=== PATIENT | male | born 1950 | race Hispanic/Latino ===

== ENCOUNTER 2017-06-07 09:08 | Emergency (ER) | payer MEDICARE, MEDICAID ==
[2017-06-07 09:14] VITALS: BMI 29.7
[2017-06-07 09:21] VITALS: BP 130/74; PULSE 89; TEMP 98.2
--- NOTE | 2017-06-07 10:23 | ED PDOC ---
Arrival/HPI - General Chief Complaint: ENT Problem Time Seen by Provider: 06/07/17 09:29 Historian: Patient - History of Present Illness Narrative History of Present Illness (Text): 06/07/17 10:34 67-year-old male presents today with decreased hearing. Patient states he woke up this morning and was unable to hear out of both ears. Patient states he has a prior history of cerumen impaction. He denies headache dizziness weakness. Denies chest pain or shortness of breath. Patient denies pain in the ears. Denies fevers or chills. No other complaints Time/Duration: Prior to Arrival Past Medical History - Provider Review Nursing Documentation Reviewed: Yes - Travel History Have you recently traveled outside [place] w/in the past 3 mons?: No - Past History Past History: Non-Contributing - Infectious Disease Hx of Infectious Diseases: None - Tetanus Immunization Tetanus Immunization: Unknown - Past Medical History Past Medical History: Unable to Obtain - Cardiac Hx Cardiac Disorders: Yes Hx Hypertension: No Hx Pacemaker: No Hx Peripheral Edema: Yes - Pulmonary Hx Chronic Obstructive Pulmonary Disease (COPD): Yes Hx Pneumonia: Yes - Neurological Hx Seizures: No - HEENT Hx HEENT Disorder: Yes Hx Cataracts: Yes (right eye sx, left eye no sx) - Renal Hx Renal Disorder: No - Endocrine/Metabolic Hx Endocrine Disorders: No - Hematological/Oncological Hx Anemia: Yes Hx Blood Transfusions: Yes (IN PAST) Hx Blood Transfusion Reaction: No - Integumentary Hx Dermatological Disorder: Yes (hx pressure ulcers) - Musculoskeletal/Rheumatological Hx Fractures: Yes (left wrist) Hx Osteoporosis: Yes - Gastrointestinal Hx Gastrointestinal Ulcer: Yes - Genitourinary/Gynecological Hx Sexually Transmitted Diseases: No - Psychiatric Hx Anxiety: Yes Hx Depression: Yes Hx Substance Use: Yes (IVDA, METHODONE, NONE AT PRESENT) - Past Surgical History Past Surgical History: Unable to Obtain - Surgical History Hx Coronary Artery Bypass Graft: No Other/Comment: Gastrectomy. Hernia - Anesthesia Hx Anesthesia: Yes Hx Anesthesia Reactions: No Hx Malignant Hyperthermia: No - Suicidal Assessment Feels Threatened In Home Enviroment: No Family/Social History - Physician Review Nursing Documentation Reviewed: Yes Family/Social History: Unknown Family HX Smoking Status: Heavy Smoker > 10 Cigarettes Daily Hx Alcohol Use: Yes (ETOH ABUSE- ON AA.NOT HAD A DRINK FOR 31 YRS.) Hx Substance Use: Yes (IVDA, METHODONE, NONE AT PRESENT) Hx Substance Use Treatment: No Allergies/Home Meds Allergies/Adverse Reactions: Allergies aspirin Allergy (Verified 06/07/17 09:14) RASH Home Medications: Home Meds Medication Instructions Recorded Confirmed Alprazolam [Xanax] 0.5 mg PO BID 08/27/16 06/07/17 Zolpidem [Ambien] 10 mg PO HS 08/27/16 06/07/17 Review of Systems - Review of Systems Constitutional: absent: Fatigue, Fevers ENT: Hearing Changes. absent: Sore Throat, Sinus Congestion Respiratory: absent: SOB, Cough Cardiovascular: absent: Chest Pain, Palpitations Gastrointestinal: absent: Abdominal Pain, Nausea, Vomiting Genitourinary Male: absent: Dysuria Musculoskeletal: absent: Arthralgias Skin: absent: Rash, Pruritis Neurological: absent: Headache, Dizziness Psychiatric: absent: Anxiety, Depression Physical Exam Vital Signs Reviewed: Yes Vital Signs Temp Pulse Resp BP Pulse Ox 06/07/17 10:33 16 98 06/07/17 09:18 98.2 F 89 19 130/74 95 Temperature: Afebrile Blood Pressure: Normal Pulse: Regular Respiratory Rate: Normal Appearance: Positive for: Well-Appearing, Non-Toxic, Comfortable Pain Distress: None Mental Status: Positive for: Alert and Oriented X 3 - Systems Exam Head: Present: Atraumatic Ears: Present: Other (no mastoid tenderness or erythema). No: Normal Canal (b/ l cerumen impactions, ) Mouth: Present: Moist Mucous Membranes Neck: Present: Normal Range of Motion Respiratory/Chest: Present: Clear to Auscultation Cardiovascular: Present: Regular Rate and Rhythm Neurological: Present: GCS=15 Skin: Present: Warm, Dry Psychiatric: Present: Alert, Oriented x 3 Medical Decision Making ED Course and Treatment: 06/07/17 10:43 67-year-old male presents with bilateral cerumen impaction Procedure note: Bilateral ears Using 18-gauge Angiocath and 20 mL syringe the ears were irrigated. Large amount of cerumen was removed from both ears. Hearing restored. TMs without erythema edema or perforation. Patient tolerated procedure well. No complications advised f/u with PMD and ENT specialist. Impression; cerumen impaction f/u with ENT specialist f/u with PMD return if symptoms worsen persist or if new symptoms develop. Disposition/Present on Arrival - Present on Arrival Any Indicators Present on Arrival: No History of DVT/PE: No History of Uncontrolled Diabetes: No Urinary Catheter: No History of Decub. Ulcer: No History Surgical Site Infection Following: None - Disposition Have Diagnosis and Disposition been Completed?: Yes Diagnosis: Cerumen impaction Disposition: HOME/ ROUTINE Disposition Time: 10:07 Patient Plan: Discharge Condition: GOOD Discharge Instructions (ExitCare): Cerumen Impaction (ED) Additional Instructions: Follow-up with primary care physician within the next 2 days Follow up with the ENT specialist within the next 2 days Return if symptoms worsen persist or if new concerning symptoms develop Referrals: PCP,NO [Non-Staff] - Follow up with primary Fer Beach DO [Staff Provider] - Follow up with primary Forms: [employer] (Lithuanian)
[2017-06-07 10:34] VITALS: RESP 16; O2SAT 98
== END 2017-06-07 10:34 | disposition home or self-care (01) ==
LOC: ED 09:08
DX: H61.23 Impacted cerumen, bilateral (principal)

== ENCOUNTER 2017-06-20 12:47 | Emergency (ER) | payer MEDICARE, MEDICAID ==
[2017-06-20] MEDS ORDERED: Sodium Chloride 0.9% 500 ML IV STA (13:05)
[2017-06-20 13:08] VITALS: RESP 18; TEMP 98.4; BMI 17.9
--- NOTE | 2017-06-20 13:11 | ED PDOC ---
Arrival/HPI - General Time Seen by Provider: 06/20/17 12:53 Historian: Patient - History of Present Illness Narrative History of Present Illness (Text): 06/20/17 13:00 A 67 year old male, whose past medical history includes neuropathy and opioid abuse, was brought in by EMS because they found him sleeping at the [facility] pharmacy. They thought he was confused. Patient states has not been sleeping well and currently suffers from insomnia. Also, he mentions he went to [facility] urgent clinic for evaluation and they gave him his medications of Ambian and Xanax. Patient has not taken too many pills since refill. Patient notes experiencing fatigue, but denies of an injuries, cough, fever, or any other complaints. Patient states he is eating and drinking normally. No PMD Time/Duration: Prior to Arrival Symptom Onset: Sudden Context: Other ([facility]) Past Medical History - Provider Review Nursing Documentation Reviewed: Yes - Past History Past History: Non-Contributing - Infectious Disease Hx of Infectious Diseases: None - Tetanus Immunization Tetanus Immunization: Unknown - Past Medical History Past Medical History: Unable to Obtain - Cardiac Hx Cardiac Disorders: Yes Hx Hypertension: No Hx Pacemaker: No Hx Peripheral Edema: Yes - Pulmonary Hx Chronic Obstructive Pulmonary Disease (COPD): Yes Hx Pneumonia: Yes - Neurological Hx Seizures: No - HEENT Hx HEENT Disorder: Yes Hx Cataracts: Yes (right eye sx, left eye no sx) - Renal Hx Renal Disorder: No - Endocrine/Metabolic Hx Endocrine Disorders: No - Hematological/Oncological Hx Anemia: Yes Hx Blood Transfusions: Yes (IN PAST) Hx Blood Transfusion Reaction: No - Integumentary Hx Dermatological Disorder: Yes (hx pressure ulcers) - Musculoskeletal/Rheumatological Hx Fractures: Yes (left wrist) Hx Osteoporosis: Yes - Gastrointestinal Hx Gastrointestinal Ulcer: Yes - Genitourinary/Gynecological Hx Sexually Transmitted Diseases: No - Psychiatric Hx Anxiety: Yes Hx Depression: Yes Hx Substance Use: Yes (IVDA, METHODONE, NONE AT PRESENT) - Past Surgical History Past Surgical History: Unable to Obtain - Surgical History Hx Coronary Artery Bypass Graft: No Other/Comment: Gastrectomy. Hernia - Anesthesia Hx Anesthesia: Yes Hx Anesthesia Reactions: No Hx Malignant Hyperthermia: No - Suicidal Assessment Feels Threatened In Home Enviroment: No Family/Social History - Physician Review Nursing Documentation Reviewed: Yes Family/Social History: No Known Family HX Smoking Status: Heavy Smoker > 10 Cigarettes Daily Hx Alcohol Use: Yes (ETOH ABUSE- ON AA.NOT HAD A DRINK FOR 31 YRS.) Hx Substance Use: Yes (IVDA, METHODONE, NONE AT PRESENT) Hx Substance Use Treatment: No Allergies/Home Meds Allergies/Adverse Reactions: Allergies aspirin Allergy (Verified 06/07/17 09:14) RASH Home Medications: Home Meds Medication Instructions Recorded Confirmed Alprazolam [Xanax] 1 mg PO TID 08/27/16 06/20/17 Zolpidem [Ambien] 10 mg PO HS PRN 08/27/16 06/20/17 DiphenhydrAMINE [Benadryl] 25 mg PO TID 06/20/17 06/20/17 Gabapentin [Neurontin] 400 mg PO QID 06/20/17 06/20/17 Review of Systems - Physician Review All systems were reviewed & negative as marked: Yes - Review of Systems Constitutional: Fatigue. absent: Fevers, Other (no injuries) Respiratory: absent: SOB, Cough Cardiovascular: absent: Chest Pain Gastrointestinal: absent: Food Intolerance Neurological: absent: Headache, Dizziness, Focal Weakness, Gait Changes, Speech Changes, Facial Droop, Disequilibrium, Seizure Physical Exam Vital Signs Reviewed: Yes Vital Signs Temp Pulse Resp BP Pulse Ox 06/20/17 16:05 74 18 121/80 95 06/20/17 13:07 98.4 F 77 18 95/61 L 97 Temperature: Afebrile Blood Pressure: Normal Pulse: Regular Respiratory Rate: Normal Appearance: Positive for: Well-Appearing, Other (Drowsy) Mental Status: Positive for: Alert and Oriented X 3 - Systems Exam Head: Present: Atraumatic, Normocephalic Pupils: Present: PERRL Extroacular Muscles: Present: EOMI Conjunctiva: Present: Normal Mouth: Present: Moist Mucous Membranes Neck: Present: Normal Range of Motion Respiratory/Chest: Present: Clear to Auscultation, Good Air Exchange. No: Respiratory Distress, Accessory Muscle Use Cardiovascular: Present: Regular Rate and Rhythm, Normal S1, S2. No: Murmurs Abdomen: Present: Normal Bowel Sounds. No: Tenderness, Distention, Peritoneal Signs Back: Present: Normal Inspection Upper Extremity: Present: Normal Inspection. No: Cyanosis, Edema Lower Extremity: Present: Normal Inspection. No: Edema Neurological: Present: GCS=15, CN II-XII Intact, Speech Normal, Motor Func Grossly Intact, Normal Sensory Function, Normal Cerebellar Funct, Norm Deep Tendon Reflexes, Gait Normal, Memory Normal, Normal 2Pt Descrimination Skin: Present: Warm, Dry, Normal Color. No: Rashes Psychiatric: Present: Alert, Oriented x 3, Normal Insight, Normal Concentration Medical Decision Making ED Course and Treatment: 06/20/17 13:08 Impression: 67 year old male presents to the ED via EMS because he was found sleeping at a [facility]. Physical exam shows patient is drowsy, alert x 3. Normal neuro exam. Differential Diagnosis included but are not limited to: Medication Interaction vs Drug Induced vs Electrolyte Abnormality Plan: -- EKG -- Head CT -- Chest X-ray -- Labs -- IV Fluids -- Urinalysis -- Reassess and disposition Prior Visits: Notes and results from previous visits were reviewed. Patient was last seen in the emergency department on 06/07/2017 for decreased hearing. Patient was discharged home. Progress Notes: EKG: Ordered, reviewed, and independently interpreted the EKG. Rate : 72 BPM Rhythm : NSR Interpretation : No ST-segment elevations or depressions, no T-wave inversions, normal intervals. Comparison : No previous EKG for comparison. 06/20/2017 13:45 Chest X-ray IMPRESSION: No active pulmonary disease. COPD. Dictator : Latasha Leslie MD 06/20/2017 14:[address] IMPRESSION: No acute findings Dictator : Hussein Quinones MD 06/20/17 17:20 Patient's AAOx3. No slurred speech. He is stating maybe the Xanax made him sleepy. He will take half the dosage in the future. He is feeling better after getting some rest. He will follow up with a PMD as an outpatient. Referred him to Dr. Lafleur since he doesn't have a doctor. - Lab Interpretations Lab Results: 06/20/17 13:15 06/20/17 13:15 Lab Results 06/20/17 14:30: Urine Opiates Screen Negative, Urine Methadone Screen Negative, Ur Barbiturates Screen Negative, Ur Phencyclidine Scrn Negative, Ur Amphetamines Screen Negative, U Benzodiazepines Scrn Negative, U Oth Cocaine Metabols Negative, U Cannabinoids Screen Negative 06/20/17 14:30: Urine Color Yellow, Urine Appearance Clear, Urine pH 7.5, Ur Specific [place] 1.010, Urine Protein Negative, Urine Glucose (UA) Negative, Urine Ketones Negative, Urine Blood Negative, Urine Nitrate Negative, Urine Bilirubin Negative, Urine Urobilinogen 0.2, Ur Leukocyte Esterase Negative 06/20/17 13:15: Alcohol, Quantitative < 10 06/20/17 13:15: Salicylates < 1 L, Acetaminophen < 10.0 L 06/20/17 13:15: Sodium 141, Potassium 4.2, Chloride 104, Carbon Dioxide 27, Anion Gap 14, BUN 17, Creatinine 0.8, Est GFR ( Amer) > 60, Est GFR (Non- Af Amer) > 60, Random Glucose 70, Calcium 8.8, Total Bilirubin 0.4, AST 34, ALT 28, Alkaline Phosphatase 58, Total Protein 6.5, Albumin 3.5, Globulin 3.1, Albumin/Globulin Ratio 1.1 06/20/17 13:15: WBC 5.7 D, RBC 3.88, Hgb 11.2 L, Hct 34.1 L, MCV 87.9, MCH 28.9 , MCHC 32.8, RDW 16.0 H, Plt Count 268, MPV 8.3, Gran % 59.5, Lymph % (Auto) 25.3, [place] % (Auto) 10.3 H, Eos % (Auto) 3.7, Baso % (Auto) 1.2, Gran # 3.42, Lymph # 1.5, [place] # 0.6, Eos # 0.2, Baso # 0.07 06/20/17 13:02: POC Glucose (mg/dL) 74 I have reviewed the lab results: Yes Interpretation: All labs normal - RAD Interpretation Radiology Orders: 06/20/17 13:06 CHEST PORTABLE [RAD] Stat 06/20/17 13:35 Brain [HEAD W/O CONTRAST] [CT] Stat Mail Processing Machine Operator: Radiologist - Medication Orders Current Medication Orders: Discontinued Medications Sodium Chloride (Sodium Chloride 0.9%) 500 mls @ 1,000 mls/hr IV .Q30M STA Stop: 06/20/17 13:34 Last Admin: 06/20/17 14:16 Dose: 1,000 mls/hr - Scribe Statement The provider has reviewed the documentation as recorded by the Scribe Homa Ashford Provider Feribe Attestation: All medical record entries made by the Feribseven were at my direction and personally dictated by me. I have reviewed the chart and agree that the record accurately reflects my personal performance of the history, physical exam, medical decision making, and the department course for this patient. I have also personally directed, reviewed, and agree with the discharge instructions and disposition. Disposition/Present on Arrival - Present on Arrival Any Indicators Present on Arrival: No History of DVT/PE: No History of Uncontrolled Diabetes: No Urinary Catheter: No History Surgical Site Infection Following: None - Disposition Have Diagnosis and Disposition been Completed?: Yes Diagnosis: Weakness, Tiredness Disposition: HOME/ ROUTINE Disposition Time: 17:22 Patient Plan: Discharge Patient Problems: Current Active Problems Problem Status Onset Weakness Acute Tiredness Acute Condition: IMPROVED Discharge Instructions (ExitCare): Weakness (ED), Altered Mental Status (ED) Additional Instructions: Mr Cruz, thank you for letting us take care of you today. Your provider was Dr. Erickson. You were treated for Tiredness and Weakness. The emergency medical care you received today was directed at your acute symptoms. If you were prescribed any medication, please fill it and take as directed. It may take several days for your symptoms to resolve. Return to the Emergency Department if your symptoms worsen, do not improve, or if you have any other problems. Please contact your doctor or call one of the physicians/clinics you have been referred to that are listed on the Patient Visit Information form that is included in your discharge packet. Bring any paperwork you were given at discharge with you along with any medications you are taking to your follow up visit. Our treatment cannot replace ongoing medical care by a primary care provider (PCP) outside of the emergency department. Thank you for allowing the [facility] team to be part of your care today. If you had an X-Ray or CT scan: A Radiologist will review the ED reading if any change in treatment is needed we will contact you. If you had a blood, urine, or wound culture: It will take several days for the results, if any change in treatment is needed we will contact you. If you had an STI test: It will take 48 hours for the results. Please call after 1 week if you have not heard back. Referrals: Jose Lafleur MD [Staff Provider] - Follow up with primary Forms: [employer] (Zimbabwean)
[2017-06-20 13:32] LABS: BASO # 0.07 K/mm3 (0.0-2.0); BASO % 1.2 % (0.0-3.0); EOS # 0.2 (0.0-0.7); EOS % 3.7 % (1.5-5.0); GRAN # 3.42 (1.4-6.5); GRAN % 59.5 % (50.0-68.0); HEMATOCRIT 34.1 % (42.0-52.0); LYMPH # 1.5 (1.2-3.4); LYMPH % 25.3 % (22.0-35.0); MEAN CELL VOLUME 87.9 fl (80.0-105.0); MEAN CORPUSCULAR HEMOGLOBIN 28.9 pg (25.0-35.0); MEAN CORPUSCULAR HGB CONC 32.8 g/dl (31.0-37.0); MEAN PLATELET VOLUME 8.3 fl (7.0-11.0); MONO # 0.6 (0.1-0.6); MONO % 10.3 % (1.0-6.0); WHITE BLOOD COUNT 5.7 10^3/ul (4.5-11.0)
[2017-06-20 13:40] LABS: ALB/GLOB RATIO 1.1 (1.1-1.8); ALKALINE PHOSPHATASE 58 U/L (38-133); ALT/SGPT 28 U/L (7-56); AST/SGOT 34 U/L (15-59); BILIRUBIN,TOTAL 0.4 mg/dL (0.2-1.3); BLOOD UREA NITROGEN 17 mg/dL (7-21); CALCIUM 8.8 mg/dL (8.4-10.5); CARBON DIOXIDE 27 mmol/L (21-33); CHLORIDE 104 mmol/L (98-107); GFR AFRICAN-AMERICAN > 60; GLUCOSE,RANDOM 70 mg/dL (70-110); POTASSIUM 4.2 mmol/L (3.6-5.0); SODIUM 141 mmol/L (132-148); TOTAL PROTEIN 6.5 g/dL (5.8-8.3)
--- NOTE | 2017-06-20 13:46 | RAD ---
HISTORY: Altered mental status COMPARISON: 08/03/2016 FINDINGS: LUNGS: The lungs are hyperinflated and there is peribronchial thickening with chronic changes in both lungs. No focal consolidation. PLEURA: No significant pleural effusion identified, no pneumothorax apparent. CARDIOVASCULAR: Normal. OSSEOUS STRUCTURES: No significant abnormalities. VISUALIZED UPPER ABDOMEN: Normal. OTHER FINDINGS: There are small surgical clips in the epigastrium. IMPRESSION: No active pulmonary disease. COPD.
--- NOTE | 2017-06-20 14:05 | CT ---
PROCEDURE: CT HEAD WITHOUT CONTRAST. HISTORY: AMS COMPARISON: 08/03/2016 TECHNIQUE: Axial computed tomography images were obtained through the head/brain without intravenous contrast. Radiation dose: Total exam DLP = 801 mGy-cm. This CT exam was performed using one or more of the following dose reduction techniques: Automated exposure control, adjustment of the mA and/or kV according to patient size, and/or use of iterative reconstruction technique. FINDINGS: HEMORRHAGE: No intracranial hemorrhage. BRAIN: No mass effect or edema. Mild chronic microvascular changes and mild atrophy VENTRICLES: Unremarkable. No hydrocephalus. CALVARIUM: Unremarkable. PARANASAL SINUSES: Unremarkable as visualized. No significant inflammatory changes. MASTOID AIR CELLS: Unremarkable as visualized. No inflammatory changes. OTHER FINDINGS: None. IMPRESSION: No acute findings
[2017-06-20 14:37] LABS: PH,URINE 7.5 (4.7-8.0); URINE BILIRUBIN NEGATIVE (NEGATIVE); URINE BLOOD NEGATIVE (NEGATIVE); URINE GLUCOSE (UA) NEGATIVE (NEGATIVE); URINE KETONE NEGATIVE (NEGATIVE); URINE LEUKOCYTE ESTERASE NEGATIVE Leu/uL (NEGATIVE); URINE PROTEIN NEGATIVE mg/dL (<30 mg/dL); URINE UROBILINOGEN 0.2 E.U./dL (<1 E.U./dL)
[2017-06-20 14:39] LABS: URINE APPEARANCE CLEAR (CLEAR); URINE COLOR YELLOW (YELLOW)
[2017-06-20 16:06] VITALS: BP 121/80; PULSE 74; O2SAT 95
--- NOTE | 2017-06-20 18:53 | CARD ---
APPROVED REPORT EKG Measurement Heart [id number] <Conclusion> Sinus rhythm with blocked premature atrial complexes Otherwise normal ECG
== END 2017-06-20 18:20 | disposition home or self-care (01) ==
LOC: ED 12:47
DX: R53.1 Weakness (principal); R53.83 Other fatigue; F41.9 Anxiety disorder, unspecified; G62.9 Polyneuropathy, unspecified; F11.10 Opioid abuse, uncomplicated
CPT/HCPCS: 70450; 71010; 80053; 81003; 82948; 85025; 93005; 96360; 99285; G0480; J7040

== ENCOUNTER 2017-11-18 12:22 | Emergency (ER) | payer MEDICARE, MEDICAID ==
[2017-11-18 12:23] VITALS: BMI 18.0
[2017-11-18] MEDS ORDERED: Oxycodone/Acetaminophen 5/325 mg Tab PO STA (13:18)
--- NOTE | 2017-11-18 14:44 | ED PDOC ---
Arrival/HPI - General Chief Complaint: Med Refill Time Seen by Provider: 11/18/17 13:07 Historian: Patient - History of Present Illness Narrative History of Present Illness (Text): 11/18/17 13:18 67 year old male, with past medical history of leg neuropathy, presents to the emergency department complaining of bilateral leg discomfort for past two weeks. Patient informs pain is greater on right side than left. Patient describes discomfort as typical pain of neuropathy. Patient informs he ran out of Tylenol 4 two days ago and is requesting for refill. Patient denies any back pain, numbness, weakness, fever, chills, nausea, vomiting, abdominal pain, chest pain, shortness of breath or any other complaints. PMD: Dr. Gresham Time/Duration: > week Symptom Course: Unchanged Quality: Aching Activities at Onset: Light Context: Home Past Medical History - Provider Review Nursing Documentation Reviewed: Yes - Past History Past History: Non-Contributing - Infectious Disease Hx of Infectious Diseases: None - Tetanus Immunization Tetanus Immunization: Unknown - Past Medical History Past Medical History: Unable to Obtain - Cardiac Hx Peripheral Edema: Yes - Pulmonary Hx Chronic Obstructive Pulmonary Disease (COPD): Yes Hx Pneumonia: Yes - Neurological Hx Seizures: No - HEENT Hx HEENT Disorder: Yes Hx Cataracts: Yes (right eye sx, left eye no sx) - Renal Hx Renal Disorder: No - Endocrine/Metabolic Hx Endocrine Disorders: No - Hematological/Oncological Hx Anemia: Yes - Integumentary Hx Dermatological Disorder: Yes (hx pressure ulcers) - Musculoskeletal/Rheumatological Hx Fractures: Yes (left wrist) Hx Osteoporosis: Yes - Gastrointestinal Hx Gastrointestinal Ulcer: Yes - Genitourinary/Gynecological Hx Sexually Transmitted Diseases: No - Psychiatric Hx Anxiety: Yes Hx Depression: Yes Hx Substance Use: Yes (IVDA, METHODONE, NONE AT PRESENT) - Past Surgical History Past Surgical History: Unable to Obtain - Surgical History Hx Coronary Artery Bypass Graft: No - Anesthesia Hx Anesthesia: Yes Hx Anesthesia Reactions: No Hx Malignant Hyperthermia: No - Suicidal Assessment Feels Threatened In Home Enviroment: No Family/Social History - Physician Review Nursing Documentation Reviewed: Yes Family/Social History: No Known Family HX Smoking Status: Heavy Smoker > 10 Cigarettes Daily Hx Alcohol Use: Yes (ETOH ABUSE- ON AA.NOT HAD A DRINK FOR 31 YRS.) Hx Substance Use: Yes (IVDA, METHODONE, NONE AT PRESENT) Hx Substance Use Treatment: No Allergies/Home Meds Allergies/Adverse Reactions: Allergies aspirin Allergy (Verified 11/18/17 13:00) RASH Review of Systems - Review of Systems Constitutional: absent: Fevers Respiratory: absent: SOB Cardiovascular: absent: Chest Pain Gastrointestinal: absent: Abdominal Pain, Diarrhea, Nausea, Vomiting Genitourinary Male: absent: Dysuria, Frequency Musculoskeletal: Other (bilateral leg discomfort ). absent: Back Pain Skin: absent: Rash Neurological: absent: Headache, Focal Weakness Endocrine: absent: Diaphoresis Hemo/Lymphatic: absent: Easy Bleeding Physical Exam - Physical Exam Narrative Physical Exam (Text): 11/18/17 14:45 Head: Atraumatic. Normocephalic. Eyes: PERRL. EOMI. Conjunctivae are not pale. ENT: Mucous membranes are moist and intact. Oropharynx is clear and symmetric. Neck: Supple. Full ROM. No JVD. No lymphadenopathy. Cardiovascular: Regular rate. Regular rhythm. No murmurs, rubs, or gallops. Distal pulses are 2+ and symmetric. Pulses equal in both lower extremities. Pulmonary/Chest: No evidence of respiratory distress. Clear to auscultation bilaterally. No wheezing, rales or rhonchi. Abdominal: Soft and non-distended. There is no tenderness. No rebound, guarding, or rigidity. Back: No CVA tenderness. Extremities: Bilateral symmetric nonpitting edema with no erythema or edema. Motor and sensory exam intact. No pain with ambulation or ROM. No inguinal masses. Skin: Skin is warm and dry. No petechiae. No purpura. Neurological: Alert, awake. Motor and sensory exam intact. No meningeal signs. No saddle anesthesia. Psychiatric: Good eye contact. Normal interaction, affect, and behavior. Vital Signs Reviewed: Yes Vital Signs Temp Pulse Resp BP Pulse Ox 11/18/17 16:23 98 F 75 19 128/65 100 11/18/17 12:56 98.3 F 84 18 151/88 H 99 Temperature: Afebrile Pulse: Regular Respiratory Rate: Normal Appearance: Positive for: Well-Appearing, Non-Toxic, Comfortable Pain Distress: None Mental Status: Positive for: Alert and Oriented X 3 Medical Decision Making ED Course and Treatment: 11/18/17 13:18 Impression: 67 year old male presents to the emergency department for bilateral leg discomfort. Plan: -- oxycodone -- US lower extremity -- Reassess and disposition Progress Notes: Pain improved after oral dose of pain medication. Patient is nv intact with strong distal pulses. Patient denies chest pain or shortness of breath or abdominal pain. Pain described as chronic and denies change in character or location. He states he has follow-up appointment with pain management Dr. Branch. Patient on re-evaluation is noted to be ambulatory comfortable. Risks/side effects of medication reviewed. [place] [employer] reviewed. Patient will be discharged with 4 pill prescription for tramadol, risks and side effects reviewed. 11/18/17 17:28 - RAD Interpretation Radiology Orders: 11/18/17 13:16 DUPLEX LOWER EXTRM VEIN BILAT [US] Stat - Medication Orders Current Medication Orders: Discontinued Medications Oxycodone/Acetaminophen (Percocet 5/325 Mg Tab) 1 tab PO STAT STA Stop: 11/18/17 13:19 Last Admin: 11/18/17 13:28 Dose: 1 tab MAR Pain Assessment Document 11/18/17 13:28 GMI (Rec: 11/18/17 13:30 GMI [facility] [id number]) Pain Reassessment Is this a pain reassessment? Yes Sleep Is patient sleeping during reassessment? No Presence of Pain Presence of Pain Yes Pain Scale Used Pain Scale Used Numeric Location Upper or Lower Lower Pain Location Body Site Leg Description Description Constant Intensity of Pain at present 8 Pain Behavior Facial Grimacing Aggravating Factors Standing Walking Alleviating Factors/Management Distraction Techniques Alleviating Factors Medication - Scribe Statement The provider has reviewed the documentation as recorded by the Ferib[employer] Kay. All medical record entries made by the Scribe were at my direction and personally dictated by me. I have reviewed the chart and agree that the record accurately reflects my personal performance of the history, physical exam, medical decision making, and the department course for this patient. I have also personally directed, reviewed, and agree with the discharge instructions and disposition. Disposition/Present on Arrival - Present on Arrival Any Indicators Present on Arrival: No History of DVT/PE: No History of Uncontrolled Diabetes: No Urinary Catheter: No History of Decub. Ulcer: No History Surgical Site Infection Following: None - Disposition Have Diagnosis and Disposition been Completed?: Yes Diagnosis: Neuropathy Disposition: HOME/ ROUTINE Disposition Time: 17:00 Patient Plan: Discharge Patient Problems: Current Active Problems Problem Status Onset Neuropathy Chronic Condition: GOOD Discharge Instructions (ExitCare): Peripheral Neuropathy (ED), Leg Pain (ED) Additional Instructions: For any fever, any chest pain or shortness of breath, any abdominal pain, any fevers or chills, any nausea or vomiting, any numbness or weakness or unsteadiness, any persistent or worsening of symptoms, get rechecked. Follow-up with your physician as directed. Follow-up with pain management as directed. Only take pain medication DIRECTED. If you do not take medication appropriately there are significant risks which we have reviewed. Do not drive or operate heavy machinery while taking pain medication. Prescriptions: traMADol [Ultram] 50 mg PO BID PRN #4 tab PRN Reason: Pain, Severe (8-10) Referrals: Moy Branch MD [Staff Provider] - Follow up with primary Jose Gresham MD [Primary Care Provider] - Follow up with primary Forms: [employer] (Ukrainian)
[2017-11-18 17:23] VITALS: BP 128/65; PULSE 75; RESP 19; TEMP 98; O2SAT 100
--- NOTE | 2017-11-20 08:50 | US ---
HISTORY: Leg pain and swelling. Evaluate for DVT PHYSICIAN(S): Fran Junior MD. TECHNIQUE: Duplex sonography and color-flow Doppler with graded compression were used to evaluate the deep venous systems of both lower extremities. FINDINGS: The visualized deep venous systems of both lower extremities are sonographically normal and compressible. Normal wave forms and augmentation are seen. There is no sonographic evidence for deep venous thrombosis in the visualized segments of both lower extremities. IMPRESSION: No sonographic evidence for deep venous thrombosis in the visualized segments of both lower extremities.
== END 2017-11-18 17:25 | disposition home or self-care (01) ==
LOC: ED 12:22
DX: G62.9 Polyneuropathy, unspecified (principal); R60.0 Localized edema

== ENCOUNTER 2018-02-13 18:55 | Emergency (ER) | payer MEDICARE, MEDICAID ==
[2018-02-13 19:07] VITALS: BMI 17.4
[2018-02-13 19:32] VITALS: TEMP 99.9
--- NOTE | 2018-02-13 19:36 | ED PDOC ---
Arrival/HPI - General Time Seen by Provider: 02/13/18 19:22 - History of Present Illness Narrative History of Present Illness (Text): 02/13/18 19:32 pt present for pain medication for his neuropathy , denies any trauma or fever or chills , no swelling or sob or chest pain Past Medical History - Provider Review Nursing Documentation Reviewed: Yes - Travel History Have you recently traveled outside [place] w/in the past 3 mons?: No - Past History Past History: Non-Contributing - Infectious Disease Hx of Infectious Diseases: None - Tetanus Immunization Tetanus Immunization: Unknown - Past Medical History Past Medical History: Unable to Obtain - Cardiac Hx Peripheral Edema: Yes - Pulmonary Hx Chronic Obstructive Pulmonary Disease (COPD): Yes Hx Pneumonia: Yes - Neurological Hx Seizures: No - HEENT Hx HEENT Disorder: Yes Hx Cataracts: Yes (right eye sx, left eye no sx) - Renal Hx Renal Disorder: No - Endocrine/Metabolic Hx Endocrine Disorders: No - Hematological/Oncological Hx Anemia: Yes - Integumentary Hx Dermatological Disorder: Yes (hx pressure ulcers) - Musculoskeletal/Rheumatological Hx Fractures: Yes (left wrist) Hx Osteoporosis: Yes - Gastrointestinal Hx Gastrointestinal Ulcer: Yes - Genitourinary/Gynecological Hx Sexually Transmitted Diseases: No - Psychiatric Hx Anxiety: Yes Hx Depression: Yes Hx Substance Use: Yes (IVDA, METHODONE, NONE AT PRESENT) - Past Surgical History Past Surgical History: Unable to Obtain - Surgical History Hx Coronary Artery Bypass Graft: No - Anesthesia Hx Anesthesia: Yes Hx Anesthesia Reactions: No Hx Malignant Hyperthermia: No - Suicidal Assessment Feels Threatened In Home Enviroment: No Family/Social History - Physician Review Nursing Documentation Reviewed: Yes Family/Social History: Other (neuropathy) Smoking Status: Heavy Smoker > 10 Cigarettes Daily Hx Alcohol Use: Yes (ETOH ABUSE- ON AA.NOT HAD A DRINK FOR 31 YRS.) Hx Substance Use: Yes (IVDA, METHODONE, NONE AT PRESENT) Hx Substance Use Treatment: No Allergies/Home Meds Allergies/Adverse Reactions: Allergies aspirin Allergy (Verified 11/18/17 13:00) RASH Review of Systems - Review of Systems Constitutional: Normal Eyes: Normal ENT: Normal Respiratory: Normal Cardiovascular: Normal Gastrointestinal: Normal Genitourinary Male: Normal Musculoskeletal: Normal Skin: Normal Neurological: Other (leg pain) Endocrine: Normal Hemo/Lymphatic: Normal Psychiatric: Normal Physical Exam Vital Signs Reviewed: Yes Vital Signs Temp Pulse Resp BP Pulse Ox 02/13/18 19:31 99.9 F H 115 H 19 136/79 94 L Temperature: Afebrile Blood Pressure: Normal Pulse: Regular Respiratory Rate: Normal Appearance: Positive for: Well-Appearing, Non-Toxic, Comfortable Pain Distress: None Mental Status: Positive for: Alert and Oriented X 3 - Systems Exam Head: Present: Atraumatic, Normocephalic Pupils: Present: PERRL Extroacular Muscles: Present: EOMI Conjunctiva: Present: Normal Mouth: Present: Moist Mucous Membranes Neck: Present: Normal Range of Motion Respiratory/Chest: Present: Clear to Auscultation, Good Air Exchange. No: Respiratory Distress, Accessory Muscle Use Cardiovascular: Present: Regular Rate and Rhythm, Normal S1, S2. No: Murmurs Abdomen: No: Tenderness, Distention, Peritoneal Signs Back: Present: Normal Inspection Upper Extremity: Present: Normal Inspection. No: Cyanosis, Edema Lower Extremity: Present: Normal Inspection. No: Edema Neurological: Present: GCS=15, CN II-XII Intact, Speech Normal Skin: Present: Warm, Dry, Normal Color. No: Rashes Psychiatric: Present: Alert, Oriented x 3, Normal Insight, Normal Concentration Disposition/Present on Arrival - Present on Arrival Any Indicators Present on Arrival: No History of DVT/PE: No History of Uncontrolled Diabetes: No Urinary Catheter: No History Surgical Site Infection Following: None - Disposition Have Diagnosis and Disposition been Completed?: Yes Diagnosis: Peripheral neuropathy Disposition: HOME/ ROUTINE Disposition Time: 19:37 Condition: GOOD Discharge Instructions (ExitCare): Peripheral Neuropathy (DC) Prescriptions: Pregabalin [Lyrica] 50 mg PO TID #21 cap
[2018-02-13 23:54] VITALS: BP 132/78; PULSE 103; RESP 18; O2SAT 100
== END 2018-02-13 20:15 | disposition home or self-care (01) ==
LOC: ED 18:55
DX: G62.9 Polyneuropathy, unspecified (principal)
CPT/HCPCS: 96372; 99284; J1885

== ENCOUNTER 2018-02-25 13:01 | Emergency (ER) | payer MEDICARE, MEDICAID ==
--- NOTE | 2018-02-25 13:35 | ED PDOC ---
Arrival/HPI - General Chief Complaint: Lower Extremity Problem/Injury Time Seen by Provider: 02/25/18 13:32 Historian: Patient - History of Present Illness Narrative History of Present Illness (Text): 02/25/18 13:32 pt p/w + worsening b/l lower ext swelling/pain; pt with prior dx of peripheral neuropathy/neuropathic pain and at home medications are not helping; pt states over the last week has noted worsening pain, and over the last 2-3 days the pain has been severe, rated at 10/10; pt states he also had tripped and fell last week and injured his left knee/right posterior thigh; pt did not seek medical attention at that time; pt was able to stand/walk post fall; pt denied head injury/LOC; pt states no fever/chills/sweats, no cp/sob/palpitations, no abd pain, no n/v, no new numbness/tingling, no new swelling, no urinary/bowel change, no other complaints pt has been instructed to ambulate with a cane, pt however only uses whenever he wants to as it trips him up pt is here for further eval. PCP: DR gresham/Dr Underwood? neuro: Dr Fajardo? pt lives alone in apt Time/Duration: Other (chronic leg pain, worsening pain over the last 3 days) Symptom Onset: Gradual Symptom Course: Worsening Quality: Tightness, Cramping Activities at Onset: Rest Context: Walking, Home Past Medical History - Provider Review Nursing Documentation Reviewed: Yes - Travel History Have you recently traveled outside [place] w/in the past 3 mons?: No - Past History Past History: Non-Contributing - Infectious Disease Hx of Infectious Diseases: None - Tetanus Immunization Tetanus Immunization: Unknown - Past Medical History Past Medical History: Unable to Obtain - Cardiac Hx Peripheral Edema: Yes - Pulmonary Hx Chronic Obstructive Pulmonary Disease (COPD): Yes Hx Pneumonia: Yes - Neurological Hx Seizures: No - HEENT Hx HEENT Disorder: Yes Hx Cataracts: Yes (right eye sx, left eye no sx) - Renal Hx Renal Disorder: No - Endocrine/Metabolic Hx Endocrine Disorders: No - Hematological/Oncological Hx Anemia: Yes - Integumentary Hx Dermatological Disorder: Yes (hx pressure ulcers) - Musculoskeletal/Rheumatological Hx Fractures: Yes (left wrist) Hx Osteoporosis: Yes - Gastrointestinal Hx Gastrointestinal Ulcer: Yes - Genitourinary/Gynecological Hx Sexually Transmitted Diseases: No - Psychiatric Hx Anxiety: Yes Hx Depression: Yes Hx Substance Use: Yes (IVDA, METHODONE, NONE AT PRESENT) - Past Surgical History Past Surgical History: Unable to Obtain - Surgical History Hx Coronary Artery Bypass Graft: No - Anesthesia Hx Anesthesia: Yes Hx Anesthesia Reactions: No Hx Malignant Hyperthermia: No - Suicidal Assessment Feels Threatened In Home Enviroment: No Family/Social History - Physician Review Nursing Documentation Reviewed: Yes Family/Social History: No Known Family HX Smoking Status: Heavy Smoker > 10 Cigarettes Daily Hx Alcohol Use: Yes (ETOH ABUSE- ON AA.NOT HAD A DRINK FOR 31 YRS.) Hx Substance Use: Yes (IVDA, METHODONE, NONE AT PRESENT) Hx Substance Use Treatment: No Allergies/Home Meds Allergies/Adverse Reactions: Allergies aspirin Allergy (Verified 02/25/18 13:35) RASH Review of Systems - Review of Systems Constitutional: Normal Eyes: Normal ENT: Normal Respiratory: Normal Cardiovascular: Normal Gastrointestinal: Normal Genitourinary Male: Normal Musculoskeletal: Other (b/l lower leg pain; swelling (chronic)) Skin: Normal Neurological: Normal Endocrine: Normal Hemo/Lymphatic: Normal Psychiatric: Normal Physical Exam Vital Signs Reviewed: Yes Vital Signs Temp Pulse Resp BP Pulse Ox 02/25/18 16:45 76 18 141/90 98 02/25/18 13:48 98.8 F 81 20 135/80 97 Temperature: Afebrile Blood Pressure: Normal Pulse: Regular Respiratory Rate: Normal Appearance: Positive for: Well-Appearing, Non-Toxic, Uncomfortable, Other ( resting in bed, uncomfortable, alert/awake, cooperative, mild distress due to pain; GCS = 15) Pain Distress: Mild Mental Status: Positive for: Alert and Oriented X 3 - Systems Exam Head: Present: Atraumatic, Normocephalic, Other (bi-temporal wasting) Pupils: Present: PERRL, Other (no nystagmus, wearing eye glasses, visual field intact b/l, no photophobia) Extroacular Muscles: Present: EOMI Conjunctiva: Present: Normal Ears: Present: Normal Mouth: Present: Other (fair dentitions, mild dry oral mucosa, no drooling/ stridor, no exudate/lesions, uvula/tongue are midline) Pharnyx: Present: Normal Nose (External): Present: Atraumatic Nose (Internal): Present: Normal Inspection Neck: Present: Normal Range of Motion, Trachea Midline, Other (intact ROM, no midline tenderness, no nuchal rigidity, no step off). No: Meningeal Signs, MIDLINE TENDERNESS, Paraspinal Tenderness Respiratory/Chest: Present: Clear to Auscultation, Good Air Exchange, Other ( CTA b/l, no w/r/r). No: Respiratory Distress, Accessory Muscle Use Cardiovascular: Present: Regular Rate and Rhythm, Normal S1, S2. No: Murmurs Abdomen: Present: Normal Bowel Sounds, Other (well nou) Back: Present: Normal Inspection. No: CVA Tenderness, Midline Tenderness Upper Extremity: Present: Normal Inspection, Normal ROM, NORMAL PULSES, Neurovascularly Intact, Other (strength 5/5 grossly intact b/l) Lower Extremity: Present: Normal Inspection, Edema, Normal ROM, Neurovascularly Intact, Other (intact ROM b/l, strength 5/5 grossly intact b/l, + pitting edema +2/5 b/l up to proximal 1/3 of tib/fib; NO focal tenderness noted on exam, neurovasc intact b/l; + warm to touch, b/l lower ext mild skin erythema is noted (pt states that is chronic)). No: Julien's Sign Neurological: Present: GCS=15, CN II-XII Intact, Speech Normal Skin: Present: Warm, Normal Color, Other (cap refill ~ 1sec, + pallor, no ulceraitons/petechiae, no rashe) Psychiatric: Present: Alert, Oriented x 3 Medical Decision Making ED Course and Treatment: 02/25/18 13:33 Impression: b/l leg pain/numbness/tingling, frequent falls i have consider all the differential diagnosis regarding pt's chief medical complaints/clinical findings, including but are not limited to: r/o dvt, likely acute on chronic leg pain A/P: r/o dvt - labs - iv - xray - us - supportive care - observe/reevaluation 02/25/18 16:30 pt is doing well, awaiting results pt states not walking, and with medications, he is feeling improved, pain is much more tolerable 1710 re-eval of patient, pt remained comfortable, NAD pt was sleeping soundly prior to re-eval pt is able to walk unassisted pt is made aware of his medical results pt is encouraged fluid hydration pt is encouraged walking with cane pt will f/u as directed pt will be discharged home Re-evaluation Time: 16:45 Reassessment Condition: Improving,but remains with symptoms - Lab Interpretations Narrative Lab Interpretation (Text): 02/25/18 14:57 02/25/18 17:12 Lab Results: 02/25/18 14:10 02/25/18 14:10 Lab Results 02/25/18 15:20: Urine Color Yellow, Urine Appearance Clear, Urine pH 6.0, Ur Specific [place] 1.010, Urine Protein Negative, Urine Glucose (UA) Negative, Urine Ketones Negative, Urine Blood Negative, Urine Nitrate Negative, Urine Bilirubin Negative, Urine Urobilinogen 1.0 H, Ur Leukocyte Esterase Negative 02/25/18 14:10: TSH 3rd Generation 2.59 02/25/18 14:10: pO2 43, VBG pH 7.35, VBG pCO2 46.0, VBG HCO3 25.4, VBG Total CO2 26.8, VBG O2 Sat (Calc) 83.0 H, VBG Base Excess -0.6 L, VBG Potassium 4.0, Sodium 138.0, Chloride 109.0 H, Glucose 68 L, Lactate 0.8, FiO2 21.0, Venous Blood Potassium 4.0 02/25/18 14:10: WBC 7.4 D, RBC 3.44 L, Hgb 9.9 L, Hct 30.7 L, MCV 89.2, MCH 28.8, MCHC 32.2, RDW 20.0 H, Plt Count 336, MPV 8.5, Gran % 67.0, Lymph % (Auto ) 20.3 L, [place] % (Auto) 9.6 H, Eos % (Auto) 2.7, Baso % (Auto) 0.4, Gran # 4.98 , Lymph # (Auto) 1.5, [place] # (Auto) 0.7 H, Eos # (Auto) 0.2, Baso # (Auto) 0.03 02/25/18 14:10: Sodium 146, Chloride 108 H, Potassium 4.1, Carbon Dioxide 25, Anion Gap 17, BUN 14, Creatinine 0.9, Est GFR ( Amer) > 60, Est GFR (Non- Af Amer) > 60, Random Glucose 65 L, Calcium 8.4, Total Bilirubin 0.5, AST 34, ALT 26, Alkaline Phosphatase 54, Total Creatine Kinase 126, NT-Pro-B Natriuret Pep 323, Total Protein 6.7, Albumin 3.6, Globulin 3.0, Albumin/Globulin Ratio 1.2 I have reviewed the lab results: Yes Interpretation: Abnormal lab values (mild anemia) - RAD Interpretation Narrative RAD Interpretations (Text): 02/25/18 17:13 Preliminary US of lower extremities reviewed, shows negative results or DVT. --- 02/25/18 15:03 Hip and Pelvis Xray reviewed, shows: BONES: Pelvis: Unremarkable. Right hip:Unremarkable. Left hip:Unremarkable. JOINTS: Right hip: Unremarkable. Left hip: Unremarkable. Sacroiliac Joints: Unremarkable. Pubic symphysis: Unremarkable. SOFT TISSUES: Normal. OTHER FINDINGS: None. IMPRESSION: Unremarkable radiographs of the hips and pelvis. -------- 02/25/18 15:07 Chest X-ray reviewed, shows: LUNGS: No active pulmonary disease. PLEURA: No significant pleural effusion identified. No pneumothorax apparent. CARDIOVASCULAR: Normal. OSSEOUS STRUCTURES: No significant abnormalities. VISUALIZED UPPER ABDOMEN: Normal. OTHER FINDINGS: None. IMPRESSION: No active disease. Femur Xray reviewed, shows: FEMUR: Normal. No fracture. SOFT TISSUES: Normal. OTHER FINDINGS: None. IMPRESSION: Unremarkable radiographs of the right femur. Radiology Orders: 02/25/18 13:44 DUPLEX LOWER EXTRM VEIN BILAT [US] Stat 02/25/18 13:47 CHEST TWO VIEWS (PA/LAT) [RAD] Stat FEMUR MIN 2 VIEWS RT [RAD] Stat Hip Bilateral [HIP MIN 3V W/ PELVIS KIM] [RAD] Stat Career Developer: Radiologist - Medication Orders Current Medication Orders: Discontinued Medications Gabapentin (Neurontin) 300 mg PO STAT STA PRN Reason: Protocol Stop: 02/25/18 13:51 Last Admin: 02/25/18 15:32 Dose: 300 mg Ketorolac Tromethamine (Toradol) 30 mg IVP STAT STA Stop: 02/25/18 13:47 Last Admin: 02/25/18 15:26 Dose: 30 mg MAR Pain Assessment Document 02/25/18 15:26 SS (Rec: 02/25/18 15:27 SS [id number]) Pain Reassessment Is this a pain reassessment? No Sleep Is patient sleeping during reassessment? No Presence of Pain Presence of Pain Yes Pain Scale Used Pain Scale Used Numeric IVP Administration Document 02/25/18 15:26 SS (Rec: 02/25/18 15:27 SS [id number]) Charges for Administration # of IVP Administrations 1 Morphine Sulfate (Morphine) 4 mg IVP STAT STA Stop: 02/25/18 13:46 Last Admin: 02/25/18 15:26 Dose: 4 mg MAR Pain Assessment Document 02/25/18 15:26 SS (Rec: 02/25/18 15:26 SS [id number]) Pain Reassessment Is this a pain reassessment? No Sleep Is patient sleeping during reassessment? No Presence of Pain Presence of Pain Yes Pain Scale Used Pain Scale Used Numeric Location Left, Right or Bilateral Right Upper or Lower Lower Pain Location Body Site Leg Description Description Constant IVP Administration Document 02/25/18 15:26 SS (Rec: 02/25/18 15:26 SS [id number]) Charges for Administration # of IVP Administrations 1 - Scribe Statement Bryanna Garzon All medical record entries made by the Vicki were at my direction and personally dictated by me. I have reviewed the chart and agree that the record accurately reflects my personal performance of the history, physical exam, medical decision making, and the department course for this patient. I have also personally directed, reviewed, and agree with the discharge instructions and disposition. Disposition/Present on Arrival - Present on Arrival Any Indicators Present on Arrival: No History of DVT/PE: No History of Uncontrolled Diabetes: No Urinary Catheter: No History of Decub. Ulcer: No History Surgical Site Infection Following: None - Disposition Have Diagnosis and Disposition been Completed?: Yes Diagnosis: Peripheral neuropathic pain, Chronic leg pain, General medical examination Disposition: HOME/ ROUTINE Disposition Time: 17:15 Patient Plan: Discharge Condition: STABLE Discharge Instructions (ExitCare): Chronic Pain (DC), Neuropathic Pain Print Language: MOZAMBICAN Additional Instructions: Make sure to see your doctor in 1-2 days DRINK PLENTY OF FLUIDS YOU NEED TO WALK WITH YOUR CANE take your medications as prescribed RETURN TO ED IF worse pain, cant breath, persistent vomiting, high fever >101- 102 for hours, altered behavior, slurr speech, facial changes, focal weakness ( arm/leg or both), unable to urinate, heavy/persistent bleeding, passing out, chest pain, or other medical emergencies Prescriptions: Ketorolac Tromethamine [Toradol] 10 mg PO TID PRN #10 tab PRN Reason: Pain, Mild (1-3) traMADol [Ultram] 50 mg PO TID PRN #12 tab PRN Reason: Pain, Moderate (4-7) Referrals: Jose Gresham MD [Primary Care Provider] - Follow up with primary Moy Branch MD [Staff Provider] - Follow up with primary Forms: [employer] (Andorran)
[2018-02-25 13:45] VITALS: BMI 18.3
[2018-02-25] MEDS ORDERED: Morphine 4 mg/ml ISec IVP STA (13:45)
[2018-02-25 13:49] VITALS: TEMP 98.8
[2018-02-25 14:14] LABS: VENOUS BLOOD GAS BASE EXCESS -0.6 mmol/L (0.0-2.0); VENOUS BLOOD GAS PO2 43 mm/Hg (30-55); VENOUS BLOOD PH 7.35 (7.32-7.43)
[2018-02-25 14:15] LABS: BASO # 0.03 K/mm3 (0.0-2.0); BASO % 0.4 % (0.0-3.0); EOS # 0.2 (0.0-0.7); EOS % 2.7 % (1.5-5.0); GRAN # 4.98 (1.4-6.5); HEMOGLOBIN 9.9 g/dL (14.0-18.0); LYMPH # 1.5 (1.2-3.4); LYMPH % 20.3 % (22.0-35.0); MEAN CELL VOLUME 89.2 fl (80.0-105.0); MEAN CORPUSCULAR HEMOGLOBIN 28.8 pg (25.0-35.0); MEAN CORPUSCULAR HGB CONC 32.2 g/dl (31.0-37.0); MEAN PLATELET VOLUME 8.5 fl (7.0-11.0); MONO # 0.7 (0.1-0.6); MONO % 9.6 % (1.0-6.0); RBC 3.44 10^6/uL (3.5-6.1); WHITE BLOOD COUNT 7.4 10^3/ul (4.5-11.0)
[2018-02-25 14:24] LABS: ALB/GLOB RATIO 1.2 (1.1-1.8); ALBUMIN 3.6 g/dL (3.0-4.8); ALT/SGPT 26 U/L (7-56); AST/SGOT 34 U/L (17-59); BLOOD UREA NITROGEN 14 mg/dL (7-21); CALCIUM 8.4 mg/dL (8.4-10.5); GFR AFRICAN-AMERICAN > 60; GFR NON-AFRICAN AMERICAN > 60
[2018-02-25 14:32] LABS: B-TYPE NATRIURETIC PEPTIDE 323 pg/mL (0-450)
--- NOTE | 2018-02-25 15:01 | RAD ---
PROCEDURE: Radiographs of the pelvis and bilateral hips HISTORY: fall few days ago, leg swelling COMPARISON: None. FINDINGS: BONES: Pelvis: Unremarkable. Right hip:Unremarkable. Left hip:Unremarkable. JOINTS: Right hip: Unremarkable. Left hip: Unremarkable. Sacroiliac Joints: Unremarkable. Pubic symphysis: Unremarkable. SOFT TISSUES: Normal. OTHER FINDINGS: None. IMPRESSION: Unremarkable radiographs of the hips and pelvis.
--- NOTE | 2018-02-25 15:02 | RAD ---
PROCEDURE: Right Femur Radiographs. HISTORY: fall COMPARISON: None. TECHNIQUE: AP and Lateral Radiographs of the right femur. FINDINGS: FEMUR: Normal. No fracture. SOFT TISSUES: Normal. OTHER FINDINGS: None. IMPRESSION: Unremarkable radiographs of the right femur.
--- NOTE | 2018-02-25 15:04 | RAD ---
HISTORY: weakness COMPARISON: 06/20/2017 TECHNIQUE: Chest PA and lateral FINDINGS: LUNGS: No active pulmonary disease. PLEURA: No significant pleural effusion identified. No pneumothorax apparent. CARDIOVASCULAR: Normal. OSSEOUS STRUCTURES: No significant abnormalities. VISUALIZED UPPER ABDOMEN: Normal. OTHER FINDINGS: None. IMPRESSION: No active disease.
[2018-02-25 15:58] LABS: URINE BILIRUBIN NEGATIVE (NEGATIVE); URINE BLOOD NEGATIVE (NEGATIVE); URINE GLUCOSE (UA) NEGATIVE (NEGATIVE); URINE LEUKOCYTE ESTERASE NEGATIVE Leu/uL (NEGATIVE); URINE PROTEIN NEGATIVE mg/dL (<30 mg/dL)
[2018-02-25 16:08] LABS: URINE APPEARANCE CLEAR (CLEAR); URINE COLOR YELLOW (YELLOW)
[2018-02-25 18:54] VITALS: BP 141/90; PULSE 76; RESP 18; O2SAT 98
--- NOTE | 2018-02-25 19:32 | US ---
HISTORY: Leg pain and swelling. Evaluate for DVT PHYSICIAN(S): Fran Junior MD. TECHNIQUE: Duplex sonography and color-flow Doppler with graded compression were used to evaluate the deep venous systems of both lower extremities. The tibial veins are not well seen. FINDINGS: The visualized deep venous systems of both lower extremities are sonographically normal and compressible. Normal wave forms and augmentation are seen. There is no sonographic evidence for deep venous thrombosis in the visualized segments of both lower extremities. IMPRESSION: No sonographic evidence for deep venous thrombosis in the visualized segments of both lower extremities.
== END 2018-02-25 18:54 | disposition home or self-care (01) ==
LOC: ED 13:01
DX: G62.9 Polyneuropathy, unspecified (principal); M79.605 Pain in left leg; M79.604 Pain in right leg; G89.29 Other chronic pain; D64.9 Anemia, unspecified
CPT/HCPCS: 71046; 73522; 73552; 80053; 81003; 82550; 82803; 83880; 84443; 85025; 93970; 96374; 96375; 99283; J1885; J2270

== ENCOUNTER 2018-02-27 14:53 | Emergency (ER) | payer MEDICARE, MEDICAID ==
--- NOTE | 2018-02-27 15:16 | ED PDOC ---
Arrival/HPI - General Time Seen by Provider: 02/27/18 15:16 Historian: Patient - History of Present Illness Narrative History of Present Illness (Text): 02/27/18 15:16 68 year old male, with past medical history of leg neuropathy, presents to the emergency department complaining of right posterior chest wall pain since last night. Patient stated he slipped and fell down backwards. Patient stated he hit a furniture with his upper back. Patient denies head injury, neck pain, hip pain, lower back pain, diplopia, dysarthria, dizziness, sob, cp, abdominal pain, n/v, or HO. Patient stated he did not have syncope, dizziness, or weakness prior falling. Time/Duration: Other (see hpi) Context: Home Past Medical History - Provider Review Nursing Documentation Reviewed: Yes - Past History Past History: Non-Contributing - Infectious Disease Hx of Infectious Diseases: None - Tetanus Immunization Tetanus Immunization: Unknown - Past Medical History Past Medical History: Unable to Obtain - Cardiac Hx Peripheral Edema: Yes - Pulmonary Hx Chronic Obstructive Pulmonary Disease (COPD): Yes Hx Pneumonia: Yes - Neurological Hx Seizures: No - HEENT Hx HEENT Disorder: Yes Hx Cataracts: Yes (right eye sx, left eye no sx) - Renal Hx Renal Disorder: No - Endocrine/Metabolic Hx Endocrine Disorders: No - Hematological/Oncological Hx Anemia: Yes - Integumentary Hx Dermatological Disorder: Yes (hx pressure ulcers) - Musculoskeletal/Rheumatological Hx Fractures: Yes (left wrist) Hx Osteoporosis: Yes - Gastrointestinal Hx Gastrointestinal Ulcer: Yes - Genitourinary/Gynecological Hx Sexually Transmitted Diseases: No - Psychiatric Hx Anxiety: Yes Hx Depression: Yes Hx Substance Use: Yes (IVDA, METHODONE, NONE AT PRESENT) - Past Surgical History Past Surgical History: Unable to Obtain - Surgical History Hx Coronary Artery Bypass Graft: No - Anesthesia Hx Anesthesia: Yes Hx Anesthesia Reactions: No Hx Malignant Hyperthermia: No - Suicidal Assessment Feels Threatened In Home Enviroment: No Family/Social History - Physician Review Nursing Documentation Reviewed: Yes Family/Social History: Other (noncontributory) Smoking Status: Heavy Smoker > 10 Cigarettes Daily Hx Alcohol Use: Yes (ETOH ABUSE- ON AA.NOT HAD A DRINK FOR 31 YRS.) Hx Substance Use: Yes (IVDA, METHODONE, NONE AT PRESENT) Hx Substance Use Treatment: No Allergies/Home Meds Allergies/Adverse Reactions: Allergies aspirin Allergy (Verified 02/25/18 13:35) RASH Review of Systems - Review of Systems Constitutional: Normal. absent: Fatigue, Weight Change, Fevers Eyes: Normal ENT: Normal Respiratory: Other (right posterior rib pain) Cardiovascular: Normal Gastrointestinal: Normal Genitourinary Male: Normal Musculoskeletal: Normal Skin: Normal Neurological: Normal Endocrine: Normal Hemo/Lymphatic: Normal Psychiatric: Normal Physical Exam Vital Signs Temp Pulse Resp BP Pulse Ox 02/27/18 15:15 97.7 F 71 18 142/73 100 Temperature: Afebrile Blood Pressure: Normal Pulse: Regular Respiratory Rate: Normal Appearance: Positive for: Well-Appearing, Non-Toxic, Comfortable Pain Distress: None Mental Status: Positive for: Alert and Oriented X 3 - Systems Exam Head: Present: Atraumatic, Normocephalic Pupils: Present: PERRL Extroacular Muscles: Present: EOMI Conjunctiva: Present: Normal Mouth: Present: Moist Mucous Membranes Neck: Present: Normal Range of Motion, Trachea Midline. No: Meningeal Signs, MIDLINE TENDERNESS, Paraspinal Tenderness, Lymphadenopathy Respiratory/Chest: Present: Clear to Auscultation, Good Air Exchange, Tender to Palpation (right posterior mid rib tenderness on palpation. No ecchymosis or erythema, or abrasion. No chest flail). No: Respiratory Distress, Accessory Muscle Use, Wheezes, Retracting, Rhonchi Cardiovascular: Present: Regular Rate and Rhythm, Normal S1, S2. No: Murmurs Abdomen: No: Tenderness, Distention, Peritoneal Signs, Rebound, Guarding Back: Present: Normal Inspection. No: CVA Tenderness Upper Extremity: Present: Normal Inspection, Normal ROM. No: Cyanosis, Edema Lower Extremity: Present: Normal Inspection, Normal ROM. No: Edema Neurological: Present: GCS=15, CN II-XII Intact, Speech Normal, Motor Func Grossly Intact, Normal Sensory Function, Normal Cerebellar Funct, Gait Normal Skin: Present: Warm, Dry, Normal Color. No: Rashes Psychiatric: Present: Alert, Oriented x 3, Normal Insight, Normal Concentration Medical Decision Making ED Course and Treatment: 02/27/18 17:26 Patient came c/o right posterior rib pain after a mechanical fall. Rib series x -rays was negative for fracture. Patient feels better, and he was recommended to see his PMD in 1-2 days. Take medication as instructed. Return to emergency if pain worsen or SOB. Re-evaluation Time: 17:26 Reassessment Condition: Re-examined, Improved - RAD Interpretation Narrative RAD Interpretations (Text): 02/27/18 17:26 PROCEDURE: Radiographs of the chest and bilateral ribs FINDINGS: RIGHT RIBS: No fracture or focal lesion visualized. LEFT RIBS: Evidence of old posteromedial left rib fractures. LUNGS: Chronic interstitial lung disease. PLEURA: No pneumothorax or pleural fluid. CARDIOVASCULAR: No radiographic findings to suggest acute or significant cardiovascular disease. OTHER FINDINGS: None. IMPRESSION: No evidence of acute/ displaced rib fracture. Old healed left rib fractures. Radiology Orders: 02/27/18 15:20 RIBS BILATERAL W/PA CHEST [RAD] Stat - Medication Orders Current Medication Orders: Discontinued Medications Morphine Sulfate (Morphine) 4 mg IM STAT STA Stop: 02/27/18 15:20 Last Admin: 02/27/18 16:01 Dose: 4 mg MAR Pain Assessment Document 02/27/18 16:01 SF (Rec: 02/27/18 16:02 [email or web address] Pain Reassessment Is this a pain reassessment? Yes Sleep Is patient sleeping during reassessment? No Presence of Pain Presence of Pain Yes Pain Scale Used Pain Scale Used Numeric IM Administration Charges Document 02/27/18 16:01 SF (Rec: 02/27/18 16:02 [id number]) Injection Site MAR Injection Site Left Deltoid Charges for Administration # of IM Administrations 1 Ondansetron HCl (Zofran Odt) 4 mg PO STAT STA Stop: 02/27/18 15:21 Last Admin: 02/27/18 16:02 Dose: 4 mg Disposition/Present on Arrival - Present on Arrival Any Indicators Present on Arrival: No History of DVT/PE: No History of Uncontrolled Diabetes: No Urinary Catheter: No History Surgical Site Infection Following: None - Disposition Have Diagnosis and Disposition been Completed?: Yes Diagnosis: Chest wall pain Disposition: HOME/ ROUTINE Disposition Time: 17:29 Patient Plan: Discharge Condition: GOOD Discharge Instructions (ExitCare): Bruised Rib (DC) Additional Instructions: Call private doctor for follow up visit in 1-2 days. Take medication as instructed. Return to emergency if pain worsen, shortness of breath, fever, or dizziness. Prescriptions: Acetaminophen [Tylenol] 650 mg PO Q4H PRN #30 capsule PRN Reason: Pain, Severe (8-10) Referrals: Jose Gresham MD [Primary Care Provider] - Follow up with primary
[2018-02-27 15:17] VITALS: RESP 18; TEMP 97.7; O2SAT 100; BMI 18.3
[2018-02-27] MEDS ORDERED: Morphine 4 mg/ml ISec IM STA (15:19)
--- NOTE | 2018-02-27 17:00 | RAD ---
PROCEDURE: Radiographs of the chest and bilateral ribs HISTORY: right posterior chest wall pain s/p fall COMPARISON: 02/25/2018 two-view chest 08/22/2012 single-view chest TECHNIQUE: Frontal radiograph of the chest and multiple oblique radiographs of the bilateral ribs were obtained. FINDINGS: RIGHT RIBS: No fracture or focal lesion visualized. LEFT RIBS: Evidence of old posteromedial left rib fractures. LUNGS: Chronic interstitial lung disease. PLEURA: No pneumothorax or pleural fluid. CARDIOVASCULAR: No radiographic findings to suggest acute or significant cardiovascular disease. OTHER FINDINGS: None. IMPRESSION: No evidence of acute/ displaced rib fracture. Old healed left rib fractures.
[2018-02-27 18:12] VITALS: BP 141/78; PULSE 78
== END 2018-02-27 18:15 | disposition home or self-care (01) ==
LOC: ED 14:53
DX: R07.89 Other chest pain (principal)
CPT/HCPCS: 71111; 96372; 99285; J2270

== ENCOUNTER 2018-03-04 14:03 | Emergency (ER) | payer MEDICARE, MEDICAID ==
[2018-03-04 14:04] VITALS: BMI 18.3
--- NOTE | 2018-03-04 15:26 | ED PDOC ---
Arrival/HPI - General Chief Complaint: Lower Extremity Problem/Injury Time Seen by Provider: 03/04/18 15:17 Historian: Patient - History of Present Illness Narrative History of Present Illness (Text): 03/04/18 15:22 Pt is a 68 year old male, with past medical history of leg neuropathy, presents to the emergency department complaining of bilateral leg pain x 2 days. Patient states that he was assessed recently for a slip and fall, evaluated and discharged. Patient denies head injury, neck pain, hip pain, lower back pain, diplopia, dysarthria, dizziness, sob, cp, abdominal pain, n/v, or HO. 03/04/18 15:47 Time/Duration: < week Symptom Onset: Gradual Symptom Course: Unchanged Quality: Aching Severity Level: 3 Activities at Onset: Rest Context: Standing, Walking, Home Past Medical History - Provider Review Nursing Documentation Reviewed: Yes - Travel History Have you recently traveled outside [place] w/in the past 3 mons?: No - Past History Past History: Non-Contributing - Infectious Disease Hx of Infectious Diseases: None - Tetanus Immunization Tetanus Immunization: Unknown - Past Medical History Past Medical History: Unable to Obtain - Cardiac Hx Cardiac Disorders: Yes Hx Peripheral Edema: Yes - Pulmonary Hx Respiratory Disorders: Yes Hx Chronic Obstructive Pulmonary Disease (COPD): Yes Hx Pneumonia: Yes - Neurological Hx Neurological Disorder: Yes Hx Syncope: Yes Other/Comment: NEUROPATHY, AMS - HEENT Hx HEENT Disorder: Yes Hx Cataracts: Yes - Renal Hx Renal Disorder: No - Endocrine/Metabolic Hx Endocrine Disorders: No - Hematological/Oncological Hx Blood Disorders: Yes Hx Anemia: Yes Hx Hepatitis C: Yes - Integumentary Hx Dermatological Disorder: Yes (hx pressure ulcers) - Musculoskeletal/Rheumatological Hx Musculoskeletal Disorders: Yes Hx Fractures: Yes (left wrist) Hx Osteoporosis: Yes - Gastrointestinal Hx Gastrointestinal Disorders: Yes Hx Gastrointestinal Ulcer: Yes - Genitourinary/Gynecological Hx Sexually Transmitted Diseases: No - Psychiatric Hx Psychophysiologic Disorder: Yes Hx Anxiety: Yes Hx Depression: Yes Hx Substance Use: Yes - Past Surgical History Past Surgical History: Unable to Obtain - Surgical History Hx Coronary Artery Bypass Graft: No Other/Comment: GASTRECTOMY - Anesthesia Hx Anesthesia: Yes Hx Anesthesia Reactions: No Hx Malignant Hyperthermia: No - Suicidal Assessment Feels Threatened In Home Enviroment: No Family/Social History - Physician Review Nursing Documentation Reviewed: Yes Family/Social History: Unknown Family HX Smoking Status: Heavy Smoker > 10 Cigarettes Daily Hx Alcohol Use: Yes (ETOH ABUSE) Hx Substance Use: Yes Hx Substance Use Treatment: No Allergies/Home Meds Allergies/Adverse Reactions: Allergies aspirin Allergy (Verified 03/04/18 14:21) RASH Review of Systems - Review of Systems Constitutional: Normal Eyes: Normal ENT: Normal Respiratory: Normal Cardiovascular: Normal Gastrointestinal: Normal Genitourinary Male: Normal Musculoskeletal: Normal, Other (hamstrings and shins bilateral) Skin: Normal Neurological: Normal, Gait Changes (due to leg neuropathy). absent: Headache, Dizziness Endocrine: Normal Hemo/Lymphatic: Normal Psychiatric: Normal Physical Exam Vital Signs Reviewed: Yes Vital Signs Temp Pulse Resp BP Pulse Ox 03/04/18 17:35 98 F 85 19 132/71 100 03/04/18 16:04 98 F 85 19 132/73 99 03/04/18 14:22 98.2 F 88 17 127/83 98 Temperature: Afebrile Blood Pressure: Normal Pulse: Regular Respiratory Rate: Normal Appearance: Positive for: Well-Appearing, Non-Toxic, Comfortable Pain Distress: Moderate Mental Status: Positive for: Alert and Oriented X 3 - Systems Exam Head: Present: Atraumatic, Normocephalic Mouth: Present: Moist Mucous Membranes Neck: Present: Normal Range of Motion Respiratory/Chest: Present: Clear to Auscultation, Good Air Exchange. No: Respiratory Distress, Accessory Muscle Use Cardiovascular: Present: Regular Rate and Rhythm, Normal S1, S2. No: Murmurs Abdomen: No: Tenderness, Distention, Peritoneal Signs Back: Present: Normal Inspection Upper Extremity: Present: Normal Inspection. No: Cyanosis, Edema Lower Extremity: Present: Normal Inspection. No: Edema Neurological: Present: GCS=15, CN II-XII Intact, Speech Normal, Motor Func Grossly Intact, Normal Sensory Function, Normal Cerebellar Funct (postural changes resulting in hamstring contractures), Gait Normal (antalgic and altered duet to postural changes over time), Memory Normal Skin: Present: Warm, Dry, Normal Color. No: Rashes Psychiatric: Present: Alert, Oriented x 3, Normal Insight, Normal Concentration , Normal Affect, Normal Mood Medical Decision Making ED Course and Treatment: 03/04/18 15:24 Impression Pt is a 68 year old male, with past medical history of leg neuropathy, presents to the emergency department complaining of bilateral leg pain x 2 days. Bilateral hamstring contractures, limiting full knee extension; slightly kyphotic posture, anterior tibialis and gastrocnemius hypertoncity and tenderness bilateral Plan toradol 30mg IM gabapentin 300 mg po STAT assess and dispo 03/04/18 17:09 pt received toradol IM and received good relief pt continues to ask for benzodiazepines and muscle relaxants VSS and pt d/c home full instructions given to pt on safe medication use; follow up with scheduled appt with neurologist in a week - Medication Orders Current Medication Orders: Discontinued Medications Gabapentin (Neurontin) 300 mg PO STAT STA PRN Reason: Protocol Stop: 03/04/18 15:29 Last Admin: 03/04/18 16:36 Dose: 300 mg Ketorolac Tromethamine (Toradol) 30 mg IM STAT STA Stop: 03/04/18 15:33 Last Admin: 03/04/18 15:45 Dose: 30 mg MAR Pain Assessment Document 03/04/18 15:45 GMI (Rec: 03/04/18 15:48 GMI [id number]) Pain Reassessment Is this a pain reassessment? Yes Sleep Is patient sleeping during reassessment? No Presence of Pain Presence of Pain Yes Description Description Burning Intensity of Pain at present 9 Pain Behavior Facial Grimacing IM Administration Charges Document 03/04/18 15:45 GMI (Rec: 03/04/18 15:48 GMI [id number]) Injection Site MAR Injection Site Right Deltoid Charges for Administration # of IM Administrations 1 Disposition/Present on Arrival - Present on Arrival Any Indicators Present on Arrival: Yes History of DVT/PE: No History of Uncontrolled Diabetes: No Urinary Catheter: No History of Decub. Ulcer: No History Surgical Site Infection Following: None - Disposition Have Diagnosis and Disposition been Completed?: Yes Diagnosis: Neuropathy, Lumbar radiculopathy, Flexion contracture Disposition: HOME/ ROUTINE Disposition Time: 17:06 Patient Plan: Discharge Condition: GOOD Discharge Instructions (ExitCare): Peripheral Neuropathy Additional Instructions: Jose David thank you for letting us take care of you today. Your provider was ELIZABETH Fleming. You were treated for lumbar radiculopathy. The emergency medical care you received today was directed at your acute symptoms. If you were prescribed any medication, please fill it and take as directed. It may take several days for your symptoms to resolve. Return to the Emergency Department if your symptoms worsen, do not improve, or if you have any other problems. Please take your medications responsibly and take as directed Please contact your doctor or call one of the physicians/clinics you have been referred to that are listed on the Patient Visit Information form that is included in your discharge packet. Bring any paperwork you were given at discharge with you along with any medications you are taking to your follow up visit. Our treatment cannot replace ongoing medical care by a primary care provider (PCP) outside of the emergency department. Thank you for allowing the [facility] team to be part of your care today. Prescriptions: traMADol [Ultram] 50 mg PO TID #15 tab Forms: [employer] (Citizen Of [place])
[2018-03-04 17:34] VITALS: PULSE 85; RESP 19; TEMP 98
[2018-03-04 17:36] VITALS: BP 132/71; O2SAT 100
== END 2018-03-04 17:35 | disposition home or self-care (01) ==
LOC: ED 14:03
DX: M54.16 Radiculopathy, lumbar region (principal); M24.50 Contracture, unspecified joint; G62.9 Polyneuropathy, unspecified; F17.210 Nicotine dependence, cigarettes, uncomplicated
CPT/HCPCS: 96372; 99284; J1885

== ENCOUNTER 2018-03-08 13:07 | Emergency (ER) | payer MEDICARE, MEDICAID ==
[2018-03-08 13:52] VITALS: BMI 17.6
[2018-03-08 13:55] VITALS: TEMP 98
--- NOTE | 2018-03-08 14:05 | ED PDOC ---
Arrival/HPI - General Chief Complaint: Lower Extremity Problem/Injury Time Seen by Provider: 03/08/18 13:18 Historian: Patient - History of Present Illness Narrative History of Present Illness (Text): 03/08/18 14:05 68yo male with PMhx Neuropathy who present with complaint of b/l burning/sharp leg pain. Patient report pain as chronic. States he usually takes Gabapentin, but ran out. He was seen here 4days ago for same complaint and was DC home with Tramadol. He reports that he ran out of the Tramadol and his PCP refused to give him analgesic prescription. States his Neurologist gives him the prescription and he will seen him next week. He denies trauma, calf pain, chest pain, diaphoresis, LE edema, any other complaint. Past Medical History - Provider Review Nursing Documentation Reviewed: Yes - Past History Past History: Non-Contributing - Infectious Disease Hx of Infectious Diseases: None - Tetanus Immunization Tetanus Immunization: Unknown - Past Medical History Past Medical History: Unable to Obtain - Cardiac Hx Cardiac Disorders: Yes Hx Peripheral Edema: Yes - Pulmonary Hx Respiratory Disorders: Yes Hx Chronic Obstructive Pulmonary Disease (COPD): Yes Hx Pneumonia: Yes - Neurological Hx Neurological Disorder: Yes Hx Syncope: Yes Other/Comment: NEUROPATHY, AMS - HEENT Hx HEENT Disorder: Yes Hx Cataracts: Yes - Renal Hx Renal Disorder: No - Endocrine/Metabolic Hx Endocrine Disorders: No - Hematological/Oncological Hx Blood Disorders: Yes Hx Anemia: Yes Hx Hepatitis C: Yes - Integumentary Hx Dermatological Disorder: Yes (hx pressure ulcers) - Musculoskeletal/Rheumatological Hx Musculoskeletal Disorders: Yes Hx Fractures: Yes (left wrist) Hx Osteoporosis: Yes - Gastrointestinal Hx Gastrointestinal Disorders: Yes Hx Gastrointestinal Ulcer: Yes - Genitourinary/Gynecological Hx Sexually Transmitted Diseases: No - Psychiatric Hx Psychophysiologic Disorder: Yes Hx Anxiety: Yes Hx Depression: Yes Hx Substance Use: Yes - Past Surgical History Past Surgical History: Unable to Obtain - Surgical History Hx Coronary Artery Bypass Graft: No Other/Comment: GASTRECTOMY - Anesthesia Hx Anesthesia: Yes Hx Anesthesia Reactions: No Hx Malignant Hyperthermia: No - Suicidal Assessment Feels Threatened In Home Enviroment: No Family/Social History - Physician Review Nursing Documentation Reviewed: Yes Family/Social History: Unknown Family HX Smoking Status: Heavy Smoker > 10 Cigarettes Daily Hx Alcohol Use: Yes (ETOH ABUSE) Hx Substance Use: Yes Hx Substance Use Treatment: No Allergies/Home Meds Allergies/Adverse Reactions: Allergies aspirin Allergy (Verified 03/08/18 13:58) RASH Review of Systems - Physician Review All systems were reviewed & negative as marked: Yes - Review of Systems Constitutional: Normal Eyes: Normal ENT: Normal Respiratory: Normal Cardiovascular: Normal Gastrointestinal: Normal Genitourinary Male: Normal Musculoskeletal: Arthralgias (B/L leg pain) Skin: Normal Neurological: Normal Endocrine: Normal Hemo/Lymphatic: Normal Psychiatric: Normal Physical Exam Vital Signs Reviewed: Yes Vital Signs Temp Pulse Resp BP Pulse Ox 03/08/18 14:38 74 18 130/70 96 03/08/18 14:36 74 20 130/70 96 03/08/18 13:52 98.0 F 107 H 16 133/79 98 Temperature: Afebrile Blood Pressure: Normal Pulse: Regular Respiratory Rate: Normal Appearance: Positive for: Well-Appearing, Non-Toxic, Comfortable Pain Distress: None Mental Status: Positive for: Alert and Oriented X 3 - Systems Exam Head: Present: Atraumatic, Normocephalic Pupils: Present: PERRL Extroacular Muscles: Present: EOMI Conjunctiva: Present: Normal Mouth: Present: Moist Mucous Membranes Neck: Present: Normal Range of Motion Respiratory/Chest: Present: Clear to Auscultation, Good Air Exchange. No: Respiratory Distress, Accessory Muscle Use Cardiovascular: Present: Regular Rate and Rhythm, Normal S1, S2. No: Murmurs Abdomen: No: Tenderness, Distention, Peritoneal Signs Back: Present: Normal Inspection Upper Extremity: Present: Normal Inspection. No: Cyanosis, Edema Lower Extremity: Present: Normal Inspection, NORMAL PULSES, Normal ROM, Tenderness (Diffuse b/l leg), Neurovascularly Intact. No: Edema, CALF TENDERNESS, Julien's Sign, Swelling, Erythema Neurological: Present: GCS=15, CN II-XII Intact, Speech Normal Skin: Present: Warm, Dry, Normal Color. No: Rashes Psychiatric: Present: Alert, Oriented x 3, Normal Insight, Normal Concentration Medical Decision Making ED Course and Treatment: 03/08/18 14:12 Pt in ED for stated history. He was ambulatory and neurologically intact in ED. He was treated with Toradol and Gabapentin He will be DC home with Lyrica. Advised to f/u his Neurologist for his Gabapentin rx. - Medication Orders Current Medication Orders: Discontinued Medications Gabapentin (Neurontin) 300 mg PO STAT STA PRN Reason: Protocol Stop: 03/08/18 14:08 Last Admin: 03/08/18 14:32 Dose: 300 mg Ketorolac Tromethamine (Toradol) 30 mg IM STAT STA Stop: 03/08/18 14:05 Last Admin: 03/08/18 14:18 Dose: 30 mg MAR Pain Assessment Document 03/08/18 14:18 SS (Rec: 03/08/18 14:19 SS [id number]) Pain Reassessment Is this a pain reassessment? No Sleep Is patient sleeping during reassessment? No Presence of Pain Presence of Pain Yes Pain Scale Used Pain Scale Used Numeric Location Left, Right or Bilateral Bilateral Upper or Lower Lower Pain Location Body Site Leg Description Description Constant Intensity of Pain at present 9 IM Administration Charges Document 03/08/18 14:18 SS (Rec: 03/08/18 14:19 SS [id number]) Injection Site MAR Injection Site Left Deltoid Charges for Administration # of IM Administrations 1 Disposition/Present on Arrival - Present on Arrival Any Indicators Present on Arrival: No History of DVT/PE: No History of Uncontrolled Diabetes: No Urinary Catheter: No History of Decub. Ulcer: No History Surgical Site Infection Following: None - Disposition Have Diagnosis and Disposition been Completed?: Yes Diagnosis: Leg pain Disposition: HOME/ ROUTINE Disposition Time: 17:00 Patient Plan: Discharge Condition: STABLE Discharge Instructions (ExitCare): Muscle and Bone Pain (DC) Additional Instructions: Follow up with your Neurologist for your pain medication Return to ED for any new symptoms Prescriptions: Pregabalin [Lyrica] 50 mg PO TID #12 cap Referrals: Jose Gresham MD [Primary Care Provider] - Follow up with primary Forms: [employer] (Senegalese)
[2018-03-08 14:36] VITALS: BP 130/70; PULSE 74; O2SAT 96
[2018-03-08 14:39] VITALS: RESP 18
== END 2018-03-08 14:43 | disposition home or self-care (01) ==
LOC: ED 13:07
DX: M79.605 Pain in left leg (principal); M79.604 Pain in right leg
CPT/HCPCS: 96372; 99283; J1885

== ENCOUNTER 2018-05-07 20:03 | Emergency (ER) | payer MEDICARE, MEDICAID ==
[2018-05-07 20:04] VITALS: BMI 17.6
[2018-05-07 20:19] VITALS: TEMP 98.6
--- NOTE | 2018-05-07 20:49 | ED PDOC ---
Arrival/HPI - General Chief Complaint: Trauma Time Seen by Provider: 05/07/18 20:20 Historian: Patient - History of Present Illness Narrative History of Present Illness (Text): 05/07/18 20:28 68 year old male, with past medical history of leg neuropathy, presents to the emergency department status post fall prior to arrival. Patient states he tripped and fell while walking on the street, sustaining laceration to his right eyebrow and abrasions to his right wrist. Patient denies any headache or loss of consciousness. Patient denies any other trauma, fever, nausea, vomiting , abdominal pain, chest pain, shortness of breath or any other complaints. Time/Duration: Prior to Arrival Symptom Onset: Sudden Symptom Course: Unchanged Activities at Onset: Light Context: Street Past Medical History - Provider Review Nursing Documentation Reviewed: Yes - Past History Past History: Non-Contributing - Infectious Disease Hx of Infectious Diseases: None - Tetanus Immunization Tetanus Immunization: Unknown - Past Medical History Past Medical History: Unable to Obtain - Cardiac Hx Cardiac Disorders: Yes Hx Peripheral Edema: Yes - Pulmonary Hx Respiratory Disorders: Yes Hx Chronic Obstructive Pulmonary Disease (COPD): Yes Hx Pneumonia: Yes - Neurological Hx Neurological Disorder: Yes Hx Syncope: Yes Other/Comment: NEUROPATHY, AMS - HEENT Hx HEENT Disorder: Yes Hx Cataracts: Yes - Renal Hx Renal Disorder: No - Endocrine/Metabolic Hx Endocrine Disorders: No - Hematological/Oncological Hx Blood Disorders: Yes Hx Anemia: Yes Hx Hepatitis C: Yes - Integumentary Hx Dermatological Disorder: Yes (hx pressure ulcers) - Musculoskeletal/Rheumatological Hx Musculoskeletal Disorders: Yes Hx Fractures: Yes (left wrist) Hx Osteoporosis: Yes - Gastrointestinal Hx Gastrointestinal Disorders: Yes Hx Gastrointestinal Ulcer: Yes - Genitourinary/Gynecological Hx Sexually Transmitted Diseases: No - Psychiatric Hx Psychophysiologic Disorder: Yes Hx Anxiety: Yes Hx Depression: Yes Hx Substance Use: Yes - Past Surgical History Past Surgical History: Unable to Obtain - Surgical History Hx Coronary Artery Bypass Graft: No Other/Comment: GASTRECTOMY - Anesthesia Hx Anesthesia: Yes Hx Anesthesia Reactions: No Hx Malignant Hyperthermia: No - Suicidal Assessment Feels Threatened In Home Enviroment: No Family/Social History - Physician Review Nursing Documentation Reviewed: Yes Family/Social History: No Known Family HX Smoking Status: Heavy Smoker > 10 Cigarettes Daily Hx Alcohol Use: Yes (ETOH ABUSE) Hx Substance Use: Yes Hx Substance Use Treatment: No Allergies/Home Meds Allergies/Adverse Reactions: Allergies aspirin Allergy (Verified 03/08/18 13:58) RASH Review of Systems - Physician Review All systems were reviewed & negative as marked: Yes - Review of Systems Constitutional: absent: Fevers Respiratory: absent: SOB Cardiovascular: absent: Chest Pain Gastrointestinal: absent: Abdominal Pain, Nausea, Vomiting Skin: Laceration (laceration to right eyebrow and abrasion to right wrist. ) Neurological: absent: Headache Physical Exam Vital Signs Reviewed: Yes Vital Signs Temp Pulse Resp BP Pulse Ox 05/08/18 02:15 70 18 115/62 96 05/08/18 00:05 67 17 105/62 95 05/07/18 22:27 85 16 132/66 95 05/07/18 20:16 98.6 F 94 H 15 128/73 95 Temperature: Afebrile Blood Pressure: Normal Pulse: Regular Respiratory Rate: Normal Appearance: Positive for: Other (Sleepy, possibly intoxicated) Mental Status: Positive for: other (As above) - Systems Exam Head: Present: Normocephalic, Laceration (R eyebrow, R maxilla with hematoma, R jaw. No tenderness to face) Pupils: Present: Pinpoint Extroacular Muscles: Present: EOMI Conjunctiva: Present: Normal Nose (Internal): Present: Normal Inspection, No Active Bleeding Neck: Present: Normal Range of Motion. No: MIDLINE TENDERNESS, Paraspinal Tenderness Respiratory/Chest: Present: Clear to Auscultation, Good Air Exchange. No: Respiratory Distress, Accessory Muscle Use Cardiovascular: Present: Regular Rate and Rhythm, Normal S1, S2. No: Murmurs Abdomen: No: Tenderness, Distention, Peritoneal Signs Back: Present: Normal Inspection. No: Midline Tenderness, Paraspinal Tenderness Upper Extremity: Present: Tenderness (R wrist). No: Cyanosis, Edema, Swelling Lower Extremity: Present: Normal Inspection. No: Edema Neurological: Present: Other (Appears intoxicated, sleepy) Skin: Present: Warm, Dry, Normal Color, Laceration (laceration to right eyebrow ), Abrasion (abrasion to right maxillary and right jaw. Ecchymosis and abrasion over 5th metacarpal on right wrist. Abrasion to ulnar aspect of right wrist. ) . No: Rashes Psychiatric: No: Alert Medical Decision Making ED Course and Treatment: 05/07/18 20:28 Impression: 68 year old male presents to the Emergency department s/p fall. Plan: -- CT of head -- X-ray of right wrist -- Reassess and disposition Prior Visits: Notes and results from previous visits were reviewed. Progress Notes: 05/07/18 21:58 CT of head reviewed by radiologist, shows no acute findings. 05/07/18 21:58 X-ray of right wrist reviewed, shows no acute findings or fracture. - RAD Interpretation Radiology Orders: 05/07/18 20:28 HEAD W/O CONTRAST [CT] Stat WRIST, RIGHT 3 VIEWS [RAD] Stat Tool Engineer: Radiologist - Procedure PROCEDURE NOTE (Text): R eyebrow laceration and R jaw laceration/abrasion irrigated with normal saline by tech. No foreign body noted. Wounds were repaired with dermabond. Patient neurovascularly intact pre and post procedure. - Scribe Statement The provider has reviewed the documentation as recorded by the Scribe Vannessa Kay. All medical record entries made by the Scribe were at my direction and personally dictated by me. I have reviewed the chart and agree that the record accurately reflects my personal performance of the history, physical exam, medical decision making, and the department course for this patient. I have also personally directed, reviewed, and agree with the discharge instructions and disposition. Disposition/Present on Arrival - Present on Arrival Any Indicators Present on Arrival: No History of DVT/PE: No History of Uncontrolled Diabetes: No Urinary Catheter: No History of Decub. Ulcer: No History Surgical Site Infection Following: None - Disposition Have Diagnosis and Disposition been Completed?: Yes Diagnosis: Head injury, Facial laceration Disposition: HOME/ ROUTINE Disposition Time: 22:27 Condition: FAIR Discharge Instructions (ExitCare): Laceration Repair With Glue (DC), Closed Head Injury (DC) Additional Instructions: L[place], thank you for letting us take care of you today. Your provider was Hien Santana MD and you were treated for FALL/LACERATION RIGHT SIDE FACE/HAND. The emergency medical care you received today was directed at your acute symptoms. If you were prescribed any medication, please fill it and take as directed. It may take several days for your symptoms to resolve. Return to the Emergency Department if your symptoms worsen, do not improve, or if you have any other problems. Please contact your doctor or call one of the physicians/clinics you have been referred to that are listed on the Patient Visit Information form that is included in your discharge packet. Bring any paperwork you were given at discharge with you along with any medications you are taking to your follow up visit. Our treatment cannot replace ongoing medical care by a primary care provider outside of the emergency department. Thank you for allowing the [facility] team to be part of your care today. If you had an X-Ray or CT scan: A Radiologist will review the ED reading if any change in treatment is needed we will contact you. If you had a blood, urine, or wound culture: It will take several days for the results, if any change in treatment is needed we will contact you. If you had an STI test: It will take 48 hours for the results. Please call after 1 week if you have not heard back. Forms: [employer] ([place]i)
[2018-05-08 02:16] VITALS: BP 115/62; PULSE 70; RESP 18; O2SAT 96
--- NOTE | 2018-05-08 08:47 | RAD ---
Date of service: 05/07/2018 PROCEDURE: Right Wrist Radiographs. HISTORY: injury COMPARISON: None. FINDINGS: BONES: Bone alignment is normal. There is no acute displaced fracture or bone destruction. There is periarticular bone demineralization. JOINTS: Normal. No dislocation. SOFT TISSUES: Normal. OTHER FINDINGS: None. IMPRESSION: No acute fracture or dislocation.
--- NOTE | 2018-05-08 08:48 | CT ---
Date of service: 05/07/2018 PROCEDURE: CT HEAD WITHOUT CONTRAST. HISTORY: injury COMPARISON: 06/20/2017 TECHNIQUE: Axial computed tomography images were obtained through the head/brain without intravenous contrast. Radiation dose: Total exam DLP = 1113 mGy-cm. This CT exam was performed using one or more of the following dose reduction techniques: Automated exposure control, adjustment of the mA and/or kV according to patient size, and/or use of iterative reconstruction technique. FINDINGS: HEMORRHAGE: No intracranial hemorrhage. BRAIN: No mass effect or edema. 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 VENTRICLES: Unremarkable. No hydrocephalus. CALVARIUM: Unremarkable. PARANASAL SINUSES: Unremarkable as visualized. No significant inflammatory changes. MASTOID AIR CELLS: Unremarkable as visualized. No inflammatory changes. OTHER FINDINGS: The report concurs with the preliminary [facility] report IMPRESSION: No acute findings
== END 2018-05-08 02:15 | disposition home or self-care (01) ==
LOC: ED 20:03
DX: S01.111A Laceration without foreign body of right eyelid and periocular area, initial encounter (principal); S01.81XA Laceration without foreign body of other part of head, initial encounter; W01.0XXA Fall on same level from slipping, tripping and stumbling without subsequent striking against object, initial encounter; Y92.410 Unspecified street and highway as the place of occurrence of the external cause

== ENCOUNTER 2018-06-08 18:46 | Emergency (ER) | payer MEDICARE, MEDICAID ==
[2018-06-08 18:47] VITALS: BMI 17.6
[2018-06-08 18:59] VITALS: RESP 18; O2SAT 95
[2018-06-08 19:03] VITALS: TEMP 97.6
--- NOTE | 2018-06-08 20:11 | ED PDOC ---
Arrival/HPI - General Chief Complaint: Trauma Time Seen by Provider: 06/08/18 18:57 Historian: Patient - History of Present Illness Narrative History of Present Illness (Text): 06/08/18 20:08 68 yr old male w/ hx of syncope, elevated trop, b/l neuropathy p/w mechanichal fall onto face. Pt notes fall onto face this morning after waking up. He woke up , walked to the bathroom and then tripped on his own shoe, he notes falling face first onto the tv. No LOC. No pain other than his face. No blood thinner usage. No neck pain. He notes only lacs the multiple areas of the face. No fever, chills or night sweats No chest pain or sob No abdominal pain No dark or bloody stool No other complaints. PMD: Dr. Lena Mary Past Medical History - Provider Review Nursing Documentation Reviewed: Yes - Past History Past History: Non-Contributing - Infectious Disease Hx of Infectious Diseases: None - Tetanus Immunization Tetanus Immunization: Unknown - Past Medical History Past Medical History: Unable to Obtain - Cardiac Hx Cardiac Disorders: Yes Hx Peripheral Edema: Yes - Pulmonary Hx Respiratory Disorders: Yes Hx Chronic Obstructive Pulmonary Disease (COPD): Yes Hx Pneumonia: Yes - Neurological Hx Neurological Disorder: Yes Hx Syncope: Yes Other/Comment: NEUROPATHY, AMS - HEENT Hx HEENT Disorder: Yes Hx Cataracts: Yes - Renal Hx Renal Disorder: No - Endocrine/Metabolic Hx Endocrine Disorders: No - Hematological/Oncological Hx Blood Disorders: Yes Hx Anemia: Yes Hx Hepatitis C: Yes - Integumentary Hx Dermatological Disorder: Yes (hx pressure ulcers) - Musculoskeletal/Rheumatological Hx Musculoskeletal Disorders: Yes Hx Fractures: Yes (left wrist) Hx Osteoporosis: Yes - Gastrointestinal Hx Gastrointestinal Disorders: Yes Hx Gastrointestinal Ulcer: Yes - Genitourinary/Gynecological Hx Sexually Transmitted Diseases: No - Psychiatric Hx Psychophysiologic Disorder: Yes Hx Anxiety: Yes Hx Depression: Yes Hx Substance Use: Yes - Past Surgical History Past Surgical History: Unable to Obtain - Surgical History Hx Coronary Artery Bypass Graft: No Other/Comment: GASTRECTOMY - Anesthesia Hx Anesthesia: Yes Hx Anesthesia Reactions: No Hx Malignant Hyperthermia: No - Suicidal Assessment Feels Threatened In Home Enviroment: No Family/Social History - Physician Review Nursing Documentation Reviewed: Yes Family/Social History: Unknown Family HX Smoking Status: Heavy Smoker > 10 Cigarettes Daily Hx Alcohol Use: Yes (ETOH ABUSE) Hx Substance Use: Yes Hx Substance Use Treatment: No Allergies/Home Meds Allergies/Adverse Reactions: Allergies aspirin Allergy (Verified 03/08/18 13:58) RASH Review of Systems - Review of Systems Constitutional: Normal Eyes: Normal ENT: Normal Respiratory: Normal Cardiovascular: Normal Gastrointestinal: Normal Genitourinary Male: Normal Musculoskeletal: Normal Skin: Laceration (multiple, facial) Neurological: Normal. absent: Gait Changes, Seizure Endocrine: Normal Hemo/Lymphatic: Normal Psychiatric: Normal Physical Exam Vital Signs Temp Pulse Resp BP Pulse Ox 06/08/18 20:50 97.6 F 82 18 142/86 95 06/08/18 18:58 97.6 F 06/08/18 18:57 95 H 18 149/81 95 Temperature: Afebrile Blood Pressure: Normal Pulse: Regular Respiratory Rate: Normal Appearance: Positive for: Well-Appearing, Non-Toxic, Comfortable Pain Distress: None Mental Status: Positive for: Alert and Oriented X 3 - Systems Exam Head: Present: Laceration (No laceration of eyelids. 3 laceration around orbit of R eye, 1 cm each. No erythema. 3 cm horizontal laceration in L eyebrow. ) Pupils: Present: PERRL Extroacular Muscles: Present: EOMI Conjunctiva: Present: Normal Mouth: Present: Moist Mucous Membranes Nose (External): Present: Atraumatic Nose (Internal): Present: Normal Inspection, No Active Bleeding. No: Septal Hematoma, Epistaxis Neck: Present: Normal Range of Motion. No: Meningeal Signs, MIDLINE TENDERNESS , Paraspinal Tenderness Respiratory/Chest: Present: Clear to Auscultation, Good Air Exchange. No: Respiratory Distress, Accessory Muscle Use, Wheezes, Decreased Breath Sounds Cardiovascular: Present: Regular Rate and Rhythm, Normal S1, S2. No: Murmurs Abdomen: No: Tenderness, Distention, Peritoneal Signs Back: Present: Normal Inspection Upper Extremity: Present: Normal Inspection. No: Cyanosis, Edema Lower Extremity: Present: Normal Inspection. No: Edema Neurological: Present: GCS=15, CN II-XII Intact, Speech Normal, Motor Func Grossly Intact, Normal Sensory Function, Normal Cerebellar Funct, Gait Normal Skin: Present: Warm, Dry, Normal Color. No: Rashes Psychiatric: Present: Alert, Oriented x 3, Normal Insight, Normal Concentration Medical Decision Making ED Course and Treatment: 06/08/18 20:12 68 yr old male presents s/p mechanichal fall- tripping on shoes at 12 noon. He denies any N/V, and has multiple facial lacerations on his face, with tetanus UTD. I endorsed to pt importance of getting CT head and neck as well as sutures for the face, but pt state he does not want sutures and only glue. He also does not want any labs done. I informed the patient of potential or disability due to undiagnosed hemorrhage. He notes that he is aware of the risks, has a normal neuro exam and states that he only wants his lacerations to be glued and to go home. At this point, given pts AOx3, normal mentation without indication of anxiety, depression, or SI or HI, will dermabond pts lacs and sign pt out AMA. Informed pt to follow up IVAN in an ER or hid PMD in case he changes his mind or has new symptoms. Pt notes understanding and remains with a stable neuro exam. PROCEDURE: LACERATION REPAIR Performed by the emergency provider Location: R orbit, 1 cm x3. L eyebrow x1 Length: R orbit: 1cm, 1cm, 1 cm. L eyebrow 2cm Description: clean wound edges,no foreign bodies Distal CMS: Normal. No deficits. Neurovascularly intact. Anesthesia: none- pt states he does not want pain meds/ anesthetics Preparation: The wound was cleaned with NS and [place]. The area was prepped and draped in the usual sterile fashion. Exploration: The wound was explored and no foreign bodies were found. Procedure: The wound was closed with dermabond. There was good approximation. Post-Procedure: Good closure and hemostasis. The patient tolerated the procedure well and there were no complications. CSM remains intact. Post procedure dressing applied. Leaving Against Medical Advice (AMA): The patient is choosing to leave against medical advice. I have personally explained to the patient that choosing to do so may result in permanent bodily harm or . I have discussed at great length that without further evaluation and monitoring there may be unforeseen circumstances and/or deterioration causing permanent bodily harm or as a result of their choice. The patient is alert, oriented, and shows the mental capacity to make clear decisions regarding the patients health care at this time. The patient continues to wish to leave against medical advice. In light of the patients decision to leave against medical advice, follow-up has been arranged and the patient is aware of the importance to following up as instructed. The patient has been advised that they should return to the emergency room immediately if they change their mind at any time, or if their condition begins to change or worsen in any way. - Medication Orders Current Medication Orders: Discontinued Medications Acetaminophen (Tylenol 325mg Tab) 650 mg PO STAT STA Stop: 06/08/18 20:36 Last Admin: 06/08/18 20:45 Dose: 650 mg MAR Pain/Vitals Document 06/08/18 20:45 HI (Rec: 06/08/18 20:45 HI [id number]) Pain Reassessment Is This A Pain ReAssessment? No Sleep Is patient sleeping during reassessment? No Presence of Pain Presence of Pain Yes Location Left, Right or Bilateral Right Pain Location Body Site Eye Disposition/Present on Arrival - Present on Arrival Any Indicators Present on Arrival: No History of DVT/PE: No History of Uncontrolled Diabetes: No Urinary Catheter: No History of Decub. Ulcer: No History Surgical Site Infection Following: None - Disposition Have Diagnosis and Disposition been Completed?: Yes Diagnosis: Head trauma, Laceration Disposition: AGAINST MEDICAL ADVICE Disposition Time: 20:34 Condition: GOOD Referrals: Lena Mary MD [Primary Care Provider] - Follow up with primary Forms: [employer] (Croatian)
[2018-06-08 21:17] VITALS: BP 142/86; PULSE 82
== END 2018-06-08 21:00 | disposition left against medical advice (07) ==
LOC: ED 18:46
DX: S01.112A Laceration without foreign body of left eyelid and periocular area, initial encounter (principal); S05.41XA Penetrating wound of orbit with or without foreign body, right eye, initial encounter; W01.0XXA Fall on same level from slipping, tripping and stumbling without subsequent striking against object, initial encounter; F17.210 Nicotine dependence, cigarettes, uncomplicated

== ENCOUNTER 2018-08-16 12:24 | Inpatient (IN) | payer MEDICAID, MEDICARE ==
[2018-08-16 12:40] VITALS: BMI 22.9
[2018-08-16] MEDS ORDERED: Sodium Chloride 0.9% 1,000 ML IV STA (12:53)
[2018-08-16 13:13] LABS: BASO # 0.04 K/mm3 (0.0-2.0); BASO % 0.5 % (0.0-3.0); EOS # 0.2 (0.0-0.7); EOS % 2.1 % (1.5-5.0); GRAN # 4.8 (1.4-6.5); GRAN % 61.6 % (50.0-68.0); HEMOGLOBIN 10.8 g/dL (14.0-18.0); MEAN CELL VOLUME 87.6 fl (80.0-105.0); MEAN CORPUSCULAR HGB CONC 33.1 g/dl (31.0-37.0); MEAN PLATELET VOLUME 8.7 fl (7.0-11.0); MONO # 0.8 (0.1-0.6); MONO % 10.8 % (1.0-6.0); RBC 3.72 10^6/uL (3.5-6.1); RED CELL DISTRIBUTION WIDTH 16.2 % (11.5-14.5); WHITE BLOOD COUNT 7.8 10^3/ul (4.5-11.0)
--- NOTE | 2018-08-16 13:15 | ED PDOC ---
Arrival/HPI - General Chief Complaint: Trauma Time Seen by Provider: 08/16/18 12:34 Historian: Patient - History of Present Illness Narrative History of Present Illness (Text): 08/16/18 13:06 Patient is a 68 year old male whose past medical history includes COPD, leg neuropathy, cataracts, and past social history of tobacco use and ETOH abuse who presents to the Emergency Department after falling outside. The patient states to me that he was "at a friends house" and "I just left her house and was walking down the street and started to feel dizzy". The patient states as he was standing at the bus stop he "tripped and fell onto my side". He denies head injury or loss of consciousness. Denies fevers or chills. Denies chest pain or shortness of breath. He denies hip pain. He denies taking any medication aside from "nerve pain medication". He denies taking any pain medication or sleeping pills or antianxiety medications. Denies any exposures or any exposure to fumes in closed spaces. Denies overdose or suicidal ideation. PMD: Dr. Lena Mary 08/16/18 20:46 Time/Duration: Prior to Arrival Symptom Onset: Sudden Symptom Course: Unchanged Activities at Onset: Light Context: Street Past Medical History - Provider Review Nursing Documentation Reviewed: Yes - Past History Past History: Non-Contributing - Infectious Disease Hx of Infectious Diseases: None - Tetanus Immunization Tetanus Immunization: Unknown - Past Medical History Past Medical History: Unable to Obtain - Cardiac Hx Cardiac Disorders: Yes Hx Peripheral Edema: Yes - Pulmonary Hx Respiratory Disorders: Yes Hx Chronic Obstructive Pulmonary Disease (COPD): Yes Hx Pneumonia: Yes - Neurological Hx Neurological Disorder: Yes Hx Syncope: Yes Other/Comment: NEUROPATHY, AMS - HEENT Hx HEENT Disorder: Yes Hx Cataracts: Yes - Renal Hx Renal Disorder: No - Endocrine/Metabolic Hx Endocrine Disorders: No - Hematological/Oncological Hx Blood Disorders: Yes Hx Anemia: Yes Hx Hepatitis C: Yes - Integumentary Hx Dermatological Disorder: Yes (hx pressure ulcers) - Musculoskeletal/Rheumatological Hx Musculoskeletal Disorders: Yes Hx Fractures: Yes (left wrist) Hx Osteoporosis: Yes - Gastrointestinal Hx Gastrointestinal Disorders: Yes Hx Gastrointestinal Ulcer: Yes - Genitourinary/Gynecological Hx Sexually Transmitted Diseases: No - Psychiatric Hx Psychophysiologic Disorder: Yes Hx Anxiety: Yes Hx Depression: Yes Hx Substance Use: Yes - Past Surgical History Past Surgical History: Unable to Obtain - Surgical History Hx Coronary Artery Bypass Graft: No Other/Comment: GASTRECTOMY - Anesthesia Hx Anesthesia: Yes Hx Anesthesia Reactions: No Hx Malignant Hyperthermia: No - Suicidal Assessment Feels Threatened In Home Enviroment: No Family/Social History - Physician Review Nursing Documentation Reviewed: Yes Family/Social History: Unknown Family HX Smoking Status: Heavy Smoker > 10 Cigarettes Daily Hx Alcohol Use: Yes (ETOH ABUSE) Hx Substance Use: Yes Hx Substance Use Treatment: No Allergies/Home Meds Allergies/Adverse Reactions: Allergies aspirin Allergy (Verified 08/16/18 12:40) RASH Review of Systems - Review of Systems Systems not reviewed;Unavailable: Other (Patient is a poor historian) Constitutional: Fatigue Eyes: absent: Vision Changes ENT: absent: Hearing Changes Respiratory: Cough. absent: SOB, Wheezing Cardiovascular: absent: Chest Pain, Palpitations, Edema, [place] Gastrointestinal: Appetite Changes. absent: Abdominal Pain, Diarrhea, Nausea, Hematochezia Genitourinary Male: absent: Dysuria Musculoskeletal: Other (leg pain) Skin: absent: Cellulitis Neurological: Dizziness. absent: Headache, Focal Weakness, Seizure Endocrine: absent: Polyuria Hemo/Lymphatic: absent: Easy Bleeding Psychiatric: absent: Depression, Suicidal Ideation Physical Exam - Physical Exam Narrative Physical Exam (Text): 08/16/18 13:06 Head: Atraumatic. Normocephalic. Eyes: pupil are pinpoint. EOMI. Conjunctivae are not pale. Visual acuity and kbaa intact. ENT: Dry mucous membranes. Oropharynx is clear and symmetric. No drooling or stridor. NO facial edema or erythema. Neck: Supple. Full ROM. No JVD. No lymphadenopathy. Cardiovascular: Regular rate. Regular rhythm. Systolic murmur noted. Distal pulses are 2+ and symmetric. Pulmonary/Chest: Diminished breath sounds bilaterally. No rales or rhonchi. MILD expiratory wheeze. No accessory muscle usage. Abdominal: Soft and non-distended. There is no tenderness. No rebound, guarding, or rigidity. No organomegaly. Good bowel sounds. Back: No CVA tenderness. No midline pain or deformity. Extremities: No edema. No cyanosis. No clubbing. Full range of motion in all extremities. No calf tenderness. No hip or knee or ankle pain. No shoulder or elbow or wrist pain. Skin: Skin is warm and dry. No petechiae. No purpura. Neurological: Alert, awake, and oriented to person, place, time, and situation. No facial droop. Strength if equal and symmetric in upper and lower extremities. No pronator drift noted. Reflexes intact. Psychiatric: Good eye contact. Normal interaction, affect, and behavior. 08/16/18 21:02 Vital Signs Temp Pulse Resp BP Pulse Ox 08/16/18 12:40 98.1 F 79 20 99/55 L 92 L Temperature: Afebrile Blood Pressure: Normal Pulse: Regular Respiratory Rate: Normal Appearance: Positive for: Ill-Appearing, Unkept Pain Distress: None Mental Status: Positive for: Alert and Oriented X 3 Medical Decision Making ED Course and Treatment: 08/16/18 13:06 Impression: 68 year old male who presents to the Emergency Department s/p fall. He states he felt somewhat dizzy but that has resolved. Denies numbness or weakness to his arms or legs. Denies headache. Progress Notes: History obtained from EMS. History obtained from patient. On arrival he is alert, answering questions. Denies syncope. Denies headache or chest pain. He has no focal weakness. He is able to have a conversation and reviews his medications. He denies head injury. On exam there is no scalp tenderness or deformities noted. He denies neck pain. He denied any numbness or tingling to arms or legs. CT head obtained and reviewed. His pupils pinpoint on initial exam and remain pinpoint. He denies headache or trauma. No bony deformities noted. 08/16/18 14:09 On re-evaluation exam patient is less responsive to verbal commands. Patient will open his eyes when spoken to but does not communicate well. O2 sat is 92 % on 3L nasal canula. Urine drug screen is pending at this time. Patient will be straight cath. He will open his eyes to verbal commands, but is more lethargic. Narcan ordered as there is prior history of overdose reportedly in past, but he denies currently. No response to Narcan. Blood pressure stable. Heart rate stable. He will move all four extremities, denies numbness or weakness when prompted. Denies any new medications or overdose. No stridor noted, but mental status progressively decreased and he is less responsive. Oxygen saturations 97% on 4l nasal cannula. Route Sales Manager consulted and abg ordered and reviewed. Bipap initiated with patient oxygenating well with RR 18. He remains lethargic. As he is oxygenating well, protecting airway, will admit to ICU, although patient requires monitoring for any deterioration in his respiratory or cv status. Will admit to hospitalist service. Ddx overdosed, copd exacerbation, arrhythmia, cad, neuro disease. Patient requires serial neuro exams. 08/16/18 20:54 08/16/18 21:15 I reviewed patient's case with Dr. Segura, oncall neurology, reviewed initial CT head, initial presentation. Reassessment Condition: Re-examined - Critical Care Critical Care Minutes: 60 minutes - RAD Interpretation Narrative RAD Interpretations (Text): 08/16/18 13:45 Chest X-ray reviewed by radiologist, shows: FINDINGS: LUNGS: The lungs are hyperinflated and there is peribronchial thickening with chronic changes in both lungs. No focal consolidation. PLEURA: No pleural effusions or pneumothorax. CARDIOVASCULAR: The heart is normal in size. No aortic atherosclerotic calcification present. OSSEOUS STRUCTURES: Within normal limits for the patient's age. VISUALIZED UPPER ABDOMEN: Normal. OTHER FINDINGS: There are multiple surgical clips in the epigastrium with IMPRESSION: No active pulmonary disease. COPD. 08/16/18 13:[address] reviewed by radiologist, shows: FINDINGS: HEMORRHAGE: No intracranial hemorrhage. BRAIN: There is cystic encephalomalacia in the left occipital lobe. There are mild chronic microangiopathic changes. There is no mass, mass effect or abnormal extra-axial fluid collection. There is no territorial infarction. The midline sagittal structures are normal. VENTRICLES: There is mild age-related global parenchymal volume loss and proportionate enlargement of the ventricles and cortical sulci. CALVARIUM: The skull base and calvarium are normal. PARANASAL SINUSES: Predominantly clear. MASTOID AIR CELLS: Predominantly clear. OTHER FINDINGS: The globes are symmetric and normal in appearance. IMPRESSION: No acute intracranial abnormality. 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 No interval change. Radiology Orders: 08/16/18 12:51 HEAD W/O CONTRAST [CT] Stat 08/16/18 12:53 CHEST PORTABLE [RAD] Stat Washing Tub Operator: Radiologist - EKG Interpretation EKG Interpretation (Text): 08/16/18 21:02 EKG at 12:35 normal sinus rhythm rate of [address] elevations Interpreted by ED Physician: Yes Type: 12 lead EKG - Medication Orders Current Medication Orders: Sodium Chloride (Sodium Chloride 0.9%) 1,000 mls @ 1,000 mls/hr IV .Q1H STA Stop: 08/16/18 13:52 - Scribe Statement The provider has reviewed the documentation as recorded by the Vicki villagran with Vannessa All medical record entries made by the Feribseven were at my direction and personally dictated by me. I have reviewed the chart and agree that the record accurately reflects my personal performance of the history, physical exam, medical decision making, and the department course for this patient. I have also personally directed, reviewed, and agree with the discharge instructions and disposition. Disposition/Present on Arrival - Present on Arrival Any Indicators Present on Arrival: No History of DVT/PE: No History of Uncontrolled Diabetes: No Urinary Catheter: No History of Decub. Ulcer: No History Surgical Site Infection Following: None - Disposition Have Diagnosis and Disposition been Completed?: Yes Diagnosis: COPD exacerbation, Altered mental status, Fall Disposition: HOSPITALIZED Disposition Time: 16:30 Patient Plan: Admission, ICU Condition: CRITICAL
[2018-08-16 13:23] LABS: ALB/GLOB RATIO 1.2 (1.1-1.8); ALBUMIN 3.8 g/dL (3.0-4.8); ALT/SGPT 27 U/L (7-56); AST/SGOT 25 U/L (17-59); BLOOD UREA NITROGEN 17 mg/dL (7-21); CALCIUM 8.8 mg/dL (8.4-10.5); GFR NON-AFRICAN AMERICAN > 60
[2018-08-16 13:24] LABS: ACETAMINOPHEN < 10.0 ug/ml (10.0-20.0); INR 1.16; PARTIAL THROMBOPLASTIN TIME 25.6 Seconds (25.1-36.5); PROTHROMBIN TIME 13.4 SECONDS (9.4-12.5); SALICYLATE < 1 mg/dL (2.0-20.0)
[2018-08-16 13:34] LABS: TROPONIN I < 0.01 ng/mL
--- NOTE | 2018-08-16 13:38 | RAD ---
Date of service: 08/16/2018 HISTORY: sob, KEEP PORTABLE COMPARISON: No prior. FINDINGS: LUNGS: The lungs are hyperinflated and there is peribronchial thickening with chronic changes in both lungs. No focal consolidation. PLEURA: No pleural effusions or pneumothorax. CARDIOVASCULAR: The heart is normal in size. No aortic atherosclerotic calcification present. OSSEOUS STRUCTURES: Within normal limits for the patient's age. VISUALIZED UPPER ABDOMEN: Normal. OTHER FINDINGS: There are multiple surgical clips in the epigastrium with IMPRESSION: No active pulmonary disease. COPD.
[2018-08-16] MEDS ORDERED: Albuterol-Ipratrop 3 mg / 0.5 (3 ml) UD IH STA (13:42)
--- NOTE | 2018-08-16 14:00 | CT ---
Date of service: 08/16/2018 PROCEDURE: CT HEAD WITHOUT CONTRAST. HISTORY: Altered mental status COMPARISON: 04/27/2018. TECHNIQUE: Axial computed tomography images were obtained through the head/brain without intravenous contrast. Radiation dose: Total exam DLP = 1049.45 mGy-cm. This CT exam was performed using one or more of the following dose reduction techniques: Automated exposure control, adjustment of the mA and/or kV according to patient size, and/or use of iterative reconstruction technique. FINDINGS: HEMORRHAGE: No intracranial hemorrhage. BRAIN: There is cystic encephalomalacia in the left occipital lobe. There are mild chronic microangiopathic changes. There is no mass, mass effect or abnormal extra-axial fluid collection. There is no territorial infarction. The midline sagittal structures are normal. VENTRICLES: There is mild age-related global parenchymal volume loss and proportionate enlargement of the ventricles and cortical sulci. CALVARIUM: The skull base and calvarium are normal. PARANASAL SINUSES: Predominantly clear. MASTOID AIR CELLS: Predominantly clear. OTHER FINDINGS: The globes are symmetric and normal in appearance. IMPRESSION: No acute intracranial abnormality. 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 No interval change.
[2018-08-16] MEDS ORDERED: Naloxone 0.02 mg/ml Inj (Neonatal) IV ONE (14:35)
[2018-08-16] MEDS ORDERED: Sodium Chloride 0.9% 500 ML IV STA (14:35)
[2018-08-16 14:44] LABS: ARTERIAL BLOOD GAS HCO3 26.6 mmol/L (21-28); ARTERIAL BLOOD GAS O2 SAT 98.8 % (95-98); ARTERIAL BLOOD GAS PCO2 58 mm/Hg (35-45); ARTERIAL BLOOD GAS PH 7.27 (7.35-7.45); ARTERIAL BLOOD GAS TCO2 28.4 mmol.L (22-28)
[2018-08-16 15:19] LABS: PH,URINE 6.5 (4.7-8.0); URINE BILIRUBIN NEGATIVE (NEGATIVE); URINE BLOOD NEGATIVE (NEGATIVE); URINE GLUCOSE (UA) NEGATIVE (NEGATIVE); URINE LEUKOCYTE ESTERASE NEGATIVE Leu/uL (NEGATIVE); URINE PROTEIN NEGATIVE mg/dL (<30 mg/dL); URINE UROBILINOGEN 0.2 E.U./dL (<1 E.U./dL)
[2018-08-16 15:23] LABS: URINE APPEARANCE CLEAR (CLEAR); URINE COLOR YELLOW (YELLOW)
[2018-08-16 16:02] LABS: BARBITURATES, UR NEGATIVE (NEGATIVE); BENZODIAZEPINES, UR NEGATIVE (NEGATIVE); OPIATES, UR NEGATIVE (NEGATIVE); PHENCYCLIDINE, UR NEGATIVE (NEGATIVE)
--- NOTE | 2018-08-16 16:21 | CP.PCM.HP ---
<Jesse Rae - Last Filed: 08/16/18 21:04> History of Present Illness - History of Present Illness History of Present Illness: PGY-1 H&P for Dr. Briscoe 68 year old M with PMHx of COPD, pressure ulcers, renal failure, neuropathy, cataracts who presents with COPD, subdural hematoma, HCV, IV drug use, PUD, chronic renal disease, insomnia, chronic back pain on tramadol, BIBEMS for fall secondary to dizziness causing injury to left elbow. On initial presentation in ED, patient was alert, denying LOC and head trauma at time of fall. HPI obtained from past charts, as patient was alert but not oriented during interview. ROS unattainable due to patient's clinical status. PMD: Dr. Lena Underwood Social history: tobacco abuse, ETOH abuse, IV drug abuse Allergies: Aspirin Present on Admission - Present on Admission Any Indicators Present on Admission: No History of DVT/PE: No History of Uncontrolled Diabetes: No Urinary Catheter: No Decubitus Ulcer Present: No Review of Systems - Review of Systems Systems not reviewed;Unavailable: Acuity of Condition, Altered Mental Status Past Patient History - Infectious Disease Hx of Infectious Diseases: None - Tetanus Immunizations Tetanus Immunization: Unknown - Past Social History Smoking Status: Heavy Smoker > 10 Cigarettes Daily - CARDIAC Hx Cardiac Disorders: Yes Hx Peripheral Edema: Yes - PULMONARY Hx Respiratory Disorders: Yes Hx Chronic Obstructive Pulmonary Disease (COPD): Yes Hx Pneumonia: Yes - NEUROLOGICAL Hx Neurological Disorder: Yes Hx Syncope: Yes Other/Comment: NEUROPATHY, AMS - HEENT Hx HEENT Problems: Yes Hx Cataracts: Yes - RENAL Hx Chronic Kidney Disease: No - ENDOCRINE/METABOLIC Hx Endocrine Disorders: No - HEMATOLOGICAL/ONCOLOGICAL Hx Blood Disorders: Yes Hx Anemia: Yes Hx Hepatitis C: Yes - INTEGUMENTARY Hx Dermatological Problems: Yes (hx pressure ulcers) - MUSCULOSKELETAL/RHEUMATOLOGICAL Hx Musculoskeletal Disorders: Yes Hx Fractures: Yes (left wrist) Hx Osteoporosis: Yes - GASTROINTESTINAL Hx Gastrointestinal Disorders: Yes - GENITOURINARY/GYNECOLOGICAL Hx Sexually Transmitted Disorders: No - PSYCHIATRIC Hx Psychophysiologic Disorder: Yes Hx Anxiety: Yes Hx Depression: Yes Hx Substance Use: Yes - SURGICAL HISTORY Hx Coronary Artery Bypass Graft: No Other/Comment: GASTRECTOMY - ANESTHESIA Hx Anesthesia: Yes Hx Anesthesia Reactions: No Hx Malignant Hyperthermia: No Meds Allergies/Adverse Reactions: Allergies Allergy/AdvReac Type Severity Reaction Status Date / Time aspirin Allergy RASH Verified 08/16/18 12:40 Physical Exam - Constitutional Appears: Toxic, Chronically Ill - Head Exam Head Exam: ATRAUMATIC, NORMAL INSPECTION, NORMOCEPHALIC - Eye Exam Eye Exam: absent: EOMI, PERRL Pupil Exam: Miosis - ENT Exam ENT Exam: Mucous Membranes Moist - Neck Exam Neck exam: Positive for: Normal Inspection - Respiratory Exam Respiratory Exam: Clear to Auscultation Bilateral - Cardiovascular Exam Cardiovascular Exam: REGULAR RHYTHM, +S1, +S2 - GI/Abdominal Exam GI & Abdominal Exam: Normal Bowel Sounds, Soft - Extremities Exam Extremities exam: Positive for: normal capillary refill, pedal pulses present. Negative for: joint swelling, pedal edema Additional comments: chronic dry scaling skin b/l LE - Neurological Exam Neurological exam: Altered - Skin Skin Exam: Abrasion (on distal extremities), Dry, Erythema (on b/l UE), Intact Results - Vital Signs Recent Vital Signs: Last Vital Signs Temp 98.1 F 08/16/18 12:40 Pulse 75 08/16/18 16:07 Resp 20 08/16/18 12:40 BP 99/55 L 08/16/18 12:40 Pulse Ox 92 L 08/16/18 12:40 - Labs Result Diagrams: 08/16/18 13:00 08/16/18 13:00 Labs: Laboratory Results - last 24 hr 08/16/18 08/16/18 08/16/18 13:00 13:00 13:00 WBC 7.8 RBC 3.72 Hgb 10.8 L Hct 32.6 L MCV 87.6 MCH 29.0 MCHC 33.1 RDW 16.2 H Plt Count 233 MPV 8.7 Gran % 61.6 Lymph % (Auto) 25.0 [place] % (Auto) 10.8 H Eos % (Auto) 2.1 Baso % (Auto) 0.5 Gran # 4.80 Lymph # (Auto) 2.0 [place] # (Auto) 0.8 H Eos # (Auto) 0.2 Baso # (Auto) 0.04 PT 13.4 H INR 1.16 APTT 25.6 pCO2 pO2 HCO3 ABG pH ABG Total CO2 ABG O2 Saturation ABG Base Excess ABG Potassium Glucose Lactate FiO2 Sodium 138 Potassium 4.0 Chloride 107 Carbon Dioxide 25 Anion Gap 10 BUN 17 Creatinine 0.9 Est GFR ( Amer) > 60 Est GFR (Non-Af Amer) > 60 Random Glucose 99 Calcium 8.8 Magnesium 2.1 Total Bilirubin 0.6 AST 25 ALT 27 Alkaline Phosphatase 65 Lactate Dehydrogenase 551 Total Creatine Kinase 92 Troponin I < 0.01 Total Protein 7.0 Albumin 3.8 Globulin 3.2 Albumin/Globulin Ratio 1.2 Arterial Blood Potassium Urine Color Urine Appearance Urine pH Ur Specific [place] Urine Protein Urine Glucose (UA) Urine Ketones Urine Blood Urine Nitrate Urine Bilirubin Urine Urobilinogen Ur Leukocyte Esterase Salicylates Urine Opiates Screen Urine Methadone Screen Acetaminophen Ur Barbiturates Screen Ur Phencyclidine Scrn Ur Amphetamines Screen U Benzodiazepines Scrn U Oth Cocaine Metabols U Cannabinoids Screen Alcohol, Quantitative 08/16/18 08/16/18 08/16/18 13:00 13:00 14:37 WBC RBC Hgb Hct MCV MCH MCHC RDW Plt Count MPV Gran % Lymph % (Auto) [place] % (Auto) Eos % (Auto) Baso % (Auto) Gran # Lymph # (Auto) [place] # (Auto) Eos # (Auto) Baso # (Auto) PT INR APTT pCO2 58 H pO2 108.0 H HCO3 26.6 ABG pH 7.27 L ABG Total CO2 28.4 H ABG O2 Saturation 98.8 H ABG Base Excess -1.4 ABG Potassium 4.0 Glucose 103 Lactate 0.5 L FiO2 36.0 Sodium 138.0 Potassium Chloride 108.0 H Carbon Dioxide Anion Gap BUN Creatinine Est GFR ( Amer) Est GFR (Non-Af Amer) Random Glucose Calcium Magnesium Total Bilirubin AST ALT Alkaline Phosphatase Lactate Dehydrogenase Total Creatine Kinase Troponin I Total Protein Albumin Globulin Albumin/Globulin Ratio Arterial Blood Potassium 4.0 Urine Color Urine Appearance Urine pH Ur Specific [place] Urine Protein Urine Glucose (UA) Urine Ketones Urine Blood Urine Nitrate Urine Bilirubin Urine Urobilinogen Ur Leukocyte Esterase Salicylates < 1 L Urine Opiates Screen Urine Methadone Screen Acetaminophen < 10.0 L Ur Barbiturates Screen Ur Phencyclidine Scrn Ur Amphetamines Screen U Benzodiazepines Scrn U Oth Cocaine Metabols U Cannabinoids Screen Alcohol, Quantitative < 10 08/16/18 08/16/18 15:11 15:11 WBC RBC Hgb Hct MCV MCH MCHC RDW Plt Count MPV Gran % Lymph % (Auto) [place] % (Auto) Eos % (Auto) Baso % (Auto) Gran # Lymph # (Auto) [place] # (Auto) Eos # (Auto) Baso # (Auto) PT INR APTT pCO2 pO2 HCO3 ABG pH ABG Total CO2 ABG O2 Saturation ABG Base Excess ABG Potassium Glucose Lactate FiO2 Sodium Potassium Chloride Carbon Dioxide Anion Gap BUN Creatinine Est GFR ( Amer) Est GFR (Non-Af Amer) Random Glucose Calcium Magnesium Total Bilirubin AST ALT Alkaline Phosphatase Lactate Dehydrogenase Total Creatine Kinase Troponin I Total Protein Albumin Globulin Albumin/Globulin Ratio Arterial Blood Potassium Urine Color Yellow Urine Appearance Clear Urine pH 6.5 Ur Specific [place] 1.020 Urine Protein Negative Urine Glucose (UA) Negative Urine Ketones Negative Urine Blood Negative Urine Nitrate Negative Urine Bilirubin Negative Urine Urobilinogen 0.2 Ur Leukocyte Esterase Negative Salicylates Urine Opiates Screen Negative Urine Methadone Screen Negative Acetaminophen Ur Barbiturates Screen Negative Ur Phencyclidine Scrn Negative Ur Amphetamines Screen Negative U Benzodiazepines Scrn Negative U Oth Cocaine Metabols Negative U Cannabinoids Screen Negative Alcohol, Quantitative Assessment & Plan - Assessment and Plan (Free Text) Assessment: 68 year old M with PMHx of COPD, subdural hematoma, HCV, IV drug use, PUD, chronic renal disease, insomnia, chronic back pain on tramadol, who presented to the [facility] – [place], [place] emergency department brought in by EMS after fall due to dizziness found to be in hypercapnic respiratory failure. Plan: AMS secondary to possible drug overdose -narcan given in ED -pt alert but not oriented -hx of ivdu -ABGs shows HCRF -IVF -f/u morning labs -f/u UA, Ucx, UDS -Neurology (Dr. Segura) consult on board -ICU (Dr. Jimenez) consult on board PPx, Diet, Disposition DVT ppx: heparin 5000U sc q8 GI ppx: protonix 40 mg PO q8 Disposition: Dr. Jimenez notified and aware of case. Plan for ICU. Case discussed with Dr. Rachna Rae DO, PGY-1 <Zainab Briscoe - Last Filed: 08/17/18 08:37> Results - Vital Signs Recent Vital Signs: Last Vital Signs Temp 99.5 F 08/17/18 04:00 Pulse 65 08/17/18 05:52 Resp 17 08/16/18 19:32 BP 93/53 L 08/17/18 00:15 Pulse Ox 97 08/17/18 00:20 - Labs Result Diagrams: 08/17/18 05:30 08/17/18 05:30 Labs: Laboratory Results - last 24 hr 08/16/18 08/16/18 08/16/18 13:00 13:00 13:00 WBC 7.8 RBC 3.72 Hgb 10.8 L Hct 32.6 L MCV 87.6 MCH 29.0 MCHC 33.1 RDW 16.2 H Plt Count 233 MPV 8.7 Gran % 61.6 Lymph % (Auto) 25.0 [place] % (Auto) 10.8 H Eos % (Auto) 2.1 Baso % (Auto) 0.5 Gran # 4.80 Lymph # (Auto) 2.0 [place] # (Auto) 0.8 H Eos # (Auto) 0.2 Baso # (Auto) 0.04 PT 13.4 H INR 1.16 APTT 25.6 pCO2 pO2 HCO3 ABG pH ABG Total CO2 ABG O2 Saturation ABG O2 Content ABG Base Excess ABG Hemoglobin ABG Carboxyhemoglobin POC ABG HHb (Measured) ABG Methemoglobin ABG O2 Capacity ABG Potassium Hgb O2 Saturation Glucose Lactate FiO2 Sodium 138 Potassium 4.0 Chloride 107 Carbon Dioxide 25 Anion Gap 10 BUN 17 Creatinine 0.9 Est GFR ( Amer) > 60 Est GFR (Non-Af Amer) > 60 POC Glucose (mg/dL) Random Glucose 99 Calcium 8.8 Phosphorus Magnesium 2.1 Total Bilirubin 0.6 AST 25 ALT 27 Alkaline Phosphatase 65 Ammonia Lactate Dehydrogenase 551 Total Creatine Kinase 92 Troponin I < 0.01 Total Protein 7.0 Albumin 3.8 Globulin 3.2 Albumin/Globulin Ratio 1.2 Prostate Specific Ag Arterial Blood Potassium Urine Color Urine Appearance Urine pH Ur Specific [place] Urine Protein Urine Glucose (UA) Urine Ketones Urine Blood Urine Nitrate Urine Bilirubin Urine Urobilinogen Ur Leukocyte Esterase Salicylates Urine Opiates Screen Urine Methadone Screen Acetaminophen Ur Barbiturates Screen Ur Phencyclidine Scrn Ur Amphetamines Screen U Benzodiazepines Scrn U Oth Cocaine Metabols U Cannabinoids Screen Alcohol, Quantitative 08/16/18 08/16/18 08/16/18 13:00 13:00 14:33 WBC RBC Hgb Hct MCV MCH MCHC RDW Plt Count MPV Gran % Lymph % (Auto) [place] % (Auto) Eos % (Auto) Baso % (Auto) Gran # Lymph # (Auto) [place] # (Auto) Eos # (Auto) Baso # (Auto) PT INR APTT pCO2 pO2 HCO3 ABG pH ABG Total CO2 ABG O2 Saturation ABG O2 Content ABG Base Excess ABG Hemoglobin ABG Carboxyhemoglobin POC ABG HHb (Measured) ABG Methemoglobin ABG O2 Capacity ABG Potassium Hgb O2 Saturation Glucose Lactate FiO2 Sodium Potassium Chloride Carbon Dioxide Anion Gap BUN Creatinine Est GFR ( Amer) Est GFR (Non-Af Amer) POC Glucose (mg/dL) 99 Random Glucose Calcium Phosphorus Magnesium Total Bilirubin AST ALT Alkaline Phosphatase Ammonia Lactate Dehydrogenase Total Creatine Kinase Troponin I Total Protein Albumin Globulin Albumin/Globulin Ratio Prostate Specific Ag Arterial Blood Potassium Urine Color Urine Appearance Urine pH Ur Specific [place] Urine Protein Urine Glucose (UA) Urine Ketones Urine Blood Urine Nitrate Urine Bilirubin Urine Urobilinogen Ur Leukocyte Esterase Salicylates < 1 L Urine Opiates Screen Urine Methadone Screen Acetaminophen < 10.0 L Ur Barbiturates Screen Ur Phencyclidine Scrn Ur Amphetamines Screen U Benzodiazepines Scrn U Oth Cocaine Metabols U Cannabinoids Screen Alcohol, Quantitative < 10 08/16/18 08/16/18 08/16/18 14:37 15:11 15:11 WBC RBC Hgb Hct MCV MCH MCHC RDW Plt Count MPV Gran % Lymph % (Auto) [place] % (Auto) Eos % (Auto) Baso % (Auto) Gran # Lymph # (Auto) [place] # (Auto) Eos # (Auto) Baso # (Auto) PT INR APTT pCO2 58 H pO2 108.0 H HCO3 26.6 ABG pH 7.27 L ABG Total CO2 28.4 H ABG O2 Saturation 98.8 H ABG O2 Content ABG Base Excess -1.4 ABG Hemoglobin ABG Carboxyhemoglobin POC ABG HHb (Measured) ABG Methemoglobin ABG O2 Capacity ABG Potassium 4.0 Hgb O2 Saturation Glucose 103 Lactate 0.5 L FiO2 36.0 Sodium 138.0 Potassium Chloride 108.0 H Carbon Dioxide Anion Gap BUN Creatinine Est GFR ( Amer) Est GFR (Non-Af Amer) POC Glucose (mg/dL) Random Glucose Calcium Phosphorus Magnesium Total Bilirubin AST ALT Alkaline Phosphatase Ammonia Lactate Dehydrogenase Total Creatine Kinase Troponin I Total Protein Albumin Globulin Albumin/Globulin Ratio Prostate Specific Ag Arterial Blood Potassium 4.0 Urine Color Yellow Urine Appearance Clear Urine pH 6.5 Ur Specific [place] 1.020 Urine Protein Negative Urine Glucose (UA) Negative Urine Ketones Negative Urine Blood Negative Urine Nitrate Negative Urine Bilirubin Negative Urine Urobilinogen 0.2 Ur Leukocyte Esterase Negative Salicylates Urine Opiates Screen Negative Urine Methadone Screen Negative Acetaminophen Ur Barbiturates Screen Negative Ur Phencyclidine Scrn Negative Ur Amphetamines Screen Negative U Benzodiazepines Scrn Negative U Oth Cocaine Metabols Negative U Cannabinoids Screen Negative Alcohol, Quantitative 08/16/18 08/16/18 08/16/18 18:41 20:10 20:49 WBC RBC Hgb Hct MCV MCH MCHC RDW Plt Count MPV Gran % Lymph % (Auto) [place] % (Auto) Eos % (Auto) Baso % (Auto) Gran # Lymph # (Auto) [place] # (Auto) Eos # (Auto) Baso # (Auto) PT INR APTT pCO2 61 H 46 H pO2 95.0 156.0 H HCO3 25.5 24.3 ABG pH 7.23 L 7.33 L ABG Total CO2 27.4 25.7 ABG O2 Saturation 98.3 H 99.5 H ABG O2 Content 14.8 L 14.1 L ABG Base Excess -2.8 L -1.8 ABG Hemoglobin 11.2 L 10.3 L ABG Carboxyhemoglobin 4.2 H 3.1 H POC ABG HHb (Measured) 1.6 0.5 ABG Methemoglobin 0.9 1.2 ABG O2 Capacity 15.1 L 14.2 L ABG Potassium Hgb O2 Saturation 93.3 L 95.1 Glucose Lactate FiO2 35.0 60.0 Sodium Potassium Chloride Carbon Dioxide Anion Gap BUN Creatinine Est GFR ( Amer) Est GFR (Non-Af Amer) POC Glucose (mg/dL) Random Glucose Calcium Phosphorus Magnesium Total Bilirubin AST ALT Alkaline Phosphatase Ammonia 16 Lactate Dehydrogenase Total Creatine Kinase Troponin I Total Protein Albumin Globulin Albumin/Globulin Ratio Prostate Specific Ag Arterial Blood Potassium Urine Color Urine Appearance Urine pH Ur Specific [place] Urine Protein Urine Glucose (UA) Urine Ketones Urine Blood Urine Nitrate Urine Bilirubin Urine Urobilinogen Ur Leukocyte Esterase Salicylates Urine Opiates Screen Urine Methadone Screen Acetaminophen Ur Barbiturates Screen Ur Phencyclidine Scrn Ur Amphetamines Screen U Benzodiazepines Scrn U Oth Cocaine Metabols U Cannabinoids Screen Alcohol, Quantitative 08/16/18 08/17/18 08/17/18 22:09 05:00 05:30 WBC 6.3 RBC 3.63 Hgb 10.4 L Hct 32.6 L MCV 89.8 MCH 28.7 MCHC 31.9 RDW 16.2 H Plt Count 220 MPV 9.3 Gran % 89.2 H Lymph % (Auto) 7.4 L [place] % (Auto) 3.0 Eos % (Auto) 0.2 L Baso % (Auto) 0.2 Gran # 5.64 Lymph # (Auto) 0.5 L [place] # (Auto) 0.2 Eos # (Auto) 0.0 Baso # (Auto) 0.01 PT INR APTT pCO2 pO2 HCO3 ABG pH ABG Total CO2 ABG O2 Saturation ABG O2 Content ABG Base Excess ABG Hemoglobin ABG Carboxyhemoglobin POC ABG HHb (Measured) ABG Methemoglobin ABG O2 Capacity ABG Potassium Hgb O2 Saturation Glucose Lactate FiO2 Sodium Potassium Chloride Carbon Dioxide Anion Gap BUN Creatinine Est GFR ( Amer) Est GFR (Non-Af Amer) POC Glucose (mg/dL) 82 Random Glucose Calcium Phosphorus Magnesium Total Bilirubin AST ALT Alkaline Phosphatase Ammonia Lactate Dehydrogenase Total Creatine Kinase Troponin I Total Protein Albumin Globulin Albumin/Globulin Ratio Prostate Specific Ag 0.6 Arterial Blood Potassium Urine Color Urine Appearance Urine pH Ur Specific [place] Urine Protein Urine Glucose (UA) Urine Ketones Urine Blood Urine Nitrate Urine Bilirubin Urine Urobilinogen Ur Leukocyte Esterase Salicylates Urine Opiates Screen Urine Methadone Screen Acetaminophen Ur Barbiturates Screen Ur Phencyclidine Scrn Ur Amphetamines Screen U Benzodiazepines Scrn U Oth Cocaine Metabols U Cannabinoids Screen Alcohol, Quantitative 08/17/18 08/17/18 08/17/18 05:30 05:30 06:00 WBC RBC Hgb Hct MCV MCH MCHC RDW Plt Count MPV Gran % Lymph % (Auto) [place] % (Auto) Eos % (Auto) Baso % (Auto) Gran # Lymph # (Auto) [place] # (Auto) Eos # (Auto) Baso # (Auto) PT INR APTT 28.0 pCO2 38 pO2 99.0 HCO3 22.5 ABG pH 7.38 ABG Total CO2 23.7 ABG O2 Saturation 99.0 H ABG O2 Content 14.0 L ABG Base Excess -2.4 L ABG Hemoglobin 10.3 L ABG Carboxyhemoglobin 2.4 H POC ABG HHb (Measured) 1.0 ABG Methemoglobin 1.3 ABG O2 Capacity 14.1 L ABG Potassium Hgb O2 Saturation 95.3 Glucose Lactate FiO2 40.0 Sodium 138 Potassium 4.5 Chloride 108 H Carbon Dioxide 24 Anion Gap 11 BUN 13 Creatinine 0.8 Est GFR ( Amer) > 60 Est GFR (Non-Af Amer) > 60 POC Glucose (mg/dL) Random Glucose 103 Calcium 8.6 Phosphorus 4.7 H Magnesium 2.0 Total Bilirubin 0.6 AST 22 ALT 30 Alkaline Phosphatase 63 Ammonia Lactate Dehydrogenase Total Creatine Kinase Troponin I Total Protein 6.4 Albumin 3.3 Globulin 3.1 Albumin/Globulin Ratio 1.1 Prostate Specific Ag Arterial Blood Potassium Urine Color Urine Appearance Urine pH Ur Specific [place] Urine Protein Urine Glucose (UA) Urine Ketones Urine Blood Urine Nitrate Urine Bilirubin Urine Urobilinogen Ur Leukocyte Esterase Salicylates Urine Opiates Screen Urine Methadone Screen Acetaminophen Ur Barbiturates Screen Ur Phencyclidine Scrn Ur Amphetamines Screen U Benzodiazepines Scrn U Oth Cocaine Metabols U Cannabinoids Screen Alcohol, Quantitative 08/17/18 07:38 WBC RBC Hgb Hct MCV MCH MCHC RDW Plt Count MPV Gran % Lymph % (Auto) [place] % (Auto) Eos % (Auto) Baso % (Auto) Gran # Lymph # (Auto) [place] # (Auto) Eos # (Auto) Baso # (Auto) PT INR APTT pCO2 pO2 HCO3 ABG pH ABG Total CO2 ABG O2 Saturation ABG O2 Content ABG Base Excess ABG Hemoglobin ABG Carboxyhemoglobin POC ABG HHb (Measured) ABG Methemoglobin ABG O2 Capacity ABG Potassium Hgb O2 Saturation Glucose Lactate FiO2 Sodium Potassium Chloride Carbon Dioxide Anion Gap BUN Creatinine Est GFR ( Amer) Est GFR (Non-Af Amer) POC Glucose (mg/dL) 108 Random Glucose Calcium Phosphorus Magnesium Total Bilirubin AST ALT Alkaline Phosphatase Ammonia Lactate Dehydrogenase Total Creatine Kinase Troponin I Total Protein Albumin Globulin Albumin/Globulin Ratio Prostate Specific Ag Arterial Blood Potassium Urine Color Urine Appearance Urine pH Ur Specific [place] Urine Protein Urine Glucose (UA) Urine Ketones Urine Blood Urine Nitrate Urine Bilirubin Urine Urobilinogen Ur Leukocyte Esterase Salicylates Urine Opiates Screen Urine Methadone Screen Acetaminophen Ur Barbiturates Screen Ur Phencyclidine Scrn Ur Amphetamines Screen U Benzodiazepines Scrn U Oth Cocaine Metabols U Cannabinoids Screen Alcohol, Quantitative Attending/Attestation - Attestation I have personally seen and examined this patient.: Yes I have fully participated in the care of the patient.: Yes I have reviewed all pertinent clinical information: Yes Notes (Text): 08/16/18 68 year old male with past medical history of COPD, subdural hematoma, hepatitis C, substance abuse, and IVDA who presented with altered mental status and fall. In ER was increasingly lethargic requiring narcan. Urine drug screen was negative. CT head showed no acute findings; left occipital lobe cystic encephalomalacia. ABG showed CO2 retention. CXR, UA, and labs otherwise were unremarkable. Ammonia level is ordered. Neurology evaluation is requested. Patient will be started on bipap and admitted to ICU. Zainab Briscoe MD Hospitalist.
--- NOTE | 2018-08-16 16:52 | CP.PCM.CON ---
<Christian Lares - Last Filed: 08/16/18 18:05> History of Present Illness - History of Present Illness History of Present Illness: ICU consult note for Dr. Lety Jimenez Patient is a 68 year old male with a past medical history of COPD, subdural hematoma, HCV, IV drug use, PUD, chronic renal disease, insomnia, chronic back pain on tramadol, who presented to the [facility] [place] brought in by EMS after fall due to dizziness causing injury to left elbow. Patient at time was conscious and denying loss of consciousness at time of fall. Patient also denied head trauma. History obtained from previous charts as patient was not conscious during interview. ROS not obtained due to patient's lack of consciousness. PMD: Dr. Lena Underwood Social history: tobacco abuse, ETOH abuse, IV drug abuse Allergies: Aspirin Review of Systems - Review of Systems Systems not reviewed;Unavailable: Respiratory Distress, Altered Mental Status, Intoxicated Past Patient History - Infectious Disease Hx of Infectious Diseases: None - Tetanus Immunizations Tetanus Immunization: Unknown - Past Social History Smoking Status: Heavy Smoker > 10 Cigarettes Daily - CARDIAC Hx Cardiac Disorders: Yes (mi) Hx Peripheral Edema: Yes Hx Peripheral Vascular Disease: Yes Other/Comment: cellulitis ble - PULMONARY Hx Respiratory Disorders: Yes Hx Chronic Obstructive Pulmonary Disease (COPD): Yes Hx Pneumonia: Yes - NEUROLOGICAL Hx Neurological Disorder: Yes (syncope) Hx Dizziness: Yes Other/Comment: NEUROPATHY both legs, AMS - HEENT Hx HEENT Problems: Yes (hoopa b/l) Hx Cataracts: Yes (sx r eye) - RENAL Hx Chronic Kidney Disease: No - ENDOCRINE/METABOLIC Hx Endocrine Disorders: No - HEMATOLOGICAL/ONCOLOGICAL Hx Blood Disorders: Yes Hx Anemia: Yes (blood transfusion) Hx Hepatitis C: Yes - INTEGUMENTARY Hx Dermatological Problems: Yes (hx pressure ulcers) Other/Comment: unable to turn patient at present time to check skin on pack, pt was being placed on bipap,more concerned with respirations at present time, lethargic, no verbal response, body stiff,hammertoes both feet, dry flakey skin, brown discolored scaley skin to lower legs with slight redness, eyelids upper and lower redness, multiple skin discolortions both arms, dry skin to lips, left arm abrasion - MUSCULOSKELETAL/RHEUMATOLOGICAL Hx Musculoskeletal Disorders: Yes Hx Back Pain: Yes Hx Falls: Yes (frequent falls) Hx Fractures: Yes (left wrist) Hx Osteoporosis: Yes Hx Unsteady Gait: Yes Other/Comment: chronic b/l leg pain due to neuropathy - GASTROINTESTINAL Hx Gastrointestinal Disorders: Yes (poor appetite weight loss) Other/Comment: peptic ulcer disease - GENITOURINARY/GYNECOLOGICAL Hx Sexually Transmitted Disorders: No - PSYCHIATRIC Hx Psychophysiologic Disorder: Yes Hx Anxiety: Yes Hx Depression: Yes Hx Paranoia: Yes Other/Comment: hx drug abuse, alcohol abuse, heavy smoker, trouble sleeping - SURGICAL HISTORY Hx Surgeries: Yes Hx Cardiac Catheterization: Yes Other/Comment: herniorraphy, inguinal hernia repair, bowel sx, partial gastrectomy 30 yrs ago - ANESTHESIA Hx Anesthesia: Yes Hx Anesthesia Reactions: No Hx Malignant Hyperthermia: No Meds Allergies/Adverse Reactions: Allergies Allergy/AdvReac Type Severity Reaction Status Date / Time aspirin Allergy RASH Verified 08/16/18 12:40 - Medications Medications: Current Medications Heparin Sodium (Porcine) (Heparin) 5,000 units SC Q8 NIKA; Protocol Sodium Chloride (Sodium Chloride 0.9%) 1,000 mls @ 100 mls/hr IV .Q10H [facility] Naloxone HCl (Narcan) 0.02 mg IV ONCE ONE Stop: 08/16/18 14:36 Last Admin: 08/16/18 15:47 Dose: 0.02 mg Pantoprazole Sodium (Protonix Inj) 40 mg IVP DAILY [facility] Physical Exam - Constitutional Appears: Toxic, In Acute Distress - Head Exam Head Exam: ATRAUMATIC, NORMAL INSPECTION, NORMOCEPHALIC - Eye Exam Eye Exam: absent: EOMI Pupil Exam: absent: PERRL Additional comments: pin point pupils - ENT Exam ENT Exam: Mucous Membranes Dry - Respiratory Exam Respiratory Exam: Clear to Auscultation Bilateral - Cardiovascular Exam Cardiovascular Exam: REGULAR RHYTHM, +S1, +S2 - GI/Abdominal Exam GI & Abdominal Exam: Normal Bowel Sounds - Extremities Exam Extremities exam: Negative for: normal inspection, pedal edema Additional comments: Dry scale skin on lower extremities bilaterally - Neurological Exam Neurological exam: Altered - Skin Skin Exam: Abrasion (on distal extremities), Erythema (on upper extremities) Results - Vital Signs Recent Vital Signs: Last Vital Signs Temp 98.1 F 08/16/18 12:40 Pulse 75 08/16/18 16:07 Resp 20 08/16/18 12:40 BP 99/55 L 08/16/18 12:40 Pulse Ox 92 L 08/16/18 12:40 - Labs Result Diagrams: 08/16/18 13:00 08/16/18 13:00 Labs: Laboratory Results - last 24 hr 08/16/18 08/16/18 08/16/18 13:00 13:00 13:00 WBC 7.8 RBC 3.72 Hgb 10.8 L Hct 32.6 L MCV 87.6 MCH 29.0 MCHC 33.1 RDW 16.2 H Plt Count 233 MPV 8.7 Gran % 61.6 Lymph % (Auto) 25.0 [place] % (Auto) 10.8 H Eos % (Auto) 2.1 Baso % (Auto) 0.5 Gran # 4.80 Lymph # (Auto) 2.0 [place] # (Auto) 0.8 H Eos # (Auto) 0.2 Baso # (Auto) 0.04 PT 13.4 H INR 1.16 APTT 25.6 pCO2 pO2 HCO3 ABG pH ABG Total CO2 ABG O2 Saturation ABG Base Excess ABG Potassium Glucose Lactate FiO2 Sodium 138 Potassium 4.0 Chloride 107 Carbon Dioxide 25 Anion Gap 10 BUN 17 Creatinine 0.9 Est GFR ( Amer) > 60 Est GFR (Non-Af Amer) > 60 Random Glucose 99 Calcium 8.8 Magnesium 2.1 Total Bilirubin 0.6 AST 25 ALT 27 Alkaline Phosphatase 65 Lactate Dehydrogenase 551 Total Creatine Kinase 92 Troponin I < 0.01 Total Protein 7.0 Albumin 3.8 Globulin 3.2 Albumin/Globulin Ratio 1.2 Arterial Blood Potassium Urine Color Urine Appearance Urine pH Ur Specific [place] Urine Protein Urine Glucose (UA) Urine Ketones Urine Blood Urine Nitrate Urine Bilirubin Urine Urobilinogen Ur Leukocyte Esterase Salicylates Urine Opiates Screen Urine Methadone Screen Acetaminophen Ur Barbiturates Screen Ur Phencyclidine Scrn Ur Amphetamines Screen U Benzodiazepines Scrn U Oth Cocaine Metabols U Cannabinoids Screen Alcohol, Quantitative 08/16/18 08/16/18 08/16/18 13:00 13:00 14:37 WBC RBC Hgb Hct MCV MCH MCHC RDW Plt Count MPV Gran % Lymph % (Auto) [place] % (Auto) Eos % (Auto) Baso % (Auto) Gran # Lymph # (Auto) [place] # (Auto) Eos # (Auto) Baso # (Auto) PT INR APTT pCO2 58 H pO2 108.0 H HCO3 26.6 ABG pH 7.27 L ABG Total CO2 28.4 H ABG O2 Saturation 98.8 H ABG Base Excess -1.4 ABG Potassium 4.0 Glucose 103 Lactate 0.5 L FiO2 36.0 Sodium 138.0 Potassium Chloride 108.0 H Carbon Dioxide Anion Gap BUN Creatinine Est GFR ( Amer) Est GFR (Non-Af Amer) Random Glucose Calcium Magnesium Total Bilirubin AST ALT Alkaline Phosphatase Lactate Dehydrogenase Total Creatine Kinase Troponin I Total Protein Albumin Globulin Albumin/Globulin Ratio Arterial Blood Potassium 4.0 Urine Color Urine Appearance Urine pH Ur Specific [place] Urine Protein Urine Glucose (UA) Urine Ketones Urine Blood Urine Nitrate Urine Bilirubin Urine Urobilinogen Ur Leukocyte Esterase Salicylates < 1 L Urine Opiates Screen Urine Methadone Screen Acetaminophen < 10.0 L Ur Barbiturates Screen Ur Phencyclidine Scrn Ur Amphetamines Screen U Benzodiazepines Scrn U Oth Cocaine Metabols U Cannabinoids Screen Alcohol, Quantitative < 10 08/16/18 08/16/18 15:11 15:11 WBC RBC Hgb Hct MCV MCH MCHC RDW Plt Count MPV Gran % Lymph % (Auto) [place] % (Auto) Eos % (Auto) Baso % (Auto) Gran # Lymph # (Auto) [place] # (Auto) Eos # (Auto) Baso # (Auto) PT INR APTT pCO2 pO2 HCO3 ABG pH ABG Total CO2 ABG O2 Saturation ABG Base Excess ABG Potassium Glucose Lactate FiO2 Sodium Potassium Chloride Carbon Dioxide Anion Gap BUN Creatinine Est GFR ( Amer) Est GFR (Non-Af Amer) Random Glucose Calcium Magnesium Total Bilirubin AST ALT Alkaline Phosphatase Lactate Dehydrogenase Total Creatine Kinase Troponin I Total Protein Albumin Globulin Albumin/Globulin Ratio Arterial Blood Potassium Urine Color Yellow Urine Appearance Clear Urine pH 6.5 Ur Specific [place] 1.020 Urine Protein Negative Urine Glucose (UA) Negative Urine Ketones Negative Urine Blood Negative Urine Nitrate Negative Urine Bilirubin Negative Urine Urobilinogen 0.2 Ur Leukocyte Esterase Negative Salicylates Urine Opiates Screen Negative Urine Methadone Screen Negative Acetaminophen Ur Barbiturates Screen Negative Ur Phencyclidine Scrn Negative Ur Amphetamines Screen Negative U Benzodiazepines Scrn Negative U Oth Cocaine Metabols Negative U Cannabinoids Screen Negative Alcohol, Quantitative Assessment & Plan - Assessment and Plan (Free Text) Assessment: 68 year old male with a past medical history of COPD, subdural hematoma, HCV, IV drug use, PUD, chronic renal disease, insomnia, chronic back pain on tramadol, who presented to the [facility] [place] brought in by EMS after fall due to dizziness found to be in hypercapnic respiratory failure. Plan: Neuro -AAO x 0 -Narcan given in ED Pulmonary -BiPAP 16/5 RR 16 O2 35% -ABG: pCO2 58, pO2 108 on FiO2 36, pH 7.27 -If patient continues with current mental status will proceed with repeat ABG and pending results,subsequent intubation Cardiovascular -Maintain MAP>65 GI -Protonix for GI prophylaxis -Monitor input & output -NS IVF@100 Heme -DVT prophylaxis <Lety Jimenez - Last Filed: 08/16/18 18:57> Meds - Medications Medications: Current Medications Heparin Sodium (Porcine) (Heparin) 5,000 units SC Q8 NIKA; Protocol Sodium Chloride (Sodium Chloride 0.9%) 1,000 mls @ 100 mls/hr IV .Q10H NIKA Last Admin: 08/16/18 17:53 Dose: 100 mls/hr Pantoprazole Sodium (Protonix Inj) 40 mg IVP DAILY NIKA Last Admin: 08/16/18 17:54 Dose: 40 mg Results - Vital Signs Recent Vital Signs: Last Vital Signs Temp 99.6 F 08/16/18 18:00 Pulse 64 08/16/18 18:40 Resp 12 08/16/18 18:40 BP 134/89 08/16/18 18:05 Pulse Ox 99 08/16/18 18:40 - Labs Result Diagrams: 08/16/18 13:00 08/16/18 13:00 Labs: Laboratory Results - last 24 hr 08/16/18 08/16/18 08/16/18 13:00 13:00 13:00 WBC 7.8 RBC 3.72 Hgb 10.8 L Hct 32.6 L MCV 87.6 MCH 29.0 MCHC 33.1 RDW 16.2 H Plt Count 233 MPV 8.7 Gran % 61.6 Lymph % (Auto) 25.0 [place] % (Auto) 10.8 H Eos % (Auto) 2.1 Baso % (Auto) 0.5 Gran # 4.80 Lymph # (Auto) 2.0 [place] # (Auto) 0.8 H Eos # (Auto) 0.2 Baso # (Auto) 0.04 PT 13.4 H INR 1.16 APTT 25.6 pCO2 pO2 HCO3 ABG pH ABG Total CO2 ABG O2 Saturation ABG O2 Content ABG Base Excess ABG Hemoglobin ABG Carboxyhemoglobin POC ABG HHb (Measured) ABG Methemoglobin ABG O2 Capacity ABG Potassium Hgb O2 Saturation Glucose Lactate FiO2 Sodium 138 Potassium 4.0 Chloride 107 Carbon Dioxide 25 Anion Gap 10 BUN 17 Creatinine 0.9 Est GFR ( Amer) > 60 Est GFR (Non-Af Amer) > 60 Random Glucose 99 Calcium 8.8 Magnesium 2.1 Total Bilirubin 0.6 AST 25 ALT 27 Alkaline Phosphatase 65 Lactate Dehydrogenase 551 Total Creatine Kinase 92 Troponin I < 0.01 Total Protein 7.0 Albumin 3.8 Globulin 3.2 Albumin/Globulin Ratio 1.2 Arterial Blood Potassium Urine Color Urine Appearance Urine pH Ur Specific [place] Urine Protein Urine Glucose (UA) Urine Ketones Urine Blood Urine Nitrate Urine Bilirubin Urine Urobilinogen Ur Leukocyte Esterase Salicylates Urine Opiates Screen Urine Methadone Screen Acetaminophen Ur Barbiturates Screen Ur Phencyclidine Scrn Ur Amphetamines Screen U Benzodiazepines Scrn U Oth Cocaine Metabols U Cannabinoids Screen Alcohol, Quantitative 08/16/18 08/16/18 08/16/18 13:00 13:00 14:37 WBC RBC Hgb Hct MCV MCH MCHC RDW Plt Count MPV Gran % Lymph % (Auto) [place] % (Auto) Eos % (Auto) Baso % (Auto) Gran # Lymph # (Auto) [place] # (Auto) Eos # (Auto) Baso # (Auto) PT INR APTT pCO2 58 H pO2 108.0 H HCO3 26.6 ABG pH 7.27 L ABG Total CO2 28.4 H ABG O2 Saturation 98.8 H ABG O2 Content ABG Base Excess -1.4 ABG Hemoglobin ABG Carboxyhemoglobin POC ABG HHb (Measured) ABG Methemoglobin ABG O2 Capacity ABG Potassium 4.0 Hgb O2 Saturation Glucose 103 Lactate 0.5 L FiO2 36.0 Sodium 138.0 Potassium Chloride 108.0 H Carbon Dioxide Anion Gap BUN Creatinine Est GFR ( Amer) Est GFR (Non-Af Amer) Random Glucose Calcium Magnesium Total Bilirubin AST ALT Alkaline Phosphatase Lactate Dehydrogenase Total Creatine Kinase Troponin I Total Protein Albumin Globulin Albumin/Globulin Ratio Arterial Blood Potassium 4.0 Urine Color Urine Appearance Urine pH Ur Specific [place] Urine Protein Urine Glucose (UA) Urine Ketones Urine Blood Urine Nitrate Urine Bilirubin Urine Urobilinogen Ur Leukocyte Esterase Salicylates < 1 L Urine Opiates Screen Urine Methadone Screen Acetaminophen < 10.0 L Ur Barbiturates Screen Ur Phencyclidine Scrn Ur Amphetamines Screen U Benzodiazepines Scrn U Oth Cocaine Metabols U Cannabinoids Screen Alcohol, Quantitative < 10 08/16/18 08/16/18 08/16/18 15:11 15:11 18:41 WBC RBC Hgb Hct MCV MCH MCHC RDW Plt Count MPV Gran % Lymph % (Auto) [place] % (Auto) Eos % (Auto) Baso % (Auto) Gran # Lymph # (Auto) [place] # (Auto) Eos # (Auto) Baso # (Auto) PT INR APTT pCO2 61 H pO2 95.0 HCO3 25.5 ABG pH 7.23 L ABG Total CO2 27.4 ABG O2 Saturation 98.3 H ABG O2 Content 14.8 L ABG Base Excess -2.8 L ABG Hemoglobin 11.2 L ABG Carboxyhemoglobin 4.2 H POC ABG HHb (Measured) 1.6 ABG Methemoglobin 0.9 ABG O2 Capacity 15.1 L ABG Potassium Hgb O2 Saturation 93.3 L Glucose Lactate FiO2 35.0 Sodium Potassium Chloride Carbon Dioxide Anion Gap BUN Creatinine Est GFR ( Amer) Est GFR (Non-Af Amer) Random Glucose Calcium Magnesium Total Bilirubin AST ALT Alkaline Phosphatase Lactate Dehydrogenase Total Creatine Kinase Troponin I Total Protein Albumin Globulin Albumin/Globulin Ratio Arterial Blood Potassium Urine Color Yellow Urine Appearance Clear Urine pH 6.5 Ur Specific [place] 1.020 Urine Protein Negative Urine Glucose (UA) Negative Urine Ketones Negative Urine Blood Negative Urine Nitrate Negative Urine Bilirubin Negative Urine Urobilinogen 0.2 Ur Leukocyte Esterase Negative Salicylates Urine Opiates Screen Negative Urine Methadone Screen Negative Acetaminophen Ur Barbiturates Screen Negative Ur Phencyclidine Scrn Negative Ur Amphetamines Screen Negative U Benzodiazepines Scrn Negative U Oth Cocaine Metabols Negative U Cannabinoids Screen Negative Alcohol, Quantitative Addendum Addendum: 08/16/18 18:50 ICU ATTENDING ADDENDUM: PATIENT SEEN AND EXAMINED IN ED WITH HOUSESTAFF. AGREE WITH RESIDENT NOTE, A/P ABOVE WITH THE FOLLOWING ADDITIONAL/EXCEPTIONS: 68 M with hx of COPD, subdural hematoma, HCV, IV drug use, PUD, chronic renal disease presented with lethargy to the ED. Initially he was conversing with ED doc however became more lethargic during the interview. ABGs shows HCRF. Although COPD exasc is possible, his lethargy is more concerning and likely causing his CO2 retention. I am not sure if his lethargy is a result of medication / illicit drugs. He does not appear to be septic, no fevers, no leukocytosis, holding off on abx at this time. Will repeat ABG after trial of bipap if still retaining CO2 or he does not improve in mentation, will need intubation Chemistry and UA are normal no metabolic causes apparent Rest of care as above Lety Jimenez MD ICU Attending CC Time: 30 mins 08/16/18 18:55
[2018-08-16] MEDS ORDERED: Pneumococcal 23-Valent Vaccine IM ONE (17:26)
[2018-08-16] MEDS ORDERED: Influenza Vaccine 60 mcg/0.5 mL SYR (4YR UP) IM ONE (17:26)
[2018-08-16] MEDS: Sodium Chloride 0.9% 1,000 ML IV SCH (17:53)
[2018-08-16 18:47] LABS: ARTERIAL BLOOD GAS HCO3 25.5 mmol/L (21-28); ARTERIAL BLOOD GAS HEMOGLOBIN 11.2 g/dL (11.7-17.4); ARTERIAL BLOOD GAS O2 CAPACITY 15.1 mL/dl (16-24); ARTERIAL BLOOD GAS O2 CONTENT 14.8 ML/dl (15-23); ARTERIAL BLOOD GAS O2 SAT 98.3 % (95-98); ARTERIAL BLOOD GAS PCO2 61 mm/Hg (35-45); ARTERIAL BLOOD GAS PH 7.23 (7.35-7.45); ARTERIAL BLOOD GAS TCO2 27.4 mmol.L (22-28)
[2018-08-16] MEDS ORDERED: Etomidate 20 mg/10ml Inj IV ONE ×2 (18:59→19:03)
[2018-08-16] MEDS ORDERED: Propofol 10 mg/ml Inj (20 ML) IVP ONE (19:00)
[2018-08-16] MEDS ORDERED: Propofol 10 mg/ml 1,000 MG/100 ML VIAL IV PRN (19:02)
[2018-08-16] MEDS ORDERED: Propofol 10 mg/ml 1,000 MG/100 ML VIAL ONE (19:03)
--- NOTE | 2018-08-16 19:33 | PCM.PROC ---
<Christian Lares - Last Filed: 08/16/18 19:32> Procedures Attestation:: I certify that I have explained the specified Operation(s) or Procedure(s), risks, benefits and reasonable alternatives to the Patient and/or other person responsible. The opportunity was given to ask questions and all questions answered - Intubation Sedative: Other (propofol) Laryngoscope: Nasir ET Tube Size: 7.5 ET Tube Placement Confirmation: Visualized Passing Through Cords, Breath Sounds Equal Bilaterally, No Breath Sounds Over Epigastrum, Confirmation w/Capnometry Patient Tolerated Procedure: Well Procedure Immediate Complications: None <Reyna Leslie - Last Filed: 08/16/18 19:51> Attending/Attestation - Attestation I have personally seen and examined this patient.: Yes I have fully participated in the care of the patient.: Yes I have reviewed all pertinent clinical information, including history, physical exam and plan: Yes
[2018-08-16] MEDS: Albuterol-Ipratrop 3 mg / 0.5 (3 ml) UD IH SCH (20:15)
[2018-08-16 20:52] LABS: ARTERIAL BLOOD GAS HCO3 24.3 mmol/L (21-28); ARTERIAL BLOOD GAS HEMOGLOBIN 10.3 g/dL (11.7-17.4); ARTERIAL BLOOD GAS O2 CAPACITY 14.2 mL/dl (16-24); ARTERIAL BLOOD GAS O2 CONTENT 14.1 ML/dl (15-23); ARTERIAL BLOOD GAS O2 SAT 99.5 % (95-98); ARTERIAL BLOOD GAS PCO2 46 mm/Hg (35-45); ARTERIAL BLOOD GAS PH 7.33 (7.35-7.45); ARTERIAL BLOOD GAS TCO2 25.7 mmol.L (22-28)
[2018-08-16] MEDS: MethylPREDNISolone 40 mg Vial IVP SCH (22:16)
[2018-08-17] MEDS: Albuterol-Ipratrop 3 mg / 0.5 (3 ml) UD IH SCH ×3 (01:14→13:07)
[2018-08-17] MEDS: Sodium Chloride 0.9% 1,000 ML IV SCH (04:00)
[2018-08-17 05:47] VITALS: TEMP 99.5
[2018-08-17 06:12] LABS: ARTERIAL BLOOD GAS HCO3 22.5 mmol/L (21-28); ARTERIAL BLOOD GAS HEMOGLOBIN 10.3 g/dL (11.7-17.4); ARTERIAL BLOOD GAS O2 CAPACITY 14.1 mL/dl (16-24); ARTERIAL BLOOD GAS PCO2 38 mm/Hg (35-45); ARTERIAL BLOOD GAS PH 7.38 (7.35-7.45); ARTERIAL BLOOD GAS TCO2 23.7 mmol.L (22-28)
[2018-08-17 06:26] LABS: BASO # 0.01 K/mm3 (0.0-2.0); BASO % 0.2 % (0.0-3.0); EOS % 0.2 % (1.5-5.0); GRAN # 5.64 (1.4-6.5); GRAN % 89.2 % (50.0-68.0); HEMOGLOBIN 10.4 g/dL (14.0-18.0); LYMPH # 0.5 (1.2-3.4); LYMPH % 7.4 % (22.0-35.0); MEAN CELL VOLUME 89.8 fl (80.0-105.0); MEAN CORPUSCULAR HEMOGLOBIN 28.7 pg (25.0-35.0); MEAN CORPUSCULAR HGB CONC 31.9 g/dl (31.0-37.0); MEAN PLATELET VOLUME 9.3 fl (7.0-11.0); MONO # 0.2 (0.1-0.6); RBC 3.63 10^6/uL (3.5-6.1); RED CELL DISTRIBUTION WIDTH 16.2 % (11.5-14.5); WHITE BLOOD COUNT 6.3 10^3/uL (4.5-11.0)
[2018-08-17 06:40] LABS: ALB/GLOB RATIO 1.1 (1.1-1.8); ALBUMIN 3.3 g/dL (3.0-4.8); ALT/SGPT 30 U/L (7-56); AST/SGOT 22 U/L (17-59); BLOOD UREA NITROGEN 13 mg/dL (7-21); CALCIUM 8.6 mg/dL (8.4-10.5); GFR NON-AFRICAN AMERICAN > 60
--- NOTE | 2018-08-17 10:03 | RAD ---
Date of service: 08/16/2018 HISTORY: s/p intubation COMPARISON: August 15, 2018. FINDINGS: LUNGS: No active pulmonary disease. PLEURA: No significant pleural effusion identified, no pneumothorax apparent. CARDIOVASCULAR: No atherosclerotic calcification present No radiographic findings to suggest acute or significant cardiovascular disease. OSSEOUS STRUCTURES: No significant abnormalities. VISUALIZED UPPER ABDOMEN: Normal. OTHER FINDINGS: Satisfactory position of endotracheal tube. Recently placed nasogastric tube courses through the esophagus. The tip is IMPRESSION: No active disease.
[2018-08-17] MEDS: MethylPREDNISolone 40 mg Vial IVP SCH (10:28)
--- NOTE | 2018-08-17 10:41 | CARD ---
APPROVED REPORT Date of service: 08/16/2018 EKG Measurement Heart [id number] <Conclusion> Normal sinus rhythm LVH NSSTW changes, new
--- NOTE | 2018-08-17 12:25 | CP.PCM.CON ---
History of Present Illness - History of Present Illness History of Present Illness: Tomás Marcos Internal Medicine Resident- Consult Note on behalf of Neurology Team Subjective: CC: Fall, Dizziness HPI: Patient is a 68 year old male with a past medical history of COPD, subdural hematoma, HCV, IV drug use, PUD, chronic renal disease, insomnia, chronic back pain on tramadol who admitted for evaluation and treatment of fall secondary to dizziness causing injury to left elbow. Neurology team consulted for altered mental status. Patient seen and examined at bedside. Recalls events that lead him to the ED. States dizziness and "foggy thinking" have subsided. Offers no new complaints at this time. Past Medical History: COPD, subdural hematoma, HCV, IV drug use, PUD, chronic renal disease, insomnia, chronic back pain on tramadol Past Surgical History: denies Social history: denies tobacco abuse, ETOH abuse, IV drug abuse Allergies: Aspirin Medications: Please see MAR Physical Examination: - Constitutional Appears: NAD, chronically ill - Head Exam Head Exam: ATRAUMATIC, NORMAL INSPECTION, NORMOCEPHALIC - Eye Exam Eye Exam: EOMI - ENT Exam ENT Exam: Mucous Membranes Moist - Respiratory Exam Respiratory Exam: Clear to Auscultation Bilateral, no rales, rhonchi - Cardiovascular Exam Cardiovascular Exam: REGULAR RHYTHM, +S1, +S2 - GI/Abdominal Exam GI & Abdominal Exam: Normal Bowel Sounds - Extremities Exam Extremities exam: Negative for: normal inspection, pedal edema - Neurological Exam Neurological exam: AAO x 3, Responds to verbal stimuli, follows commands, moves extremities past midline,rRight upper and lower extremities 5/5 muscle strength, left upper and lower extremities 5/5 muscle strength, sensation intact to touch throughout, CN II- XII intact - Skin Skin Exam: Abrasion (on distal extremities), Erythema (on upper extremities) Assessment and Plan: Patient is a 68 year old male with a past medical history of COPD, subdural hematoma, HCV, IV drug use, PUD, chronic renal disease, insomnia, chronic back pain on tramadol who admitted for evaluation and treatment of fall secondary to dizziness causing injury to left elbow. Neurology team consulted for altered mental status. Altered Mental Status - resolved - no acute neurological intervention required at this time Patient seen, case reviewed with, and plan approved by attending physician, Dr. Segura. Past Patient History - Infectious Disease Hx of Infectious Diseases: None - Tetanus Immunizations Tetanus Immunization: Unknown - Past Social History Smoking Status: Heavy Smoker > 10 Cigarettes Daily - CARDIAC Hx Cardiac Disorders: Yes Hx Peripheral Edema: Yes - PULMONARY Hx Respiratory Disorders: Yes Hx Chronic Obstructive Pulmonary Disease (COPD): Yes Hx Pneumonia: Yes - NEUROLOGICAL Hx Neurological Disorder: Yes Hx Syncope: Yes Other/Comment: NEUROPATHY, AMS - HEENT Hx HEENT Problems: Yes Hx Cataracts: Yes - RENAL Hx Chronic Kidney Disease: No - ENDOCRINE/METABOLIC Hx Endocrine Disorders: No - HEMATOLOGICAL/ONCOLOGICAL Hx Blood Disorders: Yes Hx Anemia: Yes Hx Hepatitis C: Yes - INTEGUMENTARY Hx Dermatological Problems: Yes (hx pressure ulcers) - MUSCULOSKELETAL/RHEUMATOLOGICAL Hx Musculoskeletal Disorders: Yes Hx Fractures: Yes (left wrist) Hx Osteoporosis: Yes - GASTROINTESTINAL Hx Gastrointestinal Disorders: Yes - GENITOURINARY/GYNECOLOGICAL Hx Sexually Transmitted Disorders: No - PSYCHIATRIC Hx Psychophysiologic Disorder: Yes Hx Anxiety: Yes Hx Depression: Yes Hx Substance Use: Yes - SURGICAL HISTORY Hx Coronary Artery Bypass Graft: No Other/Comment: GASTRECTOMY - ANESTHESIA Hx Anesthesia: Yes Hx Anesthesia Reactions: No Hx Malignant Hyperthermia: No Meds Allergies/Adverse Reactions: Allergies Allergy/AdvReac Type Severity Reaction Status Date / Time aspirin Allergy RASH Verified 08/16/18 12:40 - Medications Medications: Current Medications Albuterol/Ipratropium (Duoneb 3 Mg/0.5 Mg (3 Ml) Ud) 3 ml IH [id number] [facility] Last Admin: 08/17/18 07:25 Dose: 3 ml Heparin Sodium (Porcine) (Heparin) 5,000 units SC Q8 NIKA; Protocol Last Admin: 08/17/18 06:51 Dose: 5,000 units Sodium Chloride (Sodium Chloride 0.9%) 1,000 mls @ 100 mls/hr IV .Q10H NIAK Last Admin: 08/17/18 04:00 Dose: 100 mls/hr Propofol (Diprivan) 1,000 mg in 100 mls @ 1.755 mls/hr IV .Q24H PRN; Protocol PRN Reason: TITRATE PER MD ORDER Last Titration: 08/17/18 06:58 Dose: 0 mcg/kg/min, 0 mls/hr Methylprednisolone (Solu-Medrol) 40 mg IVP DAILY [facility] Last Admin: 08/17/18 10:28 Dose: 40 mg Pantoprazole Sodium (Protonix Inj) 40 mg IVP DAILY [facility] Last Admin: 08/17/18 10:29 Dose: 40 mg Results - Vital Signs Recent Vital Signs: Last Vital Signs Temp 99.5 F 08/17/18 04:00 Pulse 76 08/17/18 10:20 Resp 18 08/17/18 10:20 BP 131/63 08/17/18 10:15 Pulse Ox 92 L 08/17/18 10:20 - Labs Result Diagrams: 08/17/18 05:30 08/17/18 05:30 Labs: Laboratory Results - last 24 hr 08/16/18 08/16/18 08/16/18 13:00 13:00 13:00 WBC 7.8 RBC 3.72 Hgb 10.8 L Hct 32.6 L MCV 87.6 MCH 29.0 MCHC 33.1 RDW 16.2 H Plt Count 233 MPV 8.7 Gran % 61.6 Lymph % (Auto) 25.0 [place] % (Auto) 10.8 H Eos % (Auto) 2.1 Baso % (Auto) 0.5 Gran # 4.80 Lymph # (Auto) 2.0 [place] # (Auto) 0.8 H Eos # (Auto) 0.2 Baso # (Auto) 0.04 PT 13.4 H INR 1.16 APTT 25.6 pCO2 pO2 HCO3 ABG pH ABG Total CO2 ABG O2 Saturation ABG O2 Content ABG Base Excess ABG Hemoglobin ABG Carboxyhemoglobin POC ABG HHb (Measured) ABG Methemoglobin ABG O2 Capacity ABG Potassium Hgb O2 Saturation Glucose Lactate FiO2 Sodium 138 Potassium 4.0 Chloride 107 Carbon Dioxide 25 Anion Gap 10 BUN 17 Creatinine 0.9 Est GFR ( Amer) > 60 Est GFR (Non-Af Amer) > 60 POC Glucose (mg/dL) Random Glucose 99 Calcium 8.8 Phosphorus Magnesium 2.1 Total Bilirubin 0.6 AST 25 ALT 27 Alkaline Phosphatase 65 Ammonia Lactate Dehydrogenase 551 Total Creatine Kinase 92 Troponin I < 0.01 Total Protein 7.0 Albumin 3.8 Globulin 3.2 Albumin/Globulin Ratio 1.2 Prostate Specific Ag Arterial Blood Potassium Urine Color Urine Appearance Urine pH Ur Specific [place] Urine Protein Urine Glucose (UA) Urine Ketones Urine Blood Urine Nitrate Urine Bilirubin Urine Urobilinogen Ur Leukocyte Esterase Salicylates Urine Opiates Screen Urine Methadone Screen Acetaminophen Ur Barbiturates Screen Ur Phencyclidine Scrn Ur Amphetamines Screen U Benzodiazepines Scrn U Oth Cocaine Metabols U Cannabinoids Screen Alcohol, Quantitative 08/16/18 08/16/18 08/16/18 13:00 13:00 14:33 WBC RBC Hgb Hct MCV MCH MCHC RDW Plt Count MPV Gran % Lymph % (Auto) [place] % (Auto) Eos % (Auto) Baso % (Auto) Gran # Lymph # (Auto) [place] # (Auto) Eos # (Auto) Baso # (Auto) PT INR APTT pCO2 pO2 HCO3 ABG pH ABG Total CO2 ABG O2 Saturation ABG O2 Content ABG Base Excess ABG Hemoglobin ABG Carboxyhemoglobin POC ABG HHb (Measured) ABG Methemoglobin ABG O2 Capacity ABG Potassium Hgb O2 Saturation Glucose Lactate FiO2 Sodium Potassium Chloride Carbon Dioxide Anion Gap BUN Creatinine Est GFR ( Amer) Est GFR (Non-Af Amer) POC Glucose (mg/dL) 99 Random Glucose Calcium Phosphorus Magnesium Total Bilirubin AST ALT Alkaline Phosphatase Ammonia Lactate Dehydrogenase Total Creatine Kinase Troponin I Total Protein Albumin Globulin Albumin/Globulin Ratio Prostate Specific Ag Arterial Blood Potassium Urine Color Urine Appearance Urine pH Ur Specific [place] Urine Protein Urine Glucose (UA) Urine Ketones Urine Blood Urine Nitrate Urine Bilirubin Urine Urobilinogen Ur Leukocyte Esterase Salicylates < 1 L Urine Opiates Screen Urine Methadone Screen Acetaminophen < 10.0 L Ur Barbiturates Screen Ur Phencyclidine Scrn Ur Amphetamines Screen U Benzodiazepines Scrn U Oth Cocaine Metabols U Cannabinoids Screen Alcohol, Quantitative < 10 08/16/18 08/16/18 08/16/18 14:37 15:11 15:11 WBC RBC Hgb Hct MCV MCH MCHC RDW Plt Count MPV Gran % Lymph % (Auto) [place] % (Auto) Eos % (Auto) Baso % (Auto) Gran # Lymph # (Auto) [place] # (Auto) Eos # (Auto) Baso # (Auto) PT INR APTT pCO2 58 H pO2 108.0 H HCO3 26.6 ABG pH 7.27 L ABG Total CO2 28.4 H ABG O2 Saturation 98.8 H ABG O2 Content ABG Base Excess -1.4 ABG Hemoglobin ABG Carboxyhemoglobin POC ABG HHb (Measured) ABG Methemoglobin ABG O2 Capacity ABG Potassium 4.0 Hgb O2 Saturation Glucose 103 Lactate 0.5 L FiO2 36.0 Sodium 138.0 Potassium Chloride 108.0 H Carbon Dioxide Anion Gap BUN Creatinine Est GFR ( Amer) Est GFR (Non-Af Amer) POC Glucose (mg/dL) Random Glucose Calcium Phosphorus Magnesium Total Bilirubin AST ALT Alkaline Phosphatase Ammonia Lactate Dehydrogenase Total Creatine Kinase Troponin I Total Protein Albumin Globulin Albumin/Globulin Ratio Prostate Specific Ag Arterial Blood Potassium 4.0 Urine Color Yellow Urine Appearance Clear Urine pH 6.5 Ur Specific [place] 1.020 Urine Protein Negative Urine Glucose (UA) Negative Urine Ketones Negative Urine Blood Negative Urine Nitrate Negative Urine Bilirubin Negative Urine Urobilinogen 0.2 Ur Leukocyte Esterase Negative Salicylates Urine Opiates Screen Negative Urine Methadone Screen Negative Acetaminophen Ur Barbiturates Screen Negative Ur Phencyclidine Scrn Negative Ur Amphetamines Screen Negative U Benzodiazepines Scrn Negative U Oth Cocaine Metabols Negative U Cannabinoids Screen Negative Alcohol, Quantitative 08/16/18 08/16/18 08/16/18 18:41 20:10 20:49 WBC RBC Hgb Hct MCV MCH MCHC RDW Plt Count MPV Gran % Lymph % (Auto) [place] % (Auto) Eos % (Auto) Baso % (Auto) Gran # Lymph # (Auto) [place] # (Auto) Eos # (Auto) Baso # (Auto) PT INR APTT pCO2 61 H 46 H pO2 95.0 156.0 H HCO3 25.5 24.3 ABG pH 7.23 L 7.33 L ABG Total CO2 27.4 25.7 ABG O2 Saturation 98.3 H 99.5 H ABG O2 Content 14.8 L 14.1 L ABG Base Excess -2.8 L -1.8 ABG Hemoglobin 11.2 L 10.3 L ABG Carboxyhemoglobin 4.2 H 3.1 H POC ABG HHb (Measured) 1.6 0.5 ABG Methemoglobin 0.9 1.2 ABG O2 Capacity 15.1 L 14.2 L ABG Potassium Hgb O2 Saturation 93.3 L 95.1 Glucose Lactate FiO2 35.0 60.0 Sodium Potassium Chloride Carbon Dioxide Anion Gap BUN Creatinine Est GFR ( Amer) Est GFR (Non-Af Amer) POC Glucose (mg/dL) Random Glucose Calcium Phosphorus Magnesium Total Bilirubin AST ALT Alkaline Phosphatase Ammonia 16 Lactate Dehydrogenase Total Creatine Kinase Troponin I Total Protein Albumin Globulin Albumin/Globulin Ratio Prostate Specific Ag Arterial Blood Potassium Urine Color Urine Appearance Urine pH Ur Specific [place] Urine Protein Urine Glucose (UA) Urine Ketones Urine Blood Urine Nitrate Urine Bilirubin Urine Urobilinogen Ur Leukocyte Esterase Salicylates Urine Opiates Screen Urine Methadone Screen Acetaminophen Ur Barbiturates Screen Ur Phencyclidine Scrn Ur Amphetamines Screen U Benzodiazepines Scrn U Oth Cocaine Metabols U Cannabinoids Screen Alcohol, Quantitative 08/16/18 08/17/18 08/17/18 22:09 05:00 05:30 WBC 6.3 RBC 3.63 Hgb 10.4 L Hct 32.6 L MCV 89.8 MCH 28.7 MCHC 31.9 RDW 16.2 H Plt Count 220 MPV 9.3 Gran % 89.2 H Lymph % (Auto) 7.4 L [place] % (Auto) 3.0 Eos % (Auto) 0.2 L Baso % (Auto) 0.2 Gran # 5.64 Lymph # (Auto) 0.5 L [place] # (Auto) 0.2 Eos # (Auto) 0.0 Baso # (Auto) 0.01 PT INR APTT pCO2 pO2 HCO3 ABG pH ABG Total CO2 ABG O2 Saturation ABG O2 Content ABG Base Excess ABG Hemoglobin ABG Carboxyhemoglobin POC ABG HHb (Measured) ABG Methemoglobin ABG O2 Capacity ABG Potassium Hgb O2 Saturation Glucose Lactate FiO2 Sodium Potassium Chloride Carbon Dioxide Anion Gap BUN Creatinine Est GFR ( Amer) Est GFR (Non-Af Amer) POC Glucose (mg/dL) 82 Random Glucose Calcium Phosphorus Magnesium Total Bilirubin AST ALT Alkaline Phosphatase Ammonia Lactate Dehydrogenase Total Creatine Kinase Troponin I Total Protein Albumin Globulin Albumin/Globulin Ratio Prostate Specific Ag 0.6 Arterial Blood Potassium Urine Color Urine Appearance Urine pH Ur Specific [place] Urine Protein Urine Glucose (UA) Urine Ketones Urine Blood Urine Nitrate Urine Bilirubin Urine Urobilinogen Ur Leukocyte Esterase Salicylates Urine Opiates Screen Urine Methadone Screen Acetaminophen Ur Barbiturates Screen Ur Phencyclidine Scrn Ur Amphetamines Screen U Benzodiazepines Scrn U Oth Cocaine Metabols U Cannabinoids Screen Alcohol, Quantitative 08/17/18 08/17/18 08/17/18 05:30 05:30 06:00 WBC RBC Hgb Hct MCV MCH MCHC RDW Plt Count MPV Gran % Lymph % (Auto) [place] % (Auto) Eos % (Auto) Baso % (Auto) Gran # Lymph # (Auto) [place] # (Auto) Eos # (Auto) Baso # (Auto) PT INR APTT 28.0 pCO2 38 pO2 99.0 HCO3 22.5 ABG pH 7.38 ABG Total CO2 23.7 ABG O2 Saturation 99.0 H ABG O2 Content 14.0 L ABG Base Excess -2.4 L ABG Hemoglobin 10.3 L ABG Carboxyhemoglobin 2.4 H POC ABG HHb (Measured) 1.0 ABG Methemoglobin 1.3 ABG O2 Capacity 14.1 L ABG Potassium Hgb O2 Saturation 95.3 Glucose Lactate FiO2 40.0 Sodium 138 Potassium 4.5 Chloride 108 H Carbon Dioxide 24 Anion Gap 11 BUN 13 Creatinine 0.8 Est GFR ( Amer) > 60 Est GFR (Non-Af Amer) > 60 POC Glucose (mg/dL) Random Glucose 103 Calcium 8.6 Phosphorus 4.7 H Magnesium 2.0 Total Bilirubin 0.6 AST 22 ALT 30 Alkaline Phosphatase 63 Ammonia Lactate Dehydrogenase Total Creatine Kinase Troponin I Total Protein 6.4 Albumin 3.3 Globulin 3.1 Albumin/Globulin Ratio 1.1 Prostate Specific Ag Arterial Blood Potassium Urine Color Urine Appearance Urine pH Ur Specific [place] Urine Protein Urine Glucose (UA) Urine Ketones Urine Blood Urine Nitrate Urine Bilirubin Urine Urobilinogen Ur Leukocyte Esterase Salicylates Urine Opiates Screen Urine Methadone Screen Acetaminophen Ur Barbiturates Screen Ur Phencyclidine Scrn Ur Amphetamines Screen U Benzodiazepines Scrn U Oth Cocaine Metabols U Cannabinoids Screen Alcohol, Quantitative 08/17/18 07:38 WBC RBC Hgb Hct MCV MCH MCHC RDW Plt Count MPV Gran % Lymph % (Auto) [place] % (Auto) Eos % (Auto) Baso % (Auto) Gran # Lymph # (Auto) [place] # (Auto) Eos # (Auto) Baso # (Auto) PT INR APTT pCO2 pO2 HCO3 ABG pH ABG Total CO2 ABG O2 Saturation ABG O2 Content ABG Base Excess ABG Hemoglobin ABG Carboxyhemoglobin POC ABG HHb (Measured) ABG Methemoglobin ABG O2 Capacity ABG Potassium Hgb O2 Saturation Glucose Lactate FiO2 Sodium Potassium Chloride Carbon Dioxide Anion Gap BUN Creatinine Est GFR ( Amer) Est GFR (Non-Af Amer) POC Glucose (mg/dL) 108 Random Glucose Calcium Phosphorus Magnesium Total Bilirubin AST ALT Alkaline Phosphatase Ammonia Lactate Dehydrogenase Total Creatine Kinase Troponin I Total Protein Albumin Globulin Albumin/Globulin Ratio Prostate Specific Ag Arterial Blood Potassium Urine Color Urine Appearance Urine pH Ur Specific [place] Urine Protein Urine Glucose (UA) Urine Ketones Urine Blood Urine Nitrate Urine Bilirubin Urine Urobilinogen Ur Leukocyte Esterase Salicylates Urine Opiates Screen Urine Methadone Screen Acetaminophen Ur Barbiturates Screen Ur Phencyclidine Scrn Ur Amphetamines Screen U Benzodiazepines Scrn U Oth Cocaine Metabols U Cannabinoids Screen Alcohol, Quantitative
[2018-08-17 15:04] VITALS: BP 130/64; PULSE 88; RESP 19; O2SAT 93
--- NOTE | 2018-08-17 15:12 | CP.PCM.DIS ---
<MarekawildaterryJesse - Last Filed: 08/17/18 18:34> Provider - Provider Date of Admission: 08/16/18 14:17 Attending physician: Zainab Briscoe MD Primary care physician: Lena Mary MD Time Spent in preparation of Discharge (in minutes): 40 Hospital Course - Lab Results Lab Results: Most Recent Lab Values WBC 6.3 10^3/uL (4.5-11.0) 08/17/18 05:30 RBC 3.63 10^6/uL (3.5-6.1) 08/17/18 05:30 Hgb 10.4 g/dL (14.0-18.0) L 08/17/18 05:30 Hct 32.6 % (42.0-52.0) L 08/17/18 05:30 MCV 89.8 fl (80.0-105.0) 08/17/18 05:30 MCH 28.7 pg (25.0-35.0) 08/17/18 05:30 MCHC 31.9 g/dl (31.0-37.0) 08/17/18 05:30 RDW 16.2 % (11.5-14.5) H 08/17/18 05:30 Plt Count 220 10^3/uL (120.0-450.0) 08/17/18 05:30 MPV 9.3 fl (7.0-11.0) 08/17/18 05:30 Gran % 89.2 % (50.0-68.0) H 08/17/18 05:30 Lymph % (Auto) 7.4 % (22.0-35.0) L 08/17/18 05:30 [place] % (Auto) 3.0 % (1.0-6.0) 08/17/18 05:30 Eos % (Auto) 0.2 % (1.5-5.0) L 08/17/18 05:30 Baso % (Auto) 0.2 % (0.0-3.0) 08/17/18 05:30 Gran # 5.64 (1.4-6.5) 08/17/18 05:30 Lymph # (Auto) 0.5 (1.2-3.4) L 08/17/18 05:30 [place] # (Auto) 0.2 (0.1-0.6) 08/17/18 05:30 Eos # (Auto) 0.0 (0.0-0.7) 08/17/18 05:30 Baso # (Auto) 0.01 K/mm3 (0.0-2.0) 08/17/18 05:30 PT 13.4 SECONDS (9.4-12.5) H 08/16/18 13:00 INR 1.16 08/16/18 13:00 APTT 28.0 Seconds (25.1-36.5) 08/17/18 05:30 pCO2 38 mm/Hg (35-45) 08/17/18 06:00 pO2 99.0 mm/Hg (80-100) 08/17/18 06:00 HCO3 22.5 mmol/L (21-28) 08/17/18 06:00 ABG pH 7.38 (7.35-7.45) 08/17/18 06:00 ABG Total CO2 23.7 mmol.L (22-28) 08/17/18 06:00 ABG O2 Saturation 99.0 % (95-98) H 08/17/18 06:00 ABG O2 Content 14.0 ML/dl (15-23) L 08/17/18 06:00 ABG Base Excess -2.4 mmol/L (-2.0-3.0) L 08/17/18 06:00 ABG Hemoglobin 10.3 g/dL (11.7-17.4) L 08/17/18 06:00 ABG Carboxyhemoglobin 2.4 % (0.5-1.5) H 08/17/18 06:00 POC ABG HHb (Measured) 1.0 % (0-5) 08/17/18 06:00 ABG Methemoglobin 1.3 % (0.0-3.0) 08/17/18 06:00 ABG O2 Capacity 14.1 mL/dl (16-24) L 08/17/18 06:00 ABG Potassium 4.0 mmol/L (3.6-5.2) 08/16/18 14:37 Hgb O2 Saturation 95.3 % (95.0-98.0) 08/17/18 06:00 Sodium 138.0 mmol/L (132-148) 08/16/18 14:37 Chloride 108.0 mmol/L (98-107) H 08/16/18 14:37 Glucose 103 mg/dl (75-110) 08/16/18 14:37 Lactate 0.5 mmol/L (0.7-2.1) L 08/16/18 14:37 FiO2 40.0 % 08/17/18 06:00 Sodium 138 mmol/L (132-148) 08/17/18 05:30 Potassium 4.5 mmol/L (3.6-5.0) 08/17/18 05:30 Chloride 108 mmol/L (98-107) H 08/17/18 05:30 Carbon Dioxide 24 mmol/L (21-33) 08/17/18 05:30 Anion Gap 11 (10-20) 08/17/18 05:30 BUN 13 mg/dL (7-21) 08/17/18 05:30 Creatinine 0.8 mg/dl (0.8-1.5) 08/17/18 05:30 Est GFR ( Amer) > 60 08/17/18 05:30 Est GFR (Non-Af Amer) > 60 08/17/18 05:30 POC Glucose (mg/dL) 150 mg/dL (65-110) H 08/17/18 11:14 Random Glucose 103 mg/dL (70-110) 08/17/18 05:30 Calcium 8.6 mg/dL (8.4-10.5) 08/17/18 05:30 Phosphorus 4.7 mg/dL (2.5-4.5) H 08/17/18 05:30 Magnesium 2.0 mg/dL (1.7-2.2) 08/17/18 05:30 Total Bilirubin 0.6 mg/dL (0.2-1.3) 08/17/18 05:30 AST 22 U/L (17-59) 08/17/18 05:30 ALT 30 U/L (7-56) 08/17/18 05:30 Alkaline Phosphatase 63 U/L (38-126) 08/17/18 05:30 Ammonia 16 umol/L (9-33) 08/16/18 20:10 Lactate Dehydrogenase 551 U/L (333-699) 08/16/18 13:00 Total Creatine Kinase 92 U/L (35-230) 08/16/18 13:00 Troponin I < 0.01 ng/mL 08/16/18 13:00 Total Protein 6.4 g/dL (5.8-8.3) 08/17/18 05:30 Albumin 3.3 g/dL (3.0-4.8) 08/17/18 05:30 Globulin 3.1 gm/dL 08/17/18 05:30 Albumin/Globulin Ratio 1.1 (1.1-1.8) 08/17/18 05:30 Prostate Specific Ag 0.6 ng/mL (0.00-2.5) 08/17/18 05:00 Arterial Blood Potassium 4.0 mmol/L (3.6-5.2) 08/16/18 14:37 Urine Color Yellow (YELLOW) 08/16/18 15:11 Urine Appearance Clear (CLEAR) 08/16/18 15:11 Urine pH 6.5 (4.7-8.0) 08/16/18 15:11 Ur Specific [place] 1.020 (1.005-1.035) 08/16/18 15:11 Urine Protein Negative mg/dL (<30 mg/dL) 08/16/18 15:11 Urine Glucose (UA) Negative mg/dL (NEGATIVE) 08/16/18 15:11 Urine Ketones Negative mg/dL (NEGATIVE) 08/16/18 15:11 Urine Blood Negative (NEGATIVE) 08/16/18 15:11 Urine Nitrate Negative (NEGATIVE) 08/16/18 15:11 Urine Bilirubin Negative (NEGATIVE) 08/16/18 15:11 Urine Urobilinogen 0.2 E.U./dL (<1 E.U./dL) 08/16/18 15:11 Ur Leukocyte Esterase Negative [place]/uL (NEGATIVE) 08/16/18 15:11 Salicylates < 1 mg/dL (2.0-20.0) L 08/16/18 13:00 Urine Opiates Screen Negative (NEGATIVE) 08/16/18 15:11 Urine Methadone Screen Negative (NEGATIVE) 08/16/18 15:11 Acetaminophen < 10.0 ug/ml (10.0-20.0) L 08/16/18 13:00 Ur Barbiturates Screen Negative (NEGATIVE) 08/16/18 15:11 Ur Phencyclidine Scrn Negative (NEGATIVE) 08/16/18 15:11 Ur Amphetamines Screen Negative (NEGATIVE) 08/16/18 15:11 U Benzodiazepines Scrn Negative (NEGATIVE) 08/16/18 15:11 U Oth Cocaine Metabols Negative (NEGATIVE) 08/16/18 15:11 U Cannabinoids Screen Negative (NEGATIVE) 08/16/18 15:11 Alcohol, Quantitative < 10 mg/dL (0-10) 08/16/18 13:00 - Hospital Course Hospital Course: HPI: Mr. Cruz is a 68 year old male with past medical history of COPD, subdural hematoma, HCV, IV drug use, PUD, chronic renal disease, insomnia, chronic back pain on tramadol, brought in by EMS for fall secondary to dizziness causing injury to left elbow. On initial presentation in ED, patient was alert, denying loss of consciousness or head trauma at time of fall. HPI obtained from past charts, as patient was alert but not oriented during interview. Review of systems was unattainable due to patient's clinical status. Hospital Course: Patient was given 1 dose of Narcan in the ED. CT head resulted no acute intracranial abnormality; left occipital lobe cystic encephalomalacia, sequela of remote [employer] territory infarction. Neurology was consulted. CXR resulted no active disease and COPD. UA and UDS obtained and both resulted WNL. ABG resulted hypercapnic respiratory failure and ICU was consulted. Patient was started on BiPap pending repeat ABG. Minimal improvement on repeat ABG note, and patient was intubated. He tolerated the procedure well. He was extubated 12 hours later. Patients mental status improved compared to initial presentation; he was able to provide a history and reported use of Ambien. PT was consulted for evaluation, however patient requested to leave AMA prior to evaluation. This patient is choosing to leave against medical advice. The attending physician explained to the patient that choosing to so may result in permanent bodily harm or . The physician discussed at great length that without further evaluation and monitoring there may be unforeseen circumstances and/or deterioration causing permanent bodily harm or as a result of their choice. The patient verbalized these risks back to the physician in laymans terms. The patient is alert, oriented, and shows the mental capacity to make clear decisions regarding the patients health care at this time. The patient continues to wish to leave against medical advice. In light of the patients decision to leave AMA, follow-up has been arranged and the patient is aware of the importance of following up as instructed. The patient has been advised that they should return to the ED immediately if they change their mind at any time or if their condition begins to change or worsen in any way. The following is a summary of hospital course. For full detail, please refer to patient's EMR. - Date & Time of H&P Date of H&P: 08/17/18 Time of H&P: 15:12 Discharge Exam - Head Exam Head Exam: ATRAUMATIC, NORMAL INSPECTION, NORMOCEPHALIC - Eye Exam Eye Exam: EOMI - ENT Exam ENT Exam: Mucous Membranes Moist - Respiratory Exam Respiratory Exam: Clear to PA & Lateral, NORMAL BREATHING PATTERN, UNREMARKABLE. absent: Accessory Muscle Use, Rales, Rhonchi, Wheezes, Respiratory Distress - Cardiovascular Exam Cardiovascular Exam: REGULAR RHYTHM, +S1, +S2 - GI/Abdominal Exam GI & Abdominal Exam: Normal Bowel Sounds, Soft, Unremarkable. absent: Distended, Firm, Guarding, Tenderness - Extremities Exam Extremities exam: normal capillary refill, normal inspection, pedal pulses present Additional comments: Dry scale skin on lower extremities bilaterally - Neurological Exam Neurological exam: Alert, Oriented x3 - Skin Skin Exam: Abrasion (distal extremities), Erythema (upper extremities), Intact, Warm Discharge Plan - Follow Up Plan Condition: IMPROVED Disposition: AGAINST MEDICAL ADVICE Referrals: Lena Mary MD [Primary Care Provider] - <Zainab Briscoe - Last Filed: 08/18/18 13:45> Provider - Provider Date of Admission: 08/16/18 14:17 Attending physician: Zainab Briscoe MD Primary care physician: Lena Mary MD Hospital Course - Lab Results Lab Results: Most Recent Lab Values WBC 6.3 10^3/uL (4.5-11.0) 08/17/18 05:30 RBC 3.63 10^6/uL (3.5-6.1) 08/17/18 05:30 Hgb 10.4 g/dL (14.0-18.0) L 08/17/18 05:30 Hct 32.6 % (42.0-52.0) L 08/17/18 05:30 MCV 89.8 fl (80.0-105.0) 08/17/18 05:30 MCH 28.7 pg (25.0-35.0) 08/17/18 05:30 MCHC 31.9 g/dl (31.0-37.0) 08/17/18 05:30 RDW 16.2 % (11.5-14.5) H 08/17/18 05:30 Plt Count 220 10^3/uL (120.0-450.0) 08/17/18 05:30 MPV 9.3 fl (7.0-11.0) 08/17/18 05:30 Gran % 89.2 % (50.0-68.0) H 08/17/18 05:30 Lymph % (Auto) 7.4 % (22.0-35.0) L 08/17/18 05:30 [place] % (Auto) 3.0 % (1.0-6.0) 08/17/18 05:30 Eos % (Auto) 0.2 % (1.5-5.0) L 08/17/18 05:30 Baso % (Auto) 0.2 % (0.0-3.0) 08/17/18 05:30 Gran # 5.64 (1.4-6.5) 08/17/18 05:30 Lymph # (Auto) 0.5 (1.2-3.4) L 08/17/18 05:30 [place] # (Auto) 0.2 (0.1-0.6) 08/17/18 05:30 Eos # (Auto) 0.0 (0.0-0.7) 08/17/18 05:30 Baso # (Auto) 0.01 K/mm3 (0.0-2.0) 08/17/18 05:30 PT 13.4 SECONDS (9.4-12.5) H 08/16/18 13:00 INR 1.16 08/16/18 13:00 APTT 28.0 Seconds (25.1-36.5) 08/17/18 05:30 pCO2 38 mm/Hg (35-45) 08/17/18 06:00 pO2 99.0 mm/Hg (80-100) 08/17/18 06:00 HCO3 22.5 mmol/L (21-28) 08/17/18 06:00 ABG pH 7.38 (7.35-7.45) 08/17/18 06:00 ABG Total CO2 23.7 mmol.L (22-28) 08/17/18 06:00 ABG O2 Saturation 99.0 % (95-98) H 08/17/18 06:00 ABG O2 Content 14.0 ML/dl (15-23) L 08/17/18 06:00 ABG Base Excess -2.4 mmol/L (-2.0-3.0) L 08/17/18 06:00 ABG Hemoglobin 10.3 g/dL (11.7-17.4) L 08/17/18 06:00 ABG Carboxyhemoglobin 2.4 % (0.5-1.5) H 08/17/18 06:00 POC ABG HHb (Measured) 1.0 % (0-5) 08/17/18 06:00 ABG Methemoglobin 1.3 % (0.0-3.0) 08/17/18 06:00 ABG O2 Capacity 14.1 mL/dl (16-24) L 08/17/18 06:00 ABG Potassium 4.0 mmol/L (3.6-5.2) 08/16/18 14:37 Hgb O2 Saturation 95.3 % (95.0-98.0) 08/17/18 06:00 Sodium 138.0 mmol/L (132-148) 08/16/18 14:37 Chloride 108.0 mmol/L (98-107) H 08/16/18 14:37 Glucose 103 mg/dl (75-110) 08/16/18 14:37 Lactate 0.5 mmol/L (0.7-2.1) L 08/16/18 14:37 FiO2 40.0 % 08/17/18 06:00 Sodium 138 mmol/L (132-148) 08/17/18 05:30 Potassium 4.5 mmol/L (3.6-5.0) 08/17/18 05:30 Chloride 108 mmol/L (98-107) H 08/17/18 05:30 Carbon Dioxide 24 mmol/L (21-33) 08/17/18 05:30 Anion Gap 11 (10-20) 08/17/18 05:30 BUN 13 mg/dL (7-21) 08/17/18 05:30 Creatinine 0.8 mg/dl (0.8-1.5) 08/17/18 05:30 Est GFR ( Amer) > 60 08/17/18 05:30 Est GFR (Non-Af Amer) > 60 08/17/18 05:30 POC Glucose (mg/dL) 150 mg/dL (65-110) H 08/17/18 11:14 Random Glucose 103 mg/dL (70-110) 08/17/18 05:30 Calcium 8.6 mg/dL (8.4-10.5) 08/17/18 05:30 Phosphorus 4.7 mg/dL (2.5-4.5) H 08/17/18 05:30 Magnesium 2.0 mg/dL (1.7-2.2) 08/17/18 05:30 Total Bilirubin 0.6 mg/dL (0.2-1.3) 08/17/18 05:30 AST 22 U/L (17-59) 08/17/18 05:30 ALT 30 U/L (7-56) 08/17/18 05:30 Alkaline Phosphatase 63 U/L (38-126) 08/17/18 05:30 Ammonia 16 umol/L (9-33) 08/16/18 20:10 Lactate Dehydrogenase 551 U/L (333-699) 08/16/18 13:00 Total Creatine Kinase 92 U/L (35-230) 08/16/18 13:00 Troponin I < 0.01 ng/mL 08/16/18 13:00 Total Protein 6.4 g/dL (5.8-8.3) 08/17/18 05:30 Albumin 3.3 g/dL (3.0-4.8) 08/17/18 05:30 Globulin 3.1 gm/dL 08/17/18 05:30 Albumin/Globulin Ratio 1.1 (1.1-1.8) 08/17/18 05:30 Prostate Specific Ag 0.6 ng/mL (0.00-2.5) 08/17/18 05:00 Arterial Blood Potassium 4.0 mmol/L (3.6-5.2) 08/16/18 14:37 Urine Color Yellow (YELLOW) 08/16/18 15:11 Urine Appearance Clear (CLEAR) 08/16/18 15:11 Urine pH 6.5 (4.7-8.0) 08/16/18 15:11 Ur Specific [place] 1.020 (1.005-1.035) 08/16/18 15:11 Urine Protein Negative mg/dL (<30 mg/dL) 08/16/18 15:11 Urine Glucose (UA) Negative mg/dL (NEGATIVE) 08/16/18 15:11 Urine Ketones Negative mg/dL (NEGATIVE) 08/16/18 15:11 Urine Blood Negative (NEGATIVE) 08/16/18 15:11 Urine Nitrate Negative (NEGATIVE) 08/16/18 15:11 Urine Bilirubin Negative (NEGATIVE) 08/16/18 15:11 Urine Urobilinogen 0.2 E.U./dL (<1 E.U./dL) 08/16/18 15:11 Ur Leukocyte Esterase Negative [place]/uL (NEGATIVE) 08/16/18 15:11 Salicylates < 1 mg/dL (2.0-20.0) L 08/16/18 13:00 Urine Opiates Screen Negative (NEGATIVE) 08/16/18 15:11 Urine Methadone Screen Negative (NEGATIVE) 08/16/18 15:11 Acetaminophen < 10.0 ug/ml (10.0-20.0) L 08/16/18 13:00 Ur Barbiturates Screen Negative (NEGATIVE) 08/16/18 15:11 Ur Phencyclidine Scrn Negative (NEGATIVE) 08/16/18 15:11 Ur Amphetamines Screen Negative (NEGATIVE) 08/16/18 15:11 U Benzodiazepines Scrn Negative (NEGATIVE) 08/16/18 15:11 U Oth Cocaine Metabols Negative (NEGATIVE) 08/16/18 15:11 U Cannabinoids Screen Negative (NEGATIVE) 08/16/18 15:11 Alcohol, Quantitative < 10 mg/dL (0-10) 08/16/18 13:00 Attending/Attestation - Attestation I have personally seen and examined this patient.: Yes I have fully participated in the care of the patient.: Yes I have reviewed all pertinent clinical information, including history, physical exam and plan: Yes Notes (Text): 08/17/18 68 year old male with past medical history of COPD, subdural hematoma, hepatitis C, substance abuse, and IVDA who presented with altered mental status and fall. In ER was increasingly lethargic requiring narcan. Urine drug screen was negative. CT head showed no acute findings; left occipital lobe cystic encephalomalacia. ABG showed CO2 retention. CXR, UA, ammonia level and labs otherwise were unremarkable. He was initially started on bipap and then later intubated due to CO2 retention. He was extubated this morning. This morning he is now alert with baseline mental status. He states he hasn't been getting much sleep lately and took ambien. Few hours later he passed out while in the streets. Patient was to be transferred out of ICU today with PT evaluation. However he signed out AMA. He was explained the risks of signing out which he acknowledged. Zainab Briscoe MD Hospitalist.
--- NOTE | 2018-08-17 16:28 | CP.CCUPN ---
<Isi Guadarrama - Last Filed: 08/17/18 16:38> CCU Subjective - Physician Review Subjective (Free Text): CRITICAL CARE PROGRESS NOTE FOR DR. DARELL Guadarrama PGY-1 Pt seen and examined this am. Pt was extubated last night. He was extubated this am. Upon extubation, he was tolerating his diet and alert and oriented. He reported to us that he had taken an ambien pill last night. He was requesting to sign out against medical advice. He reported no suicidal/homicidal ideations and clear mental capacity to make his own medical decisions. His 12 point ROS was negative. CCU Objective - Vital Signs / Intake & Output Vital Signs (Last 4 hours): Vital Signs Pulse Resp BP Pulse Ox 08/17/18 14:20 93 L 08/17/18 14:15 130/64 91 L 08/17/18 14:10 88 19 91 L 08/17/18 14:00 86 23 127/75 91 L 08/17/18 13:50 88 20 91 L 08/17/18 13:44 94 H 15 08/17/18 13:40 92 H 17 94 L 08/17/18 13:30 85 20 114/58 L 92 L 08/17/18 13:26 85 19 08/17/18 13:20 87 22 92 L 08/17/18 13:15 85 18 120/61 92 L 08/17/18 13:10 80 16 99 08/17/18 13:00 83 30 H 130/85 86 L 08/17/18 12:50 80 25 H 86 L 08/17/18 12:40 76 20 87 L 08/17/18 12:31 69 16 128/66 86 L 08/17/18 12:30 75 15 88 L Intake and Output (Last 8hrs): Intake & Output 08/17/18 08/17/18 08/17/18 06:59 14:59 22:59 Intake Total 1216 Balance 1216 Weight 114 lb 3.2 oz Intake: IV 1216 Left Antecubital 1200 Left Hand 9 - Physical Exam Head: Positive for: Atraumatic, Normocephalic Pupils: Positive for: PERRL Extroacular Muscles: Positive for: EOMI Conjunctiva: Positive for: Normal Mouth: Positive for: Moist Mucous Membranes Cardiovascular: Positive for: Regular Rate and Rhythm, Normal S1, S2 Abdomen: Positive for: Normal Bowel Sounds. Negative for: Tenderness, Peritoneal Signs Lower Extremity: Positive for: Normal Inspection Neurological: Positive for: GCS=15, CN II-XII Intact, Speech Normal Skin: Positive for: Warm, Dry Psychiatric: Positive for: Alert, Oriented x 3 - Patient Studies Lab Studies: Lab Studies 08/17/18 08/17/18 08/17/18 Range/Units 11:14 07:38 06:00 WBC (4.5-11.0) 10^3/uL RBC (3.5-6.1) 10^6/uL Hgb (14.0-18.0) g/dL Hct (42.0-52.0) % MCV (80.0-105.0) fl MCH (25.0-35.0) pg MCHC (31.0-37.0) g/dl RDW (11.5-14.5) % Plt Count (120.0-450.0) 10^3/uL MPV (7.0-11.0) fl Gran % (50.0-68.0) % Lymph % (Auto) (22.0-35.0) % [place] % (Auto) (1.0-6.0) % Eos % (Auto) (1.5-5.0) % Baso % (Auto) (0.0-3.0) % Gran # (1.4-6.5) Lymph # (Auto) (1.2-3.4) [place] # (Auto) (0.1-0.6) Eos # (Auto) (0.0-0.7) Baso # (Auto) (0.0-2.0) K/mm3 APTT (25.1-36.5) Seconds pCO2 38 (35-45) mm/Hg pO2 99.0 (80-100) mm/Hg HCO3 22.5 (21-28) mmol/L ABG pH 7.38 (7.35-7.45) ABG Total CO2 23.7 (22-28) mmol.L ABG O2 Saturation 99.0 H (95-98) % ABG O2 Content 14.0 L (15-23) ML/dl ABG Base Excess -2.4 L (-2.0-3.0) mmol/L ABG Hemoglobin 10.3 L (11.7-17.4) g/dL ABG Carboxyhemoglobin 2.4 H (0.5-1.5) % POC ABG HHb (Measured) 1.0 (0-5) % ABG Methemoglobin 1.3 (0.0-3.0) % ABG O2 Capacity 14.1 L (16-24) mL/dl Hgb O2 Saturation 95.3 (95.0-98.0) % FiO2 40.0 % Sodium (132-148) mmol/L Potassium (3.6-5.0) mmol/L Chloride (98-107) mmol/L Carbon Dioxide (21-33) mmol/L Anion Gap (10-20) BUN (7-21) mg/dL Creatinine (0.8-1.5) mg/dl Est GFR ( Amer) Est GFR (Non-Af Amer) POC Glucose (mg/dL) 150 H 108 (65-110) mg/dL Random Glucose (70-110) mg/dL Calcium (8.4-10.5) mg/dL Phosphorus (2.5-4.5) mg/dL Magnesium (1.7-2.2) mg/dL Total Bilirubin (0.2-1.3) mg/dL AST (17-59) U/L ALT (7-56) U/L Alkaline Phosphatase (38-126) U/L Ammonia (9-33) umol/L Total Protein (5.8-8.3) g/dL Albumin (3.0-4.8) g/dL Globulin gm/dL Albumin/Globulin Ratio (1.1-1.8) Prostate Specific Ag (0.00-2.5) ng/mL 08/17/18 08/17/18 08/17/18 Range/Units 05:30 05:30 05:30 WBC 6.3 (4.5-11.0) 10^3/uL RBC 3.63 (3.5-6.1) 10^6/uL Hgb 10.4 L (14.0-18.0) g/dL Hct 32.6 L (42.0-52.0) % MCV 89.8 (80.0-105.0) fl MCH 28.7 (25.0-35.0) pg MCHC 31.9 (31.0-37.0) g/dl RDW 16.2 H (11.5-14.5) % Plt Count 220 (120.0-450.0) 10^3/uL MPV 9.3 (7.0-11.0) fl Gran % 89.2 H (50.0-68.0) % Lymph % (Auto) 7.4 L (22.0-35.0) % [place] % (Auto) 3.0 (1.0-6.0) % Eos % (Auto) 0.2 L (1.5-5.0) % Baso % (Auto) 0.2 (0.0-3.0) % Gran # 5.64 (1.4-6.5) Lymph # (Auto) 0.5 L (1.2-3.4) [place] # (Auto) 0.2 (0.1-0.6) Eos # (Auto) 0.0 (0.0-0.7) Baso # (Auto) 0.01 (0.0-2.0) K/mm3 APTT 28.0 (25.1-36.5) Seconds pCO2 (35-45) mm/Hg pO2 (80-100) mm/Hg HCO3 (21-28) mmol/L ABG pH (7.35-7.45) ABG Total CO2 (22-28) mmol.L ABG O2 Saturation (95-98) % ABG O2 Content (15-23) ML/dl ABG Base Excess (-2.0-3.0) mmol/L ABG Hemoglobin (11.7-17.4) g/dL ABG Carboxyhemoglobin (0.5-1.5) % POC ABG HHb (Measured) (0-5) % ABG Methemoglobin (0.0-3.0) % ABG O2 Capacity (16-24) mL/dl Hgb O2 Saturation (95.0-98.0) % FiO2 % Sodium 138 (132-148) mmol/L Potassium 4.5 (3.6-5.0) mmol/L Chloride 108 H (98-107) mmol/L Carbon Dioxide 24 (21-33) mmol/L Anion Gap 11 (10-20) BUN 13 (7-21) mg/dL Creatinine 0.8 (0.8-1.5) mg/dl Est GFR ( Amer) > 60 Est GFR (Non-Af Amer) > 60 POC Glucose (mg/dL) (65-110) mg/dL Random Glucose 103 (70-110) mg/dL Calcium 8.6 (8.4-10.5) mg/dL Phosphorus 4.7 H (2.5-4.5) mg/dL Magnesium 2.0 (1.7-2.2) mg/dL Total Bilirubin 0.6 (0.2-1.3) mg/dL AST 22 (17-59) U/L ALT 30 (7-56) U/L Alkaline Phosphatase 63 (38-126) U/L Ammonia (9-33) umol/L Total Protein 6.4 (5.8-8.3) g/dL Albumin 3.3 (3.0-4.8) g/dL Globulin 3.1 gm/dL Albumin/Globulin Ratio 1.1 (1.1-1.8) Prostate Specific Ag (0.00-2.5) ng/mL 08/17/18 08/16/18 08/16/18 Range/Units 05:00 22:09 20:49 WBC (4.5-11.0) 10^3/uL RBC (3.5-6.1) 10^6/uL Hgb (14.0-18.0) g/dL Hct (42.0-52.0) % MCV (80.0-105.0) fl MCH (25.0-35.0) pg MCHC (31.0-37.0) g/dl RDW (11.5-14.5) % Plt Count (120.0-450.0) 10^3/uL MPV (7.0-11.0) fl Gran % (50.0-68.0) % Lymph % (Auto) (22.0-35.0) % [place] % (Auto) (1.0-6.0) % Eos % (Auto) (1.5-5.0) % Baso % (Auto) (0.0-3.0) % Gran # (1.4-6.5) Lymph # (Auto) (1.2-3.4) [place] # (Auto) (0.1-0.6) Eos # (Auto) (0.0-0.7) Baso # (Auto) (0.0-2.0) K/mm3 APTT (25.1-36.5) Seconds pCO2 46 H (35-45) mm/Hg pO2 156.0 H (80-100) mm/Hg HCO3 24.3 (21-28) mmol/L ABG pH 7.33 L (7.35-7.45) ABG Total CO2 25.7 (22-28) mmol.L ABG O2 Saturation 99.5 H (95-98) % ABG O2 Content 14.1 L (15-23) ML/dl ABG Base Excess -1.8 (-2.0-3.0) mmol/L ABG Hemoglobin 10.3 L (11.7-17.4) g/dL ABG Carboxyhemoglobin 3.1 H (0.5-1.5) % POC ABG HHb (Measured) 0.5 (0-5) % ABG Methemoglobin 1.2 (0.0-3.0) % ABG O2 Capacity 14.2 L (16-24) mL/dl Hgb O2 Saturation 95.1 (95.0-98.0) % FiO2 60.0 % Sodium (132-148) mmol/L Potassium (3.6-5.0) mmol/L Chloride (98-107) mmol/L Carbon Dioxide (21-33) mmol/L Anion Gap (10-20) BUN (7-21) mg/dL Creatinine (0.8-1.5) mg/dl Est GFR ( Amer) Est GFR (Non-Af Amer) POC Glucose (mg/dL) 82 (65-110) mg/dL Random Glucose (70-110) mg/dL Calcium (8.4-10.5) mg/dL Phosphorus (2.5-4.5) mg/dL Magnesium (1.7-2.2) mg/dL Total Bilirubin (0.2-1.3) mg/dL AST (17-59) U/L ALT (7-56) U/L Alkaline Phosphatase (38-126) U/L Ammonia (9-33) umol/L Total Protein (5.8-8.3) g/dL Albumin (3.0-4.8) g/dL Globulin gm/dL Albumin/Globulin Ratio (1.1-1.8) Prostate Specific Ag 0.6 (0.00-2.5) ng/mL 08/16/18 08/16/18 08/16/18 Range/Units 20:10 18:41 14:33 WBC (4.5-11.0) 10^3/uL RBC (3.5-6.1) 10^6/uL Hgb (14.0-18.0) g/dL Hct (42.0-52.0) % MCV (80.0-105.0) fl MCH (25.0-35.0) pg MCHC (31.0-37.0) g/dl RDW (11.5-14.5) % Plt Count (120.0-450.0) 10^3/uL MPV (7.0-11.0) fl Gran % (50.0-68.0) % Lymph % (Auto) (22.0-35.0) % [place] % (Auto) (1.0-6.0) % Eos % (Auto) (1.5-5.0) % Baso % (Auto) (0.0-3.0) % Gran # (1.4-6.5) Lymph # (Auto) (1.2-3.4) [place] # (Auto) (0.1-0.6) Eos # (Auto) (0.0-0.7) Baso # (Auto) (0.0-2.0) K/mm3 APTT (25.1-36.5) Seconds pCO2 61 H (35-45) mm/Hg pO2 95.0 (80-100) mm/Hg HCO3 25.5 (21-28) mmol/L ABG pH 7.23 L (7.35-7.45) ABG Total CO2 27.4 (22-28) mmol.L ABG O2 Saturation 98.3 H (95-98) % ABG O2 Content 14.8 L (15-23) ML/dl ABG Base Excess -2.8 L (-2.0-3.0) mmol/L ABG Hemoglobin 11.2 L (11.7-17.4) g/dL ABG Carboxyhemoglobin 4.2 H (0.5-1.5) % POC ABG HHb (Measured) 1.6 (0-5) % ABG Methemoglobin 0.9 (0.0-3.0) % ABG O2 Capacity 15.1 L (16-24) mL/dl Hgb O2 Saturation 93.3 L (95.0-98.0) % FiO2 35.0 % Sodium (132-148) mmol/L Potassium (3.6-5.0) mmol/L Chloride (98-107) mmol/L Carbon Dioxide (21-33) mmol/L Anion Gap (10-20) BUN (7-21) mg/dL Creatinine (0.8-1.5) mg/dl Est GFR ( Amer) Est GFR (Non-Af Amer) POC Glucose (mg/dL) 99 (65-110) mg/dL Random Glucose (70-110) mg/dL Calcium (8.4-10.5) mg/dL Phosphorus (2.5-4.5) mg/dL Magnesium (1.7-2.2) mg/dL Total Bilirubin (0.2-1.3) mg/dL AST (17-59) U/L ALT (7-56) U/L Alkaline Phosphatase (38-126) U/L Ammonia 16 (9-33) umol/L Total Protein (5.8-8.3) g/dL Albumin (3.0-4.8) g/dL Globulin gm/dL Albumin/Globulin Ratio (1.1-1.8) Prostate Specific Ag (0.00-2.5) ng/mL Laboratory Results - last 24 hr 08/16/18 08/16/18 08/16/18 14:33 18:41 20:10 WBC RBC Hgb Hct MCV MCH MCHC RDW Plt Count MPV Gran % Lymph % (Auto) [place] % (Auto) Eos % (Auto) Baso % (Auto) Gran # Lymph # (Auto) [place] # (Auto) Eos # (Auto) Baso # (Auto) APTT pCO2 61 H pO2 95.0 HCO3 25.5 ABG pH 7.23 L ABG Total CO2 27.4 ABG O2 Saturation 98.3 H ABG O2 Content 14.8 L ABG Base Excess -2.8 L ABG Hemoglobin 11.2 L ABG Carboxyhemoglobin 4.2 H POC ABG HHb (Measured) 1.6 ABG Methemoglobin 0.9 ABG O2 Capacity 15.1 L Hgb O2 Saturation 93.3 L FiO2 35.0 Sodium Potassium Chloride Carbon Dioxide Anion Gap BUN Creatinine Est GFR ( Amer) Est GFR (Non-Af Amer) POC Glucose (mg/dL) 99 Random Glucose Calcium Phosphorus Magnesium Total Bilirubin AST ALT Alkaline Phosphatase Ammonia 16 Total Protein Albumin Globulin Albumin/Globulin Ratio Prostate Specific Ag 08/16/18 08/16/18 08/17/18 20:49 22:09 05:00 WBC RBC Hgb Hct MCV MCH MCHC RDW Plt Count MPV Gran % Lymph % (Auto) [place] % (Auto) Eos % (Auto) Baso % (Auto) Gran # Lymph # (Auto) [place] # (Auto) Eos # (Auto) Baso # (Auto) APTT pCO2 46 H pO2 156.0 H HCO3 24.3 ABG pH 7.33 L ABG Total CO2 25.7 ABG O2 Saturation 99.5 H ABG O2 Content 14.1 L ABG Base Excess -1.8 ABG Hemoglobin 10.3 L ABG Carboxyhemoglobin 3.1 H POC ABG HHb (Measured) 0.5 ABG Methemoglobin 1.2 ABG O2 Capacity 14.2 L Hgb O2 Saturation 95.1 FiO2 60.0 Sodium Potassium Chloride Carbon Dioxide Anion Gap BUN Creatinine Est GFR ( Amer) Est GFR (Non-Af Amer) POC Glucose (mg/dL) 82 Random Glucose Calcium Phosphorus Magnesium Total Bilirubin AST ALT Alkaline Phosphatase Ammonia Total Protein Albumin Globulin Albumin/Globulin Ratio Prostate Specific Ag 0.6 08/17/18 08/17/18 08/17/18 05:30 05:30 05:30 WBC 6.3 RBC 3.63 Hgb 10.4 L Hct 32.6 L MCV 89.8 MCH 28.7 MCHC 31.9 RDW 16.2 H Plt Count 220 MPV 9.3 Gran % 89.2 H Lymph % (Auto) 7.4 L [place] % (Auto) 3.0 Eos % (Auto) 0.2 L Baso % (Auto) 0.2 Gran # 5.64 Lymph # (Auto) 0.5 L [place] # (Auto) 0.2 Eos # (Auto) 0.0 Baso # (Auto) 0.01 APTT 28.0 pCO2 pO2 HCO3 ABG pH ABG Total CO2 ABG O2 Saturation ABG O2 Content ABG Base Excess ABG Hemoglobin ABG Carboxyhemoglobin POC ABG HHb (Measured) ABG Methemoglobin ABG O2 Capacity Hgb O2 Saturation FiO2 Sodium 138 Potassium 4.5 Chloride 108 H Carbon Dioxide 24 Anion Gap 11 BUN 13 Creatinine 0.8 Est GFR ( Amer) > 60 Est GFR (Non-Af Amer) > 60 POC Glucose (mg/dL) Random Glucose 103 Calcium 8.6 Phosphorus 4.7 H Magnesium 2.0 Total Bilirubin 0.6 AST 22 ALT 30 Alkaline Phosphatase 63 Ammonia Total Protein 6.4 Albumin 3.3 Globulin 3.1 Albumin/Globulin Ratio 1.1 Prostate Specific Ag 08/17/18 08/17/18 08/17/18 06:00 07:38 11:14 WBC RBC Hgb Hct MCV MCH MCHC RDW Plt Count MPV Gran % Lymph % (Auto) [place] % (Auto) Eos % (Auto) Baso % (Auto) Gran # Lymph # (Auto) [place] # (Auto) Eos # (Auto) Baso # (Auto) APTT pCO2 38 pO2 99.0 HCO3 22.5 ABG pH 7.38 ABG Total CO2 23.7 ABG O2 Saturation 99.0 H ABG O2 Content 14.0 L ABG Base Excess -2.4 L ABG Hemoglobin 10.3 L ABG Carboxyhemoglobin 2.4 H POC ABG HHb (Measured) 1.0 ABG Methemoglobin 1.3 ABG O2 Capacity 14.1 L Hgb O2 Saturation 95.3 FiO2 40.0 Sodium Potassium Chloride Carbon Dioxide Anion Gap BUN Creatinine Est GFR ( Amer) Est GFR (Non-Af Amer) POC Glucose (mg/dL) 108 150 H Random Glucose Calcium Phosphorus Magnesium Total Bilirubin AST ALT Alkaline Phosphatase Ammonia Total Protein Albumin Globulin Albumin/Globulin Ratio Prostate Specific Ag Fingerstick Blood Sugar Results: 99 Review of Systems - Review of Systems Review of Systems: per HPI Critical Care Progress Note - Nutrition Nutrition: Nutrition Category Date Time Status Heart Healthy Diet [DIET] Diets 08/17/18 Lunch Active Assessment/Plan - Assessment and Plan (Free Text) Assessment: 68 M with hx of COPD, subdural hematoma, HCV, IV drug use, PUD, chronic renal disease presented with lethargy to the ED. Initially he was conversing with ED doc however became more lethargic during the interview. He was found to have hypercapnic respiratory failure and intubated overnight. This am, he was awake and writing on the whiteboard that he wanted to be extubated. He was subsequently extubated. He was alert and oriented, tolerating his diet and asking to sign out AMA. Plan: Neuro: AxO x 3 No FND Extubated, no longer sedated Ambulating independently Cardio: Normotensive RRR Maintain MAP >65 Pulmonary Extubated this am Repeat ABG showing hypercapnic respiratory failure has resolved Lungs CTA b/l Likely secondary to drug/medication ingestion GI Tolerating diet protonix for GI ppx : I & Os NS @ 100mls/hr Heme: H/H stable, shows chronic anemia Dispo: Pt requesting multiple times to sign out AMA. All risks/benefits/indications explained to pt Case seen, examined and discussed with attending physician, Dr. Jimenez <Lety Jimenez - Last Filed: 08/17/18 19:56> CCU Objective - Vital Signs / Intake & Output Intake and Output (Last 8hrs): Intake & Output 08/17/18 08/17/18 08/17/18 06:59 14:59 22:59 Intake Total 1216 Balance 1216 Weight 51.8 kg Intake: IV 1216 Left Antecubital 1200 Left Hand 9 - Patient Studies Lab Studies: Lab Studies 08/17/18 08/17/18 08/17/18 Range/Units 11:14 07:38 06:00 WBC (4.5-11.0) 10^3/uL RBC (3.5-6.1) 10^6/uL Hgb (14.0-18.0) g/dL Hct (42.0-52.0) % MCV (80.0-105.0) fl MCH (25.0-35.0) pg MCHC (31.0-37.0) g/dl RDW (11.5-14.5) % Plt Count (120.0-450.0) 10^3/uL MPV (7.0-11.0) fl Gran % (50.0-68.0) % Lymph % (Auto) (22.0-35.0) % [place] % (Auto) (1.0-6.0) % Eos % (Auto) (1.5-5.0) % Baso % (Auto) (0.0-3.0) % Gran # (1.4-6.5) Lymph # (Auto) (1.2-3.4) [place] # (Auto) (0.1-0.6) Eos # (Auto) (0.0-0.7) Baso # (Auto) (0.0-2.0) K/mm3 APTT (25.1-36.5) Seconds pCO2 38 (35-45) mm/Hg pO2 99.0 (80-100) mm/Hg HCO3 22.5 (21-28) mmol/L ABG pH 7.38 (7.35-7.45) ABG Total CO2 23.7 (22-28) mmol.L ABG O2 Saturation 99.0 H (95-98) % ABG O2 Content 14.0 L (15-23) ML/dl ABG Base Excess -2.4 L (-2.0-3.0) mmol/L ABG Hemoglobin 10.3 L (11.7-17.4) g/dL ABG Carboxyhemoglobin 2.4 H (0.5-1.5) % POC ABG HHb (Measured) 1.0 (0-5) % ABG Methemoglobin 1.3 (0.0-3.0) % ABG O2 Capacity 14.1 L (16-24) mL/dl Hgb O2 Saturation 95.3 (95.0-98.0) % FiO2 40.0 % Sodium (132-148) mmol/L Potassium (3.6-5.0) mmol/L Chloride (98-107) mmol/L Carbon Dioxide (21-33) mmol/L Anion Gap (10-20) BUN (7-21) mg/dL Creatinine (0.8-1.5) mg/dl Est GFR ( Amer) Est GFR (Non-Af Amer) POC Glucose (mg/dL) 150 H 108 (65-110) mg/dL Random Glucose (70-110) mg/dL Calcium (8.4-10.5) mg/dL Phosphorus (2.5-4.5) mg/dL Magnesium (1.7-2.2) mg/dL Total Bilirubin (0.2-1.3) mg/dL AST (17-59) U/L ALT (7-56) U/L Alkaline Phosphatase (38-126) U/L Ammonia (9-33) umol/L Total Protein (5.8-8.3) g/dL Albumin (3.0-4.8) g/dL Globulin gm/dL Albumin/Globulin Ratio (1.1-1.8) Prostate Specific Ag (0.00-2.5) ng/mL 08/17/18 08/17/18 08/17/18 Range/Units 05:30 05:30 05:30 WBC 6.3 (4.5-11.0) 10^3/uL RBC 3.63 (3.5-6.1) 10^6/uL Hgb 10.4 L (14.0-18.0) g/dL Hct 32.6 L (42.0-52.0) % MCV 89.8 (80.0-105.0) fl MCH 28.7 (25.0-35.0) pg MCHC 31.9 (31.0-37.0) g/dl RDW 16.2 H (11.5-14.5) % Plt Count 220 (120.0-450.0) 10^3/uL MPV 9.3 (7.0-11.0) fl Gran % 89.2 H (50.0-68.0) % Lymph % (Auto) 7.4 L (22.0-35.0) % [place] % (Auto) 3.0 (1.0-6.0) % Eos % (Auto) 0.2 L (1.5-5.0) % Baso % (Auto) 0.2 (0.0-3.0) % Gran # 5.64 (1.4-6.5) Lymph # (Auto) 0.5 L (1.2-3.4) [place] # (Auto) 0.2 (0.1-0.6) Eos # (Auto) 0.0 (0.0-0.7) Baso # (Auto) 0.01 (0.0-2.0) K/mm3 APTT 28.0 (25.1-36.5) Seconds pCO2 (35-45) mm/Hg pO2 (80-100) mm/Hg HCO3 (21-28) mmol/L ABG pH (7.35-7.45) ABG Total CO2 (22-28) mmol.L ABG O2 Saturation (95-98) % ABG O2 Content (15-23) ML/dl ABG Base Excess (-2.0-3.0) mmol/L ABG Hemoglobin (11.7-17.4) g/dL ABG Carboxyhemoglobin (0.5-1.5) % POC ABG HHb (Measured) (0-5) % ABG Methemoglobin (0.0-3.0) % ABG O2 Capacity (16-24) mL/dl Hgb O2 Saturation (95.0-98.0) % FiO2 % Sodium 138 (132-148) mmol/L Potassium 4.5 (3.6-5.0) mmol/L Chloride 108 H (98-107) mmol/L Carbon Dioxide 24 (21-33) mmol/L Anion Gap 11 (10-20) BUN 13 (7-21) mg/dL Creatinine 0.8 (0.8-1.5) mg/dl Est GFR ( Amer) > 60 Est GFR (Non-Af Amer) > 60 POC Glucose (mg/dL) (65-110) mg/dL Random Glucose 103 (70-110) mg/dL Calcium 8.6 (8.4-10.5) mg/dL Phosphorus 4.7 H (2.5-4.5) mg/dL Magnesium 2.0 (1.7-2.2) mg/dL Total Bilirubin 0.6 (0.2-1.3) mg/dL AST 22 (17-59) U/L ALT 30 (7-56) U/L Alkaline Phosphatase 63 (38-126) U/L Ammonia (9-33) umol/L Total Protein 6.4 (5.8-8.3) g/dL Albumin 3.3 (3.0-4.8) g/dL Globulin 3.1 gm/dL Albumin/Globulin Ratio 1.1 (1.1-1.8) Prostate Specific Ag (0.00-2.5) ng/mL 10/26/18 10/25/18 10/25/18 Range/Units 05:00 22:09 20:49 WBC (4.5-11.0) 10^3/uL RBC (3.5-6.1) 10^6/uL Hgb (14.0-18.0) g/dL Hct (42.0-52.0) % MCV (80.0-105.0) fl MCH (25.0-35.0) pg MCHC (31.0-37.0) g/dl RDW (11.5-14.5) % Plt Count (120.0-450.0) 10^3/uL MPV (7.0-11.0) fl Gran % (50.0-68.0) % Lymph % (Auto) (22.0-35.0) % [place] % (Auto) (1.0-6.0) % Eos % (Auto) (1.5-5.0) % Baso % (Auto) (0.0-3.0) % Gran # (1.4-6.5) Lymph # (Auto) (1.2-3.4) [place] # (Auto) (0.1-0.6) Eos # (Auto) (0.0-0.7) Baso # (Auto) (0.0-2.0) K/mm3 APTT (25.1-36.5) Seconds pCO2 46 H (35-45) mm/Hg pO2 156.0 H (80-100) mm/Hg HCO3 24.3 (21-28) mmol/L ABG pH 7.33 L (7.35-7.45) ABG Total CO2 25.7 (22-28) mmol.L ABG O2 Saturation 99.5 H (95-98) % ABG O2 Content 14.1 L (15-23) ML/dl ABG Base Excess -1.8 (-2.0-3.0) mmol/L ABG Hemoglobin 10.3 L (11.7-17.4) g/dL ABG Carboxyhemoglobin 3.1 H (0.5-1.5) % POC ABG HHb (Measured) 0.5 (0-5) % ABG Methemoglobin 1.2 (0.0-3.0) % ABG O2 Capacity 14.2 L (16-24) mL/dl Hgb O2 Saturation 95.1 (95.0-98.0) % FiO2 60.0 % Sodium (132-148) mmol/L Potassium (3.6-5.0) mmol/L Chloride (98-107) mmol/L Carbon Dioxide (21-33) mmol/L Anion Gap (10-20) BUN (7-21) mg/dL Creatinine (0.8-1.5) mg/dl Est GFR ( Amer) Est GFR (Non-Af Amer) POC Glucose (mg/dL) 82 (65-110) mg/dL Random Glucose (70-110) mg/dL Calcium (8.4-10.5) mg/dL Phosphorus (2.5-4.5) mg/dL Magnesium (1.7-2.2) mg/dL Total Bilirubin (0.2-1.3) mg/dL AST (17-59) U/L ALT (7-56) U/L Alkaline Phosphatase (38-126) U/L Ammonia (9-33) umol/L Total Protein (5.8-8.3) g/dL Albumin (3.0-4.8) g/dL Globulin gm/dL Albumin/Globulin Ratio (1.1-1.8) Prostate Specific Ag 0.6 (0.00-2.5) ng/mL 08/16/18 08/16/18 Range/Units 20:10 14:33 WBC (4.5-11.0) 10^3/uL RBC (3.5-6.1) 10^6/uL Hgb (14.0-18.0) g/dL Hct (42.0-52.0) % MCV (80.0-105.0) fl MCH (25.0-35.0) pg MCHC (31.0-37.0) g/dl RDW (11.5-14.5) % Plt Count (120.0-450.0) 10^3/uL MPV (7.0-11.0) fl Gran % (50.0-68.0) % Lymph % (Auto) (22.0-35.0) % [place] % (Auto) (1.0-6.0) % Eos % (Auto) (1.5-5.0) % Baso % (Auto) (0.0-3.0) % Gran # (1.4-6.5) Lymph # (Auto) (1.2-3.4) [place] # (Auto) (0.1-0.6) Eos # (Auto) (0.0-0.7) Baso # (Auto) (0.0-2.0) K/mm3 APTT (25.1-36.5) Seconds pCO2 (35-45) mm/Hg pO2 (80-100) mm/Hg HCO3 (21-28) mmol/L ABG pH (7.35-7.45) ABG Total CO2 (22-28) mmol.L ABG O2 Saturation (95-98) % ABG O2 Content (15-23) ML/dl ABG Base Excess (-2.0-3.0) mmol/L ABG Hemoglobin (11.7-17.4) g/dL ABG Carboxyhemoglobin (0.5-1.5) % POC ABG HHb (Measured) (0-5) % ABG Methemoglobin (0.0-3.0) % ABG O2 Capacity (16-24) mL/dl Hgb O2 Saturation (95.0-98.0) % FiO2 % Sodium (132-148) mmol/L Potassium (3.6-5.0) mmol/L Chloride (98-107) mmol/L Carbon Dioxide (21-33) mmol/L Anion Gap (10-20) BUN (7-21) mg/dL Creatinine (0.8-1.5) mg/dl Est GFR ( Amer) Est GFR (Non-Af Amer) POC Glucose (mg/dL) 99 (65-110) mg/dL Random Glucose (70-110) mg/dL Calcium (8.4-10.5) mg/dL Phosphorus (2.5-4.5) mg/dL Magnesium (1.7-2.2) mg/dL Total Bilirubin (0.2-1.3) mg/dL AST (17-59) U/L ALT (7-56) U/L Alkaline Phosphatase (38-126) U/L Ammonia 16 (9-33) umol/L Total Protein (5.8-8.3) g/dL Albumin (3.0-4.8) g/dL Globulin gm/dL Albumin/Globulin Ratio (1.1-1.8) Prostate Specific Ag (0.00-2.5) ng/mL Laboratory Results - last 24 hr 08/16/18 08/16/18 08/16/18 14:33 20:10 20:49 WBC RBC Hgb Hct MCV MCH MCHC RDW Plt Count MPV Gran % Lymph % (Auto) [place] % (Auto) Eos % (Auto) Baso % (Auto) Gran # Lymph # (Auto) [place] # (Auto) Eos # (Auto) Baso # (Auto) APTT pCO2 46 H pO2 156.0 H HCO3 24.3 ABG pH 7.33 L ABG Total CO2 25.7 ABG O2 Saturation 99.5 H ABG O2 Content 14.1 L ABG Base Excess -1.8 ABG Hemoglobin 10.3 L ABG Carboxyhemoglobin 3.1 H POC ABG HHb (Measured) 0.5 ABG Methemoglobin 1.2 ABG O2 Capacity 14.2 L Hgb O2 Saturation 95.1 FiO2 60.0 Sodium Potassium Chloride Carbon Dioxide Anion Gap BUN Creatinine Est GFR ( Amer) Est GFR (Non-Af Amer) POC Glucose (mg/dL) 99 Random Glucose Calcium Phosphorus Magnesium Total Bilirubin AST ALT Alkaline Phosphatase Ammonia 16 Total Protein Albumin Globulin Albumin/Globulin Ratio Prostate Specific Ag 08/16/18 08/17/18 08/17/18 22:09 05:00 05:30 WBC 6.3 RBC 3.63 Hgb 10.4 L Hct 32.6 L MCV 89.8 MCH 28.7 MCHC 31.9 RDW 16.2 H Plt Count 220 MPV 9.3 Gran % 89.2 H Lymph % (Auto) 7.4 L [place] % (Auto) 3.0 Eos % (Auto) 0.2 L Baso % (Auto) 0.2 Gran # 5.64 Lymph # (Auto) 0.5 L [place] # (Auto) 0.2 Eos # (Auto) 0.0 Baso # (Auto) 0.01 APTT pCO2 pO2 HCO3 ABG pH ABG Total CO2 ABG O2 Saturation ABG O2 Content ABG Base Excess ABG Hemoglobin ABG Carboxyhemoglobin POC ABG HHb (Measured) ABG Methemoglobin ABG O2 Capacity Hgb O2 Saturation FiO2 Sodium Potassium Chloride Carbon Dioxide Anion Gap BUN Creatinine Est GFR ( Amer) Est GFR (Non-Af Amer) POC Glucose (mg/dL) 82 Random Glucose Calcium Phosphorus Magnesium Total Bilirubin AST ALT Alkaline Phosphatase Ammonia Total Protein Albumin Globulin Albumin/Globulin Ratio Prostate Specific Ag 0.6 08/17/18 08/17/18 08/17/18 05:30 05:30 06:00 WBC RBC Hgb Hct MCV MCH MCHC RDW Plt Count MPV Gran % Lymph % (Auto) [place] % (Auto) Eos % (Auto) Baso % (Auto) Gran # Lymph # (Auto) [place] # (Auto) Eos # (Auto) Baso # (Auto) APTT 28.0 pCO2 38 pO2 99.0 HCO3 22.5 ABG pH 7.38 ABG Total CO2 23.7 ABG O2 Saturation 99.0 H ABG O2 Content 14.0 L ABG Base Excess -2.4 L ABG Hemoglobin 10.3 L ABG Carboxyhemoglobin 2.4 H POC ABG HHb (Measured) 1.0 ABG Methemoglobin 1.3 ABG O2 Capacity 14.1 L Hgb O2 Saturation 95.3 FiO2 40.0 Sodium 138 Potassium 4.5 Chloride 108 H Carbon Dioxide 24 Anion Gap 11 BUN 13 Creatinine 0.8 Est GFR ( Amer) > 60 Est GFR (Non-Af Amer) > 60 POC Glucose (mg/dL) Random Glucose 103 Calcium 8.6 Phosphorus 4.7 H Magnesium 2.0 Total Bilirubin 0.6 AST 22 ALT 30 Alkaline Phosphatase 63 Ammonia Total Protein 6.4 Albumin 3.3 Globulin 3.1 Albumin/Globulin Ratio 1.1 Prostate Specific Ag 08/17/18 08/17/18 07:38 11:14 WBC RBC Hgb Hct MCV MCH MCHC RDW Plt Count MPV Gran % Lymph % (Auto) [place] % (Auto) Eos % (Auto) Baso % (Auto) Gran # Lymph # (Auto) [place] # (Auto) Eos # (Auto) Baso # (Auto) APTT pCO2 pO2 HCO3 ABG pH ABG Total CO2 ABG O2 Saturation ABG O2 Content ABG Base Excess ABG Hemoglobin ABG Carboxyhemoglobin POC ABG HHb (Measured) ABG Methemoglobin ABG O2 Capacity Hgb O2 Saturation FiO2 Sodium Potassium Chloride Carbon Dioxide Anion Gap BUN Creatinine Est GFR ( Amer) Est GFR (Non-Af Amer) POC Glucose (mg/dL) 108 150 H Random Glucose Calcium Phosphorus Magnesium Total Bilirubin AST ALT Alkaline Phosphatase Ammonia Total Protein Albumin Globulin Albumin/Globulin Ratio Prostate Specific Ag Critical Care Progress Note - Nutrition Nutrition: Nutrition Category Date Time Status Heart Healthy Diet [DIET] Diets 08/17/18 Lunch Active Addendum Addendum: 08/17/18 19:56 ICU Attending Addendum Patient seen and examined. Case reviewed on round with housestaff. Agree with resident note above with the following additions/exceptions: 68 M with hx of COPD, subdural hematoma, HCV, IV drug use, PUD, chronic renal disease presented with lethargy to the ED. Initially he was conversing with ED doc however became more lethargic during the interview. ABGs shows HCRF. Wide wake this AM admitted to taking Ambien whihch likely caused his resp failure ok to extubate will monitor shortly after extubation and plan to transfer to [facility] later today Rest of care as above Lety Jimenez MD ICU Attending CC Time: 30 mins rest of care above Lety Jimenez MD Deicer Inspector Pneumatic
== END 2018-08-17 15:00 | disposition left against medical advice (07) | DRG 533 ==
LOC: ED 12:24 → ERH 14:17 → ICU 18:10
PROVIDERS: ADMIT Internal Medicine; ATTEND Internal Medicine
PROC: 0BH18EZ Insertion of Endotracheal Airway into Trachea, Via Natural or Artificial Opening Endoscopic (ICD-10-PCS; principal; 2018-08-16)
DX: G93.89 Other specified disorders of brain (principal); J96.92 Respiratory failure, unspecified with hypercapnia; E87.2 Acidosis; J44.1 Chronic obstructive pulmonary disease with (acute) exacerbation; N18.9 Chronic kidney disease, unspecified; F10.10 Alcohol abuse, uncomplicated; F19.10 Other psychoactive substance abuse, uncomplicated; F22 Delusional disorders; G47.00 Insomnia, unspecified; G89.29 Other chronic pain; I73.9 Peripheral vascular disease, unspecified; K27.9 Peptic ulcer, site unspecified, unspecified as acute or chronic, without hemorrhage or perforation; M81.0 Age-related osteoporosis without current pathological fracture; W01.0XXA Fall on same level from slipping, tripping and stumbling without subsequent striking against object, initial encounter; Y92.410 Unspecified street and highway as the place of occurrence of the external cause; Y93.01 Activity, walking, marching and hiking; Z87.01 Personal history of pneumonia (recurrent); Z87.11 Personal history of peptic ulcer disease; Z90.3 Acquired absence of stomach [part of]; D64.9 Anemia, unspecified; Z87.19 Personal history of other diseases of the digestive system; F17.210 Nicotine dependence, cigarettes, uncomplicated; Z88.6 Allergy status to analgesic agent; R40.2413 Glasgow coma scale score 13-15, at hospital admission; Z98.41 Cataract extraction status, right eye; G57.90 Unspecified mononeuropathy of unspecified lower limb

== ENCOUNTER 2018-09-02 11:21 | Emergency (ER) | payer MEDICARE, MEDICAID ==
[2018-09-02 11:22] VITALS: BMI 22.9
[2018-09-02 11:34] VITALS: RESP 18; TEMP 98.2
--- NOTE | 2018-09-02 12:04 | ED PDOC ---
Arrival/HPI - General Chief Complaint: Lower Extremity Problem/Injury Time Seen by Provider: 09/02/18 11:29 Historian: Patient - History of Present Illness Narrative History of Present Illness (Text): 09/02/18 11:58 68 year old male, whose past medical history includes COPD/PUD/subdural hematoma/HCV/drug abuse/ chronic LE pain, allergic to Aspirin but not allergic to motrin/naproxen, presents to the emergency department complaining of chronic pain to the lower extremities which he had for the past 10 years with no injury or fall, told this is neuropathy. Patient has been seen by Orthopedic, PMD, neurologist/pain management, and vascular surgeon who have been treating him for pain. Patient here today because he is out of Tylenol#4 at home to take for the pain and presents here to seek prescription refill. Patient reports severe pain to the top of the feet on going for the past 2 weeks, but does not have any fever or chills. Patient is very uncooperative and is being very selective on choosing the care and plan. Patient is specifically asking for Tylenol 4. PMD: Dr. Lena Underwood Symptom Onset: Gradual Symptom Course: Unchanged Activities at Onset: Light Context: Home Past Medical History - Provider Review Nursing Documentation Reviewed: Yes - Past History Past History: Non-Contributing - Infectious Disease Hx of Infectious Diseases: None - Tetanus Immunization Tetanus Immunization: Unknown - Past Medical History Past Medical History: Unable to Obtain - Cardiac Hx Cardiac Disorders: Yes Hx Peripheral Edema: Yes - Pulmonary Hx Respiratory Disorders: Yes Hx Chronic Obstructive Pulmonary Disease (COPD): Yes Hx Pneumonia: Yes - Neurological Hx Neurological Disorder: Yes Hx Syncope: Yes Other/Comment: NEUROPATHY, AMS - HEENT Hx HEENT Disorder: Yes Hx Cataracts: Yes - Renal Hx Renal Disorder: No - Endocrine/Metabolic Hx Endocrine Disorders: No - Hematological/Oncological Hx Blood Disorders: Yes Hx Anemia: Yes Hx Hepatitis C: Yes - Integumentary Hx Dermatological Disorder: Yes (hx pressure ulcers) - Musculoskeletal/Rheumatological Hx Musculoskeletal Disorders: Yes Hx Fractures: Yes (left wrist) Hx Osteoporosis: Yes - Gastrointestinal Hx Gastrointestinal Disorders: Yes - Genitourinary/Gynecological Hx Sexually Transmitted Diseases: No - Psychiatric Hx Psychophysiologic Disorder: Yes Hx Anxiety: Yes Hx Depression: Yes Hx Substance Use: Yes - Past Surgical History Past Surgical History: Unable to Obtain - Surgical History Hx Coronary Artery Bypass Graft: No Other/Comment: GASTRECTOMY - Anesthesia Hx Anesthesia: Yes Hx Anesthesia Reactions: No Hx Malignant Hyperthermia: No - Suicidal Assessment Feels Threatened In Home Enviroment: No Family/Social History - Physician Review Nursing Documentation Reviewed: Yes Family/Social History: Unknown Family HX Smoking Status: Heavy Smoker > 10 Cigarettes Daily Hx Alcohol Use: Yes (ETOH ABUSE) Hx Substance Use: Yes Hx Substance Use Treatment: No Allergies/Home Meds Allergies/Adverse Reactions: Allergies aspirin Allergy (Verified 09/02/18 11:35) RASH Review of Systems - Review of Systems Constitutional: absent: Fatigue, Fevers Eyes: absent: Vision Changes ENT: absent: Hearing Changes Respiratory: absent: SOB, Cough Cardiovascular: absent: Chest Pain Gastrointestinal: absent: Abdominal Pain, Diarrhea, Nausea, Vomiting Skin: Rash, Cellulitis. absent: Pruritis, Skin Lesions, Laceration, Abscess, Ulcer Neurological: absent: Headache, Dizziness Psychiatric: absent: Anxiety, Depression, Suicidal Ideation Physical Exam Vital Signs Reviewed: Yes Vital Signs Temp Pulse Resp BP Pulse Ox 09/02/18 11:33 98.2 F 86 18 129/76 95 Temperature: Afebrile Blood Pressure: Normal Pulse: Regular Respiratory Rate: Normal Appearance: Positive for: Well-Appearing, Non-Toxic Pain Distress: Severe Mental Status: Positive for: Alert and Oriented X 3 - Systems Exam Head: Present: Atraumatic, Normocephalic Pupils: Present: PERRL Extroacular Muscles: Present: EOMI Conjunctiva: Present: Normal Mouth: Present: Moist Mucous Membranes Neck: Present: Normal Range of Motion Respiratory/Chest: Present: Clear to Auscultation, Good Air Exchange. No: Respiratory Distress, Accessory Muscle Use Cardiovascular: Present: Regular Rate and Rhythm, Normal S1, S2. No: Murmurs Abdomen: No: Tenderness, Distention, Peritoneal Signs Back: Present: Normal Inspection Upper Extremity: Present: Normal Inspection. No: Cyanosis, Edema Lower Extremity: Present: Normal Inspection, Other (Bilateral LE: visible cellulitis erythematous noted on the bilateral tibia to the dorsum of the feet, no deformity, negative jordan and thopmson signs, +DPPT pulses, capillary refill< 2 seconds, neurovascular intact, FROM without limitation. ). No: Edema Neurological: Present: GCS=15, CN II-XII Intact, Speech Normal Skin: Present: Warm, Dry, Normal Color. No: Rashes Psychiatric: Present: Alert, Oriented x 3, Normal Insight, Normal Concentration Medical Decision Making ED Course and Treatment: 09/02/18 11:58 -Labs -Codeine and clindamycin 300mg as he refused IV -Pt. refused radiology studies. -Observe and reassess 09/02/18 12:07 -I checked the [facility] report, pt. has multiple prescription refills including gabapentin and tylenol#4? (he has hepatitis C history). 09/02/18 12:30 -Pt. refused lab works and radiology studies, refused IV antibiotic. Pt. request motrin prescription as he say his insurance would cover it. AMA ER The patient refuses to stay in the Emergency Room (ER) to continue the care and wishes to leave the emergency department against my medical advice. Patient was told that staying in the ER is necessary and a full explanation of the reasons why was given, and understood by the patient with alert and oriented x4. The risk of leaving were explained in laymans term and including but not limited to cellulitis, deep veinous thrombosis, vascular , pain, worsening of condition, permanent disability and from an undiagnosed or untreated condition. The patient accepts these risks, and is in my judgment is competent and capable of understanding the clinical situation and explanation of the risk of leaving. The patient is able to verbally repeated me back the above explained risks and benefits back to me, and verbally expressed understanding. Patient was given the opportunity to ask questions and change mind. The patient was instructed regarding the best care for the present symptoms, and to follow up as soon as possible with the primary care doctor including specialist or return to the emergency department at any time for continuing care. You sign out against medical advice. You were advised for additional labs/radiology and inpatient IV antibiotics but you refused. You are given clindamycin and continue motrin/gabapentin for pain but this is not the standard of care for this visit, follow up with your own pmd and pain management//infectious disease within 2 days, return to the ER for any new or worsening signs or symptoms. - Medication Orders Current Medication Orders: Codeine Sulfate (Codeine) 30 mg PO STAT STA Stop: 09/02/18 11:55 - PA / MULTI SITE LEASING CONSULTANT / Resident Statement MD/DO has reviewed & agrees with the documentation as recorded. - Scribe Statement The provider has reviewed the documentation as recorded by the Vicki Oakes Provider Feribe Attestation: All medical record entries made by the Feribseven were at my direction and personally dictated by me. I have reviewed the chart and agree that the record accurately reflects my personal performance of the history, physical exam, medical decision making, and the department course for this patient. I have also personally directed, reviewed, and agree with the discharge instructions and disposition. Disposition/Present on Arrival - Present on Arrival Any Indicators Present on Arrival: No History of DVT/PE: No History of Uncontrolled Diabetes: No Urinary Catheter: No History of Decub. Ulcer: No History Surgical Site Infection Following: None - Disposition Have Diagnosis and Disposition been Completed?: Yes Diagnosis: Cellulitis, Pain management, Noncompliance, Chronic leg pain Disposition: AGAINST MEDICAL ADVICE Disposition Time: 12:30 Patient Problems: Current Active Problems Problem Status Onset Cellulitis Acute Pain management Acute Noncompliance Acute Chronic leg pain Acute Condition: STABLE Discharge Instructions (ExitCare): Cellulitis (ED) Additional Instructions: You sign out against medical advice. You were advised for additional labs/radiology and inpatient IV antibiotics but you refused. You are given clindamycin and continue motrin/gabapentin for pain but this is not the standard of care for this visit, follow up with your own pmd and pain management//infectious disease within 2 days, return to the ER for any new or worsening signs or symptoms. Prescriptions: Clindamycin [Cleocin] 300 mg PO QID #40 cap Ibuprofen [Motrin] 400 mg PO QID PRN #30 tab PRN Reason: Other Referrals: Lena Mary MD [Medical Doctor] - Follow up with primary Dank Thakkar MD [Staff Provider] - Follow up with primary Forms: [id number] (Danish), WORK NOTE
[2018-09-02 12:57] VITALS: BP 130/74; PULSE 84; O2SAT 96
== END 2018-09-02 12:58 | disposition left against medical advice (07) ==
LOC: ED 11:21
DX: L03.116 Cellulitis of left lower limb (principal); L03.115 Cellulitis of right lower limb; M79.605 Pain in left leg; M79.604 Pain in right leg; G89.29 Other chronic pain; Z91.19 Patient's noncompliance with other medical treatment and regimen

== ENCOUNTER 2018-09-04 11:51 | Emergency (ER) | payer MEDICARE, MEDICAID ==
[2018-09-04 11:52] VITALS: BMI 22.9
[2018-09-04] MEDS ORDERED: Oxycodone/Acetaminophen 5/325 mg Tab PO STA (12:14)
[2018-09-04] MEDS ORDERED: Lidocaine 5% Patch TD ONE (12:14)
--- NOTE | 2018-09-04 12:17 | ED PDOC ---
Arrival/HPI - General Chief Complaint: Lower Extremity Problem/Injury Time Seen by Provider: 09/04/18 12:02 Historian: Patient - History of Present Illness Narrative History of Present Illness (Text): 09/04/18 12:16 68 year old male, whose past medical history includes neuropathy, osteoporosis, COPD, PUD, subdural hematoma, HCV, drug abuse, chronic lower extremity pain presenting to the emergency department complaining of worsening chronic pain to the lower extremities he's experienced past 10 years. He also reports associated lower back pain. Patient believes his pain is related to his neuropathy and osteoporosis. He has been seen by PMD for pain management. Patient takes Tylenol 4 for pain, but reports minimal alleviation in his pain. He is known to the emergency department was seen 2 days ago for similar complaint. He denies fevers, chills, headache, dizziness, chest pain, shortness of breath, dyspnea on exertion, cough, abdominal pain, nausea, vomiting, diarrhea, neck pain, or any other complaint. PMD: Dr. Lena Underwood Time/Duration: > month Symptom Onset: Gradual Symptom Course: Worsening Quality: Aching Severity Level: Moderate Activities at Onset: Rest Context: Home Past Medical History - Provider Review Nursing Documentation Reviewed: Yes - Travel History Have you recently traveled outside [place] w/in the past 3 mons?: No - Past History Past History: Non-Contributing - Infectious Disease Hx of Infectious Diseases: None - Tetanus Immunization Tetanus Immunization: Unknown - Past Medical History Past Medical History: Unable to Obtain - Cardiac Hx Cardiac Disorders: Yes Hx Peripheral Edema: Yes - Pulmonary Hx Respiratory Disorders: Yes Hx Chronic Obstructive Pulmonary Disease (COPD): Yes Hx Pneumonia: Yes - Neurological Hx Neurological Disorder: Yes Hx Syncope: Yes Other/Comment: NEUROPATHY, AMS - HEENT Hx HEENT Disorder: Yes Hx Cataracts: Yes - Renal Hx Renal Disorder: No - Endocrine/Metabolic Hx Endocrine Disorders: No - Hematological/Oncological Hx Blood Disorders: Yes Hx Anemia: Yes Hx Hepatitis C: Yes - Integumentary Hx Dermatological Disorder: Yes (hx pressure ulcers) - Musculoskeletal/Rheumatological Hx Musculoskeletal Disorders: Yes Hx Fractures: Yes (left wrist) Hx Osteoporosis: Yes - Gastrointestinal Hx Gastrointestinal Disorders: Yes - Genitourinary/Gynecological Hx Sexually Transmitted Diseases: No - Psychiatric Hx Psychophysiologic Disorder: Yes Hx Anxiety: Yes Hx Depression: Yes Hx Substance Use: Yes - Past Surgical History Past Surgical History: Unable to Obtain - Surgical History Hx Coronary Artery Bypass Graft: No Other/Comment: GASTRECTOMY - Anesthesia Hx Anesthesia: Yes Hx Anesthesia Reactions: No Hx Malignant Hyperthermia: No - Suicidal Assessment Feels Threatened In Home Enviroment: No Family/Social History - Physician Review Nursing Documentation Reviewed: Yes Family/Social History: No Known Family HX Smoking Status: Heavy Smoker > 10 Cigarettes Daily Hx Alcohol Use: Yes (ETOH ABUSE) Hx Substance Use: Yes Hx Substance Use Treatment: No Allergies/Home Meds Allergies/Adverse Reactions: Allergies aspirin Allergy (Verified 09/05/18 14:09) RASH Review of Systems - Physician Review All systems were reviewed & negative as marked: Yes - Review of Systems Constitutional: absent: Fevers Eyes: absent: Vision Changes Respiratory: absent: SOB, Cough Cardiovascular: absent: Chest Pain Gastrointestinal: absent: Abdominal Pain, Diarrhea, Nausea, Vomiting Musculoskeletal: absent: Back Pain, Neck Pain Skin: absent: Rash Neurological: absent: Headache, Dizziness Physical Exam Vital Signs Reviewed: Yes Temperature: Afebrile Blood Pressure: Normal Pulse: Regular Respiratory Rate: Normal Appearance: Positive for: Well-Appearing, Non-Toxic, Comfortable Pain Distress: None Mental Status: Positive for: Alert and Oriented X 3 - Systems Exam Head: Present: Atraumatic, Normocephalic Pupils: Present: PERRL Extroacular Muscles: Present: EOMI Conjunctiva: Present: Normal Mouth: Present: Moist Mucous Membranes Neck: Present: Normal Range of Motion Respiratory/Chest: Present: Clear to Auscultation, Good Air Exchange. No: Respiratory Distress, Accessory Muscle Use Cardiovascular: Present: Regular Rate and Rhythm, Normal S1, S2. No: Murmurs Abdomen: Present: Other (abdominal soft). No: Tenderness, Distention, Peritoneal Signs Back: Present: Normal Inspection Upper Extremity: Present: Normal Inspection. No: Cyanosis, Edema Lower Extremity: Present: Edema (+2 pitting edema bilaterally), Erythema (erythema circumferentially bilaterally extending to knees and down. ). No: Tenderness (nontender to touch bilaterally), Temperature Abnormalties (legs do not feel warm bilaterally) Neurological: Present: GCS=15, CN II-XII Intact, Speech Normal Skin: Present: Warm, Dry, Other (Evidence of chronic venous stasis ). No: Rashes Psychiatric: Present: Alert, Oriented x 3, Normal Insight, Normal Concentration Medical Decision Making ED Course and Treatment: 09/04/18 12:16 Impression: 68 year old male who presents to the emergency department with chronic lower extremity and lower back pain. Differential Diagnosis included but are not limited to: Neuropathy Plan: -- Lidoderm -- Percocet -- Reassess and disposition Prior Visits: Notes and results from previous visits were reviewed. Patient last seen in the ED on 09/02/2018. Progress Notes: 09/04/18 13:00 Patient reassessed and feels better. Discussion with patient in regards of appropriate pain medication administration with patient acknowledging he must follow up with his PCP for longitudinal surveillance. Scripts provided. Follow up to clinic given to patient. He is stable for discharge. - Medication Orders Current Medication Orders: Lidocaine (Lidoderm) 1 ea TD ONCE ONE Stop: 09/04/18 12:15 Oxycodone/Acetaminophen (Percocet 5/325 Mg Tab) 1 tab PO STAT STA Stop: 09/04/18 12:15 - Scribe Statement The provider has reviewed the documentation as recorded by the [employer] Arce Provider Scribe Attestation: All medical record entries made by the Scribe were at my direction and personally dictated by me. I have reviewed the chart and agree that the record accurately reflects my personal performance of the history, physical exam, medical decision making, and the department course for this patient. I have also personally directed, reviewed, and agree with the discharge instructions and disposition. Disposition/Present on Arrival - Present on Arrival Any Indicators Present on Arrival: No History of DVT/PE: No History of Uncontrolled Diabetes: No Urinary Catheter: No History of Decub. Ulcer: No History Surgical Site Infection Following: None - Disposition Have Diagnosis and Disposition been Completed?: Yes Diagnosis: Neuropathy, Chronic back pain Disposition: HOME/ ROUTINE Disposition Time: 12:00 Condition: IMPROVED Discharge Instructions (ExitCare): Chronic Pain (DC), Peripheral Neuropathy (DC) Print Language: PRYDEINIG Additional Instructions: All medical record entries made by the Scribe were at my direction and personally dictated by me. I have reviewed the chart and agree that the record accurately reflects my personal performance of the history, physical exam, medical decision making, and the department course for this patient. I have also personally directed, reviewed, and agree with the discharge instructions and disposition. Please follow up with your primary care doctor in 1-2 days Please take the Flexeril ONLY at NIGHT before bed. DO NOT operate any machinery for 4 hours after taking this medication Please remove the Lidoderm patch after wear for 12 hours Prescriptions: Acetaminophen with Codeine [Tylenol with Codeine #4 Tablet] 1 each PO Q6H #4 tablet Cyclobenzaprine [Flexeril] 5 mg PO PRN PRN #6 tab PRN Reason: Muscle Spasm Lidocaine 5% [Lidoderm] 1 ea TD Q12H #5 patch Forms: [employer] (Latvian)
[2018-09-04 12:50] VITALS: RESP 18
[2018-09-04 13:11] VITALS: BP 135/73; PULSE 78; TEMP 97.9; O2SAT 100
== END 2018-09-04 13:10 | disposition home or self-care (01) ==
LOC: ED 11:51
DX: G62.9 Polyneuropathy, unspecified (principal); M54.5 Low back pain; G89.29 Other chronic pain

== ENCOUNTER 2018-09-05 13:38 | Emergency (ER) | payer MEDICARE, MEDICAID ==
[2018-09-05 14:04] VITALS: BMI 16.2
[2018-09-05 14:05] VITALS: TEMP 98.2
[2018-09-05] MEDS ORDERED: Oxycodone/Acetaminophen 5/325 mg Tab PO STA (14:31)
--- NOTE | 2018-09-05 14:37 | ED PDOC ---
Arrival/HPI - General Historian: Patient - Critical Care Critical Care Minutes: 30 minutes - History of Present Illness Narrative History of Present Illness (Text): 09/05/18 14:32 68 year old male with a past medical history of osteoporosis, COPD, subdural hematoma, chronic LE pain, Hepatitis C, drug abuse, and Peripheral vascular disease who comes into the hospital for complaints of lower extremity leg pain for the past ten years. Patient reports the pain being sharp and burning throughout the day. Patient states he attempted to Physical therapy, however the pain was too severe. Patient is being seen by PMD Dr. Dunlap and Neurologist Dr. Herrera. Patient denies any fevers, chills, nausea, vomiting, chest pain, shortness of breath, syncopal episodes, or any other complaints. PMD: Dr. Dunlap Medical history: teoporosis, COPD, subdural hematoma, chronic LE pain, Hepatitis C, drug abuse, and Peripheral vascular disease Surgical history: partial gastrectomy, hernia repair Medications: Ambien, Neurontin Social history: 1 ppd x 50 years. 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 Denies illicit drug use Time/Duration: > month Symptom Onset: Gradual Symptom Course: Unchanged Quality: Burning Severity Level: 7 Activities at Onset: Rest Context: Sitting <Ovidio Massey - Last Filed: 09/05/18 15:37> <Ravi Erickson - Last Filed: 09/05/18 16:29> - General Chief Complaint: Med Refill Time Seen by Provider: 09/05/18 13:49 Past Medical History - Provider Review Nursing Documentation Reviewed: Yes - Past History Past History: Non-Contributing - Infectious Disease Hx of Infectious Diseases: None - Tetanus Immunization Tetanus Immunization: Unknown - Past Medical History Past Medical History: Unable to Obtain - Cardiac Hx Cardiac Disorders: Yes Hx Peripheral Edema: Yes - Pulmonary Hx Respiratory Disorders: Yes Hx Chronic Obstructive Pulmonary Disease (COPD): Yes Hx Pneumonia: Yes - Neurological Hx Neurological Disorder: Yes Hx Syncope: Yes Other/Comment: NEUROPATHY, AMS - HEENT Hx HEENT Disorder: Yes Hx Cataracts: Yes - Renal Hx Renal Disorder: No - Endocrine/Metabolic Hx Endocrine Disorders: No - Hematological/Oncological Hx Blood Disorders: Yes Hx Anemia: Yes Hx Hepatitis C: Yes - Integumentary Hx Dermatological Disorder: Yes (hx pressure ulcers) - Musculoskeletal/Rheumatological Hx Musculoskeletal Disorders: Yes Hx Fractures: Yes (left wrist) Hx Osteoporosis: Yes - Gastrointestinal Hx Gastrointestinal Disorders: Yes - Genitourinary/Gynecological Hx Genitourinary Disorders: No - Psychiatric Hx Psychophysiologic Disorder: Yes Hx Anxiety: Yes Hx Depression: Yes Hx Substance Use: Yes - Past Surgical History Past Surgical History: Unable to Obtain - Surgical History Other/Comment: GASTRECTOMY - Anesthesia Hx Anesthesia: Yes Hx Anesthesia Reactions: No Hx Malignant Hyperthermia: No - Suicidal Assessment Feels Threatened In Home Enviroment: No <Ovidio Massey - Last Filed: 09/05/18 15:37> Family/Social History - Physician Review Nursing Documentation Reviewed: Yes Family/Social History: No Known Family HX Smoking Status: Heavy Smoker > 10 Cigarettes Daily Hx Alcohol Use: Yes (ETOH ABUSE) Hx Substance Use: Yes Hx Substance Use Treatment: No <Ovidio Massey - Last Filed: 09/05/18 15:37> Allergies/Home Meds <Ovidio Massey - Last Filed: 09/05/18 15:37> <Ravi Erickson - Last Filed: 09/05/18 16:29> Allergies/Adverse Reactions: Allergies aspirin Allergy (Verified 09/05/18 14:09) RASH Review of Systems - Review of Systems Constitutional: Normal. absent: Fatigue, Weight Change, Fevers Eyes: Normal. absent: Vision Changes, Photophobia ENT: Normal. absent: Hearing Changes, Tinnitus Respiratory: Normal. absent: SOB, Cough Cardiovascular: Normal. absent: Chest Pain, Palpitations, Syncope Gastrointestinal: Normal. absent: Abdominal Pain, Stool Changes, Vomiting Genitourinary Male: Normal. absent: Dysuria, Frequency Musculoskeletal: Other (Bilateral lower extremity burning, and stabbing pain x 10 years) Skin: Normal. absent: Rash, Pruritis Neurological: Normal. absent: Headache, Dizziness Endocrine: Normal. absent: Diaphoresis, Polyuria Hemo/Lymphatic: Normal. absent: Adenopathy, Easy Bleeding Psychiatric: Normal. absent: Anxiety, Depression <Ovidio Massey - Last Filed: 09/05/18 15:37> Physical Exam Vital Signs Reviewed: Yes Vital Signs Temp Pulse Resp BP Pulse Ox 09/05/18 14:04 98.2 F 82 19 114/71 95 Temperature: Afebrile Blood Pressure: Normal Pulse: Regular Respiratory Rate: Normal Appearance: Positive for: Well-Appearing, Non-Toxic, Comfortable Pain Distress: Moderate Mental Status: Positive for: Alert and Oriented X 3. No: Confused - Systems Exam Head: Present: Atraumatic, Normocephalic. No: Abrasion Pupils: Present: PERRL. No: Sluggish Extroacular Muscles: Present: EOMI. No: Gaze Palsy Conjunctiva: Present: Normal. No: Injected Mouth: Present: Moist Mucous Membranes. No: Dry, Normal Teeth Neck: Present: Normal Range of Motion. No: Meningeal Signs, JVD Respiratory/Chest: Present: Clear to Auscultation, Good Air Exchange. No: Wh eezes, Tachypneic Cardiovascular: Present: Regular Rate and Rhythm, Normal S1, S2. No: Tachycardic Abdomen: Present: Normal Bowel Sounds. No: Tenderness, Distention, McBurney's Point Tender Upper Extremity: Present: Normal Inspection. No: Cyanosis, Edema, Erythema Lower Extremity: Present: Edema (Bilateral trace edema), Tenderness (Lower extremities bilaterally), Other (Diminished pulse on right lower extremity) Neurological: Present: CN II-XII Intact, Speech Normal. No: Normal Cerebellar Funct, Norm Deep Tendon Reflexes Skin: Present: Other (Chronic venous changes bilateral) Psychiatric: Present: Alert, Oriented x 3, Normal Insight. No: Normal Affect, Normal Mood <Ovidio Massey - Last Filed: 09/05/18 15:37> Vital Signs Temp Pulse Resp BP Pulse Ox 09/05/18 14:04 98.2 F 82 19 114/71 95 <Ravi Erickson - Last Filed: 09/05/18 16:29> Medical Decision Making ED Course and Treatment: 09/05/18 14:40 68 year old male with a past medical history of osteoporosis, COPD, subdural hematoma, chronic LE pain, Hepatitis C, drug abuse, and Peripheral vascular disease presents for lower extremity pain. Chronic Lower extremity Neuropathy Plan: Percocet Patient has well documented history of lower extremity Neuropathy. Advised patient to follow up in [facility] for further pain management. 09/05/18 15:37 On reassessment pain has improved after Percocet. - Medication Orders Current Medication Orders: Oxycodone/Acetaminophen (Percocet 5/325 Mg Tab) 1 tab PO STAT STA Stop: 09/05/18 14:32 <Ovidio Massey - Last Filed: 09/05/18 15:37> ED Course and Treatment: 09/05/18 15:01 Patient Seen with Resident: In agreement with resident note which contains more details about the patient. Patient seen and evaluated with resident. Came up with plan and treatment together. Impression: 68 year old male who presents to the emergency department complaining of bilateral lower extremity pain. - Medication Orders Current Medication Orders: Discontinued Medications Oxycodone/Acetaminophen (Percocet 5/325 Mg Tab) 1 tab PO STAT STA Stop: 09/05/18 14:32 <Ravi Erickson - Last Filed: 09/05/18 16:29> - Scribe Statement The provider has reviewed the documentation as recorded by the Vicki Arce Provider Scribe Attestation: All medical record entries made by the Scribe were at my direction and personally dictated by me. I have reviewed the chart and agree that the record accurately reflects my personal performance of the history, physical exam, medical decision making, and the department course for this patient. I have also personally directed, reviewed, and agree with the discharge instructions and disposition. <Ravi Erickson - Last Filed: 09/05/18 16:29> Disposition/Present on Arrival - Present on Arrival Any Indicators Present on Arrival: No History of DVT/PE: No History of Uncontrolled Diabetes: No Urinary Catheter: No History of Decub. Ulcer: No History Surgical Site Infection Following: None - Disposition Have Diagnosis and Disposition been Completed?: Yes Disposition Time: 15:34 Patient Plan: Discharge <Ovidio Massey - Last Filed: 09/05/18 15:37> <Ravi Erickson - Last Filed: 09/05/18 16:29> - Disposition Diagnosis: Neuropathy Disposition: HOME/ ROUTINE Condition: IMPROVED Discharge Instructions (ExitCare): Peripheral Neuropathy (DC) Additional Instructions: 1. F/u with PMD within 2 days of discharge. 2. F/u with [facility] within 2 days of discharge. 3. Return to hospital for any new or worsening symptoms. Referrals: Lore Metcalf MD [Medical Doctor] - Follow up with primary Forms: [employer] (Faroese)
[2018-09-05 16:13] VITALS: BP 120/80; PULSE 79; RESP 20; O2SAT 99
== END 2018-09-05 15:43 | disposition home or self-care (01) ==
LOC: ED 13:38
DX: G62.9 Polyneuropathy, unspecified (principal)

== ENCOUNTER 2018-09-12 15:29 | Emergency (ER) | payer MEDICARE, MEDICAID ==
[2018-09-12 15:29] VITALS: BMI 16.2
[2018-09-12 15:42] VITALS: RESP 18; TEMP 97.9
[2018-09-12] MEDS ORDERED: Oxycodone/Acetaminophen 5/325 mg Tab PO STA (16:14)
--- NOTE | 2018-09-12 16:18 | ED PDOC ---
Arrival/HPI - General Chief Complaint: Lower Extremity Problem/Injury Time Seen by Provider: 09/12/18 15:46 Historian: Patient - History of Present Illness Narrative History of Present Illness (Text): 09/12/18 16:15 A 68 year old male, whose past medical history includes osteoporosis, COPD, subdural hematoma, chronic LE pain, Hepatitis C, drug abuse, and Peripheral vascular disease, presents to the emergency department with a complaint of right leg pain, requesting pain medication. He reports that he has been unable to get an appointment with his pain management doctor and ran out of his pain medication. The patient denies fevers, chills, headache, dizziness, cough, sore throat, chest pain, shortness of breath, dyspena on exertion, abdominal pain, nausea, vomiting, diarrhea, neck/ back pain, urinary/ bowel symptoms, trauma/ injury, or any other complaints. Time/Duration: Other (Today) Symptom Onset: Sudden Symptom Course: Unchanged Activities at Onset: Rest, Light Context: Home Past Medical History - Provider Review Nursing Documentation Reviewed: Yes - Past History Past History: Non-Contributing - Infectious Disease Hx of Infectious Diseases: None - Tetanus Immunization Tetanus Immunization: Unknown - Past Medical History Past Medical History: Unable to Obtain - Cardiac Hx Cardiac Disorders: Yes Hx Peripheral Edema: Yes - Pulmonary Hx Respiratory Disorders: Yes Hx Chronic Obstructive Pulmonary Disease (COPD): Yes Hx Pneumonia: Yes - Neurological Hx Neurological Disorder: Yes Hx Syncope: Yes Other/Comment: NEUROPATHY, AMS - HEENT Hx HEENT Disorder: Yes Hx Cataracts: Yes - Renal Hx Renal Disorder: No - Endocrine/Metabolic Hx Endocrine Disorders: No - Hematological/Oncological Hx Blood Disorders: Yes Hx Anemia: Yes Hx Hepatitis C: Yes - Integumentary Hx Dermatological Disorder: Yes (hx pressure ulcers) - Musculoskeletal/Rheumatological Hx Musculoskeletal Disorders: Yes Hx Fractures: Yes (left wrist) Hx Osteoporosis: Yes - Gastrointestinal Hx Gastrointestinal Disorders: Yes - Genitourinary/Gynecological Hx Sexually Transmitted Diseases: No - Psychiatric Hx Psychophysiologic Disorder: Yes Hx Anxiety: Yes Hx Depression: Yes Hx Substance Use: Yes - Past Surgical History Past Surgical History: Unable to Obtain - Surgical History Hx Coronary Artery Bypass Graft: No Other/Comment: GASTRECTOMY - Anesthesia Hx Anesthesia: Yes Hx Anesthesia Reactions: No Hx Malignant Hyperthermia: No - Suicidal Assessment Feels Threatened In Home Enviroment: No Family/Social History - Physician Review Nursing Documentation Reviewed: Yes Family/Social History: No Known Family HX Smoking Status: Heavy Smoker > 10 Cigarettes Daily Hx Alcohol Use: Yes (ETOH ABUSE) Hx Substance Use: Yes Hx Substance Use Treatment: No Allergies/Home Meds Allergies/Adverse Reactions: Allergies aspirin Allergy (Verified 09/12/18 15:42) RASH Review of Systems - Physician Review All systems were reviewed & negative as marked: Yes - Review of Systems Constitutional: absent: Fevers Cardiovascular: absent: Chest Pain Physical Exam - Physical Exam Narrative Physical Exam (Text): 09/12/18 16:18 Constitutional: No acute distress. Head: Normocephalic. Atraumatic. Eyes: PERRL. ENT: Moist mucous membranes. Neck: Supple. Cardiovascular: Regular rate. Chest: No tenderness. Respiratory: Clear to auscultation bilaterally. GI: Soft. Nontender. Nondistended. Back: No CVA tenderness. Musculoskeletal: No tenderness or swelling of extremities. Skin: No rash. Neurologic: Alert, no focal deficit Vital Signs Reviewed: Yes Vital Signs Temp Pulse Resp BP Pulse Ox 09/12/18 15:39 97.9 F 88 18 124/84 99 Temperature: Afebrile Blood Pressure: Normal Pulse: Regular Respiratory Rate: Normal Appearance: Positive for: Well-Appearing, Non-Toxic, Comfortable Pain Distress: None Mental Status: Positive for: Alert and Oriented X 3 Medical Decision Making ED Course and Treatment: 09/12/18 16:18 Impression: A 8 year old male resents to the emergency department requesting pain medication for his right leg pain. Plan: -- Percocet -- Reassess and disposition Prior Visits: Notes and results from previous visits were reviewed. Progress Notes: - Scribe Statement The provider has reviewed the documentation as recorded by the Scribe Isi Hazel Provider Scribe Attestation: All medical record entries made by the Scribe were at my direction and personally dictated by me. I have reviewed the chart and agree that the record accurately reflects my personal performance of the history, physical exam, medical decision making, and the department course for this patient. I have also personally directed, reviewed, and agree with the discharge instructions and disposition. Disposition/Present on Arrival - Present on Arrival Any Indicators Present on Arrival: No History of DVT/PE: No History of Uncontrolled Diabetes: No Urinary Catheter: No History of Decub. Ulcer: No History Surgical Site Infection Following: None - Disposition Have Diagnosis and Disposition been Completed?: Yes Diagnosis: Neuropathy Disposition: HOME/ ROUTINE Disposition Time: 16:14 Patient Plan: Discharge Condition: STABLE Discharge Instructions (ExitCare): Peripheral Neuropathy Referrals: PCP,NO [Primary Care Provider] - Follow up with primary Forms: [employer] (Frisian)
[2018-09-12 16:45] VITALS: BP 121/69; PULSE 79; O2SAT 98
== END 2018-09-12 16:45 | disposition home or self-care (01) ==
LOC: ED 15:29
DX: G62.9 Polyneuropathy, unspecified (principal)

== ENCOUNTER 2018-09-21 20:01 | Emergency (ER) | payer MEDICARE, MEDICAID ==
[2018-09-21] MEDS ORDERED: Oxycodone/Acetaminophen 5/325 mg Tab PO STA (21:40)
--- NOTE | 2018-09-21 21:43 | ED PDOC ---
Arrival/HPI - General Time Seen by Provider: 09/21/18 21:38 Historian: Patient - History of Present Illness Narrative History of Present Illness (Text): 09/21/18 21:43 A 68 year old male, whose past medical history includes osteoporosis, COPD, subdural hematoma, ahronic LE pain, Hepatitis C, drug abuse, and peripheral vascular disease, presents to the emergency department with a complaint of right leg pain, requesting pain medication. Olive has scheduled appointment with pain management doctor on 09/24/18. Patient denies any fevers, chills, chest pain, shortness of breath, abdominal pain, nausea, vomiting, diarrhea, back pain, neck pain, urinary symptoms, headache, dizziness, or any other complaint. Time/Duration: Other (today) Symptom Onset: Gradual Symptom Course: Unchanged Activities at Onset: Light Context: Home Past Medical History - Provider Review Nursing Documentation Reviewed: Yes - Past History Past History: Non-Contributing - Infectious Disease Hx of Infectious Diseases: None - Tetanus Immunization Tetanus Immunization: Unknown - Past Medical History Past Medical History: Unable to Obtain - Cardiac Hx Cardiac Disorders: Yes Hx Peripheral Edema: Yes - Pulmonary Hx Respiratory Disorders: Yes Hx Chronic Obstructive Pulmonary Disease (COPD): Yes Hx Pneumonia: Yes - Neurological Hx Neurological Disorder: Yes Hx Syncope: Yes Other/Comment: NEUROPATHY, AMS - HEENT Hx HEENT Disorder: Yes Hx Cataracts: Yes - Renal Hx Renal Disorder: No - Endocrine/Metabolic Hx Endocrine Disorders: No - Hematological/Oncological Hx Blood Disorders: Yes Hx Anemia: Yes Hx Hepatitis C: Yes - Integumentary Hx Dermatological Disorder: Yes (hx pressure ulcers) - Musculoskeletal/Rheumatological Hx Musculoskeletal Disorders: Yes Hx Fractures: Yes (left wrist) Hx Osteoporosis: Yes - Gastrointestinal Hx Gastrointestinal Disorders: Yes - Genitourinary/Gynecological Hx Sexually Transmitted Diseases: No - Psychiatric Hx Psychophysiologic Disorder: Yes Hx Anxiety: Yes Hx Depression: Yes Hx Substance Use: Yes - Past Surgical History Past Surgical History: Unable to Obtain - Surgical History Hx Coronary Artery Bypass Graft: No Other/Comment: GASTRECTOMY - Anesthesia Hx Anesthesia: Yes Hx Anesthesia Reactions: No Hx Malignant Hyperthermia: No - Suicidal Assessment Feels Threatened In Home Enviroment: No Family/Social History - Physician Review Nursing Documentation Reviewed: Yes Family/Social History: Unknown Family HX Smoking Status: Heavy Smoker > 10 Cigarettes Daily Hx Alcohol Use: Yes (ETOH ABUSE) Hx Substance Use: Yes Hx Substance Use Treatment: No Allergies/Home Meds Allergies/Adverse Reactions: Allergies aspirin Allergy (Verified 09/21/18 21:50) RASH Review of Systems - Physician Review All systems were reviewed & negative as marked: Yes - Review of Systems Constitutional: Normal. absent: Fevers Eyes: Normal ENT: Normal Respiratory: Normal Cardiovascular: Normal. absent: Chest Pain Gastrointestinal: Normal Genitourinary Male: Normal Musculoskeletal: Normal Skin: Normal Neurological: Normal Endocrine: Normal Hemo/Lymphatic: Normal Psychiatric: Normal Physical Exam - Physical Exam Narrative Physical Exam (Text): 09/21/18 21:44 Constitutional: No acute distress. Head: Normocephalic. Atraumatic. Eyes: PERRL. ENT: Moist mucous membranes. Neck: Supple. Cardiovascular: Regular rate. Chest: No tenderness. Respiratory: Clear to auscultation bilaterally. GI: Soft. Nontender. Nondistended. Back: No CVA tenderness. Musculoskeletal: No tenderness or swelling of extremities. Skin: No rash. Neurologic: Alert, no focal deficit. Medical Decision Making ED Course and Treatment: 09/21/18 21:45 Impression: 68 year old male presents to the Emergency department complaining of right leg pain. Plan: -- Percocet Pain improved, discharged home. - Scribe Statement The provider has reviewed the documentation as recorded by the Scribseven Garzon All medical record entries made by the Scribe were at my direction and personally dictated by me. I have reviewed the chart and agree that the record accurately reflects my personal performance of the history, physical exam, medical decision making, and the department course for this patient. I have also personally directed, reviewed, and agree with the discharge instructions and disposition. Disposition/Present on Arrival - Present on Arrival Any Indicators Present on Arrival: No History of DVT/PE: No History of Uncontrolled Diabetes: No Urinary Catheter: No History Surgical Site Infection Following: None - Disposition Have Diagnosis and Disposition been Completed?: Yes Diagnosis: Chronic leg pain Disposition: HOME/ ROUTINE Disposition Time: 21:41 Patient Plan: Discharge Condition: STABLE Discharge Instructions (ExitCare): Chronic Pain (DC)
[2018-09-21 21:48] VITALS: BP 118/69; PULSE 85; RESP 18; TEMP 97.9; O2SAT 96; BMI 16.9
[2018-09-21] MEDS ORDERED: Oxycodone/Acetaminophen 5/325 mg Tab ONE (21:52)
== END 2018-09-21 21:55 | disposition home or self-care (01) ==
LOC: ED 20:01
DX: G89.29 Other chronic pain (principal); M79.604 Pain in right leg; F17.210 Nicotine dependence, cigarettes, uncomplicated; J44.9 Chronic obstructive pulmonary disease, unspecified; M81.0 Age-related osteoporosis without current pathological fracture

== ENCOUNTER 2018-12-15 12:25 | Emergency (ER) | payer MEDICARE, MEDICAID ==
[2018-12-15 12:32] VITALS: BMI 16.9
[2018-12-15 12:42] VITALS: RESP 18
--- NOTE | 2018-12-15 13:30 | ED PDOC ---
Arrival/HPI - General Chief Complaint: Pain, Chronic Time Seen by Provider: 12/15/18 12:51 Historian: Patient - History of Present Illness Narrative History of Present Illness (Text): 12/15/18 13:25 68 year old male, 1/2ppd smoker, whose past medical history includes osteoporosis, COPD, subdural hematoma, ahronic LE pain, hepatitis C, drug abuse, and peripheral vascular disease, presents to the emergency department complaining of chronic neck, back, and leg pain that has been happening for years. Patient states he takes neurontin, and that he used to take Tylenol 4, Ambien, and percocet for the pain but has run out of pills. He is requesting percocet. Off note, patient is 34 years sober and denies drug use. Patient also denies any new trauma or injury, fevers, chills, headache, dizziness, chest pain, shortness of breath, dyspnea on exertion, cough, abdominal pain, nausea, vomiting, diarrhea, or any other complaint. Time/Duration: > month (years) Symptom Onset: Gradual Symptom Course: Unchanged Activities at Onset: Light Context: Home Associated Symptoms (Text): 12/15/18 13:59 Chronic neck back and leg pain no different from usual. He reports that he has run out of his Ambien Tylenol No. 4 and Percocet. He still has Neurontin. He is requesting a prescription for Percocet. I discussed with him in detail that he would need to see his pain management physician. As this is the weekend, I will give him enough Percocet to get him through the weekend. Past Medical History - Provider Review Nursing Documentation Reviewed: Yes - Past History Past History: Non-Contributing - Infectious Disease Hx of Infectious Diseases: None - Tetanus Immunization Tetanus Immunization: Unknown - Past Medical History Past Medical History: Unable to Obtain - Cardiac Hx Cardiac Disorders: Yes Hx Peripheral Edema: Yes - Pulmonary Hx Respiratory Disorders: Yes Hx Chronic Obstructive Pulmonary Disease (COPD): Yes Hx Pneumonia: Yes - Neurological Hx Neurological Disorder: Yes Hx Syncope: Yes Other/Comment: NEUROPATHY, AMS - HEENT Hx HEENT Disorder: Yes Hx Cataracts: Yes - Renal Hx Renal Disorder: No - Endocrine/Metabolic Hx Endocrine Disorders: No - Hematological/Oncological Hx Blood Disorders: Yes Hx Anemia: Yes Hx Hepatitis C: Yes - Integumentary Hx Dermatological Disorder: Yes (hx pressure ulcers) - Musculoskeletal/Rheumatological Hx Musculoskeletal Disorders: Yes Hx Fractures: Yes (left wrist) Hx Osteoporosis: Yes - Gastrointestinal Hx Gastrointestinal Disorders: Yes Hx Gastrointestinal Ulcer: Yes (from too much aspirin use) - Genitourinary/Gynecological Hx Sexually Transmitted Diseases: No - Psychiatric Hx Psychophysiologic Disorder: Yes Hx Anxiety: Yes Hx Depression: Yes Hx Substance Use: Yes - Past Surgical History Past Surgical History: Unable to Obtain - Surgical History Hx Coronary Artery Bypass Graft: No Other/Comment: GASTRECTOMY - Anesthesia Hx Anesthesia: Yes Hx Anesthesia Reactions: No Hx Malignant Hyperthermia: No - Suicidal Assessment Feels Threatened In Home Enviroment: No Family/Social History - Physician Review Nursing Documentation Reviewed: Yes Family/Social History: No Known Family HX Smoking Status: Heavy Smoker > 10 Cigarettes Daily Hx Alcohol Use: No (ETOH ABUSE) Hx Substance Use: Yes Hx Substance Use Treatment: No Allergies/Home Meds Allergies/Adverse Reactions: Allergies aspirin Adverse Reaction (Verified 12/15/18 12:34) NAUSEA gastric ulcer/bleeding Review of Systems - Physician Review All systems were reviewed & negative as marked: Yes - Review of Systems Constitutional: absent: Fatigue, Fevers Respiratory: absent: SOB, Cough Cardiovascular: absent: Chest Pain Gastrointestinal: absent: Abdominal Pain, Diarrhea, Nausea, Vomiting Musculoskeletal: Back Pain, Neck Pain, Other (leg pain) Skin: absent: Rash Neurological: absent: Headache, Dizziness Physical Exam Vital Signs Reviewed: Yes Vital Signs Temp Pulse Resp BP 12/15/18 12:40 98.5 F 90 18 123/71 Temperature: Afebrile Blood Pressure: Normal Pulse: Regular Respiratory Rate: Normal Appearance: Positive for: Well-Appearing, Non-Toxic, Ill-Appearing (Chronically ill-appearing), Cachectic, Other (Pale) Pain Distress: None Mental Status: Positive for: Alert and Oriented X 3 - Systems Exam Head: Present: Atraumatic, Normocephalic Pupils: Present: PERRL Extroacular Muscles: Present: EOMI Conjunctiva: Present: Normal Mouth: Present: Moist Mucous Membranes Neck: Present: Normal Range of Motion, Paraspinal Tenderness (Bilateral trapezius paraspinous tenderness) Respiratory/Chest: Present: Clear to Auscultation, Good Air Exchange. No: Respiratory Distress, Accessory Muscle Use Cardiovascular: Present: Regular Rate and Rhythm, Normal S1, S2. No: Murmurs Abdomen: No: Tenderness, Distention, Peritoneal Signs Back: Present: Paraspinal Tenderness (lumbar paraspinal tenderness), Other (mild bilateral trapezius tenderness ) Upper Extremity: Present: Normal Inspection. No: Cyanosis, Edema Lower Extremity: Present: Erythema (chronic erythema of bilateral lower extremities). No: Edema Neurological: Present: GCS=15, CN II-XII Intact, Speech Normal, Motor Func Grossly Intact Skin: Present: Warm, Dry, Pale, Abrasion (on the right tibia ). No: Rashes Lymphatic: Present: Axillary Adenopathy Psychiatric: Present: Alert, Oriented x 3, Normal Insight, Normal Concentration Medical Decision Making ED Course and Treatment: 12/15/18 13:33 Impression: 68 year old male who presents to the emergency department complaining of chronic back, neck, and leg pain. Plan: -- Reassess and disposition Prior Visits: Notes and results from previous visits were reviewed. Progress Notes: 12/15/18 14:00 Chronic pain requesting Percocet. He will be given enough to get him through the weekend. Follow-up with his PMD. - Scribe Statement The provider has reviewed the documentation as recorded by the Feribe Terri Arce Provider Scribe Attestation: All medical record entries made by the Scribe were at my direction and personally dictated by me. I have reviewed the chart and agree that the record accurately reflects my personal performance of the history, physical exam, medical decision making, and the department course for this patient. I have also personally directed, reviewed, and agree with the discharge instructions and disposition. Disposition/Present on Arrival - Present on Arrival Any Indicators Present on Arrival: No History of DVT/PE: No History of Uncontrolled Diabetes: No Urinary Catheter: No History of Decub. Ulcer: No History Surgical Site Infection Following: None - Disposition Have Diagnosis and Disposition been Completed?: Yes Diagnosis: Tobacco abuse, Chronic back pain, Chronic neck pain Disposition: HOME/ ROUTINE Disposition Time: 14:01 Patient Plan: Discharge Condition: FAIR Discharge Instructions (ExitCare): Low Back Pain in Adults, Quitting Smoking for Older Adults, Neck Pain Additional Instructions: Must follow-up with your PMD for your chronic medications. Follow-up in ER as needed. Prescriptions: oxyCODONE/Acetaminophen [Percocet 5/325 mg Tab] 1 ea PO Q6 #6 tab Forms: Kyron (Turkmen)
[2018-12-15 14:17] VITALS: BP 126/85; PULSE 85; TEMP 98; O2SAT 99
== END 2018-12-15 14:15 | disposition home or self-care (01) ==
LOC: ED 12:25
DX: G89.29 Other chronic pain (principal); M54.2 Cervicalgia; M54.9 Dorsalgia, unspecified; F17.210 Nicotine dependence, cigarettes, uncomplicated; J44.9 Chronic obstructive pulmonary disease, unspecified; B19.20 Unspecified viral hepatitis C without hepatic coma; M81.0 Age-related osteoporosis without current pathological fracture

== ENCOUNTER 2018-12-21 11:34 | Inpatient (IN) | payer MEDICARE, MEDICAID ==
[2018-12-21 11:34] VITALS: BMI 16.9
--- NOTE | 2018-12-21 12:03 | ED PDOC ---
Arrival/HPI - General Chief Complaint: Lower Extremity Problem/Injury Time Seen by Provider: 12/21/18 11:37 Historian: Patient - History of Present Illness Narrative History of Present Illness (Text): 12/21/18 12:02 A 68 year old male, whose past medical history includes neuropathy, [place], osteoporosis, COPD, ahronic LE pain, hepatitis C, drug abuse, and peripheral vascular disease, presents to the emergency department complaining of right leg weakness and an unsteady gait since 2 hours ago. Patient reports his right leg gave out suddenly when he went to take a step and notes he was unable to get up by himself. Patient states he has neuropathy and notes his arteries are damaged significantly in his right leg. Patient denies any fever, nausea, headache, dizziness, or any other complaints. No PMD 12/21/18 12:58 Time/Duration: 1-3 hours Symptom Onset: Sudden Symptom Course: Unchanged Activities at Onset: Light Context: Home Past Medical History - Provider Review Nursing Documentation Reviewed: Yes - Past History Past History: Non-Contributing - Infectious Disease Hx of Infectious Diseases: None - Tetanus Immunization Tetanus Immunization: Unknown - Past Medical History Past Medical History: Unable to Obtain - Cardiac Hx Cardiac Disorders: Yes Hx Peripheral Edema: Yes - Pulmonary Hx Respiratory Disorders: Yes Hx Chronic Obstructive Pulmonary Disease (COPD): Yes Hx Pneumonia: Yes - Neurological Hx Neurological Disorder: Yes Hx Syncope: Yes Other/Comment: NEUROPATHY, AMS - HEENT Hx HEENT Disorder: Yes Hx Cataracts: Yes - Renal Hx Renal Disorder: No - Endocrine/Metabolic Hx Endocrine Disorders: No - Hematological/Oncological Hx Blood Disorders: Yes Hx Anemia: Yes Hx Hepatitis C: Yes - Integumentary Hx Dermatological Disorder: Yes (hx pressure ulcers) - Musculoskeletal/Rheumatological Hx Musculoskeletal Disorders: Yes Hx Fractures: Yes (left wrist) Hx Osteoporosis: Yes - Gastrointestinal Hx Gastrointestinal Disorders: Yes Hx Gastrointestinal Ulcer: Yes (from too much aspirin use) - Genitourinary/Gynecological Hx Sexually Transmitted Diseases: No - Psychiatric Hx Psychophysiologic Disorder: Yes Hx Anxiety: Yes Hx Depression: Yes Hx Substance Use: Yes - Past Surgical History Past Surgical History: Unable to Obtain - Surgical History Hx Coronary Artery Bypass Graft: No Other/Comment: GASTRECTOMY - Anesthesia Hx Anesthesia: Yes Hx Anesthesia Reactions: No Hx Malignant Hyperthermia: No - Suicidal Assessment Feels Threatened In Home Enviroment: No Family/Social History - Physician Review Nursing Documentation Reviewed: Yes Family/Social History: No Known Family HX Smoking Status: Heavy Smoker > 10 Cigarettes Daily Hx Alcohol Use: No (ETOH ABUSE) Hx Substance Use: Yes Hx Substance Use Treatment: No Allergies/Home Meds Allergies/Adverse Reactions: Allergies aspirin Adverse Reaction (Verified 12/21/18 11:50) NAUSEA gastric ulcer/bleeding Home Medications: Home Meds Medication Instructions Recorded Confirmed Naproxen [Naprosyn] 500 mg PO BID 12/21/18 12/21/18 Review of Systems - Physician Review All systems were reviewed & negative as marked: Yes - Review of Systems Constitutional: absent: Fevers Gastrointestinal: absent: Nausea Neurological: Other (right leg weakness). absent: Headache, Dizziness Physical Exam Vital Signs Reviewed: Yes Vital Signs Temp Pulse Resp BP Pulse Ox 12/21/18 11:45 97.9 F 84 18 128/76 95 Temperature: Afebrile Blood Pressure: Normal Pulse: Regular Respiratory Rate: Normal Appearance: Positive for: Well-Appearing, Non-Toxic Mental Status: Positive for: Alert and Oriented X 3 - Systems Exam Head: Present: Atraumatic, Normocephalic Pupils: Present: PERRL Extroacular Muscles: Present: EOMI, Other (positive lateral nystagmus) Conjunctiva: Present: Normal Respiratory/Chest: Present: Clear to Auscultation, Good Air Exchange. No: Respiratory Distress, Accessory Muscle Use Cardiovascular: Present: Regular Rate and Rhythm, Normal S1, S2. No: Murmurs Abdomen: No: Tenderness, Distention, Peritoneal Signs Upper Extremity: Present: Normal Inspection. No: Cyanosis, Edema Lower Extremity: Present: Other (abnormal heel to soria; right lower leg) Neurological: Present: GCS=15, CN II-XII Intact. No: Gait Normal (Patient is unsteady on feet) Skin: Present: Warm, Dry, Normal Color. No: Rashes Psychiatric: Present: Alert, Oriented x 3, Normal Insight, Normal Concentration Medical Decision Making ED Course and Treatment: 12/21/18 12:02 Impression: Patient is a 68 year old male presenting to the emergency room complaining of right leg weakness and an unsteady gait. Plan: -- Type and screem -- Head CT without contrast (Code stroke) -- EKG -- Labs -- Stroke team consult -- CBC -- COAGs -- Chest X-Ray -- IV fluids -- Reassess and disposition Prior Visits: Notes and results from previous visits were reviewed. Patient was last seen in the ER for chronic neck, back, and leg pain. Patient was discharged when condition improved with advisement to follow up with primary care doctor and a prescription for percocets. Progress Notes: 12/21/18 12:02 CODE STROKE called. 12/21/18 12:[address] Mosquera, agrees to proceed with thrombolysis as the patient has clear cerebellar infarct signs and is within the therapeutic window. there are no absolute contraindications identified. patient has a remote hx of GI in the s stemming from aspirin overuse and has not had any major bleeding event since.Patient denies history of head bleed or current anticoagulant use. 12/21/18 12:58 12/21/18 13:05 patient was seen for acute signs for cerebellar infarct, patient was within window for tpa, bolus and infusion of tpa administered, patient to be admitted to ICU. case has been discussed with dr. bashir for admission. awaiting call back from hospitalist dr. flowers. 12/21/18 14:[address] ladd 12/21/18 14:11 patient remains clinically stable at this time. patient has been in my direct line of vision and I have done frequent visual assessments of the patient. - Critical Care Critical Care Minutes: 60 minutes - RAD Interpretation Narrative RAD Interpretations (Text): 12/21/18 12:53 Procedure: Chest X-Ray Dictator: Hussein Quinones Impression: Patchy right middle lobe infiltrate. Procedure: Head CT Dictator: Deon Alfredo Impression: No acute hemorrhage. Old left occipital infarct. Form Builder: Radiologist - EKG Interpretation EKG Interpretation (Text): 12/21/18 12:34 EKG: Ordered, reviewed, and independently interpreted the EKG. Rate : 73 BPM Rhythm : NSR Interpretation : Normal QRS, normal axis, no ST-T wave abnormalities. Interpreted by ED Physician: Yes NIHSS Scale (Brandt) Time Performed: 12:02 - How Severe is the Stoke Baseline Level of Consciousness: 0=Alert LOC to Questions: 0=Both comments correct LOC to commands: 0=Obeys both correctly Best Gaze: 0=Normal Visual: 0=No visual loss Facial: 0=Normal Motor Arm - Left: 0=No drift Motor Arm - Right: 0=No drift Motor Leg - Left: 0=No drift Motor Leg - Right: 0=No drift Limb Ataxia: 1=Present Upper or Lower Sensory: 0=Normal Best Language: 0=No aphasia Dysarthia: 1=Mild to moderate slurring Extinction & Inattention (Neglect): 0=Normal, no object Score: 2 Risk Level: Minor Stroke Risk rTPA Inclusion/Exclusion - Refusal of Treatment Patient Refused Treatment: No - Inclusion Criteria for Altepase Patient is 18 years or Older: Yes The Clinical Diagnosis of Ischemic Stroke That is Causing a Potentially Disabling Neurological Deficit: Yes Time of Onset is Well Established to be Less Than 270 Minute Before Treatment Would Begin: Yes Risk/Benefit Discussed With Patient/Family Member Present: Yes - Exclusion Criteria for Altepase Uncontrolled Hypertension at Time of Treatment (Systolic BP above 185 or Diastolic BP above 110 mmHg): No - Scribe Statement The provider has reviewed the documentation as recorded by the Scribseven Horton All medical record entries made by the Scribseven were at my direction and personally dictated by me. I have reviewed the chart and agree that the record accurately reflects my personal performance of the history, physical exam, medical decision making, and the department course for this patient. I have also personally directed, reviewed, and agree with the discharge instructions and disposition. Disposition/Present on Arrival - Present on Arrival Any Indicators Present on Arrival: No History of DVT/PE: No History of Uncontrolled Diabetes: No Urinary Catheter: No History of Decub. Ulcer: No History Surgical Site Infection Following: None - Disposition Have Diagnosis and Disposition been Completed?: Yes Diagnosis: CVA (cerebral vascular accident) Disposition: HOSPITALIZED Disposition Time: 13:06 Patient Plan: Admission, ICU Patient Problems: Current Active Problems Problem Status Onset Acute ischemic stroke Acute CVA (cerebral vascular accident) Acute Condition: GUARDED
--- NOTE | 2018-12-21 12:23 | CP.PCM.CON ---
History of Present Illness - History of Present Illness History of Present Illness: Neurology Consultation Note: Consult requested by Dr. Correia The patient is a 68-year-old man with a past medical history of HTN, previous [place], smoker, previous gastric ulcers s/p treatment , treated again two years ago, who was walking outside about two hours ago and his right leg "stopped working" and buckled. He could not stand up again. EMS was called and brought him to the ED, where he appears to be ataxic. CT of the head showed a chronic left DEFENSIVE LINE COACH stroke and a few lacunar infacts that are chronic and in subcorticla regions. There was no bleed. The patient is a candidate for IV tPA and it was recommended that we give it immediately at 12:20 PM. When I saw the patient, he had dysarthria, nystagmus and ataxia on the right side with gait instability and was not able to stand without assistance. I discussed IV tPA with him and he expressed understanding of the risks and benefits and decided that he would like to be treated despite his history of gastric ulcers (treated before). Review of Systems - Constitutional Constitutional: As Per HPI - EENT Eyes: absent: As Per HPI, Blind Spots, Blurred Vision, Change in Vision, Decreased Night Vision, Diplopia, Discharge, Dry Eye, Exophthalmos, Floaters, Irritation, Itchy Eyes, Loss of Peripheral Vision, Pain, Photophobia, Requires Corrective Lenses, Sees Flashes, Spots in Vision, Tunnel Vision, Other Visual Disturbances, Loss of Vision, Other Ears: absent: As Per HPI, Decreased Hearing, Ear Discharge, Ear Pain, Tinnitus, Abnormal Hearing, Disequilibrium, Dizziness, Other Nose/Mouth/Throat: absent: As Per HPI, Epistaxis, Nasal Congestion, Nasal Discharge, Nasal Obstruction, Nasal Trauma, Nose Pain, Post Nasal Drip, Sinus Pain, Sinus Pressure, Bleeding Gums, Change in Voice, Dental Pain, Dry Mouth, Dysphagia, Halitosis, Hoarsness, Lip Swelling, Mouth Lesions, Mouth Pain, Odynophagia, Sore Throat, Throat Swelling, Tongue Swelling, Facial Pain, Neck Pain, Neck Mass, Other - Cardiovascular Cardiovascular: As Per HPI - Respiratory Respiratory: absent: As Per HPI, Cough, Dyspnea, Hemoptysis, Dyspnea on Exertion, Wheezing, Snoring, Stridor, Pain on Inspiration, Chest Congestion, Excessive Mucous Production, Change in Mucous Color, Pain with Coughing, Other - Musculoskeletal Musculoskeletal: absent: As Per HPI, Abnormal Gait, Arthralgias, Atrophy, Back Pain, Deformity, Joint Swelling, Limited Range of Motion, Loss of Height, Muscle Cramps, Muscle Weakness, Myalgias, Neck Pain, Numbness, Radiating Pain into Limb, Stiffness, Tingling, Other - Integumentary Integumentary: absent: As Per HPI, Acne, Alopecia, Bleeding Lesions, Change in Hair, Change in Nails, Change in Pigmentation, Changing Lesions, Dry Skin, Erythema, Furuncle, Hirsutism, Lesions, New Lesions, Non-Healing Lesions, Photosensitivity, Pruritus, Rash, Skin Pain, Skin Ulcer, Sores, Striae, Swelling, Unusual Bruising, Wounds, Jaundice, Other - Neurological Neurological: As Per HPI - Psychiatric Psychiatric: absent: As Per HPI, Abnormal Sleep Pattern, Anhedonia, Anxiety, Auditory Hallucinations, Behavioral Changes, Change in Appetite, Change in Libido, Confusion, Depression, Difficulty Concentrating, Hallucinations, Homicidal Ideation, Hopelessness, Irritability, Memory Loss, Mood Swings, Panic Attacks, Paranoia, Suicidal Ideation, Visual Hallucinations, Tactile Hallucinations, Other - Endocrine Endocrine: absent: As Per HPI, Change in Body Appearance, Change in Libido, Cold Intolorance, Deepening of Voice, Excessive Sweating, Fatigue, Flushing, Heat Intolorance, Increase in Ring/Shoe/Hat Size, Palpitations, Polydipsia, Polyphagia, Polyuria, Other - Hematologic/Lymphatic Hematologic: absent: As Per HPI, Easy Bleeding, Easy Bruising, Lymphadenopathy, Other Past Patient History - Infectious Disease Hx of Infectious Diseases: None - Tetanus Immunizations Tetanus Immunization: Unknown - Past Social History Smoking Status: Heavy Smoker > 10 Cigarettes Daily - CARDIAC Hx Cardiac Disorders: Yes Hx Peripheral Edema: Yes - PULMONARY Hx Respiratory Disorders: Yes Hx Chronic Obstructive Pulmonary Disease (COPD): Yes Hx Pneumonia: Yes - NEUROLOGICAL Hx Neurological Disorder: Yes Hx Syncope: Yes Other/Comment: NEUROPATHY, AMS - HEENT Hx HEENT Problems: Yes Hx Cataracts: Yes - RENAL Hx Chronic Kidney Disease: No - ENDOCRINE/METABOLIC Hx Endocrine Disorders: No - HEMATOLOGICAL/ONCOLOGICAL Hx Blood Disorders: Yes Hx Anemia: Yes Hx Hepatitis C: Yes - INTEGUMENTARY Hx Dermatological Problems: Yes (hx pressure ulcers) - MUSCULOSKELETAL/RHEUMATOLOGICAL Hx Musculoskeletal Disorders: Yes Hx Fractures: Yes (left wrist) Hx Osteoporosis: Yes - GASTROINTESTINAL Hx Gastrointestinal Disorders: Yes - GENITOURINARY/GYNECOLOGICAL Hx Sexually Transmitted Disorders: No - PSYCHIATRIC Hx Psychophysiologic Disorder: Yes Hx Anxiety: Yes Hx Depression: Yes Hx Substance Use: Yes - SURGICAL HISTORY Hx Coronary Artery Bypass Graft: No Other/Comment: GASTRECTOMY - ANESTHESIA Hx Anesthesia: Yes Hx Anesthesia Reactions: No Hx Malignant Hyperthermia: No Meds Allergies/Adverse Reactions: Allergies Allergy/AdvReac Type Severity Reaction Status Date / Time aspirin AdvReac NAUSEA Verified 12/21/18 11:50 - Medications Medications: Current Medications Sodium Chloride (Sodium Chloride 0.9%) 1,000 mls @ 100 mls/hr IV .Q10H NIKA Physical Exam - Constitutional Appears: Well - Head Exam Head Exam: ATRAUMATIC, NORMAL INSPECTION, NORMOCEPHALIC - Eye Exam Eye Exam: EOMI, Normal appearance, PERRL Pupil Exam: NORMAL ACCOMODATION, PERRL - ENT Exam ENT Exam: Mucous Membranes Moist, Normal Exam - Neck Exam Neck exam: Positive for: Normal Inspection - Respiratory Exam Respiratory Exam: Clear to Auscultation Bilateral, NORMAL BREATHING PATTERN - Cardiovascular Exam Cardiovascular Exam: REGULAR RHYTHM, +S1, +S2 - GI/Abdominal Exam GI & Abdominal Exam: Normal Bowel Sounds, Soft. absent: Tenderness - Extremities Exam Extremities exam: Positive for: normal inspection - Back Exam Back exam: NORMAL INSPECTION - Neurological Exam Neurological exam: Abnormal Gait, Alert, CN II-XII Intact, Oriented x3 Additional comments: Dysarthric, not aphasic Reflexes brisk on the right, ataxic on the right side, nystagmus noted on exam with fast phase to the left. - Psychiatric Exam Psychiatric exam: Normal Affect, Normal Mood - Skin Skin Exam: Dry, Intact, Normal Color, Warm Results - Vital Signs Recent Vital Signs: Last Vital Signs Temp 97.9 F 12/21/18 11:45 Pulse 84 12/21/18 11:45 Resp 18 12/21/18 11:45 BP 128/76 12/21/18 11:45 Pulse Ox 95 12/21/18 11:45 Assessment & Plan (1) Acute ischemic stroke Assessment and Plan: Likely involving the right cerebellar and brainstem region. The patient will receive IV tPA bolus and after the bolus will undergo CTA of the head/neck will the drip is running to evaluate for LVO or other disease in the posterior circulation. Will continue supportive care and post-tPA protocol. I recommend the followin. ICU 2. MRI brain without contrast when stable 3. Echocardiogram 4. Hold antiplatelets and anticoagulation for at least 24 hours 5. Follow post-tPA protocol for BP parameters and neuro-checks 6. PT/OT eval and treatment 7. Check HbA1c, Lipid panel, B12, folate, TSH, T3/4, homocysteine 8. Smoking cessation education. Thank you for this consultation. Status: Acute NIHSS Stroke Scale 3 - Date/Time Evaluation Performed Time Performed: 12:02 - How Severe is the Stroke Level of Consciousness: 0=Alert LOC to Questions: 0=Both comments correct LOC to commands: 0=Obeys both correctly Best Gaze: 0=Normal Visual: 1=Partial hemianopia Facial: 0=Normal Motor Arm - Left: 0=No drift Motor Arm - Right: 1=Drift noted before 10 sec Motor Leg - Left: 0=No drift Motor Leg - Right: 0=No drift Limb Ataxia: 2=Present both Sensory: 0=Normal Best Language: 0=No aphasia Dysarthia: 1=Mild to moderate slurring Extinction & Inattention (Neglect): 0=Normal, no object Score: 5
--- NOTE | 2018-12-21 12:30 | CT ---
Date of service: 12/21/2018 PROCEDURE: CT HEAD WITHOUT CONTRAST. HISTORY: Code Stroke COMPARISON: None available. TECHNIQUE: Axial computed tomography images were obtained through the head/brain without intravenous contrast. Radiation dose: Total exam DLP = 947.13 mGy-cm. This CT exam was performed using one or more of the following dose reduction techniques: Automated exposure control, adjustment of the mA and/or kV according to patient size, and/or use of iterative reconstruction technique. FINDINGS: HEMORRHAGE: No intracranial hemorrhage. BRAIN: Old left occipital infarct. No atrophy or chronic microvascular ischemic changes. VENTRICLES: Unremarkable. No hydrocephalus. CALVARIUM: Unremarkable. PARANASAL SINUSES: Unremarkable as visualized. No significant inflammatory changes. MASTOID AIR CELLS: Unremarkable as visualized. No inflammatory changes. OTHER FINDINGS: None. IMPRESSION: No acute hemorrhage. Old left occipital infarct.
[2018-12-21 12:36] LABS: BASO # 0.03 K/mm3 (0.0-2.0); BASO % 0.5 % (0.0-3.0); EOS # 0.2 (0.0-0.7); EOS % 3.8 % (1.5-5.0); HEMOGLOBIN 10.7 g/dL (14.0-18.0); LYMPH # 1.3 (1.2-3.4); LYMPH % 21.5 % (22.0-35.0); MEAN CORPUSCULAR HEMOGLOBIN 28.3 pg (25.0-35.0); MEAN CORPUSCULAR HGB CONC 32.5 g/dl (31.0-37.0); MEAN PLATELET VOLUME 8.5 fl (7.0-11.0); MONO # 0.6 (0.1-0.6); MONO % 10.4 % (1.0-6.0); RBC 3.78 10^6/uL (3.5-6.1); RED CELL DISTRIBUTION WIDTH 17.9 % (11.5-14.5); WHITE BLOOD COUNT 6.1 10^3/uL (4.5-11.0)
--- NOTE | 2018-12-21 12:38 | RAD ---
Date of service: 12/21/2018 HISTORY: Code Stroke COMPARISON: 08/16/2018 FINDINGS: LUNGS: Patchy right middle lobe infiltrate. PLEURA: No significant pleural effusion identified, no pneumothorax apparent. CARDIOVASCULAR: Aortic calcification Normal cardiac size. No pulmonary vascular congestion. OSSEOUS STRUCTURES: No significant abnormalities. VISUALIZED UPPER ABDOMEN: Normal. OTHER FINDINGS: None. IMPRESSION: Patchy right middle lobe infiltrate.
[2018-12-21] MEDS ORDERED: Iohexol 350 MG/100 ML VIAL ONE (12:39)
[2018-12-21 12:44] LABS: ALB/GLOB RATIO 1.1 (1.1-1.8); ALBUMIN 4.1 g/dL (3.0-4.8); ALT/SGPT 16 U/L (7-56); AST/SGOT 28 U/L (17-59); BLOOD UREA NITROGEN 16 mg/dL (7-21); CALCIUM 8.9 mg/dL (8.4-10.5); GFR NON-AFRICAN AMERICAN > 60; HDL CHOLESTEROL 32 mg/dL (29-60)
[2018-12-21 12:48] LABS: INR 1.12; PARTIAL THROMBOPLASTIN TIME 27.9 Seconds (26.9-38.3); PROTHROMBIN TIME 12.6 SECONDS (9.4-12.5)
[2018-12-21 12:55] LABS: LDL CHOLESTEROL 63 mg/dL (0-129)
[2018-12-21 12:58] LABS: TROPONIN I < 0.01 ng/mL
[2018-12-21] MEDS: Sodium Chloride 0.9% 1,000 ML IV SCH (13:19)
--- NOTE | 2018-12-21 13:59 | CP.PCM.CON ---
<MiltonTavon larad - Last Filed: 12/21/18 16:16> History of Present Illness - History of Present Illness History of Present Illness: Mariana Rose, PGY-1 ICU consult note for Dr. Robertson: CC: R Leg Weakness ICU Consult for: TPA Administration Pt is a 68 yo M with pmhx of VA, COPD, Hep C, Duodenal ulcer s/p resection(1976), GI bleed (2016), PVD, drug abuse and neuropathy who presented to the ED for R sided leg weakness which started at 10:30 AM today. Pt states that he was walking to his chiropractors office in the AM when he noticed that his R leg had gotten weak. Pt reports that he has never had something similar happen to him before. He then states that he started feeling "weird" and decided to sit down, but then realized that he could not stand again. EMS was then called and brought him into the ER. In the ER the pt had a CT head done which showed chronic left SEWING MACHINE OPERATOR stroke and a few lacunar infacts that are chronic and in subcorticla regions, but no acute hemorrhage. Neurologist was called and made decision to start Pt on TPA which was started in ED. Pt was seen after TPA adm inistration. Pt states that symptoms improved with tPA administration. At this time he states that he is not having any headaches, lightheadedness, dizziness, changes in vision, double vision, chest pain, palpitations, SOB, cough, pleuritic chest pain, abd pain, n/v, c/d, flank or back pain, LE swelling or weakness. Pt does admit to stating that his R leg feels heavy, but otherwise states that he feels fine. Pt states that he had discussion with neurologist in regards to use of TPA given underlying hx of GI bleeds and states that he would still like to recieve the TPA. Pmhx: VA, COPD, Hep C, Duodenal ulcer s/p resection(1976), GI bleed s/p clipping(2016), PVD, drug abuse and neuropathy Pshx: Resection of duodenal ulcer 1976 All: NKDA Soc: Current 1ppd smoker x 56 yrs, denies etoh use in the last 34 years, admits to suboxone use 2 days ago but denies any other illicit drug use Fam: Dad: Liver Ca, Brother: Liver Ca, Sister: Brain Ca, Sister: Skin Ca Review of Systems - Review of Systems Review of Systems: 12 point ROS reviewed and negative except for noted in HPI above. Past Patient History - Infectious Disease Hx of Infectious Diseases: None - Tetanus Immunizations Tetanus Immunization: Unknown - Past Social History Smoking Status: Heavy Smoker > 10 Cigarettes Daily - CARDIAC Hx Cardiac Disorders: Yes Hx Peripheral Edema: Yes - PULMONARY Hx Respiratory Disorders: Yes Hx Chronic Obstructive Pulmonary Disease (COPD): Yes Hx Pneumonia: Yes - NEUROLOGICAL Hx Neurological Disorder: Yes Hx Syncope: Yes Other/Comment: NEUROPATHY, AMS - HEENT Hx HEENT Problems: Yes Hx Cataracts: Yes - RENAL Hx Chronic Kidney Disease: No - ENDOCRINE/METABOLIC Hx Endocrine Disorders: No - HEMATOLOGICAL/ONCOLOGICAL Hx Blood Disorders: Yes Hx Anemia: Yes Hx Hepatitis C: Yes - INTEGUMENTARY Hx Dermatological Problems: Yes (hx pressure ulcers) - MUSCULOSKELETAL/RHEUMATOLOGICAL Hx Musculoskeletal Disorders: Yes Hx Fractures: Yes (left wrist) Hx Osteoporosis: Yes - GASTROINTESTINAL Hx Gastrointestinal Disorders: Yes - GENITOURINARY/GYNECOLOGICAL Hx Sexually Transmitted Disorders: No - PSYCHIATRIC Hx Psychophysiologic Disorder: Yes Hx Anxiety: Yes Hx Depression: Yes Hx Substance Use: Yes - SURGICAL HISTORY Hx Coronary Artery Bypass Graft: No Other/Comment: GASTRECTOMY - ANESTHESIA Hx Anesthesia: Yes Hx Anesthesia Reactions: No Hx Malignant Hyperthermia: No Meds Allergies/Adverse Reactions: Allergies Allergy/AdvReac Type Severity Reaction Status Date / Time aspirin AdvReac NAUSEA Verified 12/21/18 11:50 - Medications Medications: Current Medications Sodium Chloride (Sodium Chloride 0.9%) 1,000 mls @ 100 mls/hr IV .Q10H NIKA Last Admin: 12/21/18 13:19 Dose: 100 mls/hr Physical Exam - Constitutional Appears: Non-toxic, No Acute Distress - Head Exam Head Exam: ATRAUMATIC, NORMAL INSPECTION, NORMOCEPHALIC - Eye Exam Eye Exam: EOMI, Normal appearance, Nystagmus (horizontal nystagmus ), PERRL - Neck Exam Neck exam: Positive for: Full Rom, Normal Inspection. Negative for: Lymphadenopathy - Respiratory Exam Respiratory Exam: Clear to Auscultation Bilateral, NORMAL BREATHING PATTERN. absent: Accessory Muscle Use, Chest Wall Tenderness, Rales, Rhonchi, Wheezes, Respiratory Distress, Stridor - Cardiovascular Exam Cardiovascular Exam: REGULAR RHYTHM, RRR, +S1, +S2. absent: Gallop, Rubs - GI/Abdominal Exam GI & Abdominal Exam: Normal Bowel Sounds, Soft. absent: Firm, Guarding, Pulsatile Mass, Rebound, Rigid, Tenderness - Extremities Exam Extremities exam: Positive for: normal capillary refill, normal inspection. Negative for: pedal edema, tenderness - Back Exam Back exam: NORMAL INSPECTION. absent: CVA tenderness (L), CVA tenderness (R) - Neurological Exam Neurological exam: Alert, Oriented x3 - Expanded Neurological Exam Expanded Neurological exam: Protecting the Airway Patient oriented to: person, place, time Cranial nerves: EOM's Intact: Normal, Facial Palsey w/Forehead Movement: Normal, Facial Palsey w/o Forehead Movement: Normal, Facial Sensation: Normal, Tongue Deviation: Normal Cerebellar Function: Finger to Nose: Normal Upper motor neuron: Alex Neglect: Normal, Pronator Drift: Normal, Sensory Extinction: Normal Neuro motor strength exam: Left Upper Extremity: 5, Right Upper Extremity: 5, Left Lower Extremity: 5, Right Lower Extremity: 5 Coma Scale Eye Opening: SPONTANEOUS Coma Scale Motor Response: OBEYS COMMANDS Coma Scale Verbal: Oriented Coma Scale Total: 15 - Psychiatric Exam Psychiatric exam: Normal Affect, Normal Mood - Skin Skin Exam: Dry, Normal Color, Warm Results - Vital Signs Recent Vital Signs: Last Vital Signs Temp 98.2 F 12/21/18 13:35 Pulse 83 12/21/18 13:35 Resp 18 12/21/18 13:35 BP 149/91 H 12/21/18 13:35 Pulse Ox 95 12/21/18 11:45 - Labs Result Diagrams: 12/21/18 12:20 12/21/18 12:20 Labs: Laboratory Results - last 24 hr 12/21/18 12/21/18 12/21/18 12:20 12:20 12:20 WBC 6.1 RBC 3.78 Hgb 10.7 L Hct 32.9 L MCV 87.0 MCH 28.3 MCHC 32.5 RDW 17.9 H Plt Count 295 MPV 8.5 Neut % (Auto) 63.8 Lymph % (Auto) 21.5 L [place] % (Auto) 10.4 H Eos % (Auto) 3.8 Baso % (Auto) 0.5 Lymph # (Auto) 1.3 [place] # (Auto) 0.6 Eos # (Auto) 0.2 Baso # (Auto) 0.03 Absolute Neuts (auto) 3.87 PT 12.6 H INR 1.12 APTT 27.9 Sodium 135 Potassium 4.2 Chloride 101 Carbon Dioxide 27 Anion Gap 12 BUN 16 Creatinine 0.9 Est GFR ( Amer) > 60 Est GFR (Non-Af Amer) > 60 Random Glucose 88 Calcium 8.9 Total Bilirubin 0.7 AST 28 ALT 16 Alkaline Phosphatase 82 Troponin I < 0.01 Total Protein 7.8 Albumin 4.1 Globulin 3.7 Albumin/Globulin Ratio 1.1 Triglycerides 674 H Cholesterol 112 L LDL Cholesterol Direct 63 HDL Cholesterol 32 Assessment & Plan - Assessment and Plan (Free Text) Assessment: Pt is a 68 yo M with pmhx of VA, COPD, Hep C, Duodenal ulcer s/p resection(1976), GI bleed (2016), PVD, drug abuse and neuropathy who presented to the ED for R sided leg weakness which started at 10:30 AM today. Pt was given TPA in the ED @ 12:52pm. Will be in ICU for close monitoring and neurochecks. Plan: Neuro: Ischemic Stroke s/p tPA @ 12:52pm on 12/21/18: - Head CT 12/21 shows: Old occipital infarct, no acute hemorrhage - Pt given tPA as stated - Will continue neurochecks and BP monitoring as per protocol - Will ensure that SBP remains <150 - NIHSS Stroke scale at this time is: 0 (pt assessed after tPA given) - Echo - Hold ASA and other anti-coag meds as pt is on TPA - A1c, B12, folate, lipid panel, TSH, Homocystiene Cardio: - Ensure MAP >65 Pulm: - Ensure O2 sat >92 GI: Hx of GI bleed: - Will cont to monitor for any signs of bleed - Protonix - Passed swallow eval Endo: - Ensure euglycemia and will cont to monitor BS overnight Nephro: - Maintain euvolemia PPx: GI: Protonix DVT: On tPA. Case seen and discussed with Dr. Robertson <Nickolas Robertson - Last Filed: 12/21/18 16:23> Meds - Medications Medications: Current Medications Sodium Chloride (Sodium Chloride 0.9%) 1,000 mls @ 100 mls/hr IV .Q10H NIKA Last Admin: 12/21/18 13:19 Dose: 100 mls/hr Pantoprazole Sodium (Protonix Ec Tab) 40 mg PO 0600 [facility] [place] Results - Vital Signs Recent Vital Signs: Last Vital Signs Temp 97.9 F 12/21/18 16:00 Pulse 70 12/21/18 16:00 Resp 17 12/21/18 16:00 BP 127/72 12/21/18 16:00 Pulse Ox 99 12/21/18 15:15 - Labs Result Diagrams: 12/21/18 12:20 12/21/18 12:20 Labs: Laboratory Results - last 24 hr 12/21/18 12/21/18 12/21/18 12:20 12:20 12:20 WBC 6.1 RBC 3.78 Hgb 10.7 L Hct 32.9 L MCV 87.0 MCH 28.3 MCHC 32.5 RDW 17.9 H Plt Count 295 MPV 8.5 Neut % (Auto) 63.8 Lymph % (Auto) 21.5 L [place] % (Auto) 10.4 H Eos % (Auto) 3.8 Baso % (Auto) 0.5 Lymph # (Auto) 1.3 [place] # (Auto) 0.6 Eos # (Auto) 0.2 Baso # (Auto) 0.03 Absolute Neuts (auto) 3.87 PT 12.6 H INR 1.12 APTT 27.9 Sodium 135 Potassium 4.2 Chloride 101 Carbon Dioxide 27 Anion Gap 12 BUN 16 Creatinine 0.9 Est GFR ( Amer) > 60 Est GFR (Non-Af Amer) > 60 Random Glucose 88 Hemoglobin A1c Calcium 8.9 Total Bilirubin 0.7 AST 28 ALT 16 Alkaline Phosphatase 82 Troponin I < 0.01 Total Protein 7.8 Albumin 4.1 Globulin 3.7 Albumin/Globulin Ratio 1.1 Triglycerides 674 H Cholesterol 112 L LDL Cholesterol Direct 63 HDL Cholesterol 32 Blood Type Antibody Screen BBK History Checked 12/21/18 12/21/18 12:20 12:30 WBC RBC Hgb Hct MCV MCH MCHC RDW Plt Count MPV Neut % (Auto) Lymph % (Auto) [place] % (Auto) Eos % (Auto) Baso % (Auto) Lymph # (Auto) [place] # (Auto) Eos # (Auto) Baso # (Auto) Absolute Neuts (auto) PT INR APTT Sodium Potassium Chloride Carbon Dioxide Anion Gap BUN Creatinine Est GFR ( Amer) Est GFR (Non-Af Amer) Random Glucose Hemoglobin A1c 5.6 Calcium Total Bilirubin AST ALT Alkaline Phosphatase Troponin I Total Protein Albumin Globulin Albumin/Globulin Ratio Triglycerides Cholesterol LDL Cholesterol Direct HDL Cholesterol Blood Type AB POSITIVE Antibody Screen Negative BBK History Checked Patient has bt Assessment & Plan - Assessment and Plan (Free Text) Plan: Patient seen and examined on rounds with resident, agree with note with following additions/exceptions: Patient is 68yo male with PMHx CAD, COPD, Hep C, Duodenal ulcer s/p resection, GI bleed, PVD, drug abuse and neuropathy who presented to the ED for R sided leg weakness which started at 10:30 AM today, s/p TPA given bY ER, after consultation with Neurology. Currently patient is afebrile, BP stable, comfortable in NAD, doing well, motor strength 5/5 all ext, no sensory deficits. NIHSS 1 follow up Neurology consult Q1hr Neuro checks repeat CTH in AM MRI Brain ECHO Check lipid panel, HgbA1C, TSH GI ppx DVT ppx Monitor in ICU
--- NOTE | 2018-12-21 14:58 | CT ---
Date of service: 12/21/2018 PROCEDURE: CT Angiography of the neck with contrast HISTORY: cva COMPARISON: None. TECHNIQUE: Contiguous axial images of the neck were obtained from the level of the skull-base to the superior mediastinum in the arteriographic phase of enhancement. Coronal and sagittal reformats or also generated. IV contrast dose: Radiation dose: Total exam DLP = 378.37 mGy-cm. This CT exam was performed using one or more of the following dose reduction techniques: Automated exposure control, adjustment of the mA and/or kV according to patient size, and/or use of iterative reconstruction technique. FINDINGS: RIGHT CAROTID ARTERIES: Common Carotid Artery: Normal. Carotid Bifurcation: Calcified plaque with no significant stenosis Internal Carotid Artery:Tortuosity. No stenosis External Carotid Artery (proximal branches): Normal. LEFT CAROTID ARTERIES: Common Carotid Artery: Normal. Carotid Bifurcation: Calcified plaque with no significant stenosis Internal Carotid Artery:Tortuosity. No stenosis External Carotid Artery (proximal branches): Normal. VERTEBRAL ARTERIES: Right Vertebral Artery: Normal. Left Vertebral Artery: Normal. OTHER FINDINGS: no aortic atherosclerotic calcification or mural plaque present. IMPRESSION: No significant stenosis. CT Angiography of the Brain. HISTORY: cva COMPARISON: None available. TECHNIQUE: CT angiography of the intracranial arteries was performed. Coronal and sagittal maximum intensity projection reformated images were generated. Radiation dose: Total exam DLP = 378.37 mGy-cm. This CT exam was performed using one or more of the following dose reduction techniques: Automated exposure control, adjustment of the mA and/or kV according to patient size, and/or use of iterative reconstruction technique. FINDINGS: INTERNAL CEREBRAL ARTERIES: Unremarkable. The skull base, petrous, cavernous and supraclinoid segments are bilaterally widely patent. ANTERIOR CEREBRAL ARTERIES: Unremarkable. A1 and A2 segments are widely patent. Smaller distal branches unremarkable, as visualized. MIDDLE CEREBRAL ARTERIES: Unremarkable. M1 and M2 segments are widely patent. Perisylvian branches grossly symmetric. POSTERIOR CIRCULATION: Basilar Artery: Unremarkable. Distal Vertebral Arteries: Unremarkable. Posterior Cerebral Arteries: Unremarkable. Posterior Inferior Cerebellar Arteries: Unremarkable. ANEURYSM/ VASCULAR MALFORMATIONS: None. OTHER FINDINGS: None. IMPRESSION: Unremarkable CT Angiography of the Brain.
--- NOTE | 2018-12-21 16:13 | CARD ---
APPROVED REPORT Date of service: 12/21/2018 EKG Measurement Heart [id number] <Conclusion> Normal sinus rhythm Nonspecific ST abnormality Abnormal ECG
--- NOTE | 2018-12-21 16:18 | CP.PCM.HP ---
History of Present Illness - History of Present Illness History of Present Illness: Resident History & Physical for Dr. Michaud Patient is a 68 year old male with past medical history of COPD, subdural hematoma, HCV, PUD chronic renal disease, chronic back pain presenting with chief complaint of bilateral lower extremity weakness, worse in his right lower extremity which began this morning. Patient states that he was in the middle of physical therapy when he noticed he was unable to stand up from a sitting position. Patient states that he goes to physical therapy due to weakness secondary to neuropathy. Patient was subsequently brought to the ED and after consultation with neurology tPA was administered. Currently patient states that he still has lower extremity weakness but his symptoms have improved. Patient denies any trauma, falls, or loss of consciousness. Denies fevers, chills, headache, dizziness, nausea, vomiting, hearing or vision changes. PMH: COPD, subdural hematoma, HCV, PUD, chronic renal disease, chronic back pain PSH: duodenal ulcer resection (1976), gastric bypass SHx: 1 PPD for 56 years, recent suboxone use, denies alcohol use, previous IVDA FHx: father (liver cancer), brother (liver cancer), sister (brain cancer), sister (skin cancer) Allergies: aspirin PMD: none Present on Admission - Present on Admission Any Indicators Present on Admission: No Review of Systems - Review of Systems All systems: reviewed and no additional remarkable complaints except (as stated in HPI) Past Patient History - Infectious Disease Hx of Infectious Diseases: None - Tetanus Immunizations Tetanus Immunization: Unknown - Past Social History Smoking Status: Heavy Smoker > 10 Cigarettes Daily - CARDIAC Hx Cardiac Disorders: Yes Hx Peripheral Edema: Yes - PULMONARY Hx Respiratory Disorders: Yes Hx Chronic Obstructive Pulmonary Disease (COPD): Yes Hx Pneumonia: Yes - NEUROLOGICAL Hx Neurological Disorder: Yes Hx Syncope: Yes Other/Comment: NEUROPATHY, AMS - HEENT Hx HEENT Problems: Yes Hx Cataracts: Yes - RENAL Hx Chronic Kidney Disease: No - ENDOCRINE/METABOLIC Hx Endocrine Disorders: No - HEMATOLOGICAL/ONCOLOGICAL Hx Blood Disorders: Yes Hx Anemia: Yes Hx Hepatitis C: Yes - INTEGUMENTARY Hx Dermatological Problems: Yes (hx pressure ulcers) - MUSCULOSKELETAL/RHEUMATOLOGICAL Hx Musculoskeletal Disorders: Yes Hx Fractures: Yes (left wrist) Hx Osteoporosis: Yes - GASTROINTESTINAL Hx Gastrointestinal Disorders: Yes - GENITOURINARY/GYNECOLOGICAL Hx Sexually Transmitted Disorders: No - PSYCHIATRIC Hx Psychophysiologic Disorder: Yes Hx Anxiety: Yes Hx Depression: Yes Hx Substance Use: Yes - SURGICAL HISTORY Hx Coronary Artery Bypass Graft: No Other/Comment: GASTRECTOMY - ANESTHESIA Hx Anesthesia: Yes Hx Anesthesia Reactions: No Hx Malignant Hyperthermia: No Meds Allergies/Adverse Reactions: Allergies Allergy/AdvReac Type Severity Reaction Status Date / Time aspirin AdvReac NAUSEA Verified 12/21/18 11:50 Physical Exam - Constitutional Appears: Non-toxic, No Acute Distress - Head Exam Head Exam: ATRAUMATIC, NORMOCEPHALIC - Eye Exam Eye Exam: EOMI, Normal appearance, PERRL - ENT Exam ENT Exam: Mucous Membranes Moist, Normal Exam - Neck Exam Neck exam: Positive for: Full Rom. Negative for: Lymphadenopathy - Respiratory Exam Respiratory Exam: Clear to Auscultation Bilateral, NORMAL BREATHING PATTERN. absent: Accessory Muscle Use, Decreased Breath Sounds, Rales, Rhonchi, Wheezes, Respiratory Distress - Cardiovascular Exam Cardiovascular Exam: REGULAR RHYTHM, +S1, +S2 - GI/Abdominal Exam GI & Abdominal Exam: Normal Bowel Sounds, Soft. absent: Distended, Firm, Guarding, Rebound, Rigid, Tenderness - Extremities Exam Extremities exam: Positive for: normal capillary refill. Negative for: pedal edema, pedal pulses present - Neurological Exam Neurological exam: Alert, CN II-XII Intact, Oriented x3 - Psychiatric Exam Psychiatric exam: Normal Affect, Normal Mood - Skin Skin Exam: Dry, Intact, Normal Color, Warm Results - Vital Signs Recent Vital Signs: Last Vital Signs Temp 97.9 F 12/21/18 16:00 Pulse 70 12/21/18 16:00 Resp 17 12/21/18 16:00 BP 127/72 12/21/18 16:00 Pulse Ox 99 12/21/18 15:15 - Labs Result Diagrams: 12/21/18 12:20 12/21/18 12:20 Labs: Laboratory Results - last 24 hr 12/21/18 12/21/18 12/21/18 12:20 12:20 12:20 WBC 6.1 RBC 3.78 Hgb 10.7 L Hct 32.9 L MCV 87.0 MCH 28.3 MCHC 32.5 RDW 17.9 H Plt Count 295 MPV 8.5 Neut % (Auto) 63.8 Lymph % (Auto) 21.5 L [place] % (Auto) 10.4 H Eos % (Auto) 3.8 Baso % (Auto) 0.5 Lymph # (Auto) 1.3 [place] # (Auto) 0.6 Eos # (Auto) 0.2 Baso # (Auto) 0.03 Absolute Neuts (auto) 3.87 PT 12.6 H INR 1.12 APTT 27.9 Sodium 135 Potassium 4.2 Chloride 101 Carbon Dioxide 27 Anion Gap 12 BUN 16 Creatinine 0.9 Est GFR ( Amer) > 60 Est GFR (Non-Af Amer) > 60 Random Glucose 88 Calcium 8.9 Total Bilirubin 0.7 AST 28 ALT 16 Alkaline Phosphatase 82 Troponin I < 0.01 Total Protein 7.8 Albumin 4.1 Globulin 3.7 Albumin/Globulin Ratio 1.1 Triglycerides 674 H Cholesterol 112 L LDL Cholesterol Direct 63 HDL Cholesterol 32 Blood Type Antibody Screen BBK History Checked 12/21/18 12:30 WBC RBC Hgb Hct MCV MCH MCHC RDW Plt Count MPV Neut % (Auto) Lymph % (Auto) [place] % (Auto) Eos % (Auto) Baso % (Auto) Lymph # (Auto) [place] # (Auto) Eos # (Auto) Baso # (Auto) Absolute Neuts (auto) PT INR APTT Sodium Potassium Chloride Carbon Dioxide Anion Gap BUN Creatinine Est GFR ( Amer) Est GFR (Non-Af Amer) Random Glucose Calcium Total Bilirubin AST ALT Alkaline Phosphatase Troponin I Total Protein Albumin Globulin Albumin/Globulin Ratio Triglycerides Cholesterol LDL Cholesterol Direct HDL Cholesterol Blood Type AB POSITIVE Antibody Screen Negative BBK History Checked Patient has bt Assessment & Plan - Assessment and Plan (Free Text) Assessment: Patient is a 68 year old male with past medical history COPD, subdural hematoma, HCV, PUD, chronic renal disease, chronic back pain presenting with lower extremity weakness, now s/p tPA administration and admitted to ICU. Plan: Lower extremity weakness - Head CT shows old occipital infarct, no acute hemorrhage - s/p tPA 50 mg IV given at 12:52 PM - Neurology consulted. Appreciate recs. - NIHSS 0 - Neurochecks Q2H, seizure/aspiration precautions - hold anticoagulation - Hgba1c, lipid panel - TSH, free T4 - Lipitor 40 mg PO daily - MRI brain with and without contrast - Carotid and vertebral ultrasound - MRA without contrast - ECHO complete with bubble study - PT/OT/ST eval - patient passed swallow screen Anemia - history of PUD - previous endoscopy (2015) showed gastric bypass, gastric ulcers - previous colonscopy (2016) showed divertiulosis, multiple polyps, internal hemorrhoids - followup iron studies, FOBT - GI consulted. Appreciate recs. - IV Venofer COPD - Xopenex PPX - Protonix Case discussed with Dr. Keily Romero PGY-1
[2018-12-21 21:19] LABS: IRON 547 ug/dL (45-180)
[2018-12-21 21:29] LABS: % IRON SATURATION 177 % (20-55); TOTAL IRON BINDING CAPACITY 309 ug/dL (261-462)
[2018-12-21 21:34] LABS: TROPONIN I < 0.01 ng/mL
[2018-12-21 22:23] LABS: PH,URINE 6.5 (4.7-8.0); URINE BILIRUBIN NEGATIVE (NEGATIVE); URINE BLOOD NEGATIVE (NEGATIVE); URINE GLUCOSE (UA) NEGATIVE (NEGATIVE); URINE LEUKOCYTE ESTERASE NEGATIVE Leu/uL (NEGATIVE); URINE PROTEIN NEGATIVE mg/dL (<30 mg/dL)
[2018-12-21 22:26] LABS: URINE APPEARANCE CLEAR (CLEAR)
[2018-12-21 22:41] LABS: OPIATES, UR NEGATIVE (NEGATIVE)
[2018-12-21 22:45] LABS: BARBITURATES, UR NEGATIVE (NEGATIVE); BENZODIAZEPINES, UR NEGATIVE (NEGATIVE); PHENCYCLIDINE, UR POSITIVE (NEGATIVE)
[2018-12-22] MEDS: Sodium Chloride 0.9% 1,000 ML IV SCH ×3 (00:09→20:54)
[2018-12-22] MEDS: Levalbuterol 0.63 MG/3 ML Inhal Soln UD IH SCH ×5 (02:02→20:24)
[2018-12-22 02:41] LABS: TROPONIN I < 0.01 ng/mL
[2018-12-22 06:19] LABS: BASO # 0.03 K/mm3 (0.0-2.0); BASO % 0.7 % (0.0-3.0); EOS # 0.2 (0.0-0.7); EOS % 4.6 % (1.5-5.0); HEMOGLOBIN 10.8 g/dL (14.0-18.0); LYMPH # 0.8 (1.2-3.4); LYMPH % 19.1 % (22.0-35.0); MEAN CELL VOLUME 90.1 fl (80.0-105.0); MEAN CORPUSCULAR HEMOGLOBIN 28.3 pg (25.0-35.0); MEAN CORPUSCULAR HGB CONC 31.4 g/dl (31.0-37.0); MEAN PLATELET VOLUME 8.8 fl (7.0-11.0); MONO # 0.3 (0.1-0.6); RBC 3.82 10^6/uL (3.5-6.1); RED CELL DISTRIBUTION WIDTH 18.6 % (11.5-14.5); WHITE BLOOD COUNT 4.1 10^3/uL (4.5-11.0)
[2018-12-22 06:32] LABS: ALB/GLOB RATIO 1.1 (1.1-1.8); ALBUMIN 3.4 g/dL (3.0-4.8); ALT/SGPT 11 U/L (7-56); AST/SGOT 18 U/L (17-59); BILIRUBIN,DIRECT 0.4 mg/dL (0.0-0.4); BLOOD UREA NITROGEN 8 mg/dL (7-21); CALCIUM 8.3 mg/dL (8.4-10.5); GFR NON-AFRICAN AMERICAN > 60; HDL CHOLESTEROL 23 mg/dL (29-60); URIC ACID 4.3 mg/dL (3.5-8.5)
[2018-12-22 06:37] LABS: LDL CHOLESTEROL 62 mg/dL (0-129)
[2018-12-22 06:40] LABS: FREE T4 1.17 ng/dL (0.78-2.19)
--- NOTE | 2018-12-22 08:29 | CT ---
Date of service: 12/22/2018 PROCEDURE: CT HEAD WITHOUT CONTRAST. HISTORY: Stroke s/p tPA COMPARISON: Noncontrast head CT performed 12/21/18 TECHNIQUE: Axial computed tomography images were obtained through the head/brain without intravenous contrast. Radiation dose: Total exam DLP = 879.53 mGy-cm. This CT exam was performed using one or more of the following dose reduction techniques: Automated exposure control, adjustment of the mA and/or kV according to patient size, and/or use of iterative reconstruction technique. FINDINGS: HEMORRHAGE: No intracranial hemorrhage. BRAIN: Diffuse atrophy with prominence of the ventricles and sulci noted. No mass effect or edema. Intracranial atherosclerosis. Hypodense region in the left occipital lobe consistent with chronic infarction. Probable tiny bilateral basal ganglia lacunar type infarcts. Scattered periventricular and subcortical white matter hypodensities, which are nonspecific, but often seen with chronic microvascular ischemic disease. Please note that MRI with diffusion imaging is more sensitive in the detection of acute ischemic event. VENTRICLES: No hydrocephalus. CALVARIUM: Unremarkable. PARANASAL SINUSES: Unremarkable as visualized. No significant inflammatory changes. MASTOID AIR CELLS: Unremarkable as visualized. No inflammatory changes. OTHER FINDINGS: Partial opacification of the external auditory canals, likely cerumen. IMPRESSION: Chronic left occipital lobe infarction. Chronic microvascular ischemic changes. Tiny bilateral basal ganglia lacunar-type infarcts. Generalized atrophy. Preliminary impression was provided by [employer].
[2018-12-22] MEDS: Pantoprazole 40 mg EC Tab PO SCH (09:31)
--- NOTE | 2018-12-22 11:09 | CP.CCUPN ---
<Mariana Rose - Last Filed: 12/22/18 11:23> CCU Subjective - Physician Review Subjective (Free Text): 12/22/18 11:01 Mariana Rose, PGY-1 ICU Progress Note: Pt was seen and examined this AM at bedside. Pt had no acute overnight events. Pt at this time reports improvement in his weakness and numbness in RLE. At this time pt is denying any fevers, chills, headache, lightheadedness, dizziness, numbness, tingling, weakness, chest pain, palpitations, SOB, cough, hemoptysis, abd pain, n/v, c/d, hematemesis, melena, hematochezia, dysuria, hematuria, R sided or L sided weakness, or heaviness. He denies any other acute complaints at this time. CCU Objective - Vital Signs / Intake & Output Vital Signs (Last 4 hours): Vital Signs Temp Pulse Resp BP Pulse Ox 12/22/18 10:20 77 21 95 12/22/18 10:15 85 20 129/62 12/22/18 10:10 81 22 94 L 12/22/18 10:00 84 23 129/62 95 12/22/18 09:50 87 23 93 L 12/22/18 09:40 90 24 94 L 12/22/18 09:30 94 H 18 94 L 12/22/18 09:20 93 H 27 H 94 L 12/22/18 09:15 93 H 20 141/55 L 12/22/18 09:10 95 H 27 H 12/22/18 09:01 101 H 24 141/55 L 91 L 12/22/18 09:00 98 H 28 H 141/55 L 92 L 12/22/18 08:50 100 H 25 H 95 12/22/18 08:40 99 H 25 H 89 L 12/22/18 08:30 94 H 20 94 L 12/22/18 08:20 81 19 95 12/22/18 08:15 97.6 F 78 20 131/72 12/22/18 08:10 74 17 100 12/22/18 08:00 97.6 F 74 17 131/72 97 12/22/18 07:50 78 20 95 12/22/18 07:40 71 98 12/22/18 07:30 78 22 98 12/22/18 07:20 69 13 97 12/22/18 07:15 66 19 129/67 12/22/18 07:10 74 22 97 Intake and Output (Last 8hrs): Intake & Output 12/21/18 12/22/18 12/22/18 22:59 06:59 14:59 Intake Total 1800 Output Total 200 1300 Balance -200 500 Intake: IV 1200 Right Hand 1200 Oral 600 Output: Urine 200 1300 Condom 200 1300 Other: # Bowel Movements 1 1 - Physical Exam Head: Positive for: Atraumatic, Normocephalic Pupils: Positive for: PERRL Extroacular Muscles: Positive for: EOMI, Other (positive lateral nystagmus) Conjunctiva: Positive for: Normal Neck: Positive for: Normal Range of Motion. Negative for: MIDLINE TENDERNESS, Paraspinal Tenderness Respiratory/Chest: Positive for: Clear to Auscultation, Good Air Exchange. Negative for: Respiratory Distress, Accessory Muscle Use, Rhonchi, Tachypneic Cardiovascular: Positive for: Regular Rate and Rhythm, Normal S1, S2. Negative for: Murmurs, Rub, Gallop Abdomen: Positive for: Normal Bowel Sounds. Negative for: Tenderness, Distention, Peritoneal Signs Upper Extremity: Positive for: Normal Inspection, Normal ROM, NORMAL PULSES, Neurovascularly Intact, Capillary Refill < 2s. Negative for: Cyanosis, Edema, Swelling, Deformity Lower Extremity: Positive for: Normal Inspection, NORMAL PULSES. Negative for: Edema, CALF TENDERNESS Neurological: Positive for: GCS=15, CN II-XII Intact, Speech Normal, Motor Func Grossly Intact, Normal Sensory Function Skin: Positive for: Warm, Dry, Normal Color. Negative for: Rashes Psychiatric: Positive for: Alert, Oriented x 3, Normal Insight, Normal Concentration - Medications Active Medications: Active Medications Generic Name Dose Route Start Last Admin Trade Name Freq PRN Reason Stop Dose Admin Acetaminophen 650 mg 12/21/18 17:39 12/22/18 01:55 Tylenol 325mg Tab PO 650 mg Q6 PRN Administration TEMP>=99.5F Acetaminophen 650 mg 12/21/18 17:39 Tylenol 650 Mg Supp RC Q6H PRN TEMP>=99.5F Atorvastatin Calcium 40 mg 12/21/18 17:45 12/21/18 18:23 Lipitor PO 40 mg DIN NIKA Administration Docusate Sodium 100 mg 12/21/18 18:00 12/22/18 09:31 Colace PO 100 mg TID NIKA Administration Sodium Chloride 1,000 mls @ 100 mls/hr 12/21/18 12:15 12/22/18 09:32 Sodium Chloride 0.9% IV 100 mls/hr .Q10H NIKA Administration Levalbuterol HCl 0.63 mg 12/21/18 20:00 12/22/18 07:59 Xopenex IH 0.63 mg [id number] NIKA Administration Nicotine 1 patch 12/21/18 18:30 12/22/18 09:32 Nicoderm Cq TD 1 patch DAILY NIKA Administration Ondansetron HCl 4 mg 12/21/18 17:39 Zofran Inj IVP Q4H PRN Nausea/Vomiting Pantoprazole Sodium 40 mg 12/22/18 06:00 12/22/18 09:31 Protonix Ec Tab PO 40 mg 0600 NIKA Administration Pregabalin 50 mg 12/22/18 10:00 12/22/18 09:32 Lyrica PO 50 mg TID NIKA Administration - Patient Studies Lab Studies: Lab Studies 12/22/18 12/22/18 12/22/18 Range/Units 05:50 05:50 05:50 WBC 4.1 L D (4.5-11.0) 10^3/uL RBC 3.82 (3.5-6.1) 10^6/uL Hgb 10.8 L (14.0-18.0) g/dL Hct 34.4 L (42.0-52.0) % MCV 90.1 D (80.0-105.0) fl MCH 28.3 (25.0-35.0) pg MCHC 31.4 (31.0-37.0) g/dl RDW 18.6 H (11.5-14.5) % Plt Count 247 (120.0-450.0) 10^3/uL MPV 8.8 (7.0-11.0) fl Neut % (Auto) 67.6 (50.0-68.0) % Lymph % (Auto) 19.1 L (22.0-35.0) % [place] % (Auto) 8.0 H (1.0-6.0) % Eos % (Auto) 4.6 (1.5-5.0) % Baso % (Auto) 0.7 (0.0-3.0) % Lymph # (Auto) 0.8 L (1.2-3.4) [place] # (Auto) 0.3 (0.1-0.6) Eos # (Auto) 0.2 (0.0-0.7) Baso # (Auto) 0.03 (0.0-2.0) K/mm3 Absolute Neuts (auto) 2.80 (1.4-6.5) PT (9.4-12.5) SECONDS INR APTT (26.9-38.3) Seconds Sodium 136 (132-148) mmol/L Potassium 3.9 (3.6-5.0) mmol/L Chloride 107 (98-107) mmol/L Carbon Dioxide 23 (21-33) mmol/L Anion Gap 10 (10-20) BUN 8 (7-21) mg/dL Creatinine 0.6 L (0.8-1.5) mg/dl Est GFR ( Amer) > 60 Est GFR (Non-Af Amer) > 60 POC Glucose (mg/dL) (65-110) mg/dL Random Glucose 149 H (70-110) mg/dL Hemoglobin A1c (4.2-6.5) % Uric Acid 4.3 (3.5-8.5) mg/dL Calcium 8.3 L (8.4-10.5) mg/dL Phosphorus 2.7 (2.5-4.5) mg/dL Magnesium 2.0 (1.7-2.2) mg/dL Iron (45-180) ug/dL TIBC (261-462) ug/dL % Saturation (20-55) % Total Bilirubin 0.4 (0.2-1.3) mg/dL Direct Bilirubin 0.4 (0.0-0.4) mg/dL AST 18 (17-59) U/L ALT 11 (7-56) U/L Alkaline Phosphatase 71 (38-126) U/L Total Creatine Kinase (35-230) U/L Troponin I ng/mL Total Protein 6.6 (5.8-8.3) g/dL Albumin 3.4 (3.0-4.8) g/dL Globulin 3.2 gm/dL Albumin/Globulin Ratio 1.1 (1.1-1.8) Triglycerides 88 (35-160) mg/dL Cholesterol 97 L (130-200) mg/dL LDL Cholesterol Direct 62 (0-129) mg/dL HDL Cholesterol 23 L (29-60) mg/dL Free T4 1.17 (0.78-2.19) ng/dL Thyroxine (T4) 6.8 (5.5-11.0) ug/dL TSH 3rd Generation 1.07 (0.46-4.68) mIU/mL Urine Color (YELLOW) Urine Appearance (CLEAR) Urine pH (4.7-8.0) Ur Specific [place] (1.005-1.035) Urine Protein (<30 mg/dL) mg/dL Urine Glucose (UA) (NEGATIVE) mg/dL Urine Ketones (NEGATIVE) mg/dL Urine Blood (NEGATIVE) Urine Nitrate (NEGATIVE) Urine Bilirubin (NEGATIVE) Urine Urobilinogen (<1 E.U./dL) E.U./dL Ur Leukocyte Esterase (NEGATIVE) Roseline/uL Urine Opiates Screen (NEGATIVE) Urine Methadone Screen (NEGATIVE) Ur Barbiturates Screen (NEGATIVE) Ur Phencyclidine Scrn (NEGATIVE) Ur Amphetamines Screen (NEGATIVE) U Benzodiazepines Scrn (NEGATIVE) U Oth Cocaine Metabols (NEGATIVE) U Cannabinoids Screen (NEGATIVE) Blood Type Antibody Screen BBK History Checked 12/22/18 12/21/18 12/21/18 Range/Units 02:00 22:16 22:15 WBC (4.5-11.0) 10^3/uL RBC (3.5-6.1) 10^6/uL Hgb (14.0-18.0) g/dL Hct (42.0-52.0) % MCV (80.0-105.0) fl MCH (25.0-35.0) pg MCHC (31.0-37.0) g/dl RDW (11.5-14.5) % Plt Count (120.0-450.0) 10^3/uL MPV (7.0-11.0) fl Neut % (Auto) (50.0-68.0) % Lymph % (Auto) (22.0-35.0) % [place] % (Auto) (1.0-6.0) % Eos % (Auto) (1.5-5.0) % Baso % (Auto) (0.0-3.0) % Lymph # (Auto) (1.2-3.4) [place] # (Auto) (0.1-0.6) Eos # (Auto) (0.0-0.7) Baso # (Auto) (0.0-2.0) K/mm3 Absolute Neuts (auto) (1.4-6.5) PT (9.4-12.5) SECONDS INR APTT (26.9-38.3) Seconds Sodium (132-148) mmol/L Potassium (3.6-5.0) mmol/L Chloride (98-107) mmol/L Carbon Dioxide (21-33) mmol/L Anion Gap (10-20) BUN (7-21) mg/dL Creatinine (0.8-1.5) mg/dl Est GFR ( Amer) Est GFR (Non-Af Amer) POC Glucose (mg/dL) 99 (65-110) mg/dL Random Glucose (70-110) mg/dL Hemoglobin A1c (4.2-6.5) % Uric Acid (3.5-8.5) mg/dL Calcium (8.4-10.5) mg/dL Phosphorus (2.5-4.5) mg/dL Magnesium (1.7-2.2) mg/dL Iron (45-180) ug/dL TIBC (261-462) ug/dL % Saturation (20-55) % Total Bilirubin (0.2-1.3) mg/dL Direct Bilirubin (0.0-0.4) mg/dL AST (17-59) U/L ALT (7-56) U/L Alkaline Phosphatase (38-126) U/L Total Creatine Kinase 52 (35-230) U/L Troponin I < 0.01 ng/mL Total Protein (5.8-8.3) g/dL Albumin (3.0-4.8) g/dL Globulin gm/dL Albumin/Globulin Ratio (1.1-1.8) Triglycerides (35-160) mg/dL Cholesterol (130-200) mg/dL LDL Cholesterol Direct (0-129) mg/dL HDL Cholesterol (29-60) mg/dL Free T4 (0.78-2.19) ng/dL Thyroxine (T4) (5.5-11.0) ug/dL TSH 3rd Generation (0.46-4.68) mIU/mL Urine Color yellow (YELLOW) Urine Appearance Clear (CLEAR) Urine pH 6.5 (4.7-8.0) Ur Specific [place] 1.010 (1.005-1.035) Urine Protein Negative (<30 mg/dL) mg/dL Urine Glucose (UA) Negative (NEGATIVE) mg/dL Urine Ketones Negative (NEGATIVE) mg/dL Urine Blood Negative (NEGATIVE) Urine Nitrate Negative (NEGATIVE) Urine Bilirubin Negative (NEGATIVE) Urine Urobilinogen 2.0 H (<1 E.U./dL) E.U./dL Ur Leukocyte Esterase Negative (NEGATIVE) Roseline/uL Urine Opiates Screen (NEGATIVE) Urine Methadone Screen (NEGATIVE) Ur Barbiturates Screen (NEGATIVE) Ur Phencyclidine Scrn (NEGATIVE) Ur Amphetamines Screen (NEGATIVE) U Benzodiazepines Scrn (NEGATIVE) U Oth Cocaine Metabols (NEGATIVE) U Cannabinoids Screen (NEGATIVE) Blood Type Antibody Screen BBK History Checked 12/21/18 12/21/18 12/21/18 Range/Units 22:15 20:56 20:56 WBC (4.5-11.0) 10^3/uL RBC (3.5-6.1) 10^6/uL Hgb (14.0-18.0) g/dL Hct (42.0-52.0) % MCV (80.0-105.0) fl MCH (25.0-35.0) pg MCHC (31.0-37.0) g/dl RDW (11.5-14.5) % Plt Count (120.0-450.0) 10^3/uL MPV (7.0-11.0) fl Neut % (Auto) (50.0-68.0) % Lymph % (Auto) (22.0-35.0) % [place] % (Auto) (1.0-6.0) % Eos % (Auto) (1.5-5.0) % Baso % (Auto) (0.0-3.0) % Lymph # (Auto) (1.2-3.4) [place] # (Auto) (0.1-0.6) Eos # (Auto) (0.0-0.7) Baso # (Auto) (0.0-2.0) K/mm3 Absolute Neuts (auto) (1.4-6.5) PT (9.4-12.5) SECONDS INR APTT (26.9-38.3) Seconds Sodium (132-148) mmol/L Potassium (3.6-5.0) mmol/L Chloride (98-107) mmol/L Carbon Dioxide (21-33) mmol/L Anion Gap (10-20) BUN (7-21) mg/dL Creatinine (0.8-1.5) mg/dl Est GFR ( Amer) Est GFR (Non-Af Amer) POC Glucose (mg/dL) (65-110) mg/dL Random Glucose (70-110) mg/dL Hemoglobin A1c (4.2-6.5) % Uric Acid (3.5-8.5) mg/dL Calcium (8.4-10.5) mg/dL Phosphorus (2.5-4.5) mg/dL Magnesium (1.7-2.2) mg/dL Iron 547 H (45-180) ug/dL TIBC 309 (261-462) ug/dL % Saturation 177 H (20-55) % Total Bilirubin (0.2-1.3) mg/dL Direct Bilirubin (0.0-0.4) mg/dL AST (17-59) U/L ALT (7-56) U/L Alkaline Phosphatase (38-126) U/L Total Creatine Kinase 62 (35-230) U/L Troponin I < 0.01 ng/mL Total Protein (5.8-8.3) g/dL Albumin (3.0-4.8) g/dL Globulin gm/dL Albumin/Globulin Ratio (1.1-1.8) Triglycerides (35-160) mg/dL Cholesterol (130-200) mg/dL LDL Cholesterol Direct (0-129) mg/dL HDL Cholesterol (29-60) mg/dL Free T4 (0.78-2.19) ng/dL Thyroxine (T4) (5.5-11.0) ug/dL TSH 3rd Generation (0.46-4.68) mIU/mL Urine Color (YELLOW) Urine Appearance (CLEAR) Urine pH (4.7-8.0) Ur Specific [place] (1.005-1.035) Urine Protein (<30 mg/dL) mg/dL Urine Glucose (UA) (NEGATIVE) mg/dL Urine Ketones (NEGATIVE) mg/dL Urine Blood (NEGATIVE) Urine Nitrate (NEGATIVE) Urine Bilirubin (NEGATIVE) Urine Urobilinogen (<1 E.U./dL) E.U./dL Ur Leukocyte Esterase (NEGATIVE) Roselnie/uL Urine Opiates Screen Negative (NEGATIVE) Urine Methadone Screen Negative (NEGATIVE) Ur Barbiturates Screen Negative (NEGATIVE) Ur Phencyclidine Scrn Positive H (NEGATIVE) Ur Amphetamines Screen Negative (NEGATIVE) U Benzodiazepines Scrn Negative (NEGATIVE) U Oth Cocaine Metabols Negative (NEGATIVE) U Cannabinoids Screen Negative (NEGATIVE) Blood Type Antibody Screen BBK History Checked 12/21/18 12/21/18 12/21/18 Range/Units 17:23 12:30 12:20 WBC (4.5-11.0) 10^3/uL RBC (3.5-6.1) 10^6/uL Hgb (14.0-18.0) g/dL Hct (42.0-52.0) % MCV (80.0-105.0) fl MCH (25.0-35.0) pg MCHC (31.0-37.0) g/dl RDW (11.5-14.5) % Plt Count (120.0-450.0) 10^3/uL MPV (7.0-11.0) fl Neut % (Auto) (50.0-68.0) % Lymph % (Auto) (22.0-35.0) % [place] % (Auto) (1.0-6.0) % Eos % (Auto) (1.5-5.0) % Baso % (Auto) (0.0-3.0) % Lymph # (Auto) (1.2-3.4) [place] # (Auto) (0.1-0.6) Eos # (Auto) (0.0-0.7) Baso # (Auto) (0.0-2.0) K/mm3 Absolute Neuts (auto) (1.4-6.5) PT (9.4-12.5) SECONDS INR APTT (26.9-38.3) Seconds Sodium (132-148) mmol/L Potassium (3.6-5.0) mmol/L Chloride (98-107) mmol/L Carbon Dioxide (21-33) mmol/L Anion Gap (10-20) BUN (7-21) mg/dL Creatinine (0.8-1.5) mg/dl Est GFR ( Amer) Est GFR (Non-Af Amer) POC Glucose (mg/dL) 81 (65-110) mg/dL Random Glucose (70-110) mg/dL Hemoglobin A1c 5.6 (4.2-6.5) % Uric Acid (3.5-8.5) mg/dL Calcium (8.4-10.5) mg/dL Phosphorus (2.5-4.5) mg/dL Magnesium (1.7-2.2) mg/dL Iron (45-180) ug/dL TIBC (261-462) ug/dL % Saturation (20-55) % Total Bilirubin (0.2-1.3) mg/dL Direct Bilirubin (0.0-0.4) mg/dL AST (17-59) U/L ALT (7-56) U/L Alkaline Phosphatase (38-126) U/L Total Creatine Kinase (35-230) U/L Troponin I ng/mL Total Protein (5.8-8.3) g/dL Albumin (3.0-4.8) g/dL Globulin gm/dL Albumin/Globulin Ratio (1.1-1.8) Triglycerides (35-160) mg/dL Cholesterol (130-200) mg/dL LDL Cholesterol Direct (0-129) mg/dL HDL Cholesterol (29-60) mg/dL Free T4 (0.78-2.19) ng/dL Thyroxine (T4) (5.5-11.0) ug/dL TSH 3rd Generation (0.46-4.68) mIU/mL Urine Color (YELLOW) Urine Appearance (CLEAR) Urine pH (4.7-8.0) Ur Specific [place] (1.005-1.035) Urine Protein (<30 mg/dL) mg/dL Urine Glucose (UA) (NEGATIVE) mg/dL Urine Ketones (NEGATIVE) mg/dL Urine Blood (NEGATIVE) Urine Nitrate (NEGATIVE) Urine Bilirubin (NEGATIVE) Urine Urobilinogen (<1 E.U./dL) E.U./dL Ur Leukocyte Esterase (NEGATIVE) Roseline/uL Urine Opiates Screen (NEGATIVE) Urine Methadone Screen (NEGATIVE) Ur Barbiturates Screen (NEGATIVE) Ur Phencyclidine Scrn (NEGATIVE) Ur Amphetamines Screen (NEGATIVE) U Benzodiazepines Scrn (NEGATIVE) U Oth Cocaine Metabols (NEGATIVE) U Cannabinoids Screen (NEGATIVE) Blood Type AB POSITIVE Antibody Screen Negative BBK History Checked Patient has bt 12/21/18 12/21/18 12/21/18 Range/Units 12:20 12:20 12:20 WBC 6.1 (4.5-11.0) 10^3/uL RBC 3.78 (3.5-6.1) 10^6/uL Hgb 10.7 L (14.0-18.0) g/dL Hct 32.9 L (42.0-52.0) % MCV 87.0 (80.0-105.0) fl MCH 28.3 (25.0-35.0) pg MCHC 32.5 (31.0-37.0) g/dl RDW 17.9 H (11.5-14.5) % Plt Count 295 (120.0-450.0) 10^3/uL MPV 8.5 (7.0-11.0) fl Neut % (Auto) 63.8 (50.0-68.0) % Lymph % (Auto) 21.5 L (22.0-35.0) % [place] % (Auto) 10.4 H (1.0-6.0) % Eos % (Auto) 3.8 (1.5-5.0) % Baso % (Auto) 0.5 (0.0-3.0) % Lymph # (Auto) 1.3 (1.2-3.4) [place] # (Auto) 0.6 (0.1-0.6) Eos # (Auto) 0.2 (0.0-0.7) Baso # (Auto) 0.03 (0.0-2.0) K/mm3 Absolute Neuts (auto) 3.87 (1.4-6.5) PT 12.6 H (9.4-12.5) SECONDS INR 1.12 APTT 27.9 (26.9-38.3) Seconds Sodium 135 (132-148) mmol/L Potassium 4.2 (3.6-5.0) mmol/L Chloride 101 (98-107) mmol/L Carbon Dioxide 27 (21-33) mmol/L Anion Gap 12 (10-20) BUN 16 (7-21) mg/dL Creatinine 0.9 (0.8-1.5) mg/dl Est GFR ( Amer) > 60 Est GFR (Non-Af Amer) > 60 POC Glucose (mg/dL) (65-110) mg/dL Random Glucose 88 (70-110) mg/dL Hemoglobin A1c (4.2-6.5) % Uric Acid (3.5-8.5) mg/dL Calcium 8.9 (8.4-10.5) mg/dL Phosphorus (2.5-4.5) mg/dL Magnesium (1.7-2.2) mg/dL Iron (45-180) ug/dL TIBC (261-462) ug/dL % Saturation (20-55) % Total Bilirubin 0.7 (0.2-1.3) mg/dL Direct Bilirubin (0.0-0.4) mg/dL AST 28 (17-59) U/L ALT 16 (7-56) U/L Alkaline Phosphatase 82 (38-126) U/L Total Creatine Kinase (35-230) U/L Troponin I < 0.01 ng/mL Total Protein 7.8 (5.8-8.3) g/dL Albumin 4.1 (3.0-4.8) g/dL Globulin 3.7 gm/dL Albumin/Globulin Ratio 1.1 (1.1-1.8) Triglycerides 674 H (35-160) mg/dL Cholesterol 112 L (130-200) mg/dL LDL Cholesterol Direct 63 (0-129) mg/dL HDL Cholesterol 32 (29-60) mg/dL Free T4 (0.78-2.19) ng/dL Thyroxine (T4) (5.5-11.0) ug/dL TSH 3rd Generation (0.46-4.68) mIU/mL Urine Color (YELLOW) Urine Appearance (CLEAR) Urine pH (4.7-8.0) Ur Specific [place] (1.005-1.035) Urine Protein (<30 mg/dL) mg/dL Urine Glucose (UA) (NEGATIVE) mg/dL Urine Ketones (NEGATIVE) mg/dL Urine Blood (NEGATIVE) Urine Nitrate (NEGATIVE) Urine Bilirubin (NEGATIVE) Urine Urobilinogen (<1 E.U./dL) E.U./dL Ur Leukocyte Esterase (NEGATIVE) Roseline/uL Urine Opiates Screen (NEGATIVE) Urine Methadone Screen (NEGATIVE) Ur Barbiturates Screen (NEGATIVE) Ur Phencyclidine Scrn (NEGATIVE) Ur Amphetamines Screen (NEGATIVE) U Benzodiazepines Scrn (NEGATIVE) U Oth Cocaine Metabols (NEGATIVE) U Cannabinoids Screen (NEGATIVE) Blood Type Antibody Screen BBK History Checked Laboratory Results - last 24 hr 12/21/18 12/21/18 12/21/18 12:20 12:20 12:20 WBC 6.1 RBC 3.78 Hgb 10.7 L Hct 32.9 L MCV 87.0 MCH 28.3 MCHC 32.5 RDW 17.9 H Plt Count 295 MPV 8.5 Neut % (Auto) 63.8 Lymph % (Auto) 21.5 L [place] % (Auto) 10.4 H Eos % (Auto) 3.8 Baso % (Auto) 0.5 Lymph # (Auto) 1.3 [place] # (Auto) 0.6 Eos # (Auto) 0.2 Baso # (Auto) 0.03 Absolute Neuts (auto) 3.87 PT 12.6 H INR 1.12 APTT 27.9 Sodium 135 Potassium 4.2 Chloride 101 Carbon Dioxide 27 Anion Gap 12 BUN 16 Creatinine 0.9 Est GFR ( Amer) > 60 Est GFR (Non-Af Amer) > 60 POC Glucose (mg/dL) Random Glucose 88 Hemoglobin A1c Uric Acid Calcium 8.9 Phosphorus Magnesium Iron TIBC % Saturation Total Bilirubin 0.7 Direct Bilirubin AST 28 ALT 16 Alkaline Phosphatase 82 Total Creatine Kinase Troponin I < 0.01 Total Protein 7.8 Albumin 4.1 Globulin 3.7 Albumin/Globulin Ratio 1.1 Triglycerides 674 H Cholesterol 112 L LDL Cholesterol Direct 63 HDL Cholesterol 32 Free T4 Thyroxine (T4) TSH 3rd Generation Urine Color Urine Appearance Urine pH Ur Specific [place] Urine Protein Urine Glucose (UA) Urine Ketones Urine Blood Urine Nitrate Urine Bilirubin Urine Urobilinogen Ur Leukocyte Esterase Urine Opiates Screen Urine Methadone Screen Ur Barbiturates Screen Ur Phencyclidine Scrn Ur Amphetamines Screen U Benzodiazepines Scrn U Oth Cocaine Metabols U Cannabinoids Screen Blood Type Antibody Screen BBK History Checked 12/21/18 12/21/18 12/21/18 12:20 12:30 17:23 WBC RBC Hgb Hct MCV MCH MCHC RDW Plt Count MPV Neut % (Auto) Lymph % (Auto) [place] % (Auto) Eos % (Auto) Baso % (Auto) Lymph # (Auto) [place] # (Auto) Eos # (Auto) Baso # (Auto) Absolute Neuts (auto) PT INR APTT Sodium Potassium Chloride Carbon Dioxide Anion Gap BUN Creatinine Est GFR ( Amer) Est GFR (Non-Af Amer) POC Glucose (mg/dL) 81 Random Glucose Hemoglobin A1c 5.6 Uric Acid Calcium Phosphorus Magnesium Iron TIBC % Saturation Total Bilirubin Direct Bilirubin AST ALT Alkaline Phosphatase Total Creatine Kinase Troponin I Total Protein Albumin Globulin Albumin/Globulin Ratio Triglycerides Cholesterol LDL Cholesterol Direct HDL Cholesterol Free T4 Thyroxine (T4) TSH 3rd Generation Urine Color Urine Appearance Urine pH Ur Specific [place] Urine Protein Urine Glucose (UA) Urine Ketones Urine Blood Urine Nitrate Urine Bilirubin Urine Urobilinogen Ur Leukocyte Esterase Urine Opiates Screen Urine Methadone Screen Ur Barbiturates Screen Ur Phencyclidine Scrn Ur Amphetamines Screen U Benzodiazepines Scrn U Oth Cocaine Metabols U Cannabinoids Screen Blood Type AB POSITIVE Antibody Screen Negative BBK History Checked Patient has bt 12/21/18 12/21/18 12/21/18 20:56 20:56 22:15 WBC RBC Hgb Hct MCV MCH MCHC RDW Plt Count MPV Neut % (Auto) Lymph % (Auto) [place] % (Auto) Eos % (Auto) Baso % (Auto) Lymph # (Auto) [place] # (Auto) Eos # (Auto) Baso # (Auto) Absolute Neuts (auto) PT INR APTT Sodium Potassium Chloride Carbon Dioxide Anion Gap BUN Creatinine Est GFR ( Amer) Est GFR (Non-Af Amer) POC Glucose (mg/dL) Random Glucose Hemoglobin A1c Uric Acid Calcium Phosphorus Magnesium Iron 547 H TIBC 309 % Saturation 177 H Total Bilirubin Direct Bilirubin AST ALT Alkaline Phosphatase Total Creatine Kinase 62 Troponin I < 0.01 Total Protein Albumin Globulin Albumin/Globulin Ratio Triglycerides Cholesterol LDL Cholesterol Direct HDL Cholesterol Free T4 Thyroxine (T4) TSH 3rd Generation Urine Color Urine Appearance Urine pH Ur Specific [place] Urine Protein Urine Glucose (UA) Urine Ketones Urine Blood Urine Nitrate Urine Bilirubin Urine Urobilinogen Ur Leukocyte Esterase Urine Opiates Screen Negative Urine Methadone Screen Negative Ur Barbiturates Screen Negative Ur Phencyclidine Scrn Positive H Ur Amphetamines Screen Negative U Benzodiazepines Scrn Negative U Oth Cocaine Metabols Negative U Cannabinoids Screen Negative Blood Type Antibody Screen BBK History Checked 12/21/18 12/21/18 12/22/18 22:15 22:16 02:00 WBC RBC Hgb Hct MCV MCH MCHC RDW Plt Count MPV Neut % (Auto) Lymph % (Auto) [place] % (Auto) Eos % (Auto) Baso % (Auto) Lymph # (Auto) [place] # (Auto) Eos # (Auto) Baso # (Auto) Absolute Neuts (auto) PT INR APTT Sodium Potassium Chloride Carbon Dioxide Anion Gap BUN Creatinine Est GFR ( Amer) Est GFR (Non-Af Amer) POC Glucose (mg/dL) 99 Random Glucose Hemoglobin A1c Uric Acid Calcium Phosphorus Magnesium Iron TIBC % Saturation Total Bilirubin Direct Bilirubin AST ALT Alkaline Phosphatase Total Creatine Kinase 52 Troponin I < 0.01 Total Protein Albumin Globulin Albumin/Globulin Ratio Triglycerides Cholesterol LDL Cholesterol Direct HDL Cholesterol Free T4 Thyroxine (T4) TSH 3rd Generation Urine Color yellow Urine Appearance Clear Urine pH 6.5 Ur Specific [place] 1.010 Urine Protein Negative Urine Glucose (UA) Negative Urine Ketones Negative Urine Blood Negative Urine Nitrate Negative Urine Bilirubin Negative Urine Urobilinogen 2.0 H Ur Leukocyte Esterase Negative Urine Opiates Screen Urine Methadone Screen Ur Barbiturates Screen Ur Phencyclidine Scrn Ur Amphetamines Screen U Benzodiazepines Scrn U Oth Cocaine Metabols U Cannabinoids Screen Blood Type Antibody Screen BBK History Checked 12/22/18 12/22/18 12/22/18 05:50 05:50 05:50 WBC 4.1 L D RBC 3.82 Hgb 10.8 L Hct 34.4 L MCV 90.1 D MCH 28.3 MCHC 31.4 RDW 18.6 H Plt Count 247 MPV 8.8 Neut % (Auto) 67.6 Lymph % (Auto) 19.1 L [place] % (Auto) 8.0 H Eos % (Auto) 4.6 Baso % (Auto) 0.7 Lymph # (Auto) 0.8 L [place] # (Auto) 0.3 Eos # (Auto) 0.2 Baso # (Auto) 0.03 Absolute Neuts (auto) 2.80 PT INR APTT Sodium 136 Potassium 3.9 Chloride 107 Carbon Dioxide 23 Anion Gap 10 BUN 8 Creatinine 0.6 L Est GFR ( Amer) > 60 Est GFR (Non-Af Amer) > 60 POC Glucose (mg/dL) Random Glucose 149 H Hemoglobin A1c Uric Acid 4.3 Calcium 8.3 L Phosphorus 2.7 Magnesium 2.0 Iron TIBC % Saturation Total Bilirubin 0.4 Direct Bilirubin 0.4 AST 18 ALT 11 Alkaline Phosphatase 71 Total Creatine Kinase Troponin I Total Protein 6.6 Albumin 3.4 Globulin 3.2 Albumin/Globulin Ratio 1.1 Triglycerides 88 Cholesterol 97 L LDL Cholesterol Direct 62 HDL Cholesterol 23 L Free T4 1.17 Thyroxine (T4) 6.8 TSH 3rd Generation 1.07 Urine Color Urine Appearance Urine pH Ur Specific [place] Urine Protein Urine Glucose (UA) Urine Ketones Urine Blood Urine Nitrate Urine Bilirubin Urine Urobilinogen Ur Leukocyte Esterase Urine Opiates Screen Urine Methadone Screen Ur Barbiturates Screen Ur Phencyclidine Scrn Ur Amphetamines Screen U Benzodiazepines Scrn U Oth Cocaine Metabols U Cannabinoids Screen Blood Type Antibody Screen BBK History Checked Radiology Impressions: Radiology Impressions Chest X-Ray 12/21/18 12:03 IMPRESSION: Patchy right middle lobe infiltrate. Head CT 12/21/18 12:03 IMPRESSION: No acute hemorrhage. Old left occipital infarct. Head/Neck CTA 12/21/18 12:30 IMPRESSION: No significant stenosis. CT Angiography of the Brain. HISTORY: cva COMPARISON: None available. TECHNIQUE: CT angiography of the intracranial arteries was performed. Coronal and sagittal maximum intensity projection reformated images were generated. Radiation dose: Total exam DLP = 378.37 mGy-cm. This CT exam was performed using one or more of the following dose reduction techniques: Automated exposure control, adjustment of the mA and/or kV according to patient size, and/or use of iterative reconstruction technique. FINDINGS: INTERNAL CEREBRAL ARTERIES: Unremarkable. The skull base, petrous, cavernous and supraclinoid segments are bilaterally widely patent. ANTERIOR CEREBRAL ARTERIES: Unremarkable. A1 and A2 segments are widely patent. Smaller distal branches unremarkable, as visualized. MIDDLE CEREBRAL ARTERIES: Unremarkable. M1 and M2 segments are widely patent. Perisylvian branches grossly symmetric. POSTERIOR CIRCULATION: Basilar Artery: Unremarkable. Distal Vertebral Arteries: Unremarkable. Posterior Cerebral Arteries: Unremarkable. Posterior Inferior Cerebellar Arteries: Unremarkable. ANEURYSM/ VASCULAR MALFORMATIONS: None. OTHER FINDINGS: None. IMPRESSION: Unremarkable CT Angiography of the Brain. Head CT 12/22/18 06:00 IMPRESSION: Chronic left occipital lobe infarction. Chronic microvascular ischemic changes. Tiny bilateral basal ganglia lacunar-type infarcts. Generalized atrophy. Preliminary impression was provided by PB Milligan. EKG/Cardiology Studies: Cardiology / EKG Studies 12/21/18 12:03 ELECTROCARDIOGRAM Stat Comment: Reason For Exam: arrythmia 12/22/18 07:00 EKG [ELECTROCARDIOGRAM] DAILY Comment: Reason For Exam: CVA 12/23/18 07:00 EKG [ELECTROCARDIOGRAM] DAILY Comment: Reason For Exam: CVA Fingerstick Blood Sugar Results: 99 Critical Care Progress Note - Nutrition Nutrition: Nutrition Category Date Time Status Heart Healthy Diet [DIET] Diets 12/22/18 Breakfast Active Assessment/Plan - Assessment and Plan (Free Text) Assessment: Pt is a 68 yo M with pmhx of [place], COPD, Hep C, Duodenal ulcer s/p resection(1976), GI bleed (2016), PVD, drug abuse and neuropathy who presented to the ED for R sided leg weakness which started at 10:30 AM today. Pt was given TPA in the ED @ 12:52pm. Will be in ICU for close monitoring and neurochecks. Pt admits to improvement of sxs with medication. Plan: Neuro: Ischemic Stroke s/p tPA @ 12:52pm on 12/21/18: - Head CT 12/21 shows: Old occipital infarct, no acute hemorrhage - Head CT 12/22: Chronic left occipital lobe infarction. Chronic microvascular ischemic changes. Tiny bilateral basal ganglia lacunar-type infarcts. Generalized atrophy. - Pt given tPA as stated - Will continue neurochecks and BP monitoring as per protocol - Will ensure tight SBP control - NIHSS Stroke scale at this time is: 0 (pt assessed after tPA given) - Echo - Pt can be started on ASA after 24hrs of tPA have elapsed. - CTA Head and neck: Unremarkable CTA of brain - Carotid U/S: Done, pending official read. - A1c, B12, folate, lipid panel, TSH, Homocystiene Cardio: - Ensure MAP >65 Pulm: - Ensure O2 sat >92 GI: Hx of GI bleed: - Will cont to monitor for any signs of bleed - Protonix - Passed swallow eval Endo: - Ensure euglycemia and will cont to monitor BS overnight Nephro: - Maintain euvolemia PPx: GI: Protonix DVT: On tPA. Case seen and discussed with Dr. Ailyn Rose, PGY-1 <Nickolas Robertson - Last Filed: 12/22/18 12:54> CCU Objective - Vital Signs / Intake & Output Vital Signs (Last 4 hours): Vital Signs Pulse Resp BP Pulse Ox 12/22/18 12:15 91 H 18 144/68 12/22/18 12:00 90 12/22/18 11:04 84 24 134/65 12/22/18 10:20 77 21 95 12/22/18 10:15 85 20 129/62 12/22/18 10:10 81 22 94 L 12/22/18 10:00 84 23 129/62 95 12/22/18 09:50 87 23 93 L 12/22/18 09:40 90 24 94 L 12/22/18 09:30 94 H 18 94 L 12/22/18 09:20 93 H 27 H 94 L 12/22/18 09:15 93 H 20 141/55 L 12/22/18 09:10 95 H 27 H 12/22/18 09:01 101 H 24 141/55 L 91 L 12/22/18 09:00 98 H 28 H 141/55 L 92 L Intake and Output (Last 8hrs): Intake & Output 12/21/18 12/22/18 12/22/18 22:59 06:59 14:59 Intake Total 1800 Output Total 200 1300 Balance -200 500 Intake: IV 1200 Right Hand 1200 Oral 600 Output: Urine 200 1300 Condom 200 1300 Other: # Bowel Movements 1 1 - Medications Active Medications: Active Medications Generic Name Dose Route Start Last Admin Trade Name Freq PRN Reason Stop Dose Admin Acetaminophen 650 mg 12/21/18 17:39 12/22/18 01:55 Tylenol 325mg Tab PO 650 mg Q6 PRN Administration TEMP>=99.5F Acetaminophen 650 mg 12/21/18 17:39 Tylenol 650 Mg Supp RC Q6H PRN TEMP>=99.5F Atorvastatin Calcium 40 mg 12/21/18 17:45 12/21/18 18:23 Lipitor PO 40 mg DIN NIKA Administration Docusate Sodium 100 mg 12/21/18 18:00 12/22/18 09:31 Colace PO 100 mg TID NIKA Administration Sodium Chloride 1,000 mls @ 100 mls/hr 12/21/18 12:15 12/22/18 09:32 Sodium Chloride 0.9% IV 100 mls/hr .Q10H NIKA Administration Levalbuterol HCl 0.63 mg 12/21/18 20:00 12/22/18 07:59 Xopenex IH 0.63 mg [id number] NIKA Administration Nicotine 1 patch 12/21/18 18:30 12/22/18 09:32 Nicoderm Cq TD 1 patch DAILY NIKA Administration Ondansetron HCl 4 mg 12/21/18 17:39 Zofran Inj IVP Q4H PRN Nausea/Vomiting Pantoprazole Sodium 40 mg 12/22/18 06:00 12/22/18 09:31 Protonix Ec Tab PO 40 mg 0600 NIKA Administration Pregabalin 50 mg 12/22/18 10:00 12/22/18 09:32 Lyrica PO 50 mg TID NIKA Administration - Patient Studies Lab Studies: Lab Studies 12/22/18 12/22/18 12/22/18 Range/Units 05:50 05:50 05:50 WBC (4.5-11.0) 10^3/uL RBC (3.5-6.1) 10^6/uL Hgb (14.0-18.0) g/dL Hct (42.0-52.0) % MCV (80.0-105.0) fl MCH (25.0-35.0) pg MCHC (31.0-37.0) g/dl RDW (11.5-14.5) % Plt Count (120.0-450.0) 10^3/uL MPV (7.0-11.0) fl Neut % (Auto) (50.0-68.0) % Lymph % (Auto) (22.0-35.0) % [place] % (Auto) (1.0-6.0) % Eos % (Auto) (1.5-5.0) % Baso % (Auto) (0.0-3.0) % Lymph # (Auto) (1.2-3.4) [place] # (Auto) (0.1-0.6) Eos # (Auto) (0.0-0.7) Baso # (Auto) (0.0-2.0) K/mm3 Absolute Neuts (auto) (1.4-6.5) Sodium 136 (132-148) mmol/L Potassium 3.9 (3.6-5.0) mmol/L Chloride 107 (98-107) mmol/L Carbon Dioxide 23 (21-33) mmol/L Anion Gap 10 (10-20) BUN 8 (7-21) mg/dL Creatinine 0.6 L (0.8-1.5) mg/dl Est GFR ( Amer) > 60 Est GFR (Non-Af Amer) > 60 POC Glucose (mg/dL) (65-110) mg/dL Random Glucose 149 H (70-110) mg/dL Hemoglobin A1c (4.2-6.5) % Uric Acid 4.3 (3.5-8.5) mg/dL Calcium 8.3 L (8.4-10.5) mg/dL Phosphorus 2.7 (2.5-4.5) mg/dL Magnesium 2.0 (1.7-2.2) mg/dL Iron (45-180) ug/dL TIBC (261-462) ug/dL % Saturation (20-55) % Total Bilirubin 0.4 (0.2-1.3) mg/dL Direct Bilirubin 0.4 (0.0-0.4) mg/dL AST 18 (17-59) U/L ALT 11 (7-56) U/L Alkaline Phosphatase 71 (38-126) U/L Total Creatine Kinase (35-230) U/L Troponin I ng/mL Total Protein 6.6 (5.8-8.3) g/dL Albumin 3.4 (3.0-4.8) g/dL Globulin 3.2 gm/dL Albumin/Globulin Ratio 1.1 (1.1-1.8) Triglycerides 88 (35-160) mg/dL Cholesterol 97 L (130-200) mg/dL LDL Cholesterol Direct 62 (0-129) mg/dL HDL Cholesterol 23 L (29-60) mg/dL 25-OH Vitamin D Total 41.9 (30.0-100.0) NG/ML Free T4 1.17 (0.78-2.19) ng/dL Thyroxine (T4) 6.8 (5.5-11.0) ug/dL TSH 3rd Generation 1.07 (0.46-4.68) mIU/mL Urine Color (YELLOW) Urine Appearance (CLEAR) Urine pH (4.7-8.0) Ur Specific [place] (1.005-1.035) Urine Protein (<30 mg/dL) mg/dL Urine Glucose (UA) (NEGATIVE) mg/dL Urine Ketones (NEGATIVE) mg/dL Urine Blood (NEGATIVE) Urine Nitrate (NEGATIVE) Urine Bilirubin (NEGATIVE) Urine Urobilinogen (<1 E.U./dL) E.U./dL Ur Leukocyte Esterase (NEGATIVE) Roseline/uL Urine Opiates Screen (NEGATIVE) Urine Methadone Screen (NEGATIVE) Ur Barbiturates Screen (NEGATIVE) Ur Phencyclidine Scrn (NEGATIVE) Ur Amphetamines Screen (NEGATIVE) U Benzodiazepines Scrn (NEGATIVE) U Oth Cocaine Metabols (NEGATIVE) U Cannabinoids Screen (NEGATIVE) Blood Type Antibody Screen BBK History Checked 12/22/18 12/22/18 12/21/18 Range/Units 05:50 02:00 22:16 WBC 4.1 L D (4.5-11.0) 10^3/uL RBC 3.82 (3.5-6.1) 10^6/uL Hgb 10.8 L (14.0-18.0) g/dL Hct 34.4 L (42.0-52.0) % MCV 90.1 D (80.0-105.0) fl MCH 28.3 (25.0-35.0) pg MCHC 31.4 (31.0-37.0) g/dl RDW 18.6 H (11.5-14.5) % Plt Count 247 (120.0-450.0) 10^3/uL MPV 8.8 (7.0-11.0) fl Neut % (Auto) 67.6 (50.0-68.0) % Lymph % (Auto) 19.1 L (22.0-35.0) % [place] % (Auto) 8.0 H (1.0-6.0) % Eos % (Auto) 4.6 (1.5-5.0) % Baso % (Auto) 0.7 (0.0-3.0) % Lymph # (Auto) 0.8 L (1.2-3.4) [place] # (Auto) 0.3 (0.1-0.6) Eos # (Auto) 0.2 (0.0-0.7) Baso # (Auto) 0.03 (0.0-2.0) K/mm3 Absolute Neuts (auto) 2.80 (1.4-6.5) Sodium (132-148) mmol/L Potassium (3.6-5.0) mmol/L Chloride (98-107) mmol/L Carbon Dioxide (21-33) mmol/L Anion Gap (10-20) BUN (7-21) mg/dL Creatinine (0.8-1.5) mg/dl Est GFR ( Amer) Est GFR (Non-Af Amer) POC Glucose (mg/dL) 99 (65-110) mg/dL Random Glucose (70-110) mg/dL Hemoglobin A1c (4.2-6.5) % Uric Acid (3.5-8.5) mg/dL Calcium (8.4-10.5) mg/dL Phosphorus (2.5-4.5) mg/dL Magnesium (1.7-2.2) mg/dL Iron (45-180) ug/dL TIBC (261-462) ug/dL % Saturation (20-55) % Total Bilirubin (0.2-1.3) mg/dL Direct Bilirubin (0.0-0.4) mg/dL AST (17-59) U/L ALT (7-56) U/L Alkaline Phosphatase (38-126) U/L Total Creatine Kinase 52 (35-230) U/L Troponin I < 0.01 ng/mL Total Protein (5.8-8.3) g/dL Albumin (3.0-4.8) g/dL Globulin gm/dL Albumin/Globulin Ratio (1.1-1.8) Triglycerides (35-160) mg/dL Cholesterol (130-200) mg/dL LDL Cholesterol Direct (0-129) mg/dL HDL Cholesterol (29-60) mg/dL 25-OH Vitamin D Total (30.0-100.0) NG/ML Free T4 (0.78-2.19) ng/dL Thyroxine (T4) (5.5-11.0) ug/dL TSH 3rd Generation (0.46-4.68) mIU/mL Urine Color (YELLOW) Urine Appearance (CLEAR) Urine pH (4.7-8.0) Ur Specific [place] (1.005-1.035) Urine Protein (<30 mg/dL) mg/dL Urine Glucose (UA) (NEGATIVE) mg/dL Urine Ketones (NEGATIVE) mg/dL Urine Blood (NEGATIVE) Urine Nitrate (NEGATIVE) Urine Bilirubin (NEGATIVE) Urine Urobilinogen (<1 E.U./dL) E.U./dL Ur Leukocyte Esterase (NEGATIVE) Roseline/uL Urine Opiates Screen (NEGATIVE) Urine Methadone Screen (NEGATIVE) Ur Barbiturates Screen (NEGATIVE) Ur Phencyclidine Scrn (NEGATIVE) Ur Amphetamines Screen (NEGATIVE) U Benzodiazepines Scrn (NEGATIVE) U Oth Cocaine Metabols (NEGATIVE) U Cannabinoids Screen (NEGATIVE) Blood Type Antibody Screen BBK History Checked 12/21/18 12/21/18 12/21/18 Range/Units 22:15 22:15 20:56 WBC (4.5-11.0) 10^3/uL RBC (3.5-6.1) 10^6/uL Hgb (14.0-18.0) g/dL Hct (42.0-52.0) % MCV (80.0-105.0) fl MCH (25.0-35.0) pg MCHC (31.0-37.0) g/dl RDW (11.5-14.5) % Plt Count (120.0-450.0) 10^3/uL MPV (7.0-11.0) fl Neut % (Auto) (50.0-68.0) % Lymph % (Auto) (22.0-35.0) % [place] % (Auto) (1.0-6.0) % Eos % (Auto) (1.5-5.0) % Baso % (Auto) (0.0-3.0) % Lymph # (Auto) (1.2-3.4) [place] # (Auto) (0.1-0.6) Eos # (Auto) (0.0-0.7) Baso # (Auto) (0.0-2.0) K/mm3 Absolute Neuts (auto) (1.4-6.5) Sodium (132-148) mmol/L Potassium (3.6-5.0) mmol/L Chloride (98-107) mmol/L Carbon Dioxide (21-33) mmol/L Anion Gap (10-20) BUN (7-21) mg/dL Creatinine (0.8-1.5) mg/dl Est GFR ( Amer) Est GFR (Non-Af Amer) POC Glucose (mg/dL) (65-110) mg/dL Random Glucose (70-110) mg/dL Hemoglobin A1c (4.2-6.5) % Uric Acid (3.5-8.5) mg/dL Calcium (8.4-10.5) mg/dL Phosphorus (2.5-4.5) mg/dL Magnesium (1.7-2.2) mg/dL Iron 547 H (45-180) ug/dL TIBC 309 (261-462) ug/dL % Saturation 177 H (20-55) % Total Bilirubin (0.2-1.3) mg/dL Direct Bilirubin (0.0-0.4) mg/dL AST (17-59) U/L ALT (7-56) U/L Alkaline Phosphatase (38-126) U/L Total Creatine Kinase (35-230) U/L Troponin I ng/mL Total Protein (5.8-8.3) g/dL Albumin (3.0-4.8) g/dL Globulin gm/dL Albumin/Globulin Ratio (1.1-1.8) Triglycerides (35-160) mg/dL Cholesterol (130-200) mg/dL LDL Cholesterol Direct (0-129) mg/dL HDL Cholesterol (29-60) mg/dL 25-OH Vitamin D Total (30.0-100.0) NG/ML Free T4 (0.78-2.19) ng/dL Thyroxine (T4) (5.5-11.0) ug/dL TSH 3rd Generation (0.46-4.68) mIU/mL Urine Color yellow (YELLOW) Urine Appearance Clear (CLEAR) Urine pH 6.5 (4.7-8.0) Ur Specific [place] 1.010 (1.005-1.035) Urine Protein Negative (<30 mg/dL) mg/dL Urine Glucose (UA) Negative (NEGATIVE) mg/dL Urine Ketones Negative (NEGATIVE) mg/dL Urine Blood Negative (NEGATIVE) Urine Nitrate Negative (NEGATIVE) Urine Bilirubin Negative (NEGATIVE) Urine Urobilinogen 2.0 H (<1 E.U./dL) E.U./dL Ur Leukocyte Esterase Negative (NEGATIVE) Roseline/uL Urine Opiates Screen Negative (NEGATIVE) Urine Methadone Screen Negative (NEGATIVE) Ur Barbiturates Screen Negative (NEGATIVE) Ur Phencyclidine Scrn Positive H (NEGATIVE) Ur Amphetamines Screen Negative (NEGATIVE) U Benzodiazepines Scrn Negative (NEGATIVE) U Oth Cocaine Metabols Negative (NEGATIVE) U Cannabinoids Screen Negative (NEGATIVE) Blood Type Antibody Screen BBK History Checked 12/21/18 12/21/18 12/21/18 Range/Units 20:56 17:23 12:30 WBC (4.5-11.0) 10^3/uL RBC (3.5-6.1) 10^6/uL Hgb (14.0-18.0) g/dL Hct (42.0-52.0) % MCV (80.0-105.0) fl MCH (25.0-35.0) pg MCHC (31.0-37.0) g/dl RDW (11.5-14.5) % Plt Count (120.0-450.0) 10^3/uL MPV (7.0-11.0) fl Neut % (Auto) (50.0-68.0) % Lymph % (Auto) (22.0-35.0) % [place] % (Auto) (1.0-6.0) % Eos % (Auto) (1.5-5.0) % Baso % (Auto) (0.0-3.0) % Lymph # (Auto) (1.2-3.4) [place] # (Auto) (0.1-0.6) Eos # (Auto) (0.0-0.7) Baso # (Auto) (0.0-2.0) K/mm3 Absolute Neuts (auto) (1.4-6.5) Sodium (132-148) mmol/L Potassium (3.6-5.0) mmol/L Chloride (98-107) mmol/L Carbon Dioxide (21-33) mmol/L Anion Gap (10-20) BUN (7-21) mg/dL Creatinine (0.8-1.5) mg/dl Est GFR ( Amer) Est GFR (Non-Af Amer) POC Glucose (mg/dL) 81 (65-110) mg/dL Random Glucose (70-110) mg/dL Hemoglobin A1c (4.2-6.5) % Uric Acid (3.5-8.5) mg/dL Calcium (8.4-10.5) mg/dL Phosphorus (2.5-4.5) mg/dL Magnesium (1.7-2.2) mg/dL Iron (45-180) ug/dL TIBC (261-462) ug/dL % Saturation (20-55) % Total Bilirubin (0.2-1.3) mg/dL Direct Bilirubin (0.0-0.4) mg/dL AST (17-59) U/L ALT (7-56) U/L Alkaline Phosphatase (38-126) U/L Total Creatine Kinase 62 (35-230) U/L Troponin I < 0.01 ng/mL Total Protein (5.8-8.3) g/dL Albumin (3.0-4.8) g/dL Globulin gm/dL Albumin/Globulin Ratio (1.1-1.8) Triglycerides (35-160) mg/dL Cholesterol (130-200) mg/dL LDL Cholesterol Direct (0-129) mg/dL HDL Cholesterol (29-60) mg/dL 25-OH Vitamin D Total (30.0-100.0) NG/ML Free T4 (0.78-2.19) ng/dL Thyroxine (T4) (5.5-11.0) ug/dL TSH 3rd Generation (0.46-4.68) mIU/mL Urine Color (YELLOW) Urine Appearance (CLEAR) Urine pH (4.7-8.0) Ur Specific [place] (1.005-1.035) Urine Protein (<30 mg/dL) mg/dL Urine Glucose (UA) (NEGATIVE) mg/dL Urine Ketones (NEGATIVE) mg/dL Urine Blood (NEGATIVE) Urine Nitrate (NEGATIVE) Urine Bilirubin (NEGATIVE) Urine Urobilinogen (<1 E.U./dL) E.U./dL Ur Leukocyte Esterase (NEGATIVE) Roseline/uL Urine Opiates Screen (NEGATIVE) Urine Methadone Screen (NEGATIVE) Ur Barbiturates Screen (NEGATIVE) Ur Phencyclidine Scrn (NEGATIVE) Ur Amphetamines Screen (NEGATIVE) U Benzodiazepines Scrn (NEGATIVE) U Oth Cocaine Metabols (NEGATIVE) U Cannabinoids Screen (NEGATIVE) Blood Type AB POSITIVE Antibody Screen Negative BBK History Checked Patient has bt 12/21/18 12/21/18 Range/Units 12:20 12:20 WBC (4.5-11.0) 10^3/uL RBC (3.5-6.1) 10^6/uL Hgb (14.0-18.0) g/dL Hct (42.0-52.0) % MCV (80.0-105.0) fl MCH (25.0-35.0) pg MCHC (31.0-37.0) g/dl RDW (11.5-14.5) % Plt Count (120.0-450.0) 10^3/uL MPV (7.0-11.0) fl Neut % (Auto) (50.0-68.0) % Lymph % (Auto) (22.0-35.0) % [place] % (Auto) (1.0-6.0) % Eos % (Auto) (1.5-5.0) % Baso % (Auto) (0.0-3.0) % Lymph # (Auto) (1.2-3.4) [place] # (Auto) (0.1-0.6) Eos # (Auto) (0.0-0.7) Baso # (Auto) (0.0-2.0) K/mm3 Absolute Neuts (auto) (1.4-6.5) Sodium (132-148) mmol/L Potassium (3.6-5.0) mmol/L Chloride (98-107) mmol/L Carbon Dioxide (21-33) mmol/L Anion Gap (10-20) BUN (7-21) mg/dL Creatinine (0.8-1.5) mg/dl Est GFR ( Amer) Est GFR (Non-Af Amer) POC Glucose (mg/dL) (65-110) mg/dL Random Glucose (70-110) mg/dL Hemoglobin A1c 5.6 (4.2-6.5) % Uric Acid (3.5-8.5) mg/dL Calcium (8.4-10.5) mg/dL Phosphorus (2.5-4.5) mg/dL Magnesium (1.7-2.2) mg/dL Iron (45-180) ug/dL TIBC (261-462) ug/dL % Saturation (20-55) % Total Bilirubin (0.2-1.3) mg/dL Direct Bilirubin (0.0-0.4) mg/dL AST (17-59) U/L ALT (7-56) U/L Alkaline Phosphatase (38-126) U/L Total Creatine Kinase (35-230) U/L Troponin I < 0.01 ng/mL Total Protein (5.8-8.3) g/dL Albumin (3.0-4.8) g/dL Globulin gm/dL Albumin/Globulin Ratio (1.1-1.8) Triglycerides 674 H (35-160) mg/dL Cholesterol (130-200) mg/dL LDL Cholesterol Direct 63 (0-129) mg/dL HDL Cholesterol (29-60) mg/dL 25-OH Vitamin D Total (30.0-100.0) NG/ML Free T4 (0.78-2.19) ng/dL Thyroxine (T4) (5.5-11.0) ug/dL TSH 3rd Generation (0.46-4.68) mIU/mL Urine Color (YELLOW) Urine Appearance (CLEAR) Urine pH (4.7-8.0) Ur Specific [place] (1.005-1.035) Urine Protein (<30 mg/dL) mg/dL Urine Glucose (UA) (NEGATIVE) mg/dL Urine Ketones (NEGATIVE) mg/dL Urine Blood (NEGATIVE) Urine Nitrate (NEGATIVE) Urine Bilirubin (NEGATIVE) Urine Urobilinogen (<1 E.U./dL) E.U./dL Ur Leukocyte Esterase (NEGATIVE) Roseline/uL Urine Opiates Screen (NEGATIVE) Urine Methadone Screen (NEGATIVE) Ur Barbiturates Screen (NEGATIVE) Ur Phencyclidine Scrn (NEGATIVE) Ur Amphetamines Screen (NEGATIVE) U Benzodiazepines Scrn (NEGATIVE) U Oth Cocaine Metabols (NEGATIVE) U Cannabinoids Screen (NEGATIVE) Blood Type Antibody Screen BBK History Checked Laboratory Results - last 24 hr 12/21/18 12/21/18 12/21/18 12:20 12:20 12:30 WBC RBC Hgb Hct MCV MCH MCHC RDW Plt Count MPV Neut % (Auto) Lymph % (Auto) [place] % (Auto) Eos % (Auto) Baso % (Auto) Lymph # (Auto) [place] # (Auto) Eos # (Auto) Baso # (Auto) Absolute Neuts (auto) Sodium Potassium Chloride Carbon Dioxide Anion Gap BUN Creatinine Est GFR ( Amer) Est GFR (Non-Af Amer) POC Glucose (mg/dL) Random Glucose Hemoglobin A1c 5.6 Uric Acid Calcium Phosphorus Magnesium Iron TIBC % Saturation Total Bilirubin Direct Bilirubin AST ALT Alkaline Phosphatase Total Creatine Kinase Troponin I < 0.01 Total Protein Albumin Globulin Albumin/Globulin Ratio Triglycerides 674 H Cholesterol LDL Cholesterol Direct 63 HDL Cholesterol 25-OH Vitamin D Total Free T4 Thyroxine (T4) TSH 3rd Generation Urine Color Urine Appearance Urine pH Ur Specific [place] Urine Protein Urine Glucose (UA) Urine Ketones Urine Blood Urine Nitrate Urine Bilirubin Urine Urobilinogen Ur Leukocyte Esterase Urine Opiates Screen Urine Methadone Screen Ur Barbiturates Screen Ur Phencyclidine Scrn Ur Amphetamines Screen U Benzodiazepines Scrn U Oth Cocaine Metabols U Cannabinoids Screen Blood Type AB POSITIVE Antibody Screen Negative BBK History Checked Patient has bt 12/21/18 12/21/18 12/21/18 17:23 20:56 20:56 WBC RBC Hgb Hct MCV MCH MCHC RDW Plt Count MPV Neut % (Auto) Lymph % (Auto) [place] % (Auto) Eos % (Auto) Baso % (Auto) Lymph # (Auto) [place] # (Auto) Eos # (Auto) Baso # (Auto) Absolute Neuts (auto) Sodium Potassium Chloride Carbon Dioxide Anion Gap BUN Creatinine Est GFR ( Amer) Est GFR (Non-Af Amer) POC Glucose (mg/dL) 81 Random Glucose Hemoglobin A1c Uric Acid Calcium Phosphorus Magnesium Iron 547 H TIBC 309 % Saturation 177 H Total Bilirubin Direct Bilirubin AST ALT Alkaline Phosphatase Total Creatine Kinase 62 Troponin I < 0.01 Total Protein Albumin Globulin Albumin/Globulin Ratio Triglycerides Cholesterol LDL Cholesterol Direct HDL Cholesterol 25-OH Vitamin D Total Free T4 Thyroxine (T4) TSH 3rd Generation Urine Color Urine Appearance Urine pH Ur Specific [place] Urine Protein Urine Glucose (UA) Urine Ketones Urine Blood Urine Nitrate Urine Bilirubin Urine Urobilinogen Ur Leukocyte Esterase Urine Opiates Screen Urine Methadone Screen Ur Barbiturates Screen Ur Phencyclidine Scrn Ur Amphetamines Screen U Benzodiazepines Scrn U Oth Cocaine Metabols U Cannabinoids Screen Blood Type Antibody Screen BBK History Checked 12/21/18 12/21/18 12/21/18 22:15 22:15 22:16 WBC RBC Hgb Hct MCV MCH MCHC RDW Plt Count MPV Neut % (Auto) Lymph % (Auto) [place] % (Auto) Eos % (Auto) Baso % (Auto) Lymph # (Auto) [place] # (Auto) Eos # (Auto) Baso # (Auto) Absolute Neuts (auto) Sodium Potassium Chloride Carbon Dioxide Anion Gap BUN Creatinine Est GFR ( Amer) Est GFR (Non-Af Amer) POC Glucose (mg/dL) 99 Random Glucose Hemoglobin A1c Uric Acid Calcium Phosphorus Magnesium Iron TIBC % Saturation Total Bilirubin Direct Bilirubin AST ALT Alkaline Phosphatase Total Creatine Kinase Troponin I Total Protein Albumin Globulin Albumin/Globulin Ratio Triglycerides Cholesterol LDL Cholesterol Direct HDL Cholesterol 25-OH Vitamin D Total Free T4 Thyroxine (T4) TSH 3rd Generation Urine Color yellow Urine Appearance Clear Urine pH 6.5 Ur Specific [place] 1.010 Urine Protein Negative Urine Glucose (UA) Negative Urine Ketones Negative Urine Blood Negative Urine Nitrate Negative Urine Bilirubin Negative Urine Urobilinogen 2.0 H Ur Leukocyte Esterase Negative Urine Opiates Screen Negative Urine Methadone Screen Negative Ur Barbiturates Screen Negative Ur Phencyclidine Scrn Positive H Ur Amphetamines Screen Negative U Benzodiazepines Scrn Negative U Oth Cocaine Metabols Negative U Cannabinoids Screen Negative Blood Type Antibody Screen BBK History Checked 12/22/18 12/22/18 12/22/18 02:00 05:50 05:50 WBC 4.1 L D RBC 3.82 Hgb 10.8 L Hct 34.4 L MCV 90.1 D MCH 28.3 MCHC 31.4 RDW 18.6 H Plt Count 247 MPV 8.8 Neut % (Auto) 67.6 Lymph % (Auto) 19.1 L [place] % (Auto) 8.0 H Eos % (Auto) 4.6 Baso % (Auto) 0.7 Lymph # (Auto) 0.8 L [place] # (Auto) 0.3 Eos # (Auto) 0.2 Baso # (Auto) 0.03 Absolute Neuts (auto) 2.80 Sodium 136 Potassium 3.9 Chloride 107 Carbon Dioxide 23 Anion Gap 10 BUN 8 Creatinine 0.6 L Est GFR ( Amer) > 60 Est GFR (Non-Af Amer) > 60 POC Glucose (mg/dL) Random Glucose 149 H Hemoglobin A1c Uric Acid 4.3 Calcium 8.3 L Phosphorus 2.7 Magnesium 2.0 Iron TIBC % Saturation Total Bilirubin 0.4 Direct Bilirubin 0.4 AST 18 ALT 11 Alkaline Phosphatase 71 Total Creatine Kinase 52 Troponin I < 0.01 Total Protein 6.6 Albumin 3.4 Globulin 3.2 Albumin/Globulin Ratio 1.1 Triglycerides 88 Cholesterol 97 L LDL Cholesterol Direct 62 HDL Cholesterol 23 L 25-OH Vitamin D Total Free T4 Thyroxine (T4) TSH 3rd Generation Urine Color Urine Appearance Urine pH Ur Specific [place] Urine Protein Urine Glucose (UA) Urine Ketones Urine Blood Urine Nitrate Urine Bilirubin Urine Urobilinogen Ur Leukocyte Esterase Urine Opiates Screen Urine Methadone Screen Ur Barbiturates Screen Ur Phencyclidine Scrn Ur Amphetamines Screen U Benzodiazepines Scrn U Oth Cocaine Metabols U Cannabinoids Screen Blood Type Antibody Screen BBK History Checked 12/22/18 12/22/18 05:50 05:50 WBC RBC Hgb Hct MCV MCH MCHC RDW Plt Count MPV Neut % (Auto) Lymph % (Auto) [place] % (Auto) Eos % (Auto) Baso % (Auto) Lymph # (Auto) [place] # (Auto) Eos # (Auto) Baso # (Auto) Absolute Neuts (auto) Sodium Potassium Chloride Carbon Dioxide Anion Gap BUN Creatinine Est GFR ( Amer) Est GFR (Non-Af Amer) POC Glucose (mg/dL) Random Glucose Hemoglobin A1c Uric Acid Calcium Phosphorus Magnesium Iron TIBC % Saturation Total Bilirubin Direct Bilirubin AST ALT Alkaline Phosphatase Total Creatine Kinase Troponin I Total Protein Albumin Globulin Albumin/Globulin Ratio Triglycerides Cholesterol LDL Cholesterol Direct HDL Cholesterol 25-OH Vitamin D Total 41.9 Free T4 1.17 Thyroxine (T4) 6.8 TSH 3rd Generation 1.07 Urine Color Urine Appearance Urine pH Ur Specific [place] Urine Protein Urine Glucose (UA) Urine Ketones Urine Blood Urine Nitrate Urine Bilirubin Urine Urobilinogen Ur Leukocyte Esterase Urine Opiates Screen Urine Methadone Screen Ur Barbiturates Screen Ur Phencyclidine Scrn Ur Amphetamines Screen U Benzodiazepines Scrn U Oth Cocaine Metabols U Cannabinoids Screen Blood Type Antibody Screen BBK History Checked Radiology Impressions: Radiology Impressions Head/Neck CTA 12/21/18 12:30 IMPRESSION: No significant stenosis. CT Angiography of the Brain. HISTORY: cva COMPARISON: None available. TECHNIQUE: CT angiography of the intracranial arteries was performed. Coronal and sagittal maximum intensity projection reformated images were generated. Radiation dose: Total exam DLP = 378.37 mGy-cm. This CT exam was performed using one or more of the following dose reduction techniques: Automated exposure control, adjustment of the mA and/or kV according to patient size, and/or use of iterative reconstruction technique. FINDINGS: INTERNAL CEREBRAL ARTERIES: Unremarkable. The skull base, petrous, cavernous and supraclinoid segments are bilaterally widely patent. ANTERIOR CEREBRAL ARTERIES: Unremarkable. A1 and A2 segments are widely patent. Smaller distal branches unremarkable, as visualized. MIDDLE CEREBRAL ARTERIES: Unremarkable. M1 and M2 segments are widely patent. Perisylvian branches grossly symmetric. POSTERIOR CIRCULATION: Basilar Artery: Unremarkable. Distal Vertebral Arteries: Unremarkable. Posterior Cerebral Arteries: Unremarkable. Posterior Inferior Cerebellar Arteries: Unremarkable. ANEURYSM/ VASCULAR MALFORMATIONS: None. OTHER FINDINGS: None. IMPRESSION: Unremarkable CT Angiography of the Brain. Head CT 12/22/18 06:00 IMPRESSION: Chronic left occipital lobe infarction. Chronic microvascular ischemic changes. Tiny bilateral basal ganglia lacunar-type infarcts. Generalized atrophy. Preliminary impression was provided by [facility] Rad. EKG/Cardiology Studies: Cardiology / EKG Studies 12/21/18 12:03 ELECTROCARDIOGRAM Stat Comment: Reason For Exam: arrythmia 12/22/18 07:00 EKG [ELECTROCARDIOGRAM] DAILY Comment: Reason For Exam: CVA 12/23/18 07:00 EKG [ELECTROCARDIOGRAM] DAILY Comment: Reason For Exam: CVA Critical Care Progress Note - Nutrition Nutrition: Nutrition Category Date Time Status Heart Healthy Diet [DIET] Diets 12/22/18 Breakfast Active Assessment/Plan - Assessment and Plan (Free Text) Plan: Patient seen and examined on rounds with resident, agree with note with following additions/exceptions: Patient is 68yo male with PMHx CAD, COPD, Hep C, Duodenal ulcer s/p resection, GI bleed, PVD, drug abuse and neuropathy who presented to the ED for R sided leg weakness which started at 10:30 AM yesterday, s/p TPA given by ER, after consultation with Neurology. Initial CTH negative in the er for acute pathology, repeat CTH today with ICH, results otherwise noted Currently patient is afebrile, BP stable, comfortable in NAD, doing well, motor strength 5/5 all ext, no sensory deficits. NIHSS 0 Q4hr Neuro checks ECHO Check lipid panel, HgbA1C, TSH GI ppx DVT ppx Transfer to tele, stable
[2018-12-22 13:12] LABS: FERRITIN 47.1 ng/mL
[2018-12-22 13:42] LABS: FOLATE 16.5 ng/mL
--- NOTE | 2018-12-22 14:15 | CON ---
DATE OF CONSULTATION: 12/22/2018 GASTROENTEROLOGY CONSULTATION REQUESTING PHYSICIAN: Dr. Michaud. REASON FOR CONSULTATION: I have been asked to see this 68-year-old male with a history of coronary artery disease, COPD, peptic ulcer disease requiring ulcer surgery, drug abuse, neuropathy, who comes to the hospital with an acute onset of right-sided weakness in his leg. The patient was given thrombolytic therapy with TPA with improvement of his right leg weakness. I am asked to see this patient for anemia. His blood work in the emergency room revealed a hemoglobin of 10.8. On review of his prior blood work, his hemoglobin in 07/2018 was exactly the same in the 10.8 range. He denies any recent melena, rectal bleeding, nausea, or vomiting. He did have an episode of GI bleeding in 2017 requiring endoscopic clipping. He is currently in ICU, sitting up in bed, tolerating solid foods. PAST MEDICAL HISTORY: Notable for coronary artery disease with IA, COPD, drug use, peripheral vascular disease, neuropathy, hepatitis C, duodenal ulcer. PAST SURGICAL HISTORY: Notable for ulcer surgery. SOCIAL HISTORY: He smokes up to a pack a day of cigarettes daily. He denies alcohol use. FAMILY HISTORY: Notable for father with liver cancer as well as a brother, sister with brain cancer. REVIEW OF SYSTEMS: Fourteen-point review of systems is notable for right leg weakness. MEDICATIONS: Medications at home include Naprosyn, tramadol, oxycodone, Lyrica, lidocaine, ibuprofen, Flexeril and Tylenol with Codeine. PHYSICAL EXAMINATION: GENERAL: Middle-aged male appearing older than his stated age, lying in bed, in no distress. VITAL SIGNS: Reveal A temperature of 97.6, blood pressure 131/72, heart rate of 74. HEENT: Reveal sclerae to be white. Conjunctivae pink. NECK: Supple. CHEST: Revealed lungs to be clear. HEART: Exam reveals regular rate and rhythm. ABDOMEN: Soft, nontender. No mass. EXTREMITIES: Show no edema. LABORATORY DATA: Reveal white blood cell count of 4.1, hemoglobin 10.8 which is stable. Chemistries reveal normal electrolytes. AST, ALT, and alk phos were all normal. IMPRESSION: A 68-year-old male admitted with right leg weakness, status post thrombolysis with t-PA with anemia with a stable blood count over the last 48 hours. The patient has anemia of chronic disease as his hemoglobin back in 07/2018 is exactly the same as it is currently, at 10.8. The patient does have a history of hepatitis C. The patient does not know if this has been treated in the past. There is no evidence of gastrointestinal bleeding at this time. Again, the anemia is secondary to chronic disease. RECOMMENDATIONS: 1. Continue PPI for stress ulcer prophylaxis. 2. The patient can be evaluated for hepatitis C treatment as an outpatient. Jose Clinton MD
--- NOTE | 2018-12-22 15:49 | CON ---
DATE OF CONSULTATION: 12/22/2018 HISTORY: The patient is a 68-year-old male who presents with new CVA. He received thrombolytics in the emergency room. The patient's past medical history is free of cardiac disease. No previous myocardial infarction in the past. He does suffer from COPD and documented peripheral vascular disease. PAST MEDICAL HISTORY: History of drug abuse as well as hepatitis C. Currently, the patient is in the ICU in no acute distress. SOCIAL HISTORY: The patient denies smoking. REVIEW OF SYSTEMS: No angina, no shortness of breath. No edema in the lower extremities. PHYSICAL EXAMINATION: VITAL SIGNS: Blood pressure 134/65. The heart rate is in the 80s. NECK: Negative JVD. LUNGS: Without rales. HEART: S1, S2. EXTREMITIES: Without edema. LABORATORY DATA: Hemoglobin is 10.8. Chemistries: BUN and creatinine unremarkable. Troponins are negative x2. Previous echocardiogram shows good LV function. IMPRESSION: 1. Cerebrovascular accident. 2. Status post thrombolytic therapy. 3. Chronic obstructive pulmonary disease. 4. No previous myocardial infarction. 5. No acute anginal symptoms. Given these findings, the patient's cardiac status is stable hemodynamically and the patient is stable. Fran Maxwell MD
--- NOTE | 2018-12-22 15:56 | CP.PCM.PN ---
Subjective - Date & Time of Evaluation Date of Evaluation: 12/22/18 Time of Evaluation: 15:49 - Subjective Subjective: Neurology Progress Note: Mr. Cruz was seen and examined today in the ICU. He received IV tPA yesterday and appears to be doing well today. His gait has improved, ataxia is basically gone and nystagmus/dysarthria are also improved. He denied headache, or any new neurological deficits. Objective - Vital Signs/Intake and Output Vital Signs (last 24 hours): Temp Pulse Resp BP Pulse Ox 98.1 F 91 H 25 H 144/72 95 12/22/18 12:00 12/22/18 14:20 12/22/18 14:20 12/22/18 14:03 12/22/18 13:50 Intake and Output: 12/22/18 12/22/18 06:59 18:59 Intake Total 1800 1540 Output Total 1300 860 Balance 500 680 - Medications Medications: Current Medications Acetaminophen (Tylenol 325mg Tab) 650 mg PO Q6 PRN PRN Reason: TEMP>=99.5F Last Admin: 12/22/18 01:55 Dose: 650 mg Acetaminophen (Tylenol 650 Mg Supp) 650 mg RC Q6H PRN PRN Reason: TEMP>=99.5F Atorvastatin Calcium (Lipitor) 40 mg PO DIN [facility] Last Admin: 12/21/18 18:23 Dose: 40 mg Docusate Sodium (Colace) 100 mg PO TID [facility] Last Admin: 12/22/18 14:15 Dose: Not Given Sodium Chloride (Sodium Chloride 0.9%) 1,000 mls @ 100 mls/hr IV .Q10H [facility] Last Admin: 12/22/18 09:32 Dose: 100 mls/hr Levalbuterol HCl (Xopenex) 0.63 mg IH [id number] [facility] Last Admin: 12/22/18 14:02 Dose: 0.63 mg Nicotine (Nicoderm Cq) 1 patch TD DAILY [facility] Last Admin: 12/22/18 09:32 Dose: 1 patch Ondansetron HCl (Zofran Inj) 4 mg IVP Q4H PRN PRN Reason: Nausea/Vomiting Pantoprazole Sodium (Protonix Ec Tab) 40 mg PO 0600 [facility] Last Admin: 12/22/18 09:31 Dose: 40 mg Pregabalin (Lyrica) 50 mg PO TID [facility] Last Admin: 12/22/18 14:34 Dose: 50 mg - Labs Labs: 12/22/18 05:50 12/22/18 05:50 PT 12.6 SECONDS (9.4-12.5) H 12/21/18 12:20 INR 1.12 12/21/18 12:20 APTT 27.9 Seconds (26.9-38.3) 12/21/18 12:20 - Constitutional Appears: Cachectic - Head Exam Head Exam: ATRAUMATIC, NORMAL INSPECTION, NORMOCEPHALIC - Eye Exam Eye Exam: EOMI, Normal appearance, PERRL Pupil Exam: NORMAL ACCOMODATION, PERRL - ENT Exam ENT Exam: Mucous Membranes Moist, Normal Exam - Neck Exam Neck Exam: Full ROM, Normal Inspection. absent: Lymphadenopathy - Respiratory Exam Respiratory Exam: Clear to Ausculation Bilateral, NORMAL BREATHING PATTERN - Cardiovascular Exam Cardiovascular Exam: REGULAR RHYTHM, +S1, +S2. absent: Murmur - GI/Abdominal Exam GI & Abdominal Exam: Soft, Normal Bowel Sounds. absent: Tenderness - Extremities Exam Extremities Exam: Full ROM, Normal Capillary Refill, Normal Inspection. absent: Joint Swelling, Pedal Edema - Back Exam Back Exam: NORMAL INSPECTION - Neurological Exam Neurological Exam: Abnormal Gait, Alert, Awake, CN II-XII Intact, Oriented x3, Reflexes Normal Neuro motor strength exam: Left Upper Extremity: 5, Right Upper Extremity: 5, Left Lower Extremity: 5, Right Lower Extremity: 5 Additional comments: NIHSS = 2 - Psychiatric Exam Psychiatric exam: Normal Affect, Normal Mood - Skin Skin Exam: Dry, Intact, Normal Color, Warm Assessment and Plan (1) Acute ischemic stroke Assessment & Plan: Continue post-tPA protocol. I also recommend the followin. Telemetry 2. MRI brain without contrast 3. Echocardiogram 4. PT/OT eval and treatment 5. Start aspirin 81 mg daily at least 24 hours after tPA 6. Fluids with NS at 100 mL/hr 7. Permissive HTN for the next 24 hours (only treat BP higher than 185/105 mm H g) 9. Check HbA1c, lipid panel, B12, folate, TSH, homocysteine levels, Vitamin D levels 10. Case management consult 11. Smoking cessation. Thank you. Status: Acute
[2018-12-22 16:09] VITALS: O2SAT 96
--- NOTE | 2018-12-23 00:40 | PN ---
DATE: 12/22/2018 SUBJECTIVE: The patient is seen lying in the bed in ICU bed 4. The patient is awake, responsive, alert, awake, oriented, responsive, able to state his full name and able to spell his full name forwards and backwards. Overnight nurse's notes were reviewed. The patient was found by nurses to be alert , awake, and oriented x3. PHYSICAL EXAMINATION: VITAL SIGNS: T-max 98.4. Telemetry monitoring showed normal sinus rhythm. Heart rate 84, blood pressure 131/73, 137/65, 143/72, 134/65, respirations 20-25, and O2 sat is 93, 94, 95%. INTAKE AND OUTPUT: Noted. HEENT: Head is normocephalic and atraumatic. Pinkish pale conjunctivae. Anicteric sclerae. No oropharyngeal lesion. Questionable soft carotid bruit. CHEST: Kyphosis. LUNGS: Positive rhonchi bilaterally, right more than the left. CARDIOVASCULAR: Shows S1 and S2, regular rhythm. Questionable soft systolic murmur left sternal border, right second intercostal space, left second intercostal space. ABDOMEN: Soft. Positive bowel sounds. GENITALIA: Male. EXTREMITIES: Questionable right-sided weakness. The patient's gait could not be checked. There is a question of right-sided leg weakness which has resolved today. No pitting edema. No calf tenderness. No Homans' sign. NEUROLOGIC: The patient is alert, awake, responses. DIAGNOSTIC DATA: WBC 4.1, hemoglobin/hematocrit 10.8/34.4. CMP; glucose 149. Hemoglobin A1c is 5.6. LFTs are normal. Troponin is negative x3. Cholesterol 97, LDL 62, and HDL 23. Thyroid profile noted. Urine drug screen positive for PCP. RPR negative. MRSA cultures none detected. Blood type AB positive. The patient's CT of the head, carotid ultrasound, CT head and neck, chest x-ray, and EKG from 12/22 and 12/23 reviewed. IMPRESSION AND PLAN: 1. Possible acute ischemic infarct and stroke involving the right cerebellar and brainstem region. 2. Status post IV tPA. 3. Ataxia of the right side. 4. Questionable nystagmus to the left. 5. Right lower extremity weakness. 6. Transient hypoxemia. 7. Leukopenia. 8. Normocytic anemia. 9. Prediabetes with hemoglobin A1c of 5.6. 10. Urine drug screen positive for PCP. 11. Possible right middle lobe, right lower lobe community-acquired pneumonia. 12. Cerebral cortical atrophy of the brain with ventriculomegaly. 13. Left occipital lobe chronic hypodense region and chronic infarct. 14. Bilateral basal ganglia lacunar infarct. 15. Chronic microvascular ischemic disease of the brain. 16. Bilateral cerumen impaction. 17. Calcified carotid bifurcation plaque. 18. Old left occipital infarct. 19. History of chronic obstructive pulmonary disease. 20. History of subdural hematoma. 21. History of hepatitis C. 22. History of peptic ulcer disease. 23. Chronic renal disease. 24. History of chronic back pain. 25. History of lower extremity neuropathy. 26. History of duodenal ulcer resection. 27. History of gastric bypass surgery. 28. History of nicotine dependence. 29. History of questionable coronary artery disease, coronary CA. 30. History of questionable peripheral vascular disease. 31. History of left wrist fracture. 32. Depression. 33. Anxiety. 34. Substance abuse history of nicotine addiction. 35. History of alcohol use. PLAN: At this time, the patient's is awaiting Neurology evaluation. The patient's has been ordered repeat serial labs. Current consultation, his Neurohospitalist, Gastroenterology, and Cardiology. The patient received alteplase bolus and infusion. The patient is on Colace 100 mg three times a day, Debrox ear drops four times a day to both ears, doxycycline 100 mg IV every 12 hours, Ecotrin 81 mg daily, Lipitor 40 mg daily, Lyrica 50 mg three times a day, nicotine patch 21 mg daily, Protonix 40 mg daily, Rocephin 2 g IV daily, normal saline 0.9 at 100 mL an hour, Tylenol 650 mg p.o. suppository every 6 hours p.r.n., Xopenex nebulizer 0.63 mg every 6 hours, Zofran 4 mg IV every 4 hours p.r.n. Carotid vertebral Doppler, MRI, MRA of the brain are pending. Echo Doppler pending. EKG repeat pending. The patient is on heart-healthy diet. Ordered out of bed. SCDs both pharmacological, non-pharmacological. DVT and GI prophylaxis ordered. The patient has been ordered physical therapy and occupational therapy. We are awaiting further evaluation recommendation by Cardiology, Gastroenterology and Neurology. The patient's further management will be dependent upon the patient's clinical condition, hemodynamic status and as per the patient response to therapeutic intervention as per the patient's diagnostic test results and as per recommendation by all the physicians involved in the care of the patient. Dictated and electronically signed, not read. Dave Michaud MD
[2018-12-23] MEDS: Levalbuterol 0.63 MG/3 ML Inhal Soln UD IH SCH ×3 (02:19→13:53)
[2018-12-23] MEDS: Pantoprazole 40 mg EC Tab PO SCH (05:30)
[2018-12-23 05:44] LABS: BASO # 0.02 K/mm3 (0.0-2.0); BASO % 0.4 % (0.0-3.0); EOS # 0.2 (0.0-0.7); EOS % 3.5 % (1.5-5.0); LYMPH # 0.8 (1.2-3.4); LYMPH % 17.8 % (22.0-35.0); MEAN CELL VOLUME 88.4 fl (80.0-105.0); MEAN CORPUSCULAR HEMOGLOBIN 27.7 pg (25.0-35.0); MEAN CORPUSCULAR HGB CONC 31.3 g/dl (31.0-37.0); MEAN PLATELET VOLUME 8.3 fl (7.0-11.0); MONO # 0.6 (0.1-0.6); MONO % 12.6 % (1.0-6.0); RBC 3.97 10^6/uL (3.5-6.1); RED CELL DISTRIBUTION WIDTH 18.3 % (11.5-14.5); WHITE BLOOD COUNT 4.5 10^3/uL (4.5-11.0)
[2018-12-23 06:15] LABS: ALBUMIN 3.2 g/dL (3.0-4.8); ALT/SGPT 11 U/L (7-56); AST/SGOT 17 U/L (17-59); BILIRUBIN,DIRECT 0.3 mg/dL (0.0-0.4); BLOOD UREA NITROGEN 8 mg/dL (7-21); CALCIUM 8.6 mg/dL (8.4-10.5); GFR NON-AFRICAN AMERICAN > 60
--- NOTE | 2018-12-23 07:46 | CARD ---
APPROVED REPORT Date of service: 12/22/2018 EKG Measurement Heart [id number] <Conclusion> Normal sinus rhythm Normal ECG
[2018-12-23 08:59] LABS: FREE T4 1.08 ng/dL (0.78-2.19)
[2018-12-23] MEDS: Sodium Chloride 0.9% 1,000 ML IV SCH (09:13)
[2018-12-23] MEDS ORDERED: cefTRIAXone 2 GM IN NS 2 GM/100 ML BAG IVPB SCH (10:00)
[2018-12-23 12:26] VITALS: BP 134/85; PULSE 73; RESP 18; TEMP 98
--- NOTE | 2018-12-23 13:21 | PN ---
DATE: 12/23/2018 CARDIOLOGY FOLLOWUP SUBJECTIVE: The patient is comfortable in bed. PHYSICAL EXAMINATION VITAL SIGNS: Blood pressure is 142/65 and heart rates in the 70s. NECK: Negative JVD. LUNGS: Without rales. HEART: Reveals S1 and S2. EXTREMITIES: Without edema. LABORATORY DATA: Hemoglobin is 11. BUN and creatinine unremarkable. IMPRESSION: 1. Cerebrovascular accident. 2. Status post thrombolytic therapy. 3. Peripheral vascular disease. 4. Chronic obstructive pulmonary disease. Given these findings, the patient is hemodynamically doing well. Currently, he is on a baby aspirin and a nicotine patch. The patient is also on statin therapy, which is necessary. Fran Maxwell MD
[2018-12-23 14:18] LABS: FOLATE 9.2 ng/mL
--- NOTE | 2018-12-23 14:37 | CARD ---
APPROVED REPORT Date of service: 12/23/2018 EKG Measurement Heart [id number] <Conclusion> Normal sinus rhythm Normal ECG
--- NOTE | 2018-12-23 15:14 | US ---
PROCEDURE: Bilateral carotid artery duplex ultrasound HISTORY: Carotid stenosis PHYSICIAN(S): Fran Junior MD. TECHNIQUE: Duplex sonography and color-flow Doppler were used to evaluate the carotid bifurcations and limited segments of the vertebral arteries bilaterally. FINDINGS: The exam is limited by tortuous vessels There is mild focal echogenic plaque noted at the carotid bifurcations bilaterally. The peak systolic velocity in the proximal right internal carotid artery is 120 cm/sec. This corresponds to a 40-59 percent proximal right ICA stenosis. Normal systolic velocities are noted in the proximal right external carotid artery. There is antegrade flow in the right vertebral artery. The peak systolic velocity in the proximal left internal carotid artery is 127 cm/sec. This corresponds to a 40-59 percent proximal left ICA stenosis. Normal systolic velocities are noted in the proximal left external carotid artery. There is antegrade flow in the left vertebral artery. IMPRESSION: 1. Bilateral 40-59 percent proximal ICA stenoses. 2. Antegrade flow in both vertebral arteries.
--- NOTE | 2018-12-24 01:41 | DS ---
FINAL PROGRESS NOTE AND DISCHARGE SUMMARY The patient signed out against medical advice, 12/23/2018. SUBJECTIVE: The patient was seen in room 262, bed 2. The patient was transferred out of the ICU this morning. OBJECTIVE: VITAL SIGNS: T-max 98.2 to 98.3. Telemetry shows sinus rhythm, heart rate in 70s and 80s. The patient's last 12-24 hours blood pressure averaging around 130 systolic, diastolic in 70s and 60s and 80s mmHg, respirations 18 to 22, and O2 saturation in 93%, 94%, and 96%. INTAKE AND OUTPUT: Noted. HEENT: The patient's head examination; normocephalic and atraumatic. HEENT examination shows pinkish conjunctivae. Anicteric sclerae. No oropharyngeal lesion. NECK: No neck rigidity. Questionable soft carotid bruit. CHEST: Kyphosis. LUNGS: Shows positive rhonchi upper lung kaba anteriorly, right more than the left. CARDIOVASCULAR: S1 and S2, regular rhythm. Positive systolic murmur, right second intercostal space, left second intercostal space left sternal border. ABDOMEN: Soft. Positive bowel sounds. No palpable hepatosplenomegaly. GENITALIA: Male. RECTAL: Deferred. EXTREMITIES: Shows questionable right leg weakness, which has improved since admission. NEUROLOGIC: The patient is seen lying in the bed. FINAL IMPRESSION AND PLAN: 1. Most probably acute ischemic stroke, probably embolic, status post tPA protocol. 2. Most probable acute ischemic embolic stroke of the right cerebellar and brainstem region. 3. Leukopenia. 4. Normocytic anemia. 5. Prediabetes with hemoglobin A1c of 5.5. 6. Severe hypertriglyceridemia. 7. Urine drug screen positive for Pneumocystis carinii pneumonia. 8. History of chronic obstructive pulmonary disease, history of subdural hematoma, history of hepatitis C, history of peptic ulcer disease, history of neuropathy and chronic back pain syndrome, history of duodenal ulcer resection, history of gastric bypass, history of nicotine addiction and dependence, and history of Suboxone treatment. 9. History of questionable coronary artery disease, history of hearing deficit, history of left wrist fracture, and history of active nicotine dependence. 10. History of cerebral cortical atrophy of the brain. 11. Ventriculomegaly. 12. Left occipital hypodense region and chronic infarct. 13. Probable bilateral small basal ganglia lacunar infarct. 14. Chronic microvascular ischemic disease of the brain. 15. Bilateral cerumen impaction causing hearing deficit. 16. Bilateral 40 to 59% proximal internal carotid artery stenosis. I found out later in the day that the patient signed out against medical advice, but I was not notified by the patient's nurse neither the house physician who was covering the floors about the patient's signing out AMA. I was not notified about the patient's AMA made my second visit on the telemetry, initially the patient was seen in the ICU as mentioned before. CURRENT MEDICATIONS: The patient signed out against medical advice, Colace 100 mg three times a day, Debrox ear drops both ears every 6 hours, doxycycline 100 mg IV every 12 hours, Ecotrin 81 mg daily, Lipitor 40 mg daily, Lyrica 50 mg three times a day, nicotine 21 mg patch daily, Protonix 40 mg daily, Rocephin 2 g IV daily, IV fluid 0.9 normal saline at 100 mL an hour, Tylenol 650 mg suppository and p.o. every 6 hours p.r.n., Xopenex nebulizer 0.63 mg nebulizer treatment, and Zofran 4 mg IV every four hours p.r.n. The patient signed out against medical advice. I am unable to find any documentation by the house physician or the medical technologist hematology. I have discussed physician notification issue with the nurse in charge of the telemetry about this issue. I have advised the nurse in charge to please make sure that all the AMA paperwork is completed, signed and witnessed and the incident forms are completed, signed, and witnessed. Dictated and electronically signed, not read. Dave Michaud MD
[2018-12-24 08:24] LABS: HEPATITIS B SURFACE AG Negative (NEGATIVE)
[2018-12-24 08:29] LABS: HEPATITIS A IGM NEGATIVE (NEGATIVE); HEPATITIS B CORE AB NEGATIVE (NEGATIVE)
[2018-12-24 10:57] LABS: HEPATITIS C ANTIBODY REACTIVE (NEGATIVE)
== END 2018-12-23 16:45 | disposition left against medical advice (07) | DRG 63 ==
LOC: ED 11:34 → ERH 14:02 → CCU 14:48 → 2RSO 12-23 10:27
PROVIDERS: ADMIT Internal Medicine; ATTEND Internal Medicine
PROC: 3E03317 Introduction of Other Thrombolytic into Peripheral Vein, Percutaneous Approach (ICD-10-PCS; principal; 2018-12-21)
PROC: 3E0F7GC Introduction of Other Therapeutic Substance into Respiratory Tract, Via Natural or Artificial Opening (ICD-10-PCS; 2018-12-22)
DX: I63.441 Cerebral infarction due to embolism of right cerebellar artery (principal); I63.49 Cerebral infarction due to embolism of other cerebral artery; J44.9 Chronic obstructive pulmonary disease, unspecified; I73.9 Peripheral vascular disease, unspecified; R73.03 Prediabetes; N18.9 Chronic kidney disease, unspecified; I12.9 Hypertensive chronic kidney disease with stage 1 through stage 4 chronic kidney disease, or unspecified chronic kidney disease; I25.10 Atherosclerotic heart disease of native coronary artery without angina pectoris; H55.00 Unspecified nystagmus; R27.0 Ataxia, unspecified; R47.1 Dysarthria and anarthria; G62.9 Polyneuropathy, unspecified; D63.8 Anemia in other chronic diseases classified elsewhere; H61.23 Impacted cerumen, bilateral; B19.20 Unspecified viral hepatitis C without hepatic coma; F17.210 Nicotine dependence, cigarettes, uncomplicated; I65.23 Occlusion and stenosis of bilateral carotid arteries; R29.703 NIHSS score 3; M81.0 Age-related osteoporosis without current pathological fracture; R09.02 Hypoxemia; F41.9 Anxiety disorder, unspecified; F32.9 Major depressive disorder, single episode, unspecified; I25.2 Old myocardial infarction; Z86.73 Personal history of transient ischemic attack (TIA), and cerebral infarction without residual deficits; Z98.84 Bariatric surgery status; Z80.0 Family history of malignant neoplasm of digestive organs; Z80.8 Family history of malignant neoplasm of other organs or systems; Z87.11 Personal history of peptic ulcer disease

== ENCOUNTER 2019-03-09 19:09 | Emergency (ER) | payer MEDICARE ==
[2019-03-09 19:10] VITALS: BMI 16.9
[2019-03-09] MEDS ORDERED: Oxycodone/Acetaminophen 5/325 mg Tab PO STA (19:57)
[2019-03-09 19:58] VITALS: BP 118/67; PULSE 86; RESP 18; TEMP 97.5; O2SAT 98
--- NOTE | 2019-03-09 20:03 | ED PDOC ---
Arrival/HPI - General Chief Complaint: Lower Extremity Problem/Injury Time Seen by Provider: 03/09/19 19:28 Historian: Patient - History of Present Illness Narrative History of Present Illness (Text): 03/09/19 20:09 69 year old male, with past medical history of peripheral neuropathy and peptic ulcer disease, presents to emergency department with complaint of chronic bilateral leg pain. Patient states he ran out of medication and was referred to a neurologist, who he hasn't seen yet. Patient denies any trauma to area and is able to ambulate without any difficulty. He requests medication for the pain till he is able to visit his doctor. Patient denies any other somatic complaints at this time. Time/Duration: > month Symptom Onset: Gradual Symptom Course: Unchanged Activities at Onset: Light Context: Home Past Medical History - Provider Review Nursing Documentation Reviewed: Yes - Past History Past History: Non-Contributing - Infectious Disease Hx of Infectious Diseases: None - Tetanus Immunization Tetanus Immunization: Unknown - Past Medical History Past Medical History: Unable to Obtain - Cardiac Hx Cardiac Disorders: Yes Hx Peripheral Edema: Yes - Pulmonary Hx Chronic Obstructive Pulmonary Disease (COPD): Yes - Neurological Hx Neurological Disorder: Yes Hx Syncope: Yes Other/Comment: NEUROPATHY, AMS - HEENT Hx HEENT Disorder: Yes Hx Cataracts: Yes - Renal Hx Renal Disorder: No - Endocrine/Metabolic Hx Endocrine Disorders: No - Hematological/Oncological Hx Blood Disorders: Yes Hx Anemia: Yes Hx Hepatitis C: Yes - Integumentary Hx Dermatological Disorder: Yes (hx pressure ulcers) - Musculoskeletal/Rheumatological Hx Musculoskeletal Disorders: Yes Hx Fractures: Yes (left wrist) Hx Osteoporosis: Yes - Gastrointestinal Hx Gastrointestinal Disorders: Yes - Genitourinary/Gynecological Hx Sexually Transmitted Diseases: No - Psychiatric Hx Psychophysiologic Disorder: Yes Hx Anxiety: Yes Hx Depression: Yes Hx Substance Use: Yes - Past Surgical History Past Surgical History: Unable to Obtain - Surgical History Hx Coronary Artery Bypass Graft: No Other/Comment: GASTRECTOMY - Anesthesia Hx Anesthesia: Yes Hx Anesthesia Reactions: No Hx Malignant Hyperthermia: No - Suicidal Assessment Feels Threatened In Home Enviroment: No Family/Social History - Physician Review Nursing Documentation Reviewed: Yes Family/Social History: Unknown Family HX Smoking Status: Heavy Smoker > 10 Cigarettes Daily Hx Alcohol Use: No (ETOH ABUSE) Hx Substance Use: Yes Hx Substance Use Treatment: No Allergies/Home Meds Allergies/Adverse Reactions: Allergies aspirin Adverse Reaction (Verified 12/21/18 11:50) NAUSEA gastric ulcer/bleeding Home Medications: Home Meds Medication Instructions Recorded Confirmed Naproxen [Naprosyn] 500 mg PO BID 12/21/18 12/21/18 Review of Systems - Physician Review All systems were reviewed & negative as marked: Yes - Review of Systems Constitutional: absent: Fevers Respiratory: absent: SOB, Cough Cardiovascular: absent: Chest Pain Gastrointestinal: absent: Abdominal Pain, Diarrhea, Nausea, Vomiting Genitourinary Male: absent: Urinary Output Changes Musculoskeletal: Other (chronic leg pain). absent: Back Pain, Neck Pain Neurological: absent: Headache, Dizziness Physical Exam Vital Signs Reviewed: Yes Vital Signs Temp Pulse Resp BP Pulse Ox 03/09/19 19:35 97.5 F L 86 18 118/67 98 Temperature: Afebrile Blood Pressure: Normal Pulse: Regular Respiratory Rate: Normal Appearance: Positive for: Well-Appearing, Non-Toxic, Comfortable Pain Distress: None Mental Status: Positive for: Alert and Oriented X 3 - Systems Exam Head: Present: Atraumatic, Normocephalic Pupils: Present: PERRL Extroacular Muscles: Present: EOMI Conjunctiva: Present: Normal Mouth: Present: Moist Mucous Membranes Neck: Present: Normal Range of Motion Respiratory/Chest: Present: Clear to Auscultation, Good Air Exchange. No: Respiratory Distress, Accessory Muscle Use Cardiovascular: Present: Regular Rate and Rhythm, Normal S1, S2. No: Murmurs Abdomen: No: Tenderness, Distention, Peritoneal Signs Back: Present: Normal Inspection Upper Extremity: Present: Normal Inspection. No: Cyanosis, Edema Lower Extremity: Present: Normal Inspection, NORMAL PULSES, Neurovascularly Intact. No: Edema, CALF TENDERNESS, Julien's Sign, Swelling, Deformity Neurological: Present: GCS=15, CN II-XII Intact, Speech Normal, Motor Func Grossly Intact, Normal Sensory Function Skin: Present: Warm, Dry, Normal Color. No: Rashes Psychiatric: Present: Alert, Oriented x 3, Normal Insight, Normal Concentration Medical Decision Making ED Course and Treatment: 03/09/19 20:13 Impression: 69 year old male presents to emergency department for chronic leg pain. Plan: -- Reassess and disposition Prior Visits: Notes and results from previous visits were reviewed. Progress Notes: 03/09/19 20:10 Patient is requesting medication to hold him over till he is able to visit his doctor. - Medication Orders Current Medication Orders: Discontinued Medications Oxycodone/Acetaminophen (Percocet 5/325 Mg Tab) 1 tab PO STAT STA Stop: 03/09/19 19:58 - Scribe Statement The provider has reviewed the documentation as recorded by the Scribe Michel Mcgee All medical record entries made by the Scribe were at my direction and personally dictated by me. I have reviewed the chart and agree that the record accurately reflects my personal performance of the history, physical exam, medical decision making, and the department course for this patient. I have also personally directed, reviewed, and agree with the discharge instructions and disposition. Disposition/Present on Arrival - Present on Arrival Any Indicators Present on Arrival: No History of DVT/PE: No History of Uncontrolled Diabetes: No Urinary Catheter: No History of Decub. Ulcer: No History Surgical Site Infection Following: None - Disposition Have Diagnosis and Disposition been Completed?: Yes Diagnosis: Neuropathy, Chronic leg pain Disposition: HOME/ ROUTINE Disposition Time: 20:05 Patient Plan: Discharge Patient Problems: Current Active Problems Problem Status Onset Chronic leg pain Acute Neuropathy Chronic Condition: GOOD Discharge Instructions (ExitCare): Chronic Pain (DC), Peripheral Neuropathy (DC) Additional Instructions: Take meds as prescribed/must follow up with your doctor this week Prescriptions: oxyCODONE/Acetaminophen [Percocet 5/325 mg Tab] 1 ea PO Q6 PRN #16 tab PRN Reason: Pain, Moderate (4-7) Forms: [employer] (Northern Irish)
== END 2019-03-09 21:10 | disposition home or self-care (01) ==
LOC: ED 19:09
DX: G62.9 Polyneuropathy, unspecified (principal); M79.605 Pain in left leg; M79.604 Pain in right leg; G89.29 Other chronic pain; F17.210 Nicotine dependence, cigarettes, uncomplicated; J44.9 Chronic obstructive pulmonary disease, unspecified; M81.0 Age-related osteoporosis without current pathological fracture

== ENCOUNTER 2019-03-17 13:14 | Emergency (ER) | payer MEDICARE, MEDICAID ==
[2019-03-17 13:14] VITALS: BMI 16.9
[2019-03-17 13:41] VITALS: BP 135/78; PULSE 88; RESP 18; TEMP 98.2; O2SAT 98
--- NOTE | 2019-03-17 16:04 | ED PDOC ---
Arrival/HPI - General Chief Complaint: Lower Extremity Problem/Injury Time Seen by Provider: 03/17/19 13:17 Historian: Patient - History of Present Illness Narrative History of Present Illness (Text): 03/17/19 16:01 A 69 year old male, whose past medical history includes peripheral neuropathy, CA, osteoporosis, COPD, chronic LE pain, hepatitis C, drug abuse, and peripheral vascular disease, presents to the ED complaining of chronic bilateral lower extremity pain. Patient notes he is on chronic narcotics. Patient denies any recent trauma, fevers, chills, headache, dizziness, chest pain, shortness of breath, dyspnea on exertion, cough, abdominal pain, nausea, vomiting, diarrhea, back pain, neck pain, urinary/bowel changes, or any other complaints. PMD: Dr. Mary Time/Duration: Other (Chronic) Symptom Onset: Gradual Symptom Course: Unchanged Activities at Onset: Light Context: Home Past Medical History - Provider Review Nursing Documentation Reviewed: Yes - Past History Past History: Non-Contributing - Infectious Disease Hx of Infectious Diseases: None - Tetanus Immunization Tetanus Immunization: Unknown - Past Medical History Past Medical History: Unable to Obtain - Cardiac Hx Cardiac Disorders: Yes Hx Peripheral Edema: Yes - Pulmonary Hx Chronic Obstructive Pulmonary Disease (COPD): Yes - Neurological Hx Neurological Disorder: Yes Hx Syncope: Yes Other/Comment: NEUROPATHY, AMS - HEENT Hx HEENT Disorder: Yes Hx Cataracts: Yes - Renal Hx Renal Disorder: No - Endocrine/Metabolic Hx Endocrine Disorders: No - Hematological/Oncological Hx Blood Disorders: Yes Hx Anemia: Yes Hx Hepatitis C: Yes - Integumentary Hx Dermatological Disorder: Yes (hx pressure ulcers) - Musculoskeletal/Rheumatological Hx Musculoskeletal Disorders: Yes Hx Fractures: Yes (left wrist) Hx Osteoporosis: Yes - Gastrointestinal Hx Gastrointestinal Disorders: Yes - Genitourinary/Gynecological Hx Sexually Transmitted Diseases: No - Psychiatric Hx Psychophysiologic Disorder: Yes Hx Anxiety: Yes Hx Depression: Yes Hx Substance Use: Yes - Past Surgical History Past Surgical History: Unable to Obtain - Surgical History Hx Coronary Artery Bypass Graft: No Other/Comment: GASTRECTOMY - Anesthesia Hx Anesthesia: Yes Hx Anesthesia Reactions: No Hx Malignant Hyperthermia: No - Suicidal Assessment Feels Threatened In Home Enviroment: No Family/Social History - Physician Review Nursing Documentation Reviewed: Yes Family/Social History: No Known Family HX Smoking Status: Current Some Days Smoker Hx Alcohol Use: No (ETOH ABUSE) Hx Substance Use: Yes Hx Substance Use Treatment: No Allergies/Home Meds Allergies/Adverse Reactions: Allergies aspirin Adverse Reaction (Verified 12/21/18 11:50) NAUSEA gastric ulcer/bleeding Home Medications: Home Meds Medication Instructions Recorded Confirmed Ferrous Sulfate [Feosol] 325 mg pe PO DAILY 03/17/19 03/17/19 Gabapentin [Neurontin] 800 mg pe PO DAILY 03/17/19 03/17/19 Review of Systems - Physician Review All systems were reviewed & negative as marked: Yes - Review of Systems Musculoskeletal: Other (Chronic LE pain) Skin: absent: Rash Physical Exam Vital Signs Reviewed: Yes Vital Signs Temp Pulse Resp BP Pulse Ox 03/17/19 13:37 98.2 F 88 18 135/78 98 Temperature: Afebrile Blood Pressure: Normal Pulse: Regular Respiratory Rate: Normal Appearance: Positive for: Well-Appearing, Non-Toxic, Comfortable Pain Distress: Mild Mental Status: Positive for: Alert and Oriented X 3 - Systems Exam Head: Present: Atraumatic, Normocephalic Pupils: Present: PERRL Extroacular Muscles: Present: EOMI Conjunctiva: Present: Normal Respiratory/Chest: Present: Clear to Auscultation, Good Air Exchange. No: Respiratory Distress, Accessory Muscle Use Cardiovascular: Present: Regular Rate and Rhythm, Normal S1, S2. No: Murmurs Abdomen: No: Tenderness, Distention, Peritoneal Signs Psychiatric: Present: Alert, Oriented x 3, Normal Insight, Normal Concentration Medical Decision Making ED Course and Treatment: 03/17/19 16:10 Impression: A 69 year old male who presents to the ED for chronic LE pain. Plan: -- Reassess and disposition Prior Visits: Notes and results from previous visits were reviewed. Patient was last seen in the emergency department on 03/09/19. Progress Notes: Patient has an appointment with Dr. Petit in 3 days. - Scribe Statement The provider has reviewed the documentation as recorded by the Vicki Viera Provider Scribe Attestation: All medical record entries made by the Scribe were at my direction and personally dictated by me. I have reviewed the chart and agree that the record accurately reflects my personal performance of the history, physical exam, medical decision making, and the department course for this patient. I have also personally directed, reviewed, and agree with the discharge instructions and disposition. Disposition/Present on Arrival - Present on Arrival Any Indicators Present on Arrival: No History of DVT/PE: No History of Uncontrolled Diabetes: No Urinary Catheter: No History of Decub. Ulcer: No History Surgical Site Infection Following: None - Disposition Have Diagnosis and Disposition been Completed?: Yes Diagnosis: Chronic pain Disposition: HOME/ ROUTINE Disposition Time: 14:05 Condition: GOOD Discharge Instructions (ExitCare): Chronic Pain (DC) Additional Instructions: [place], thank you for letting us take care of you today. Your provider was Josh Kendall DO and you were treated for PAIN. The emergency medical care you received today was directed at your acute symptoms. If you were prescribed any medication, please fill it and take as directed. It may take several days for your symptoms to resolve. Return to the Emergency Department if your symptoms worsen, do not improve, or if you have any other problems. Please contact your doctor or call one of the physicians/clinics you have been referred to that are listed on the Patient Visit Information form that is included in your discharge packet. Bring any paperwork you were given at discharge with you along with any medications you are taking to your follow up visit. Our treatment cannot replace ongoing medical care by a primary care provider outside of the emergency department. Thank you for allowing the Info team to be part of your care today. Follow up with Dr. Petit as scheduled in 3 days. Please try not use the emergency room to obtain your chronic pain medication. Prescriptions: oxyCODONE/Acetaminophen [Percocet 5/325 mg Tab] 1 ea PO Q6 PRN #16 tab PRN Reason: Pain, Severe (8-10) [facility] [place], [Non-Staff] - Follow up with primary Forms: [employer] ([place]vadorean)
== END 2019-03-17 14:43 | disposition home or self-care (01) ==
LOC: ED 13:14
DX: G89.29 Other chronic pain (principal)